=== PATIENT | female | born 1980 | race Caucasian/White ===

== ENCOUNTER 2017-05-09 06:44 | Emergency (ER) | payer OTHER ==
--- OUTSIDE RECORDS SUMMARY | 2017-05-09 06:46 | XMS REPORT ---
:1980 Author Organization eClinicalWorks Care Team Providers Name Role Phone Poncho Crespo Provider Role Unavailable Allergies No Known Allergies Problems Problem Type Condition Code Onset Dates Condition Status Problem Encounter for gynecological Z01.419 Active examination without abnormal finding Problem Infertility, anovulation N97.0 Active Problem Morbid (severe) obesity due to E66.01 Active excess calories Problem Migraine without aura and without G43.009 Active status migrainosus, not intractable Problem HTN (hypertension), benign I10 Active Problem Prediabetes R73.03 Active Problem Seasonal allergic rhinitis, J30.2 Active unspecified trigger Problem Amenorrhea N91.2 Active Problem Depression with anxiety F41.8 Active Problem Adult BMI 50.0-59.9 kg/sq m Z68.43 Active Assessment Prediabetes R73.03 Active Assessment Migraine without aura and without G43.009 Active status migrainosus, not intractable Assessment HTN (hypertension), benign I10 Active Assessment Adult BMI 50.0-59.9 kg/sq m Z68.43 Active Assessment Seasonal allergic rhinitis, J30.2 Active unspecified trigger Problem Body mass index (BMI) of 50-59.9 in Z68.43 Active adult Assessment Depression with anxiety F41.8 Active Problem Secondary hypertension I15.9 Active Medications Medication Code Code Instructions Start End Date Status Dosage System Date Zestoretic [facility] 09931671562 10-12.5 MG Active 1 tablet Orally Once a day Lisinopril-Hyd [facility] 71554327811 10-12.5 MG Active 1 tablet rochlorothiazi Orally Once a de day Results No Known Results Summary Purpose eClinicalWorks Submission
--- NOTE | 2017-05-09 07:18 | RAD REPORT ---
EXAM DESCRIPTION: CT - Ct Stroke Brain Wo Cont - 05/09/2017 7:06 am CLINICAL HISTORY: CVA COMPARISON: None. TECHNIQUE: All CT scans are performed using dose optimization technique as appropriate and may inclu de automated exposure control or mA/KV adjustment according to patient size. FINDINGS: No intracranial hemorrhage, hydrocephalus or extra-axial fluid collection.No areas of brai n edema or evidence of midline shift. The paranasal sinuses and mastoids are clear. The calvarium is intact. IMPRESSION: No acute intracranial abnormality. If there is continued clinical concern for CVA, MR imaging of the brain would be recommended.
[2017-05-09 07:33] LABS: Absolute Lymphocytes (CBC) 3.3 K/uL (0.7-4.9); Absolute Monocytes 0.8 K/uL (0.1-1.3); Absolute Neutrophil 7.7 K/uL (1.8-8.0); Basophils % 1.9 % (0-1.3); Eosinophils % 2.1 % (0-4.4); Hematocrit 41.9 % (36.0-45.0); Lymphocytes % 26.6 % (15.3-44.8); MCV 82.3 fL (80-100); MPV 8.6 fL (7.6-11.3); Monocytes % 6.2 % (3.3-12.3); RBC Red Blood Cell Count 5.09 M/uL (3.86-4.86)
[2017-05-09 07:37] LABS: Protime INR 0.94
[2017-05-09 07:42] LABS: Bicarbonate 25 mEq/L (21-31); Glucose Level 118 mg/dL (65-120); Potassium 3.9 mEq/L (3.6-5.0); Sodium Level 140 mEq/L (135-145)
[2017-05-09 07:43] LABS: BUN Blood Urea Nitrogen 14 mg/dL (6-20)
[2017-05-09] MEDS ORDERED: METOCLOPRAMIDE 10 MG/2mL INJ ONE (08:31)
[2017-05-09] MEDS ORDERED: DIPHENHYDRAMINE 50 MG/ML VIAL ONE (08:32)
[2017-05-09 08:42] LABS: Urine Blood NEGATIVE (NEG); Urine Glucose NEGATIVE (NEG); Urine Protein NEGATIVE (NEG); Urine Specific Gravity 1.025 (1.005-1.030); Urine pH 5.5 (5.0-7.0)
[2017-05-09 08:49] LABS: Urine Bacteria 20-50 /HPF (<20); Urine Culture Reflex Order NOT NEEDED; Urine Mucus MOD /HPF (NONE SEEN); Urine RBC NONE SEEN /HPF (NONE SEEN)
--- NOTE | 2017-05-09 08:50 | ER ---
Nurse's Notes [facility] Name: Shahnaz River Age: 36 yrs Sex: Female : 1980 Arrival Date: 05/09/2017 Time: 06:46 Bed 6 Private MD: Poncho Crespo Diagnosis: Transient cerebral ischemic attacks and related syndromes Presentation: 05/09 06:56 Presenting complaint: Patient states: at approx 0610 this am she suddenly lost the aa1 peripheral vision in her R eye and shortly after began to feel pressure in the right side of her head. Reports similar episode 2 days ago which lasted approx 45 mins then resolved. Transition of care: patient was not received from another setting of care. Onset of symptoms was May 09, 2017 at 06:10. Care prior to arrival: None. 06:56 Method Of Arrival: Ambulatory aa1 06:56 Acuity: TARIQ 2 aa1 07:00 No acute neurological deficit is noted. Pre-hospital glucose is not applicable to this jl7 patient. Triage Assessment: 07:00 The onset of the patients symptoms was May 09, 2017 at 06:10. General: Appears in no jl7 apparent distress. uncomfortable. Stroke Activation: Symptom onset < 3 hours Physician: Stroke Attending; Name: ; Notified At: ; Arrived At: Physician: Chief Stroke Resident; Name: ; Notified At: ; Arrived At: Physician: Stroke Resident; Name: ; Notified At: ; Arrived At: Physician: ED Attending; Name: ; Notified At: ; Arrived At: Physician: ED Resident; Name: ; Notified At: ; Arrived At: Historical: - Allergies: 07:01 No Known Allergies; aa1 - Home Meds: 07:01 lisinopril-hydrochlorothiazide 10-12.5 mg oral tab [Active]; aa1 - PMHx: 07:01 Hypertension; Migraines; aa1 - PSHx: 07:01 Appendectomy; aa1 - Immunization history:: Flu vaccine is not up to date. - Social history:: Smoking status: Patient/guardian denies using tobacco. Screenin:20 Abuse screen: Denies threats or abuse. Denies injuries from another. Nutritional jl7 screening: No deficits noted. Tuberculosis screening: No symptoms or risk factors identified. Fall Risk No fall in past 12 months (0 pts). Secondary diagnosis (15 points) TIA, IV access (20 points). Ambulatory Aid- None/Bed Rest/Nurse Assist (0 pts). Gait- Normal/Bed Rest/Wheelchair (0 pts) Mental Status- Oriented to own ability (0 pts). Total Barbosa Fall Scale indicates Low Risk Score (25-44 pts). Fall prevention measures have been instituted. Side Rails Up X 2 Placed close to Nursing Station Frequent Obs/Assesments occuring Family Present and informed to notify staff if they need to leave bedside As available Patient and Family Educated on Fall Prevention Program and strategies. Assessment: 07:10 The patient has not been NPO before screening. The patient is currently on the jl7 following diet: Regular The patient is alert, and able to follow commands. The patient does not exhibit slurred or garbled speech. The patient is not exhibiting difficulty speaking. The patient does not exhibit difficulty understanding words. The patient is able to swallow own secretions with no drooling or need for suction. Patient tolerated one teaspoon of water. No drooling, immediate coughing, gurgling, or clearing of the throat was noted. The patient tolerated 90mL of water. No drooling, immediate coughing, gurgling, or clearing of the throat was noted. The patient passed the bedside swallow screening. Oral medications may be given as ordered. Contact Physician for further diet orders. Provider notified of bedside swallow screening results: Freddy Chester MD. T-PA (Activase) Screening: Contraindications: Rapidly improving condition or minor deficit: Yes. 07:20 General: Appears in no apparent distress. uncomfortable, Behavior is calm, cooperative, jl7 appropriate for age. Pain: Complains of pain in top of head Pain does not radiate. Pain currently is 5 out of 10 on a pain scale. Quality of pain is described as pressure, Pain began 1 hour ago. Is continuous. Neuro: Level of Consciousness is awake, alert, obeys commands, Oriented to person, place, time, situation, Meat Selector are equal bilaterally Moves all extremities. Gait is steady, Speech is normal, Facial symmetry appears normal, Pupils are PERRLA. Cardiovascular: Heart tones S1 S2 present Patient's skin is warm and dry. Rhythm is. Respiratory: Airway is patent Respiratory effort is even, unlabored, Respiratory pattern is regular, symmetrical. GI: No signs and/or symptoms were reported involving the gastrointestinal system. : No signs and/or symptoms were reported regarding the genitourinary system. EENT: No signs and/or symptoms were reported regarding the EENT system. Derm: Skin is pink, warm \\T\\ dry. Musculoskeletal: No signs and/or symptoms reported regarding the musculoskeletal system. 08:30 Reassessment: No changes from previously documented assessment. Patient and/or family jl7 updated on plan of care and expected duration. Pain level reassessed. Patient is alert, oriented x 3, equal unlabored respirations, skin warm/dry/pink. 08:48 Reassessment: Report given to Nurse Josette at [facility] in [place]. Pt requesting to [facility] talk to Dr. Chester prior to signing for transfer. Dr. Chester notified and states he will be to the bedside momentarily. 09:20 Reassessment: Dr. Chester at bedside discussing plan of care. jl7 10:02 Reassessment: Pt states "My head still hurts." Rated 5/10. Provider notified, see MAR jl7 for orders. Vital Signs: 07:01 BP 159 / 98; Pulse 74; Resp 18; Temp 97.9; Pulse Ox 97% on R/A; Weight 158.76 kg; aa1 Height 5 ft. 7 in. (170.18 cm); Pain 4/10; 07:20 BP 153 / 96; Pulse 72; Resp 16; Pulse Ox 97% on R/A; Pain 5/10; jl7 08:00 BP 139 / 86; Pulse 59; Resp 16 S; Pulse Ox 99% on R/A; jl7 08:35 BP 149 / 84; Pulse 61; Resp 16 S; Pulse Ox 99% on R/A; jl7 09:30 BP 132 / 79; Pulse 87; Resp 16 S; Pulse Ox 98% on R/A; jl7 07:01 Body Mass Index 54.82 (158.76 kg, 170.18 cm) aa1 NIH Stroke Scale Scores: 07:10 NIHSS Score: 2 jl7 07:46 NIHSS Score: 2 ED Course: 06:46 Patient arrived in ED. am2 06:47 Poncho Crespo DO is Private Physician. am2 06:57 Freddy Chester MD is Attending Physician. 07:00 Triage completed. aa1 07:01 Arm band placed on right wrist. Patient placed in an exam room, on a stretcher. aa1 07:06 CT Stroke Brain w/o Contrast In Process Unspecified. EDMS 07:08 CT completed. Patient tolerated procedure well. Patient moved back from CT. bq 07:20 Patient has correct armband on for positive identification. Placed in gown. Bed in low jl7 position. Call light in reach. Side rails up X 1. threat monitoring analyst on. Pulse ox on. NIBP on. Warm blanket given. 07:20 Initial lab(s) drawn, by me, sent to lab. Inserted saline lock: 22 gauge in left hand, jl7 using aseptic technique. Blood collected. 07:27 Stroke CXR 1 View In Process Unspecified. EDMS 07:34 Tio Conde RN is Primary Nurse. jl7 07:45 EKG done, by ED staff, reviewed by Freddy Chester MD. jb1 09:59 No provider procedures requiring assistance completed. Patient transferred, IV remains jl7 in place. intact, No redness/swelling at site. Administered Medications: 08:35 Drug: Reglan 5 mg Route: IVP; Site: left hand; jl7 10:01 Follow up: Response: No adverse reaction jl7 08:36 Drug: Benadryl 25 mg Route: IVP; Site: left hand; jl7 10:01 Follow up: Response: No adverse reaction jl7 10:06 Drug: [place] 5 mg-325 mg 1 tabs Route: PO; jl7 10:06 Follow up: Response: Medication administered at discharge. jl7 Point of Care Testing: Blood Glucose: 07:20 Blood Glucose: 104 mg/dL; jl7 Ranges: Outcome: 08:50 ER care complete, transfer ordered by gs 09:59 Transferred by ground EMS to [facility], Transfer form completed. jl7 09:59 Condition: stable 09:59 Discharge instructions given to patient, Instructed on the need for transfer, Demonstrated understanding of instructions. 10:09 Patient left the ED. jl7 NIH Stroke Scale - NIH Stroke Score Date: 05/09/2017 Time: 07:10 Total Score = 2 1a. Level of Consciousness (LOC) - 0(Alert) 1b. Level of Consciousness (LOC) (Year \\T\\ Age) - 0(Both) 1c. LOC Commands (Open \\T\\ Closes Eyes/Green Energy Marketing Analyst) - 0(Both) 2. Best Gaze (Lateral Gaze Paresis) - 0(Normal) 3. Visual Field Loss - 1(Partial hemianopia) 4. Facial Palsy - 0(Normal) 5a. Left Arm: Motor (10-second hold) - 0(No drift) 5b. Right Arm: Motor (10-second hold) - 0(No drift) 6a. Left Leg: Motor (5-second hold - always test supine) - 0(No drift) 6b. Right Leg: Motor (5-second hold - always test supine) - 0(No drift) 7. Limb Ataxia (finger/nose \\T\\ heel/arias - test with eyes open) - 0(Absent) 8. Sensory Loss (pinprick arms/legs/face) - 1(Mild to moderate loss) 9. Best Language: Aphasia (description/naming/reading) - 0(No aphasia) 10. Dysarthria (speech clarity - read or repeat words) - 0(Normal) 11. Extinction and Inattention (visual/tactile/auditory/spatial/personal) - 0(No abnormality) Initials: jl7 NIH Stroke Scale - NIH Stroke Score Date: 05/09/2017 Time: 07:46 Total Score = 2 1a. Level of Consciousness (LOC) - 0(Alert) 1b. Level of Consciousness (LOC) (Year \\T\\ Age) - 0(Both) 1c. LOC Commands (Open \\T\\ Closes Eyes/Green Energy Marketing Analyst) - 0(Both) 2. Best Gaze (Lateral Gaze Paresis) - 0(Normal) 3. Visual Field Loss - 1(Partial hemianopia) 4. Facial Palsy - 0(Normal) 5a. Left Arm: Motor (10-second hold) - 0(No drift) 5b. Right Arm: Motor (10-second hold) - 0(No drift) 6a. Left Leg: Motor (5-second hold - always test supine) - 0(No drift) 6b. Right Leg: Motor (5-second hold - always test supine) - 0(No drift) 7. Limb Ataxia (finger/nose \\T\\ heel/arias - test with eyes open) - 0(Absent) 8. Sensory Loss (pinprick arms/legs/face) - 1(Mild to moderate loss) 9. Best Language: Aphasia (description/naming/reading) - 0(No aphasia) 10. Dysarthria (speech clarity - read or repeat words) - 0(Normal) 11. Extinction and Inattention (visual/tactile/auditory/spatial/personal) - 0(No abnormality) Initials: gs Signatures: Dispatcher [employer] Will Sam1 Starla Kennedy RN RN aa1 Charla Manriquez Jahala, RN RN jl7 Yessenia Eastman am2 Freddy Chester MD MD gs
--- NOTE | 2017-05-09 08:50 | EDPHYS ---
Physician Documentation [facility] Name: Shahnaz River Age: 36 yrs Sex: Female : 1980 Arrival Date: 05/09/2017 Time: 06:46 Bed 6 Private MD: Zak [facility] ED Physician Freddy Chester HPI: 05/09 08:27 This 36 yrs old Female presents to ER via Ambulatory with complaints of gs Weakness - right side, Blurred Vision - right eye. 08:27 The patient presents to the emergency department with paresthesias of the right side of gs the face, a vision problem, right visual field loss. Onset: The symptoms/episode began/occurred at 05:00. Context: occurred at home. Associated signs and symptoms: Pertinent positives: headache, mild, gradual onset not thunderclap. Severity of symptoms: At their worst the symptoms were moderate in the emergency department the symptoms are unchanged. Patient's baseline: Neuro: alert and fully oriented, Motor: no deficits, Ambulation: walks without assistance, Speech: normal. Current symptoms: paralysis or paresis, visual disturbance. The patient has experienced a previous episode, approximately 2 days ago, and the symptoms today are exactly the same. Historical: - Allergies: 07:01 No Known Allergies; aa1 - Home Meds: 07:01 lisinopril-hydrochlorothiazide 10-12.5 mg oral tab [Active]; aa1 - PMHx: 07:01 Hypertension; Migraines; aa1 - PSHx: 07:01 Appendectomy; aa1 - Immunization history:: Flu vaccine is not up to date. - Social history:: Smoking status: Patient/guardian denies using tobacco. ROS: 08:27 All other systems are negative. gs Exam: 08:27 Head/Face: Normocephalic, atraumatic. Eyes: Pupils equal round and reactive to light, gs extra-ocular motions intact. Lids and lashes normal. Conjunctiva and sclera are non-icteric and not injected. Cornea within normal limits. Periorbital areas with no swelling, redness, or edema. ENT: Nares patent. No nasal discharge, no septal abnormalities noted. Tympanic membranes are normal and external auditory canals are clear. Oropharynx with no redness, swelling, or masses, exudates, or evidence of obstruction, uvula midline. Mucous membranes moist. Neck: Trachea midline, no thyromegaly or masses palpated, and no cervical lymphadenopathy. Supple, full range of motion without nuchal rigidity, or vertebral point tenderness. No Meningismus. Chest/axilla: Normal chest wall appearance and motion. Nontender with no deformity. No lesions are appreciated. Cardiovascular: Regular rate and rhythm with a normal S1 and S2. No gallops, murmurs, or rubs. Normal PMI, no JVD. No pulse deficits. Respiratory: Lungs have equal breath sounds bilaterally, clear to auscultation and percussion. No rales, rhonchi or wheezes noted. No increased work of breathing, no retractions or nasal flaring. Abdomen/GI: Soft, non-tender, with normal bowel sounds. No distension or tympany. No guarding or rebound. No evidence of tenderness throughout. Back: No spinal tenderness. No costovertebral tenderness. Full range of motion. Skin: Warm, dry with normal turgor. Normal color with no rashes, no lesions, and no evidence of cellulitis. MS/ Extremity: Pulses equal, no cyanosis. Neurovascular intact. Full, normal range of motion. 08:27 Constitutional: The patient appears alert, awake. 08:27 Eyes: Visual miller: upper altitudinal loss noted. 08:27 ECG was reviewed by the Attending Physician. 08:42 Neuro: Orientation: is normal, Mentation: is normal, Memory: is normal, Cranial nerves: gs normal except sensation right face, Cerebellar function: is grossly normal, Motor: is normal, Sensation: tingling, that is mild, of the right side of forehead, right zygomatic area and right cheek. Vital Signs: 07:01 BP 159 / 98; Pulse 74; Resp 18; Temp 97.9; Pulse Ox 97% on R/A; Weight 158.76 kg; aa1 Height 5 ft. 7 in. (170.18 cm); Pain 4/10; 07:20 BP 153 / 96; Pulse 72; Resp 16; Pulse Ox 97% on R/A; Pain 5/10; jl7 08:00 BP 139 / 86; Pulse 59; Resp 16 S; Pulse Ox 99% on R/A; jl7 08:35 BP 149 / 84; Pulse 61; Resp 16 S; Pulse Ox 99% on R/A; jl7 09:30 BP 132 / 79; Pulse 87; Resp 16 S; Pulse Ox 98% on R/A; 7 07:01 Body Mass Index 54.82 (158.76 kg, 170.18 cm) aa1 NIH Stroke Scale Scores: 07:10 NIHSS Score: 2 jl7 07:46 NIHSS Score: 2 MDM: 07:17 Patient medically screened. 08:27 Data reviewed: vital signs. 08:42 Response to treatment: the patient's symptoms have mildly improved after treatment. 05/09 06:59 Order name: Basic Metabolic Panel; Complete Time: 08:10 05/09 06:59 Order name: CBC with Diff; Complete Time: 08:10 05/09 06:59 Order name: Protime (+inr); Complete Time: 08:10 05/09 06:59 Order name: Urine Microscopic Only; Complete Time: 08:50 05/09 08:41 Order name: Urine Dipstick--Ancillary (enter results); Complete Time: 08:50 ms 05/09 08:41 Order name: Urine --Ancillary (enter results); Complete Time: 08:50 ms 05/09 06:59 Order name: CT Stroke Brain w/o Contrast; Complete Time: 08:10 05/09 06:59 Order name: Stroke CXR 1 View 05/09 06:59 Order name: EKG; Complete Time: 07:00 05/09 06:59 Order name: Accucheck; Complete Time: 07:48 05/09 06:59 Order name: Cardiac monitoring; Complete Time: 07:48 05/09 06:59 Order name: EKG - Nurse/Tech; Complete Time: 07:48 05/09 06:59 Order name: IV Saline Lock; Complete Time: 07:48 05/09 06:59 Order name: Labs collected and sent; Complete Time: 07:48 05/09 06:59 Order name: NPO; Complete Time: 07:49 05/09 06:59 Order name: O2 Per Protocol; Complete Time: 07:49 05/09 06:59 Order name: O2 Sat Monitoring; Complete Time: 07:49 05/09 06:59 Order name: Stroke Swallow Screen; Complete Time: 07:49 Administered Medications: 08:35 Drug: Reglan 5 mg Route: IVP; Site: left hand; jl7 10:01 Follow up: Response: No adverse reaction jl7 08:36 Drug: Benadryl 25 mg Route: IVP; Site: left hand; jl7 10:01 Follow up: Response: No adverse reaction jl7 10:06 Drug: [place] 5 mg-325 mg 1 tabs Route: PO; jl7 10:06 Follow up: Response: Medication administered at discharge. jl7 Point of Care Testing: Blood Glucose: 07:20 Blood Glucose: 104 mg/dL; jl7 Ranges: Critical Glucose Levels:Adult <50 mg/dl or >400 mg/dl <40 mg/dl or >180 mg/dl Disposition: 05/09/17 08:50 Transfer ordered to [facility]. Diagnosis is Transient cerebral ischemic attacks and related syndromes. - Reason for transfer: Higher level of care. - Accepting physician is mayela. - Condition is Stable. - Problem is new. - Symptoms have improved. NIH Stroke Scale - NIH Stroke Score Date: 05/09/2017 Time: 07:10 Total Score = 2 1a. Level of Consciousness (LOC) - 0(Alert) 1b. Level of Consciousness (LOC) (Year \T\ Age) - 0(Both) 1c. LOC Commands (Open \T\ Closes Eyes/Steam Blocker) - 0(Both) 2. Best Gaze (Lateral Gaze Paresis) - 0(Normal) 3. Visual Field Loss - 1(Partial hemianopia) 4. Facial Palsy - 0(Normal) 5a. Left Arm: Motor (10-second hold) - 0(No drift) 5b. Right Arm: Motor (10-second hold) - 0(No drift) 6a. Left Leg: Motor (5-second hold - always test supine) - 0(No drift) 6b. Right Leg: Motor (5-second hold - always test supine) - 0(No drift) 7. Limb Ataxia (finger/nose \T\ heel/arias - test with eyes open) - 0(Absent) 8. Sensory Loss (pinprick arms/legs/face) - 1(Mild to moderate loss) 9. Best Language: Aphasia (description/naming/reading) - 0(No aphasia) 10. Dysarthria (speech clarity - read or repeat words) - 0(Normal) 11. Extinction and Inattention (visual/tactile/auditory/spatial/personal) - 0(No abnormality) Initials: jl7 NIH Stroke Scale - NIH Stroke Score Date: 05/09/2017 Time: 07:46 Total Score = 2 1a. Level of Consciousness (LOC) - 0(Alert) 1b. Level of Consciousness (LOC) (Year \T\ Age) - 0(Both) 1c. LOC Commands (Open \T\ Closes Eyes/Steam Blocker) - 0(Both) 2. Best Gaze (Lateral Gaze Paresis) - 0(Normal) 3. Visual Field Loss - 1(Partial hemianopia) 4. Facial Palsy - 0(Normal) 5a. Left Arm: Motor (10-second hold) - 0(No drift) 5b. Right Arm: Motor (10-second hold) - 0(No drift) 6a. Left Leg: Motor (5-second hold - always test supine) - 0(No drift) 6b. Right Leg: Motor (5-second hold - always test supine) - 0(No drift) 7. Limb Ataxia (finger/nose \T\ heel/arias - test with eyes open) - 0(Absent) 8. Sensory Loss (pinprick arms/legs/face) - 1(Mild to moderate loss) 9. Best Language: Aphasia (description/naming/reading) - 0(No aphasia) 10. Dysarthria (speech clarity - read or repeat words) - 0(Normal) 11. Extinction and Inattention (visual/tactile/auditory/spatial/personal) - 0(No abnormality) Initials: Addendum: 05/11/2017 07:28 Addendum: did not administer TPA, discussed with patient she declined based on gs risk benefits of low stroke scale, improving symptoms, and risk of bleeding complication of medicine. Plan agreed by me and stroke neuro at [facility].. Signatures: Dispatcher [employer] EDStarla Mckeon RN RN aa1 Tio Conde RN RN jl7 Freddy Chester MD MD gs Corrections: (The following items were deleted from the chart) 05/09 08:45 08:27 Rate is 69 beats/min. Rhythm is regular. TN interval is normal. QRS gs interval is normal. T waves are Flattened. No ST changes noted. Clinical impression: Abnormal EKG without significant change. Interpreted by me. gs
[2017-05-09] MEDS ORDERED: HYDROCODONE/APAP 5/325 MG TAB ONE (10:24)
--- NOTE | 2017-05-09 11:00 | RAD REPORT ---
EXAM DESCRIPTION: RAD - Chest Single View - 05/09/2017 7:27 am CLINICAL HISTORY: Chest pain, hypertension. COMPARISON: 03/19/2016 FINDINGS: Portable technique limits examination quality. The lungs are grossly clear. The heart is normal in size. No displaced fractures. IMPRESSION: No acute intrathoracic process suspected.
--- NOTE | 2017-05-10 12:49 | EKG ---
Test Date: 2017-05-09 Test Time: 07:47:55 [employer] Driver: PAULA MEASUREMENT RESULTS: Intervals: Rate: 69 MS: 158 QRSD: 90 QT: 408 QTc: 437 [place]: P: 11 MS: 158 QRS: 36 T: 56 INTERPRETIVE STATEMENTS: Normal sinus rhythm Normal ECG Compared to ECG 03/18/2016 23:24:20 Sinus tachycardia no longer present Electronically Signed On 05-10-17 12:48:31 CDT by Alex Obregon
== END 2017-05-09 10:09 | disposition short-term general hospital (02) ==
LOC: ER 06:44
DX: G45.8 Other transient cerebral ischemic attacks and related syndromes (principal); I10 Essential (primary) hypertension; R29.702 NIHSS score 2
CPT/HCPCS: 36415; 70450; 71045; 80048; 81003; 81015; 81025; 82962; 85025; 85610; 93005; 96374; 96375; 99285; J2765

== ENCOUNTER 2017-08-26 14:31 | Emergency (ER) | payer OTHER ==
--- OUTSIDE RECORDS SUMMARY | 2017-08-26 14:33 | XMS REPORT | Clinical Summary ---
:1980 Author Organization [facility] Address [address] [place] [address] Phone Care Team Providers Name Role Phone Unavailable Primary Care Provider Unavailable Allergies No Known Allergies Current Medications Prescription Sig. Disp. Refills Start Date End Date Status lisinopril-hydroCHLORO Take 1 tablet by Active thiazide mouth daily. (PRINZIDE,ZESTORETIC) 10-12.5 mg per tablet aspirin 81 MG chewable Take 1 tablet 30 tablet 11 05/12/2017 05/12/2018 Active tablet (81 mg total) by mouth daily. atorvastatin (LIPITOR) Take 1 tablet 30 tablet 11 05/11/2017 05/11/2018 Active 40 MG tablet (40 mg total) by mouth daily. Active Problems Problem Noted Date Amaurosis fugax 05/09/2017 Essential hypertension 05/09/2017 Morbid obesity (HCC) 05/09/2017 TIA (transient ischemic attack) 05/09/2017 Encounters Date Type Specialty Care Team Description 05/09/2017 - Hospital Encounter General Internal Raffaele, Amaurosis 05/11/2017 Medicine MD Deepak fugax;Essential Sherice, Sade hypertension;Morbid MD Danny obesity (HCC);Migraine with aura and without status migrainosus, not intractable after 08/25/2016 Social History Tobacco Use Types Packs/Day Years Used Date Never Smoker Smokeless Tobacco: Never Used Sex Assigned at Date Recorded Not on file Last Filed Vital Signs Vital Sign Reading Time Taken Blood Pressure 141/85 05/11/2017 7:56 AM CDT Pulse 67 05/11/2017 7:56 AM CDT Temperature 35.6 C (96.1 F) 05/11/2017 7:56 AM CDT Respiratory Rate 20 05/11/2017 7:56 AM CDT Oxygen Saturation 94% 05/11/2017 7:56 AM CDT Inhaled Oxygen Concentration - - Weight 161.9 kg (357 lb) 05/09/2017 11:00 AM CDT Height 170.2 cm (5' 7") 05/09/2017 11:00 AM CDT Body Mass Index 55.91 05/09/2017 11:00 AM CDT Plan of Treatment Not on file Results EKG-SCANNED (05/12/2017 11:00 AM)RHYTHM STRIP - SCAN (05/12/2017 11:00 AM)MR brain without & with IV contrast (05/10/2017 3:04 PM) Specimen Performing Laboratory [facility] Narrative FINAL REPORT MRI brain with and without contrast Comparison:No priors Reason for exam: Stroke Ischemic Stroke Evaluation Discussion: Multiplanar MR imaging of the brain was provided [id number] IV gadolinium administration using T1, T2, FLAIR, FFE, diffusion weighted sequences, and ADC map imaging. There are no intracranial hematomas, masses, hydrocephalus, shift, or extra-axial collections. There are no areas of abnormal enhancement or abnormal diffusion restriction. Cerebellar tonsils are slightly low-lying. Flow-voids are seen in the basilar and internal carotid arteries as well as in the large posterior dural sinuses. The pineal, sella, and craniocervical junction regions are within normal limits. The visualized orbital contents, skullbase and surrounding soft tissues are unremarkable. The visualized paranasal sinuses and mastoid air cells are unremarkable. Impressions: No acute intracranial process. MRA head and neck without contrast. COMPARISON: None available. TECHNIQUE: 2 D and 3-D [id number] MRA images of the intra- and extracranial carotid and vertebral arterial circulations were obtained, from which maximal intensity projection 3-D reconstructions were created. FINDINGS: MRA neck: There is no MR angiographic evidence for vessel occlusion or NASCET quantifiable stenosis in the extracranial carotid arteries. No hemodynamically significant stenosis identified in the vertebral artery, flow is antegrade in both vertebral arteries. MRA nikolai of [place]: There is no MR angiographic evidence for vessel occlusion, flow-limiting stenosis, or aneurysm in the intracranial carotid or vertebrobasilar arterial circulations. IMPRESSION: 1.No MR angiographic evidence for vascular compromise. Signed: Adele Holden MD Report Verified Date/Time:05/10/2017 15:22:22 Reading Location: [address] Neuro Reading Room Procedure Note Interface, External Ris In - 05/10/2017 4:03 PM CDT FINAL REPORT MRI brain with and without contrast Comparison: No priors Reason for exam: Stroke Ischemic Stroke Evaluation Discussion: Multiplanar MR imaging of the brain was provided [id number] IV gadolinium administration using T1, T2, FLAIR, FFE, diffusion weighted sequences, and ADC map imaging. There are no intracranial hematomas, masses, hydrocephalus, shift, or extra-axial collections. There are no areas of abnormal enhancement or abnormal diffusion restriction. Cerebellar tonsils are slightly low-lying. Flow-voids are seen in the basilar and internal carotid arteries as well as in the large posterior dural sinuses. The pineal, sella, and craniocervical junction regions are within normal limits. The visualized orbital contents, skullbase and surrounding soft tissues are unremarkable. The visualized paranasal sinuses and mastoid air cells are unremarkable. Impressions: No acute intracranial process. MRA head and neck without contrast. COMPARISON: None available. TECHNIQUE: 2 D and 3-D [id number] MRA images of the intra- and extracranial carotid and vertebral arterial circulations were obtained, from which maximal intensity projection 3-D reconstructions were created. FINDINGS: MRA neck: There is no MR angiographic evidence for vessel occlusion or NASCET quantifiable stenosis in the extracranial carotid arteries. No hemodynamically significant stenosis identified in the vertebral artery, flow is antegrade in both vertebral arteries. MRA nikolai of [place]: There is no MR angiographic evidence for vessel occlusion, flow-limiting stenosis, or aneurysm in the intracranial carotid or vertebrobasilar arterial circulations. IMPRESSION: 1. No MR angiographic evidence for vascular compromise. Signed: Adele Holden MD Report Verified Date/Time: 05/10/2017 15:22:22 Reading Location: [address] Neuro Reading Room neck without IV contrast (05/10/2017 3:04 PM) Specimen Performing Laboratory RIS Narrative FINAL REPORT MRI brain with and without contrast Comparison:No priors Reason for exam: Stroke Ischemic Stroke Evaluation Discussion: Multiplanar MR imaging of the brain was provided [id number] IV gadolinium administration using T1, T2, FLAIR, FFE, diffusion weighted sequences, and ADC map imaging. There are no intracranial hematomas, masses, hydrocephalus, shift, or extra-axial collections. There are no areas of abnormal enhancement or abnormal diffusion restriction. Cerebellar tonsils are slightly low-lying. Flow-voids are seen in the basilar and internal carotid arteries as well as in the large posterior dural sinuses. The pineal, sella, and craniocervical junction regions are within normal limits. The visualized orbital contents, skullbase and surrounding soft tissues are unremarkable. The visualized paranasal sinuses and mastoid air cells are unremarkable. Impressions: No acute intracranial process. MRA head and neck without contrast. COMPARISON: None available. TECHNIQUE: 2 D and 3-D eriu-zk-sugdev MRA images of the intra- and extracranial carotid and vertebral arterial circulations were obtained, from which maximal intensity projection 3-D reconstructions were created. FINDINGS: MRA neck: There is no MR angiographic evidence for vessel occlusion or NASCET quantifiable stenosis in the extracranial carotid arteries. No hemodynamically significant stenosis identified in the vertebral artery, flow is antegrade in both vertebral arteries. MRA nikolai of [place]: There is no MR angiographic evidence for vessel occlusion, flow-limiting stenosis, or aneurysm in the intracranial carotid or vertebrobasilar arterial circulations. IMPRESSION: 1.No MR angiographic evidence for vascular compromise. Signed: Adele Holden MD Report Verified Date/Time:05/10/2017 15:22:22 Reading Location: [address] Neuro Reading Room Procedure Note Interface, External Ris In - 05/10/2017 4:03 PM CDT FINAL REPORT MRI brain with and without contrast Comparison: No priors Reason for exam: Stroke Ischemic Stroke Evaluation Discussion: Multiplanar MR imaging of the brain was provided [id number]-pano IV gadolinium administration using T1, T2, FLAIR, FFE, diffusion weighted sequences, and ADC map imaging. There are no intracranial hematomas, masses, hydrocephalus, shift, or extra-axial collections. There are no areas of abnormal enhancement or abnormal diffusion restriction. Cerebellar tonsils are slightly low-lying. Flow-voids are seen in the basilar and internal carotid arteries as well as in the large posterior dural sinuses. The pineal, sella, and craniocervical junction regions are within normal limits. The visualized orbital contents, skullbase and surrounding soft tissues are unremarkable. The visualized paranasal sinuses and mastoid air cells are unremarkable. Impressions: No acute intracranial process. MRA head and neck without contrast. COMPARISON: None available. TECHNIQUE: 2 D and 3-D oejw-sa-[id number] MRA images of the intra- and extracranial carotid and vertebral arterial circulations were obtained, from which maximal intensity projection 3-D reconstructions were created. FINDINGS: MRA neck: There is no MR angiographic evidence for vessel occlusion or NASCET quantifiable stenosis in the extracranial carotid arteries. No hemodynamically significant stenosis identified in the vertebral artery, flow is antegrade in both vertebral arteries. MRA nikolai of [place]: There is no MR angiographic evidence for vessel occlusion, flow-limiting stenosis, or aneurysm in the intracranial carotid or vertebrobasilar arterial circulations. IMPRESSION: 1. No MR angiographic evidence for vascular compromise. Signed: Adele Holden MD Report Verified Date/Time: 05/10/2017 15:22:22 Reading Location: [address] Neuro Reading Room head without IV contrast (05/10/2017 3:04 PM) Specimen Performing Laboratory [facility] Narrative FINAL REPORT MRI brain with and without contrast Comparison:No priors Reason for exam: Stroke Ischemic Stroke Evaluation Discussion: Multiplanar MR imaging of the brain was provided ktl-lln-skgb IV gadolinium administration using T1, T2, FLAIR, FFE, diffusion weighted sequences, and ADC map imaging. There are no intracranial hematomas, masses, hydrocephalus, shift, or extra-axial collections. There are no areas of abnormal enhancement or abnormal diffusion restriction. Cerebellar tonsils are slightly low-lying. Flow-voids are seen in the basilar and internal carotid arteries as well as in the large posterior dural sinuses. The pineal, sella, and craniocervical junction regions are within normal limits. The visualized orbital contents, skullbase and surrounding soft tissues are unremarkable. The visualized paranasal sinuses and mastoid air cells are unremarkable. Impressions: No acute intracranial process. MRA head and neck without contrast. COMPARISON: None available. TECHNIQUE: 2 D and 3-D [id number] MRA images of the intra- and extracranial carotid and vertebral arterial circulations were obtained, from which maximal intensity projection 3-D reconstructions were created. FINDINGS: MRA neck: There is no MR angiographic evidence for vessel occlusion or NASCET quantifiable stenosis in the extracranial carotid arteries. No hemodynamically significant stenosis identified in the vertebral artery, flow is antegrade in both vertebral arteries. MRA nikolai of [place]: There is no MR angiographic evidence for vessel occlusion, flow-limiting stenosis, or aneurysm in the intracranial carotid or vertebrobasilar arterial circulations. IMPRESSION: 1.No MR angiographic evidence for vascular compromise. Signed: Adele Holden MD Report Verified Date/Time:05/10/2017 15:22:22 Reading Location: [id number] Neuro Reading Room Procedure Note Interface, External Ris In - 05/10/2017 4:03 PM CDT FINAL REPORT MRI brain with and without contrast Comparison: No priors Reason for exam: Stroke Ischemic Stroke Evaluation Discussion: Multiplanar MR imaging of the brain was provided ayt-[id number]-zsgx IV gadolinium administration using T1, T2, FLAIR, FFE, diffusion weighted sequences, and ADC map imaging. There are no intracranial hematomas, masses, hydrocephalus, shift, or extra-axial collections. There are no areas of abnormal enhancement or abnormal diffusion restriction. Cerebellar tonsils are slightly low-lying. Flow-voids are seen in the basilar and internal carotid arteries as well as in the large posterior dural sinuses. The pineal, sella, and craniocervical junction regions are within normal limits. The visualized orbital contents, skullbase and surrounding soft tissues are unremarkable. The visualized paranasal sinuses and mastoid air cells are unremarkable. Impressions: No acute intracranial process. MRA head and neck without contrast. COMPARISON: None available. TECHNIQUE: 2 D and 3-D [id number]-tu-[id number] MRA images of the intra- and extracranial carotid and vertebral arterial circulations were obtained, from which maximal intensity projection 3-D reconstructions were created. FINDINGS: MRA neck: There is no MR angiographic evidence for vessel occlusion or NASCET quantifiable stenosis in the extracranial carotid arteries. No hemodynamically significant stenosis identified in the vertebral artery, flow is antegrade in both vertebral arteries. MRA nikolai of [place]: There is no MR angiographic evidence for vessel occlusion, flow-limiting stenosis, or aneurysm in the intracranial carotid or vertebrobasilar arterial circulations. IMPRESSION: 1. No MR angiographic evidence for vascular compromise. Signed: Adele Holden MD Report Verified Date/Time: 05/10/2017 15:22:22 Reading Location: [id number] Neuro Reading Room Troponin I (05/10/2017 5:24 AM) Component Value Ref Range Troponin I 0.01 0.00 - 0.03 ng/mL Specimen Performing Laboratory Blood [address] [address] Narrative Troponin I (TnI) levels must be interpreted in the context of the presenting symptoms and the clinical findings. Elevated TnI levels indicate myocardial damage, but are not specific for ischemic heart disease. Elevated TnI levels are seen in patients with other cardiac conditions (including myocarditis and congestive heart failure), and slight TnI elevations occur in patients with other conditions, including sepsis, renal failure, acidosis, acute neurological disease, and persistent tachyarrhythmia. Magnesium (05/10/2017 5:24 AM) Component Value Ref Range Magnesium 2.2 1.6 - 2.6 mg/dL Specimen Performing Laboratory Blood [address] [address] Hemoglobin A1c (05/10/2017 5:24 AM) Component Value Ref Range Hemoglobin A1C 5.9 4.3 - 6.1 % Specimen Performing Laboratory Blood [address] [address] Lipid panel (05/10/2017 5:24 AM) Component Value Ref Range Triglycerides 163 mg/dL Cholesterol 149 mg/dL HDL 30 mg/dL LDL Calculated 86 mg/dL Specimen Performing Laboratory Blood [address] [address] Narrative Triglyceride Reference Range: Low Risk <150 [id number] High Risk 200-499 Very High Risk>=500 Cholesterol Reference Range: Low Risk <200 [id number] High Risk>240 HDL Cholesterol Reference Range: Low Risk >=60 High Risk <40 LDL Cholesterol Reference Range: Optimal<100 Near [id number] Very High >=190 Basic metabolic panel (05/10/2017 5:24 AM) Component Value Ref Range Sodium 137 136 - 145 meq/L Potassium 3.9 3.5 - 5.1 meq/L Chloride 104 98 - 107 meq/L CO2 23 22 - 29 meq/L BUN 14 7 - 21 mg/dL Creatinine 0.73 0.57 - 1.25 mg/dL Glucose 100 70 - 105 mg/dL Calcium 8.7 8.4 - 10.2 mg/dL EGFR 91Comment: ESTIMATED GFR IS NOT ACCURATE mL/min/1.73 sq m CREATININE CLEARANCE IN PREDICTING GLOMERULAR FILTRATION RATE. ESTIMATED GFR IS NOT APPLICABLE FOR DIALYSIS PATIENTS. Specimen Performing Laboratory Blood [address] [address] Urine culture (05/09/2017 8:07 PM) Component Value Ref Range Result >100,000 col/mL skin tona Specimen Performing Laboratory Urine - Urine, Voided [address] [address] after 08/25/2016
--- OUTSIDE RECORDS SUMMARY | 2017-08-26 14:33 | XMS REPORT ---
[...] End Date Status Dosage System Date Zestoretic [facility] 65554418945 10-12.5 MG Active 1 tablet Orally Once a day Lisinopril-Hyd [facility] 79456164349 10-12.5 MG Active 1 tablet rochlorothiazi Orally Once a de day Results No Known Results Summary Purpose eClinicalWorks Submission
--- OUTSIDE RECORDS SUMMARY | 2017-08-26 14:34 | XMS REPORT ---
:1980 Author Organization eClinicalWorks Care Team Providers Name Role Phone Poncho Crespo Provider Role Unavailable Allergies No Known Allergies Problems Problem Type Condition Code Onset Dates Condition Status Problem HTN (hypertension), benign I10 Active Problem Seasonal allergic rhinitis, J30.2 Active unspecified trigger Problem Depression with anxiety F41.8 Active Problem Migraine with aura and without G43.109 Active status migrainosus, not intractable Assessment Migraine with aura and without G43.109 Active status migrainosus, not intractable Problem Hypersomnia G47.10 Active Assessment Adult BMI 50.0-59.9 kg/sq m Z68.43 Active Assessment Depression with anxiety F41.8 Active Problem Menorrhagia with irregular cycle N92.1 Active Problem Prediabetes R73.03 Active Problem Adult BMI 50.0-59.9 kg/sq m Z68.43 Active Problem NATA (obstructive sleep apnea) G47.33 Active Problem PCOS (polycystic ovarian syndrome) E28.2 Active Assessment HTN (hypertension), benign I10 Active Assessment PCOS (polycystic ovarian syndrome) E28.2 Active Assessment NATA (obstructive sleep apnea) G47.33 Active Problem Amenorrhea N91.2 Active Problem Secondary hypertension I15.9 Active Assessment Prediabetes R73.03 Active Problem Body mass index (BMI) of 50-59.9 in Z68.43 Active adult Problem Encounter for gynecological Z01.419 Active examination without abnormal finding Assessment Seasonal allergic rhinitis, J30.2 Active unspecified trigger Problem Infertility, anovulation N97.0 Active Problem Morbid (severe) obesity due to E66.01 Active excess calories Medications Medication Code Code Instructions Start End Status Dosage System Date Date Propranolol HCl [facility] 18295385416 160 MG Orally August 05, Active 1 capsule ER Once a day 2017 Lipitor [facility] 16532711673 40 MG Orally Active 1 tablet Once a day Propranolol HCl ND 93838715301 80 MG Orally Inactive 1 tablet Twice a day Metformin HCl ND 67889322884 500 MG Orally August 05, Active 1 tablet TID 2018 with a meal Aspirin 81 [facility] 53071382350 81 MG Orally Active 1 tablet Once a day Results No Known Results Summary Purpose eClinicalWorks Submission
--- OUTSIDE RECORDS SUMMARY | 2017-08-26 14:34 | XMS REPORT ---
:1980 Author Organization eClinicalWorks Care Team Providers Name Role Phone Poncho Crespo Provider Role Unavailable Allergies, Adverse Reactions, Alerts Substance Reaction Event Type N.K.D.A. Info Not Available Non Drug Allergy Problems Problem Type Condition Code Onset Dates Condition Status Problem Morbid (severe) obesity due to E66.01 Active excess calories Problem Amenorrhea N91.2 Active Problem Infertility, anovulation N97.0 Active Problem Hypersomnia G47.10 Active Problem Prediabetes R73.03 Active Problem Migraine with aura and without G43.109 Active status migrainosus, not intractable Problem Adult BMI 50.0-59.9 kg/sq m Z68.43 Active Problem Seasonal allergic rhinitis, J30.2 Active unspecified trigger Problem HTN (hypertension), benign I10 Active Problem Depression with anxiety F41.8 Active Assessment Pharyngitis, unspecified etiology J02.9 Active Problem Body mass index (BMI) of 50-59.9 in Z68.43 Active adult Problem Secondary hypertension I15.9 Active Problem Encounter for gynecological Z01.419 Active examination without abnormal finding Medications Medication Code Code Instructions Start End Date Status Dosage System Date Lipitor [facility] 32785357432 40 MG Orally Active 1 tablet Once a day Aspirin 81 [facility] 35851036785 81 MG Orally Active 1 tablet Once a day Propranolol HCl [facility] 46324102298 80 MG Orally May Active 1 tablet once a day 2017 Amoxicillin [facility] 69446892322 875 MG Orally May Active 1 tablet every 12 hrs 2017 Results Name Result Date Reference Range Unit Abnormality Flag STREP A RAPID ----Result Negative [id number] Summary Purpose eClinicalWorks Submission
--- OUTSIDE RECORDS SUMMARY | 2017-08-26 14:34 | XMS REPORT ---
:1980 Author Organization [employer] Care Team Providers Name Role Phone Ayush Mracelo Provider Role Unavailable Allergies, Adverse Reactions, Alerts Substance Reaction Event Type N.K.D.A. Info Not Available Non Drug Allergy Problems Problem Type Condition Code Onset Dates Condition Status Problem Infertility, anovulation N97.0 Active Problem Seasonal allergic rhinitis, J30.2 Active unspecified trigger Problem Amenorrhea N91.2 Active Problem Migraine with aura and without G43.109 Active status migrainosus, not intractable Problem Hypersomnia G47.10 Active Problem Menorrhagia with irregular cycle N92.1 Active Problem Depression with anxiety F41.8 Active Problem Adult BMI 50.0-59.9 kg/sq m Z68.43 Active Problem Prediabetes R73.03 Active Problem HTN (hypertension), benign I10 Active Problem Secondary hypertension I15.9 Active Problem Encounter for gynecological Z01.419 Active examination without abnormal finding Assessment Morbid (severe) obesity due to E66.01 Active excess calories Problem Morbid (severe) obesity due to E66.01 Active excess calories Assessment Menorrhagia with irregular cycle N92.1 Active Problem Body mass index (BMI) of 50-59.9 in Z68.43 Active adult Medications Medication Code Code Instructions Start End Status Dosage System Date Date Propranolol HCl [facility] 47628662851 80 MG Orally May 13, Active 1 tablet once a day 2017 Lipitor [facility] 27661177256 40 MG Orally Active 1 tablet Once a day Aspirin 81 [facility] 94266018754 81 MG Orally Active 1 tablet Once a day Results Name Result Date Reference Range Unit Abnormality Flag TEST URINE ----RESULTS Neg [id number] URINALYSIS AUTO W/O SCOPE (28932) ----PROTEIN 1+ [id number] ----pH 7.0 [id number] ----NIT Neg [id number] ----MYA Neg [id number] ----URO 0.2 [id number] ----SPECIFIC GRAVITY 1.025 [id number] ----BLO 3+ [id number] ----BILIRUBIN Neg [id number] ----KETONES Neg [id number] ----GLUCOSE Neg [id number] Summary Purpose eClinicalWorks Submission
--- OUTSIDE RECORDS SUMMARY | 2017-08-26 14:34 | XMS REPORT ---
:1980 Author Organization [facility] Address [address] [place] [address] Care Team Providers Name Role Phone JENIFER PRUITT Unavailable Unavailable Problems This patient has no known problems. Allergies, Adverse Reactions, Alerts This patient has no known allergies or adverse reactions. Medications This patient has no known medications. Results Test Description Test Time Test Comments Text Results Atomic Results Result Comments URINE CULTURE 2017-05-11 10:36:00 Test Item Value Reference Range Comments CULTURE (BEAKER) (test wrma=[id number]) >100,000 col/mL skin tona MR, MRA, BRAIN, WITHOUT [id number] 15:22:00Reason for exam:-> Ischemic Stroke EvaluationFINAL REPORT MRI brain with and without contrast Comparison: No priors Reason for exam: StrokeIschemic Stroke Evaluation Discussion: Multiplanar MR imaging of the brain was provided duj-jig-rtzh IV gadolinium administration using T1, T2, FLAIR, FFE, diffusion weighted sequences, and ADC map imaging. There are no intracranial hematomas, masses, hydrocephalus, shift, or extra-axial collections. There are no areas of abnormal enhancement or abnormal diffusion restriction. Cerebellar tonsils are slightly low-lying. Flow-voids are seen in the basilar and internal carotid arteriesas well as in the large posterior dural sinuses. The pineal, sella, and craniocervical junction regions are within normal limits. The visualized orbital contents, skullbase and surrounding soft tissues are unremarkable. The visualized paranasal sinuses and mastoid air cells are unremarkable. Impressions :No acute intracranial process. MRA head and neck without contrast. COMPARISON : None available. TECHNIQUE: 2 D and 3-D [id number] MRA images of the intra - and extracranial carotid and vertebralarterial circulations were obtained, from which maximal intensity projection 3-D reconstructions were created. FINDINGS: MRA neck: There is no MR angiographic evidence for vessel occlusion or NASCET quantifiable stenosis in the extracranial carotid arteries. No hemodynamically significant stenosis identified in the vertebral artery, flow is antegrade in both vertebral arteries. MRA agdaagux of Sanchez: There is no MR angiographic evidence for vessel occlusion, flow-limiting stenosis, or aneurysm inthe intracranial carotid or vertebrobasilar arterial circulations. IMPRESSION: 1. No MR angiographic evidence for vascular compromise. Signed : Adele Holdeneport Verified Date/Time: 05/10/2017 15:22:22 Reading Location: [facility] B1 C013V Neuro Reading Room MR, MRA, NECK, WITHOUT IV [id number] 15:22: 00Reason for exam:->Ischemic Stroke EvaluationFINAL REPORT MRI brain with and without contrast Comparison: No priors Reason for exam: StrokeIschemic Stroke Evaluation Discussion: Multiplanar MR imaging of the brain was provided hwd-tkb-leyz IV gadolinium administration using T1, T2, FLAIR, FFE, diffusion weighted sequences, and ADC map imaging. There are no intracranial hematomas, masses, hydrocephalus, shift, or extra-axial collections. There are no areas of abnormal enhancement or abnormal diffusion restriction. Cerebellar tonsils are slightly low-lying. Flow-voids are seen in the basilar and internal carotid arteriesas well as in the large posterior dural sinuses. The pineal, sella, and craniocervical junction regions are within normal limits. The visualized orbital contents, skullbase and surrounding soft tissues are unremarkable. The visualized paranasal sinuses and mastoid air cells are unremarkable. Impressions:No acute intracranial process. MRA head and neck without contrast. COMPARISON: None available. TECHNIQUE: 2 D and 3-D [id number]-[id number] MRA images of the intra- and extracranial carotid and vertebralarterial circulations were obtained, from which maximal intensity projection 3-D reconstructions were created. FINDINGS: MRA neck: There is no MR angiographic evidence for vessel occlusion or NASCET quantifiable stenosis in the extracranial carotid arteries. No hemodynamically significant stenosis identified in the vertebral artery, flow is antegrade in both vertebral arteries. MRA agdaagux of Sanchez: There is no MR angiographic evidence for vessel occlusion, flow-limiting stenosis, or aneurysm inthe intracranial carotid or vertebrobasilar arterial circulations. IMPRESSION: 1. No MR angiographic evidence for vascular compromise. Signed: Adele Holden Verified Date/Time: 05/10/2017 15:22:22 Reading Location: [address] Neuro Reading Room 03: 22 PMMR, BRAIN, [id number] 15:22:00FINAL REPORT MRI brain with and without contrast Comparison: No priors Reason for exam: StrokeIschemic Stroke Evaluation Discussion: Multiplanar MR imaging of the brain was provided uzh-thc-ipyj IV gadolinium administration using T1, T2, FLAIR , FFE, diffusion weighted sequences, and ADC map imaging. There are no intracranial hematomas, masses, hydrocephalus, shift, or extra-axial collections. There are no areas of abnormal enhancement or abnormal diffusion restriction. Cerebellar tonsils are slightly low-lying. Flow-voids are seen in the basilar and internal carotid arteriesas well as in the large posterior dural sinuses. The pineal, sella, and craniocervical junction regions are within normal limits. The visualized orbital contents, skullbase and surrounding soft tissues are unremarkable. The visualized paranasal sinuses and mastoid air cells are unremarkable. Impressions:No acute intracranial process. MRA head and neck without contrast. COMPARISON: None available. TECHNIQUE: 2 D and 3-D [id number] MRA images of the intra- and extracranial carotid and vertebralarterial circulations were obtained, from which maximal intensity projection 3-D reconstructions were created. FINDINGS: MRA neck: There is no MR angiographic evidence for vessel occlusion or NASCET quantifiable stenosis in the extracranial carotid arteries. No hemodynamically significant stenosis identified in the vertebral artery, flow is antegrade in both vertebral arteries. MRA agdaagux of Sanchez: There is no MR angiographic evidence for vessel occlusion, flow-limiting stenosis, or aneurysm inthe intracranial carotid or vertebrobasilar arterial circulations. IMPRESSION: 1. No MR angiographic evidence for vascular compromise. Signed: Adele Holden Verified Date/Time: 05/10/2017 15:22:22 Reading Location: [address] Neuro Reading Room 03: 22 PMHEMOGLOBIN [id number] 11:17:00 Test Item Value Reference Range Comments HEMOGLOBIN A1C (BEAKER) (test bubh=033) 5.9 % 4.3-6.1 [id number] 07:58:00 Test Item Value Reference Range Comments MAGNESIUM (BEAKER) (test ejbm=069) 2.2 mg/dL 1.6-2.6 BASIC METABOLIC [id number] 07:58:00 Test Item Value Reference Range Comments SODIUM (BEAKER) (test 137 meq/L 136-145 gitu=862) POTASSIUM (BEAKER) (test 3.9 meq/L 3.5-5.1 hqfj=858) CHLORIDE (BEAKER) (test 104 meq/L 98-107 qhsy=895) CO2 (BEAKER) (test 23 meq/L 22-29 lmdd=421) BLOOD UREA NITROGEN 14 mg/dL 7-21 (BEAKER) (test zzae=530) CREATININE (BEAKER) (test 0.73 mg/dL 0.57-1.25 qvaq=563) GLUCOSE RANDOM (BEAKER) 100 mg/dL 70-105 (test cdpv=707) CALCIUM (BEAKER) (test 8.7 mg/dL 8.4-10.2 yegj=605) EGFR (BEAKER) (test 91 mL/min/1.73 sq m ESTIMATED GFR IS NOT hgto=4328) ACCURATE CREATININE CLEARANCE IN PREDICTING GLOMERULAR FILTRATION RATE. ESTIMATED GFR IS NOT APPLICABLE FOR DIALYSIS PATIENTS. LIPID [id number] 07:58:00 Test Item Value Reference Range Comments TRIGLYCERIDES (BEAKER) (test nfgb=200) 163 mg/dL CHOLESTEROL (BEAKER) (test lymv=033) 149 mg/dL HDL CHOLESTEROL (BEAKER) (test sflg=564) 30 mg/dL LDL CHOLESTEROL CALCULATED (BEAKER) (test 86 mg/dL uvcr=071) Triglyceride Reference Range: Low Risk <150 Borderline 150- 199 High Risk 200-499 Very High Risk >=500Cholesterol Reference Range: Low Risk <200 Borderline 200-239 High Risk > 240HDL Cholesterol Reference Range: Low Risk >=60 High Risk <40LDL Cholesterol Reference Range: Optimal <100 Near Optimal 100-129 Borderline 130-159 High 160-189 Very High >=190TROPONIN [id number] 07:56:00 Test Item Value Reference Range Comments TROPONIN I (YOGESHAKER) (test oyvs=559) 0.01 ng/mL 0.00-0.03 Troponin I (TnI) levels must be interpreted [...]
--- OUTSIDE RECORDS SUMMARY | 2017-08-26 14:34 | XMS REPORT ---
[...] Problem Depression with anxiety F41.8 Active Assessment Seasonal allergic rhinitis, J30.2 Active unspecified trigger Assessment Depression with anxiety F41.8 Active Assessment Hypersomnia G47.10 Active Assessment Prediabetes R73.03 Active Assessment Adult BMI 50.0-59.9 kg/sq m Z68.43 Active Problem Body mass index (BMI) of 50-59.9 in Z68.43 Active adult Assessment HTN (hypertension), benign I10 Active Problem Secondary hypertension I15.9 Active Assessment Migraine with aura and without G43.109 Active status migrainosus, not intractable Problem Encounter for gynecological Z01.419 Active examination without abnormal finding Medications Medication Code Code Instructions Start End Status Dosage System Date Date Zestoretic [facility] 83549086905 10-12.5 MG Inactive 1 tablet Orally Once a day Aspirin 81 [facility] 57082352837 81 MG Orally Active 1 tablet Once a day Lisinopril-Hydr [facility] 65606821288 10-12.5 MG Active 1 tablet ochlorothiazide Orally Once a day Propranolol HCl [facility] 31567689759 80 MG Orally May Active 1 tablet once a day 2017 Lipitor [facility] 06157201853 40 MG Orally Active 1 tablet Once a day Results No Known Results Summary Purpose eClinicalWorks Submission
--- OUTSIDE RECORDS SUMMARY | 2017-08-26 14:34 | XMS REPORT ---
:1980 Author Organization [employer] Care Team Providers Name Role Phone CrespoPoncho Provider Role Unavailable Allergies No Known Allergies [...] Problem Depression with anxiety F41.8 Active Assessment Hypersomnia G47.10 Active Problem Body mass index (BMI) of 50-59.9 in Z68.43 Active adult Problem Secondary hypertension I15.9 Active Problem Encounter for gynecological Z01.419 Active examination without abnormal finding Medications No Known Medications Results No Known Results Summary Purpose eClinicalQewz Submission
--- OUTSIDE RECORDS SUMMARY | 2017-08-26 14:34 | XMS REPORT ---
:1980 Author Organization [employer] Care Team Providers Name Role Phone Zak Poncho Provider Role Unavailable Allergies No Known Allergies [...] Problem Depression with anxiety F41.8 Active Assessment Migraine with aura and without G43.109 Active status migrainosus, not intractable Problem Body mass index (BMI) of 50-59.9 in Z68.43 Active adult Problem Secondary hypertension I15.9 Active Problem Encounter for gynecological Z01.419 Active examination without abnormal finding Medications Medication Code Code Instructions Start End Status Dosage System Date Date Propranolol HCl [facility] [place]NOTE 2] 14772103869 80 MG Orally May 13, Active 1 tablet once a day 2017 Results No Known Results Summary Purpose NovalactinicalWorks Submission
[2017-08-26] MEDS ORDERED: NA CHLORIDE 0.9% 0 ML ONE (15:22)
[2017-08-26] MEDS ORDERED: NA CHLORIDE 0.9% 1,000 ML ONE (15:29)
[2017-08-26 15:59] LABS: Absolute Lymphocytes (CBC) 2.9 K/uL (0.7-4.9); Absolute Monocytes 0.7 K/uL (0.1-1.3); Eosinophils % 1.8 % (0-4.4); Hematocrit 37.9 % (36.0-45.0); Lymphocytes % 20.6 % (15.3-44.8); MCH 24.6 pg (27.0-35.0); MCV 77.1 fL (80-100); MPV 8.3 fL (7.6-11.3); Monocytes % 4.9 % (3.3-12.3); RBC Red Blood Cell Count 4.91 M/uL (3.86-4.86)
[2017-08-26 16:06] LABS: Urine Blood 2+ (NEG); Urine Glucose NEGATIVE (NEG); Urine Protein NEGATIVE (NEG); Urine Specific Gravity >1.030 (1.005-1.030)
[2017-08-26 16:06] LABS: Protime INR 1.03
[2017-08-26 16:08] LABS: Urine Bacteria <20 /HPF (<20); Urine Culture Reflex Order NOT NEEDED; Urine Mucus 1+ /HPF (NONE SEEN)
[2017-08-26 16:17] LABS: ALT/SGPT 23 U/L (12-78); AST/SGOT 10 U/L (15-37); Albumin 3.9 g/dL (3.4-5.0); Alkaline Phosphatase 90 U/L (45-117); Amylase Level 37 U/L (25-115); BUN Blood Urea Nitrogen 17 mg/dL (7-18); Bicarbonate 28 mmol/L (21-32); Bilirubin Direct < 0.1 mg/dL (0-0.2); Bilirubin Total 0.2 mg/dL (0.2-1.0); Glucose Level 96 mg/dL (74-106); Lipase 57 U/L (73-393); Magnesium 2.1 mg/dL (1.8-2.4); Potassium 3.8 mmol/L (3.5-5.1); Protein, Total 7.7 g/dL (6.4-8.2); Sodium Level 140 mmol/L (136-145)
[2017-08-26] MEDS ORDERED: CEFTRIAXONE/SWI 1gm 1 GM/10 ML SYR ONE (16:39)
--- NOTE | 2017-08-26 16:44 | EKG ---
Test Date: 2017-08-26 Test Time: 15:22:10 Siebel Administrator: TOMY MEASUREMENT RESULTS: Intervals: Rate: 65 PA: 156 QRSD: 88 QT: 420 QTc: 436 [place]: P: 32 PA: 156 QRS: 29 T: 27 INTERPRETIVE STATEMENTS: Normal sinus rhythm with sinus arrhythmia Normal ECG Compared to ECG 05/09/2017 07:47:55 No significant changes Electronically Signed On 08-26-17 16:44:12 CDT by Alex Obregon
--- NOTE | 2017-08-26 17:59 | RAD REPORT ---
EXAM DESCRIPTION: CT - Abdomen Pelvis W Contrast - 08/26/2017 5:46 pm CLINICAL HISTORY: Abdominal pain. Hematochezia COMPARISON: March 2016 TECHNIQUE: Computed axial tomography of the abdomen and pelvis was obtained. 100 cc Isovue-300 is ad ministered intravenously. Oral contrast was given. All CT scans are performed using dose optimization technique as appropriate and may include automated exposure control or mA/KV adjustment according to patient size. FINDINGS: The liver is mildly enlarged. Mild fatty infiltration is present Spleen, pancreas, adrenals and right kidney appear unremarkable. A 3 millimeter left renal calculus i s present without hydronephrosis. Colonic wall thickness is normal. There is no evidence of diverticulitis A tampon is present within the vagina. A small umbilical hernia is present IMPRESSION: 3 millimeter nonobstructing left renal calculus Mild hepatomegaly
[2017-08-26] MEDS ORDERED: levoFLOXacin 750 MG TAB ONE (18:22)
[2017-08-26] MEDS ORDERED: METRONIDAZOLE 500mg IVPB 500 MG/100 ML BAG IV ONE (18:22)
--- NOTE | 2017-08-26 18:27 | ER ---
Nurse's Notes [facility] Name: Shahnaz River Age: 36 yrs Sex: Female : 1980 Arrival Date: 08/26/2017 Time: 14:32 Bed 6 Private MD: Poncho Crespo Diagnosis: Gastrointestinal hemorrhage, unspecified;Diarrhea, unspecified Presentation: 08/26 14:58 Presenting complaint: Presenting complaint: Patient states: " I've been having painful, hb bloody bowel movements for about a week now." Pt reports lower abdominal pain, nausea and diarrhea w/ bright red blood, denies SOB or dizziness. Reports hx of hemorrhoids and recent increase in Metformin dosage. 15:00 Transition of care: patient was not received from another setting of care. Onset of hb symptoms was August 26, 2017. Risk Assessment: Do you want to hurt yourself or someone else? Patient reports no desire to harm self or others. Initial Sepsis Screen: Does the patient meet any 2 criteria? No. Patient's initial sepsis screen is negative. Does the patient have a suspected source of infection? No. Patient's initial sepsis screen is negative. Care prior to arrival: None. 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 - Social history:: Smoking status: Patient/guardian denies using tobacco. - Ebola Screening: : No symptoms or risks identified at this time. Screenin:45 Abuse screen: Denies threats or abuse. Denies injuries from another. Nutritional sv screening: No deficits noted. Tuberculosis screening: No symptoms or risk factors identified. Fall Risk None identified. Assessment: 15:45 General: Appears in no apparent distress. uncomfortable, obese, Behavior is calm, sv cooperative, appropriate for age. Pain: Complains of pain in right lower quadrant Pain currently is 8 out of 10 on a pain scale. Quality of pain is described as crampy, Is intermittent. Neuro: Level of Consciousness is awake, alert, obeys commands, Oriented to person, place, time, situation, Moves all extremities. Full function Gait is steady, Speech is normal. Respiratory: Respiratory effort is even, unlabored, Respiratory pattern is regular, symmetrical. GI: Abdomen is obese, Reports diarrhea, bloody stool. : No signs and/or symptoms were reported regarding the genitourinary system. EENT: No signs and/or symptoms were reported regarding the EENT system. Derm: Skin is pink, warm \\T\\ dry. Musculoskeletal: No signs and/or symptoms reported regarding the musculoskeletal system. 16:38 Reassessment: Patient appears in no apparent distress at this time. No changes from sv previously documented assessment. Patient and/or family updated on plan of care and expected duration. Pain level reassessed. Patient is alert, oriented x 3, equal unlabored respirations, skin warm/dry/pink. 18:24 Reassessment: Patient appears in no apparent distress at this time. No changes from sv previously documented assessment. Patient and/or family updated on plan of care and expected duration. Pain level reassessed. Patient is alert, oriented x 3, equal unlabored respirations, skin warm/dry/pink. Vital Signs: 15:05 BP 137 / 85; Pulse 77; Resp 18; Temp 98.6; Pulse Ox 97% on R/A; Weight 163.29 kg; hb Height 5 ft. 11 in. (180.34 cm); Pain 8/10; 15:55 BP 109 / 60 Supine; Pulse 61; sg 16:02 BP 129 / 69; Pulse 70; Resp 17; Pulse Ox 98% on R/A; dh3 16:02 BP 129 / 69 Sitting; Pulse 70; sg 16:09 BP 149 / 90 Standing; Pulse 77 MON; sg 17:20 BP 139 / 82; Pulse 66; Resp 18; Pulse Ox 99% ; sv 18:24 BP 136 / 78; Pulse 66; Resp 18; Pulse Ox 99% ; sv 15:05 Body Mass Index 50.21 (163.29 kg, 180.34 cm) ED Course: 14:32 Patient arrived in ED. sb2 14:32 Poncho Crespo DO is Private Physician. sb2 15:05 Triage completed. hb 15:05 Finn Spence PA is PHCP. cp 15:05 Domenic Gibson MD is Attending Physician. cp 15:07 Arm band placed on. hb 15:17 Olivia Douglass RN is Primary Nurse. sv 15:34 EKG done, by pharmacy technician. reviewed by Finn COHEN. sm3 15:45 Patient has correct armband on for positive identification. Placed in gown. Bed in low sv position. Call light in reach. Side rails up X2. Pulse ox on. NIBP on. Door closed. Warm blanket given. Head of bed elevated. 15:45 Initial lab(s) drawn, by me, sent to lab. Inserted saline lock: 20 gauge in left sv forearm, using aseptic technique. Flushed left forearm with 5 ml normal saline. 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 sv 17:[address] Scan. sv 17:[address] jj2 17:46 CT Abd/Pelvis - W/Contrast In Process Unspecified. EDMS 18:25 Ned Pedraza MD is Referral Physician. cp 19:08 Primary Nurse role handed off by Olivia Douglass RN sv 19:08 Report given to Elaine WHELAN. sv 19:26 Elaine Rey RN is Primary Nurse. ak1 19:28 IV discontinued, intact, bleeding controlled, No redness/swelling at site. Pressure ak1 dressing applied. Administered Medications: 15:55 Drug: NS 0.9% 1000 ml Route: IV; Rate: 1 bolus; Site: left forearm; sv 19:27 Follow up: IV Status: Completed infusion ak1 18:07 CANCELLED (Physician Discretion): Cipro 400 mg 200 ml IVPB once over 60 mins cp 18:23 Drug: metroNIDAZOLE 500 mg Volume: 100 ml; Route: IVPB; Infused Over: 30 mins; Site: sv left forearm; 19:26 Follow up: IV Status: Completed infusion ak1 18:23 Drug: LevaQUIN 750 mg Route: PO; sv 18:56 Follow up: Response: No adverse reaction sv 19:27 Follow up: Response: No adverse reaction ak1 Intake: 15:30 PO: 500ml (Contrast); Total: 500ml. sv 15:30 CT called. sv Outcome: 18:26 Discharge ordered by . cp 19:27 Discharged to home ambulatory. ak1 19:27 Condition: stable 19:27 Discharge instructions given to patient, Instructed on discharge instructions, follow up and referral plans. no drinking with medication, no driving heavy equipment, medication usage, safe sex practices, Demonstrated understanding of instructions, follow-up care, medications, Prescriptions given X 3. 19:33 Patient left the ED. ak1 Signatures: Dispatcher [employer] EDOlivia Torres RN RN sv Gay, Steven, RN RN sg Jaramillo, Justin jj2 Krenek, Amber, RN RN ak1 Sofia Sanchez RN RN ph Page, Corey, PA PA cp Baxter, Heather, RN RN Xuan Medrano 3 Marcela Bill 2 Danita Beltran 3 Corrections: (The following items were deleted from the chart) 15:05 14:58 Presenting complaint: ph hb
--- NOTE | 2017-08-26 18:27 | EDPHYS ---
Physician Documentation [facility] Name: Shahnaz River Age: 36 yrs Sex: Female : 1980 Arrival Date: 08/26/2017 Time: 14:32 Bed 6 Private MD: Poncho Crespo ED Physician Domenic Gibson HPI: 08/26 15:10 This 36 yrs old Female presents to ER via Ambulatory with complaints of cp Bloody Stools. 15:10 The patient presents to the emergency department with bleeding from the rectum/anus. cp Onset: The symptoms/episode began/occurred 1 week(s) ago. 15:10 Associate signs and symptoms: Pertinent positives: abdominal pain in the right lower cp quadrant and left lower quadrant, diarrhea, Pertinent negatives: constipation, fever. [employer] [place]: 15:05 LMP N/A - Irregular menses hb Historical: - Allergies: 15:07 No Known Allergies; hb - PMHx: 15:07 Hypertension; Migraines; PCOS; Sleep Apnea; hb - Immunization history:: Adult Immunizations up to date. - Social history:: Smoking status: Patient/guardian denies using tobacco. - Ebola Screening: : No symptoms or risks identified at this time. ROS: 15:15 Constitutional: Negative for body aches, chills, fever, poor PO intake. cp 15:15 Eyes: Negative for injury, pain, redness, and discharge. cp 15:15 ENT: Negative for drainage from ear(s), ear pain, sore throat, difficulty swallowing, cp difficulty handling secretions. 15:15 Cardiovascular: Negative for chest pain, edema, palpitations. 15:15 Respiratory: Negative for cough, shortness of breath, wheezing. 15:15 Abdomen/GI: Positive for abdominal pain, diarrhea, rectal bleeding, Negative for nausea and vomiting, constipation, anorexia. 15:15 Back: Negative for pain at rest, pain with movement. 15:15 : Negative for urinary symptoms, vaginal bleeding. 15:15 Skin: Negative for cellulitis, rash. 15:15 All other systems are negative. cp Exam: 15:34 ECG was reviewed by the Attending Physician. cp 15:54 Head/Face: Normocephalic, atraumatic. cp 15:54 Constitutional: The patient appears in no acute distress, alert, awake, non-diaphoretic, non-toxic, well developed, well nourished, obese. 15:54 Eyes: Periorbital structures: appear normal, Conjunctiva: normal, no exudate, no injection, Sclera: no appreciated abnormality, Lids and lashes: appear normal, bilaterally. 15:54 ENT: External ear(s): are unremarkable, Nose: is normal, Mouth: Lips: moist, Oral mucosa: moist, Posterior pharynx: is normal, no erythema, no exudate. 15:54 Chest/axilla: Inspection: normal, Palpation: is normal, no crepitus, no tenderness. 15:54 Cardiovascular: Rate: normal, Rhythm: regular. 15:54 Respiratory: the patient does not display signs of respiratory distress, Respirations: normal, no use of accessory muscles, no retractions, no splinting, no tachypnea, labored breathing, is not present, Breath sounds: are clear throughout, no decreased breath sounds, no stridor, no wheezing. 15:54 Abdomen/GI: Inspection: obese Bowel sounds: active, all quadrants, Palpation: soft, in all quadrants, mild abdominal tenderness, in the right lower quadrant, rebound tenderness, is not appreciated, voluntary guarding, is not appreciated, involuntary guarding, is not appreciated, Rectal exam: Stool: guaiac positive, maroon, tenderness, that is moderate. 15:54 Back: pain, is absent, ROM is normal. 15:54 Skin: cellulitis, is not appreciated, no rash present. 15:54 Neuro: Orientation: to person, place \T\ time. Mentation: lucid, able to follow commands, Cerebellar function: is grossly normal, Motor: moves all fours, strength is normal, Sensation: no obvious gross deficits. Vital Signs: 15:05 BP 137 / 85; Pulse 77; Resp 18; Temp 98.6; Pulse Ox 97% on R/A; Weight 163.29 kg; hb Height 5 ft. 11 in. (180.34 cm); Pain 8/10; 15:55 BP 109 / 60 Supine; Pulse 61; sg 16:02 BP 129 / 69; Pulse 70; Resp 17; Pulse Ox 98% on R/A; dh3 16:02 BP 129 / 69 Sitting; Pulse 70; sg 16:09 BP 149 / 90 Standing; Pulse 77 MON; sg 17:20 BP 139 / 82; Pulse 66; Resp 18; Pulse Ox 99% ; sv 18:24 BP 136 / 78; Pulse 66; Resp 18; Pulse Ox 99% ; sv 15:05 Body Mass Index 50.21 (163.29 kg, 180.34 cm) hb MDM: 15:05 Patient medically screened. cp 15:57 Differential diagnosis: hemorrhoids, fissure, abscess, diverticulitis, colitis. cp 18:25 Data reviewed: vital signs, nurses notes, lab test result(s), radiologic studies, CT cp scan, and as a result, I will discharge patient. 08/26 15:12 Order name: Amylase, Serum; Complete Time: 16:34 cp 08/26 15:12 Order name: Basic Metabolic Panel; Complete Time: 16:34 cp 08/26 15:12 Order name: CBC with Diff; Complete Time: 16:16 cp 08/26 16:17 Interpretation: Normal except: WBC 13.9; RBC 4.91; MCV 77.1; MCH 24.6; MCHC 31.8; PLT cp 413; RDW 16.4; NEUT A 10.0. 08/26 15:12 Order name: Creatinine for Radiology; Complete Time: 16:16 cp 08/26 15:12 Order name: Hepatic Function; Complete Time: 16:34 cp 08/26 15:12 Order name: Lipase; Complete Time: 16:34 cp 08/26 15:12 Order name: Urine Microscopic Only; Complete Time: 16:16 cp 08/26 16:16 Interpretation: Normal except: URBC 5-10; SQEPI 5-10. cp 08/26 15:12 Order name: PT-INR; Complete Time: 16:16 cp 08/26 16:17 Interpretation: Reviewed. cp 08/26 15:12 Order name: Ptt, Activated; Complete Time: 16:16 cp 08/26 15:12 Order name: Magnesium; Complete Time: 16:34 cp 08/26 15:55 Order name: Occult Blood--Ancillary; Complete Time: 18:03 sv 08/26 16:01 Order name: Urine Dipstick--Ancillary (enter results); Complete Time: 16:16 bd 08/26 16:17 Interpretation: Normal except: UBLD 2+. cp 08/26 16:01 Order name: Urine --Ancillary (enter results); Complete Time: 16:16 bd 08/26 15:06 Order name: Orthostatics; Complete Time: 16:13 cp 08/26 15:12 Order name: Urine Test (obtain specimen); Complete Time: 15:55 cp 08/26 15:12 Order name: IV Saline Lock; Complete Time: 15:55 cp 08/26 15:12 Order name: Labs collected and sent; Complete Time: 15:55 cp 08/26 15:12 Order name: Urine Dipstick-Ancillary (obtain specimen); Complete Time: 15:55 cp 08/26 15:12 Order name: EKG; Complete Time: 15:13 cp 08/26 15:12 Order name: EKG - Nurse/Tech; Complete Time: 16:13 cp 08/26 15:13 Order name: CT Abd/Pelvis - W/Contrast; Complete Time: 18:03 cp EC:34 Rate is 65 beats/min. Rhythm is regular. IN interval is normal. QRS interval is normal. cp QT interval is normal. T waves are Normal. No ST changes noted. Interpreted by me. Reviewed by me. Administered Medications: 15:55 Drug: NS 0.9% 1000 ml Route: IV; Rate: 1 bolus; Site: left forearm; sv 19:27 Follow up: IV Status: Completed infusion ak1 18:07 CANCELLED (Physician Discretion): Cipro 400 mg 200 ml IVPB once over 60 mins cp 18:23 Drug: metroNIDAZOLE 500 mg Volume: 100 ml; Route: IVPB; Infused Over: 30 mins; Site: sv left forearm; 19:26 Follow up: IV Status: Completed infusion ak1 18:23 Drug: LevaQUIN 750 mg Route: PO; sv 18:56 Follow up: Response: No adverse reaction sv 19:27 Follow up: Response: No adverse reaction ak1 Disposition: 08/26/17 18:26 Discharged to Home. Impression: Gastrointestinal hemorrhage, unspecified, Diarrhea, unspecified. - Condition is Stable. - Discharge Instructions: Food Choices to Help Relieve Diarrhea, Adult, Diarrhea, Gastrointestinal Bleeding. - Prescriptions for Levaquin 750 mg Oral Tablet - take 1 tablet by ORAL route once daily for 7 days continue taking evening of 08-27-2017; 6 tablet. Tylenol- Codeine #3 300-30 mg Oral Tablet - take 2 tablets by ORAL route every 6 hours As needed; 15 tablet. Metronidazole 500 mg Oral Tablet - take 1 tablet by ORAL route every 8 hours for 7 days; 21 tablet. - Medication Reconciliation Form, Thank You Letter, Antibiotic Education, Prescription Opioid Use form. - Follow up: Ned Pedraza MD; When: 2 - 3 days; Reason: Recheck today's complaints, call office tomorrow for follow-up appointment. - Problem is new. - Symptoms have improved. Addendum: 08/28/2017 19:58 Co-signature as Attending Physician, Domenic Gibson MD I agree with the assessment and w a plan of care. Signatures: Dispatcher [employer] EDOlivia Torres RN RN Elaine Rey RN RN ak1 Finn Spence PA PA cp Margie Correa RN RN Domenic Gibson MD MD sd Corrections: (The following items were deleted from the chart) 08/26 18:07 18:07 Cipro 400 mg 200 ml IVPB once over 60 mins ordered. cp cp 19:33 18:26 08/26/2017 18:26 Discharged to Home. Impression: Gastrointestinal hemorrhage, ak1 unspecified; Diarrhea, unspecified. Condition is Stable. Forms are Medication Reconciliation Form, Thank You Letter, Antibiotic Education, Prescription Opioid Use. Follow up: Ned Pedraza; When: 2 - 3 days; Reason: Recheck today's complaints, call office tomorrow for follow-up appointment. Problem is new. Symptoms have improved. cp
== END 2017-08-26 19:33 | disposition home or self-care (01) ==
LOC: ER 14:31
DX: K92.2 Gastrointestinal hemorrhage, unspecified (principal); R19.7 Diarrhea, unspecified; I10 Essential (primary) hypertension
CPT/HCPCS: 36415; 74177; 80048; 80076; 81003; 81015; 81025; 82150; 82272; 83690; 83735; 85025; 85610; 85730; 93005; 96361; 96365; 99285; J0696; J7030; Q9967

== ENCOUNTER 2019-01-17 09:12 | Emergency (ER) | payer OTHER ==
--- OUTSIDE RECORDS SUMMARY | 2019-01-17 09:26 | XMS REPORT ---
:1980 [facility] Address [address] [place] [address] Care Team Providers Name Role Phone EDMONDJENIFER Unavailable Unavailable Payers Payer Name Policy Type Policy Number Effective Date Expiration Date Problems This patient has no known problems. Allergies, Adverse Reactions, Alerts Allergy Allergy Status Severity Reaction(s) Onset Inactive Treating Comments Name Type Date Date Clinician No Known DA Active U 2017-10 Allergies -12 00:00:0 0 No Known DA Active U 2007-05 Contrast -20 Allergies 00:00:0 0 No Known DA Active U 2007-05 Drug -20 Allergies 00:00:0 0 No Known DA Active U 2007-05 Food -20 Allergies 00:00:0 0 No Known DA Active U 2007-05 Other -20 Allergies 00:00:0 0 Medications This patient has no known medications. Results Test Description Test Time Test Comments Text Results Atomic Results Result Comments SURGICAL 2017-10-24 RUN SPECIMENS 10:53:00 DATE: 10/24/17 [facility] * LIVE* PAGE 1 RUN TIME: 1053 Specimen Inquiry RUN USER: INTERFACE WILLIAM ENT: YARITZA BAILEY LOC: [facility] U #: [id number] AGE/SX: 37/F ROOM: RE10/22/17REG DR: Tracey Shetty : [birth year] BED: DIS: STATUS: DEP [facility] TLOC: SPEC #: [id number] RECD: 10/22/17 STATUS: CARLEE TAYLOR #: [id number] DOMINGO: 10/22/[address]: Tracey Shetty MD ENTERED: 10/24/17 SP TYPE: SURG SPEC OTHR DR: Undefined Provider ORDERED: GM LEVEL 4 CODES: [id number] - STOMACH, NOS [id number] - SMALL INTESTINE [id number] - COLON, NOS COPIES TO: Tracey Shetty MD [address] [place] [address] [id number] [place] [address] Undefined Provider PROCEDURES: GM LEVEL 4 (Incomplete) TISSUES: 1. SMALL INTESTINE, NOS - Small intestine, duodenum, bx. 2. STOMACH, NOS - Stomach, antrum, bx. 3. COLON, NOS - Colon, random, bx. FINAL DIAGNOSIS Small intestine, duodenum, bx.: Mild chronic inflammation, no celiac disease identified. Stomach, antrum, bx.: Mild chronic gastritis, no Helicobacter organisms seen. Colon, random, bx.: Minimal chronic inflammation. GROSS AND MICROSCOPIC GROSS EXAMINATION: Received is/are the specimen/s designated with the appropriate dimensions and block designation : 1. Small intestine, duodenum, bx.: 2 segments of pink-husain tissue, measuring up to 0.3 cm. in greatest dimension each (A). 2. Stomach, antrum, bx.: 3 segments of pink-husain tissue, measuring up to 0.3 cm. in greatest dimension each (B). 3. Colon, random, bx.: 4 segments of pink-husain tissue, measuring up to 0.4 cm. in greatest dimension each (C). CONTINUED ON NEXT PAGE RUN DATE: 10/24/17 [facility] *LIVE* PAGE 2 RUN TIME: 1053 Specimen Inquiry RUN USER: INTERFACE SPEC #: [id number] PATIENT: YARITZA BAILEY # [id number] (Continued) ------- GROSS AND MICROSCOPIC (Continued) MICROSCOPIC EXAMINATION: Sections of the "Small intestine, duodenum, bx." reveal changes of chronic inflammation. The small intestine contains villous processes of normal length and diameter. A mild inflammatory infiltrate is present in the underlying stroma. The epithelium contains a normal complement of lymphoid cells. No definite evidence of celiac sprue is identified in these sections. The immunostain for CD3 does not show an increased number of lymphoid cells in the epithelium. (When special stains have been reviewed, the appropriate positive/ negative controls have been reviewed and are appropriately positive/negative). Sections of the "Stomach, antrum, bx." reveal changes of mild chronic gastritis. The lamina propria contains a mild inflammatory infiltrate. The Alcian blue/PAS stain does not show goblet cell metaplasia. The immunostain for Helicobacter organisms is negative. ( When special stains have been reviewed, the appropriate positive/negative controls have been reviewed and are appropriately positive/negative). Sections of the "Colon, random , bx." reveal changes of minimal inflammation. POST-OP DIAGNOSIS Erosive gastritis, C-internal and external hemorrhoids PRE-OP DIAGNOSIS Blood in stool, epigastric pain Signed SIGNATURE ON FILE Odalys Gao MD 10/24 1053 END OF REPORT URINE CULTURE 2017-05-11 10:36:00 Test Item Value Reference Range Comments CULTURE (BEAKER) (test [id number]) >100,000 col/mL skin tona MR, MRA, BRAIN, WITHOUT [id number] 15:22:00Reason for exam:-> Ischemic Stroke EvaluationFINAL REPORT MRI brain with and without contrast Comparison: No priors Reason for exam: StrokeIschemic Stroke Evaluation Discussion: Multiplanar MR imaging of the brain was provided [id number] IV gadolinium administration using T1, T2, FLAIR, [...] None available. TECHNIQUE: 2 D and 3-D [id number] MRA images of the intra - and extracranial carotid and vertebralarterial circulations were obtained, from which maximal intensity projection 3-D reconstructions were created. FINDINGS: MRA neck: There is no MR angiographic evidence for vessel occlusion or NASCET quantifiable stenosis in the extracranial carotid arteries. No hemodynamically significant stenosis identified in the vertebral artery, flow is antegrade in both vertebral arteries. MRA [place]: There is no MR angiographic evidence for vessel occlusion, flow-limiting stenosis, or aneurysm inthe intracranial carotid or vertebrobasilar arterial circulations. IMPRESSION: 1. No MR angiographic evidence for vascular compromise. Signed : Adele Holdenort Verified Date/Time: 05/10/2017 15:22:22 Reading Location: [address] Neuro Reading Room MR, MRA, NECK, WITHOUT IV [id number] 15:22: 00Reason for exam:->Ischemic Stroke EvaluationFINAL REPORT MRI brain with and without contrast Comparison: No priors Reason for exam: StrokeIschemic Stroke Evaluation Discussion: Multiplanar MR imaging of the brain was provided [id number] IV gadolinium administration using T1, T2, FLAIR, [...] None available. TECHNIQUE: 2 D and 3-D [id number] MRA images of the intra- and extracranial carotid and vertebralarterial circulations were obtained, from which maximal intensity projection 3-D reconstructions were created. FINDINGS: MRA neck: There is no MR angiographic evidence for vessel occlusion or NASCET quantifiable stenosis in the extracranial carotid arteries. No hemodynamically significant stenosis identified in the vertebral artery, flow is antegrade in both vertebral arteries. MRA [place]: There is no MR angiographic evidence for vessel occlusion, flow-limiting stenosis, or aneurysm inthe intracranial carotid or vertebrobasilar arterial circulations. IMPRESSION: 1. No MR angiographic evidence for vascular compromise. Signed: Adele Holdenort Verified Date/Time: 05/10/2017 15:22:22 Reading Location: [address] Neuro Reading Room 03: 22 PMMR, BRAIN, [id number] 15:22:00FINAL REPORT MRI brain with and without contrast Comparison: No priors Reason for exam: StrokeIschemic Stroke Evaluation Discussion: Multiplanar MR imaging of the brain was provided [id number] IV gadolinium administration using T1, T2, FLAIR [...] None available. TECHNIQUE: 2 D and 3-D [id number] MRA images of the intra- and extracranial carotid and vertebralarterial circulations were obtained, from which maximal intensity projection 3-D reconstructions were created. FINDINGS: MRA neck: There is no MR angiographic evidence for vessel occlusion or NASCET quantifiable stenosis in the extracranial carotid arteries. No hemodynamically significant stenosis identified in the vertebral artery, flow is antegrade in both vertebral arteries. MRA [place]: There is no MR angiographic evidence for vessel occlusion, flow-limiting stenosis, or aneurysm inthe intracranial carotid or vertebrobasilar arterial circulations. IMPRESSION: 1. No MR angiographic evidence for vascular compromise. Signed: Adele Holden Verified Date/Time: 05/10/2017 15:22:22 Reading Location: [address] Neuro Reading Room 03: 22 PMHEMOGLOBIN [id number] 11:17:00 Test Item Value Reference Range Comments HEMOGLOBIN A1C (BEAKER) (test esoa=276) 5.9 % 4.3-6.1 [id number] 07:58:00 Test Item Value Reference Range Comments MAGNESIUM (BEAKER) (test peav=843) 2.2 mg/dL 1.6-2.6 BASIC METABOLIC [id number] 07:58:00 Test Item Value Reference Range Comments SODIUM (BEAKER) (test 137 meq/L 136-145 vphm=509) POTASSIUM (BEAKER) (test 3.9 meq/L 3.5-5.1 joyr=104) CHLORIDE (BEAKER) (test 104 meq/L 98-107 gdek=794) CO2 (BEAKER) (test 23 meq/L 22-29 ygcx=846) BLOOD UREA NITROGEN 14 mg/dL 7-21 (BEAKER) (test xnnp=151) CREATININE (BEAKER) (test 0.73 mg/dL 0.57-1.25 ymnt=716) GLUCOSE RANDOM (BEAKER) 100 mg/dL 70-105 (test onqb=593) CALCIUM (BEAKER) (test 8.7 mg/dL 8.4-10.2 awdd=777) EGFR (BEAKER) (test 91 mL/min/1.73 sq m ESTIMATED GFR IS NOT vsto=2366) ACCURATE CREATININE CLEARANCE IN PREDICTING GLOMERULAR FILTRATION RATE. ESTIMATED GFR IS NOT APPLICABLE FOR DIALYSIS PATIENTS. LIPID [id number] 07:58:00 Test Item Value Reference Range Comments TRIGLYCERIDES (BEAKER) (test fqhx=751) 163 mg/dL CHOLESTEROL (BEAKER) (test prqh=397) 149 mg/dL HDL CHOLESTEROL (BEAKER) (test pqyd=544) 30 mg/dL LDL CHOLESTEROL CALCULATED (BEAKER) (test 86 mg/dL yowz=477) Triglyceride Reference Range: Low Risk <150 Borderline 150- 199 High Risk 200-499 Very High Risk >=500Cholesterol Reference Range: Low Risk <200 Borderline 200-239 High Risk > 240HDL Cholesterol Reference Range: Low Risk >=60 High Risk <40LDL Cholesterol Reference Range: Optimal <100 Near Optimal 100-129 Borderline 130-159 High 160-189 Very High >=190TROPONIN [id number] 07:56:00 Test Item Value Reference Range Comments TROPONIN I (BEAKER) (test lvin=195) 0.01 ng/mL 0.00-0.03 Troponin I (TnI) levels [...]
--- OUTSIDE RECORDS SUMMARY | 2019-01-17 09:27 | XMS REPORT ---
:1980 Author Organization [employer] Care Team Providers Name Role Phone Zak Poncho Provider Role Unavailable Allergies, Adverse Reactions, Alerts Substance Reaction Event Type N.K.D.A. Info Not Available Non Drug Allergy Problems Problem Type Condition Code Onset Dates Condition Status Assessment Seasonal allergic rhinitis, J30.2 Active unspecified trigger Assessment Migraine with aura and without G43.109 Active status migrainosus, not intractable Assessment PCOS (polycystic ovarian syndrome) E28.2 Active Assessment Adult BMI 50.0-59.9 kg/sq m Z68.43 Active Problem Seasonal allergic rhinitis, J30.2 Active unspecified trigger Assessment NATA (obstructive sleep apnea) G47.33 Active Problem HTN (hypertension), benign I10 Active Assessment HTN (hypertension), benign I10 Active Problem Adult BMI 50.0-59.9 kg/sq m Z68.43 Active Problem Prediabetes R73.03 Active Problem Depression with anxiety F41.8 Active Problem Current moderate episode 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 without prior episode Problem Menorrhagia with irregular cycle N92.1 Active Assessment Acute cystitis without hematuria N30.00 Active Assessment Generalized anxiety disorder F41.1 Active Problem Generalized anxiety disorder F41.1 Active Assessment Prediabetes R73.03 Active Problem PCOS (polycystic ovarian syndrome) E28.2 Active Problem NATA (obstructive sleep apnea) G47.33 Active Problem Migraine with aura and without G43.109 Active status migrainosus, not intractable Problem Hypersomnia G47.10 Active Problem Body mass index (BMI) of 50-59.9 in Z68.43 Active adult Problem Infertility, anovulation N97.0 Active Assessment Current moderate episode 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 without prior episode Problem Morbid (severe) obesity due to E66.01 Active excess calories Problem Amenorrhea N91.2 Active Problem Secondary hypertension I15.9 Active Problem Encounter for gynecological Z01.419 Active examination without abnormal finding Medications Medication Code Code Instructions Start End Status Dosage System Date Date Propranolol HCl [facility] 10351206719 160 MG Orally Active 1 capsule ER Once a day Escitalopram [facility] 62316794419 20 MG Orally Active 1 tablet Oxalate Once a day MetFORMIN HCl ER [facility] 20274335185 500 MG Orally Active 1 tablet Once a day with evening meal Propranolol HCl [facility] 00237725506 160 MG Orally Active 1 capsule ER Once a day Escitalopram [facility] 25914954940 20 MG Orally Active 1 tablet Oxalate Once a day BusPIRone HCl [facility] 01917416858 15 MG Orally Active 1 tablet Twice a day Nitrofurantoin [facility] 44065102299 100 MG Orally Sep 29, Oct 04, Active 1 capsule Monohyd Macro every 12 hrs 2018 2018 with food Spironolactone [facility] 07265656109 100 MG Orally Active 1 tablet Once a day Results No Known Results Summary Purpose [employer] Submission
--- OUTSIDE RECORDS SUMMARY | 2019-01-17 09:27 | XMS REPORT ---
:1980 Author Organization eClinicalWorks Care Team Providers Name Role Phone [facility] Provider Role Unavailable Allergies, Adverse Reactions, Alerts Substance Reaction Event Type N.K.D.A. Info Not Available Non Drug Allergy Problems Problem Type Condition Code Onset Dates Condition Status Assessment Adult BMI 50.0-59.9 kg/sq m Z68.43 Active Assessment Need for influenza vaccination Z23 Active Assessment Neutrophilic leukocytosis D72.9 Active Assessment Allergic rhinitis, unspecified J30.9 Active seasonality, unspecified trigger Assessment Migraine with aura and without G43.109 Active status migrainosus, not intractable Assessment PCOS (polycystic ovarian syndrome) E28.2 Active Assessment NATA (obstructive sleep apnea) G47.33 Active Problem Adult BMI 50.0-59.9 kg/sq m Z68.43 Active Assessment HTN (hypertension), benign I10 Active Problem Depression with anxiety F41.8 Active Assessment Prediabetes R73.03 Active Problem Prediabetes R73.03 Active Problem PCOS (polycystic ovarian syndrome) E28.2 Active Problem NATA (obstructive sleep apnea) G47.33 Active Problem Neutrophilic leukocytosis D72.9 Active Problem Current moderate episode 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 without prior episode Assessment Current moderate episode 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 without prior episode Problem Allergic rhinitis, unspecified J30.9 Active seasonality, unspecified trigger Assessment Generalized anxiety disorder F41.1 Active Problem Migraine with aura and without G43.109 Active status migrainosus, not intractable Problem Hypersomnia G47.10 Active Problem Generalized anxiety disorder F41.1 Active Problem Menorrhagia with irregular cycle N92.1 Active Problem Secondary hypertension I15.9 Active Problem Encounter for gynecological Z01.419 Active examination without abnormal finding Problem Body mass index (BMI) of 50-59.9 in Z68.43 Active adult Problem Infertility, anovulation N97.0 Active Problem Seasonal allergic rhinitis, J30.2 Active unspecified trigger Problem HTN (hypertension), benign I10 Active Problem Morbid (severe) obesity due to E66.01 Active excess calories Problem Amenorrhea N91.2 Active Medications Medication Code Code Instructions Start End Status Dosage System Date Date Spironolactone [facility] [place] 2] 69444095816 100 MG Orally Active 1 tablet Once a day MetFORMIN HCl ER [facility] [place]NOTE 2] 58551490465 500 MG Orally Active 1 tablet Once a day with evening meal Escitalopram [facility] [place]NOTE 2] 79027067959 20 MG Orally Active 1 tablet Oxalate Once a day Escitalopram [facility] [place]NOTE 2] 03179665448 20 MG Active TAKE ONE Oxalate (1) TABLET(S) BY MOUTH ONCE A DAY. Propranolol HCl [facility] [place]NOTE 2] 80436911790 160 MG Orally Active 1 capsule ER Once a day BusPIRone HCl [facility] [place]NOTE 2] 05909421800 15 MG Orally Active 1 tablet Twice a day Results No Known Results Immunizations Vaccine Administration Date Afluria single dose Jan 12, 2019 Summary Purpose eClinicalWorks Submission
--- OUTSIDE RECORDS SUMMARY | 2019-01-17 09:27 | XMS REPORT ---
:1980 Author Organization eClinicalWorks Care Team Providers Name Role Phone Poncho Crespo Provider Role Unavailable Allergies No Known Allergies Problems Problem Type Condition Code Onset Dates Condition Status Problem Adult BMI 50.0-59.9 kg/sq m Z68.43 Active Problem Prediabetes R73.03 Active Problem Depression with anxiety F41.8 Active Problem Current moderate episode 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 without prior episode Assessment Current moderate episode 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 without prior episode Problem Menorrhagia with irregular cycle N92.1 Active Assessment Acute cystitis without hematuria N30.00 Active Problem Generalized anxiety disorder F41.1 Active Problem PCOS (polycystic ovarian syndrome) E28.2 Active Problem NATA (obstructive sleep apnea) G47.33 Active Problem Migraine with aura and without G43.109 Active status migrainosus, not intractable Problem Hypersomnia G47.10 Active Problem Body mass index (BMI) of 50-59.9 in Z68.43 Active adult Problem Infertility, anovulation N97.0 Active Assessment Prediabetes R73.03 Active Problem Morbid (severe) obesity due to E66.01 Active excess calories Problem Amenorrhea N91.2 Active Problem Secondary hypertension I15.9 Active Problem Seasonal allergic rhinitis, J30.2 Active unspecified trigger Problem Encounter for gynecological Z01.419 Active examination without abnormal finding Problem HTN (hypertension), benign I10 Active Medications No Known Medications Results No Known Results Summary Purpose eClinicalWorks Submission
--- OUTSIDE RECORDS SUMMARY | 2019-01-17 09:27 | XMS REPORT ---
:1980 Author Organization eClinicalWorks Care Team Providers Name Role Phone Zak Poncho Provider Role Unavailable Allergies No Known Allergies Problems Problem Type Condition Code Onset Dates Condition Status Problem Prediabetes R73.03 Active Problem PCOS (polycystic ovarian syndrome) E28.2 Active Problem NATA (obstructive sleep apnea) G47.33 Active Problem Neutrophilic leukocytosis D72.9 Active Problem Current moderate episode 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 without prior episode Problem Allergic rhinitis, unspecified J30.9 Active seasonality, unspecified trigger Problem Migraine with aura and without G43.109 [...] due to E66.01 Active excess calories Problem Adult BMI 50.0-59.9 kg/sq m Z68.43 Active Problem Amenorrhea N91.2 Active Problem Depression with anxiety F41.8 Active Medications No Known Medications Results No Known Results Summary Purpose eClinicalWorks Submission
--- OUTSIDE RECORDS SUMMARY | 2019-01-17 09:27 | XMS REPORT ---
[...] Active depressive disorder without prior episode Assessment Acute bronchitis, unspecified J20.9 Active organism Problem Menorrhagia with irregular cycle N92.1 Active Problem Generalized anxiety disorder F41.1 Active Problem PCOS (polycystic ovarian syndrome) E28.2 Active Problem NATA (obstructive sleep apnea) G47.33 Active Problem Migraine with aura and without G43.109 Active status migrainosus, not intractable Problem Hypersomnia G47.10 Active Problem Body mass index (BMI) of 50-59.9 in Z68.43 Active adult Problem Infertility, anovulation N97.0 Active Assessment Upper respiratory tract infection, J06.9 Active unspecified type Problem Morbid (severe) obesity due to E66.01 Active excess calories Problem Amenorrhea N91.2 Active Problem Secondary hypertension I15.9 Active Problem Seasonal allergic rhinitis, J30.2 Active unspecified trigger Problem Encounter for gynecological Z01.419 Active examination without abnormal finding Problem HTN (hypertension), benign I10 Active Medications Medication Code Code Instructions Start End Status Dosage System Date Date Spironolactone ND 12378259945 100 MG Orally Active 1 tablet Once a day BusPIRone HCl [facility] 66779965282 15 MG Active TAKE ONE (1) TABLET(S) BY MOUTH TWICE A DAY. Escitalopram ND 42172627825 20 MG Active TAKE ONE Oxalate (1) TABLET(S) BY MOUTH ONCE A DAY. Azithromycin ND 58552216125 250 MG Orally Dec 21, Dec 26, Active 2 tablets Once a day 2018 2018 on the first day, then 1 tablet daily for 4 days Propranolol HCl NDC 86560886560 160 MG Orally Active 1 capsule ER Once a day MetFORMIN HCl ER [facility] 79378486486 500 MG Active TAKE ONE (1) TABLET(S) BY MOUTH ONCE A DAY WITH EVENING MEAL. Results Name Result Date Reference Range Unit Abnormality Flag STREP A RAPID ----Result Negative [id number] Summary Purpose eClinicalWorks Submission
--- OUTSIDE RECORDS SUMMARY | 2019-01-17 09:27 | XMS REPORT | Summary of Care ---
:1980 Author Organization [facility] [place] [address] Care Team Providers Name Role Phone Unavailable Primary Care Provider Unavailable Reason for Visit Reason Comments Initial Consultation Rectal pain and bleeding with and wo BM's, complains of rectal "spasms". Alternating constipation and diarrhea with incontinence. Complains of bloating and flatulance. Encounter Details Date Type Department Care Team Description 09/23/2018 Office Visit [facility] Dennis Roberto MD Initial Consultation Medicine [address] [facility] (Rectal pain and Gastroenterology [address] bleeding with and wo [address] [place] [address] BM's, complains of [address] [phone] rectal "spasms". [place], [place] Alternating [phone] constipation and [phone] diarrhea with incontinence. Complains of bloating and flatulance. ) Allergies No Known Allergiesdocumented as of this encounter (statuses as of 10/09/2018) Medications Medication Sig Dispensed Refills Start Date End Date Status metformin TAKE 1 TABLET BY 1 08/05/2018 Active (GLUCOPHAGE-XR) 500 MG MOUTH ONCE DAILY XR tablet WITH EVENING MEAL spironolactone Take 100 mg by 0 Active (ALDACTONE) 100 MG mouth daily. tablet propranolol 160 MG CP24 Take by mouth. 0 Active busPIRone (BUSPAR) 15 MG Take 15 mg by 0 Active tablet mouth 3 times daily. escitalopram (LEXAPRO) Take 20 mg by 0 Active 20 MG tablet mouth daily. documented as of this encounter (statuses as of 10/09/2018) Active Problems No known active problemsdocumented as of this encounter (statuses as of 2018) Social History Tobacco Use Types Packs/Day Years Used Date Former Smoker 0.3 6 Quit: 09/24/2011 Smokeless Tobacco: Never Used Alcohol Use Drinks/Week oz/Week Comments Yes 1 Glasses of wine 0.6 Sex Assigned at Date Recorded Not on file Job Start Date Occupation Industry Not on file Not on file Not on file Travel History Travel Start Travel End No recent travel history available. documented as of this encounter Last Filed Vital Signs Vital Sign Reading Time Taken Comments Blood Pressure 142/78 09/23/2018 8:39 AM CDT Pulse 70 09/23/2018 8:39 AM CDT Temperature 37 C (98.6 F) 09/23/2018 8:39 AM CDT Respiratory Rate - - Oxygen Saturation - - Inhaled Oxygen Concentration - - Weight 168.8 kg (372 lb 3.2 oz) 09/23/2018 8:39 AM CDT Height 170.2 cm (5' 7") 09/23/2018 8:39 AM CDT Body Mass Index 58.29 09/23/2018 8:39 AM CDT documented in this encounter Patient Instructions Patient InstructionsDennis Roberto MD - 09/23/2018 8:30 AM CDTI have recommended the following: - For her presumed rectal fissure - nitroglycerin cream (Rx given) and increase fiber intake. - For the diarrhea and constipation - Increase fiber intake - Take fiber supplement starting with once daily and increase to three times daily as tolerated. Benefiber is a good choice. - Drink plenty of water and fluids (coffee may not count) - Switch to a high fiber diet - For losing weight -- decrease portion size, eat slower, consider a break in the middle of your meal, and find out if your insurance covers a carpenter helper. documented in this encounter Progress Notes Dennis Roberto MD - 09/23/2018 8:30 AM CDT Referring MD: Poncho Crespo History of Present Illness: Shahnaz River is a 38 y.o. female with a history of morbid obesity, HTN, PCOS, anxiety, who presents for further evaluation of rectal pain. she reports the following: - She has been having symptoms for the last year - Her symptoms vary - She has constant pain in her rectum - Has feeling of incomplete evacuation, but inside it is sharp and hurts - Feels like "passing fiery cactus" - The consistency varies from diarrhea to constipation. She has had watery stool, along with hard fist-sized balls. - she has done preparation H and proctosol, tried benefiber (1 glass daily with tablespoon) - Has significant blood and blood clots in her stool, has worn pads. Not always associated with BM - She has had 2 colonoscopy in the past 6 yrs - Dr. Pedraza 6 yrs prior with one "pre-cancerous polyp",November 2017 Dr. Youssef in [facility] did a second colonoscopy, only saw hemorrhoids. - Her symptoms are associated with nausea, comes and goes, possibly related to pain, not daily. - Has associated abdominal pain, lower to mid-abdomen, feels like burning sensation, not worse or better with anything, occurs intermittently (2x/wk), present for a year also. - She denies fevers, chills, vomiting, dysphagia, heartburn. - Complains that leafy vegetables come out undigested. - We reviewed her diet: - Breakfast usually egg and taco, 2 cups coffee - Lunch - usually eats a snack (adult lunchable) - Dinner - rotisserie chicken, sometimes with broccoli and spinach. - Snacks she eats pistachios, granola bars, trail mix - She drinks water (3-16 oz water at work, 32 oz water at home). - Does water aerobics 3x/wk Review of Systems: Constitutional: denies current fever or trauma Eyes: denies visual changes ENT: denies ear pain, tinnitus Cardiovascular: denies chest pain Respiratory: denies cough, denies shortness of breath Gastrointestinal: see HPI Genitourinary: denies dysuria Musculoskeletal: denies new muscle pain Hematological: denies excessive/prolonged bleeding Neurological: denies confusion Past Medical History: Past Medical History: Diagnosis Date Anxiety and depression HTN (hypertension) PCOS (polycystic ovarian syndrome) Sleep apnea Past Surgical History: Past Surgical History: Procedure Laterality Date HX APPENDECTOMY 2017 Medications: Current Outpatient Medications: busPIRone (BUSPAR) 15 MG tablet, Take 15 mg by mouth 3 times daily., Disp: , Rfl: escitalopram (LEXAPRO) 20 MG tablet, Take 20 mg by mouth daily., Disp: , Rfl: metformin (GLUCOPHAGE-XR) 500 MG XR tablet, TAKE 1 TABLET BY MOUTH ONCE DAILY WITH EVENING MEAL, Disp: , Rfl: 1 propranolol 160 MG CP24, Take by mouth., Disp: , Rfl: spironolactone (ALDACTONE) 100 MG tablet, Take 100 mg by mouth daily., Disp : , Rfl: Social History: Social History Tobacco Use Smoking status: Former Smoker Packs/day: 0.30 Years: 6.00 Pack years: 1.80 Last attempt to quit: 09/24/2011 Years since quittin.0 Smokeless tobacco: Never Used Substance Use Topics Alcohol use: Yes Alcohol/week: 0.6 oz Types: 1 Glasses of wine per week Drug use: Never Family History: Family History Problem Relation Name Age of Onset Depression Mother Diabetes Mother Hypertension Mother Diabetes Maternal Aunt Cancer Maternal Grandmother Breast Physical Exam: Vital Signs Height: 5' 7" (170.2 cm) Weight - Scale: (!) 372 lb 3.2 oz (168.8 kg) Temp: 98.6 F (37 C) Temp Source: Oral Pulse: 70 BP: 142/78 Body mass index is 58.29 kg/m. General: No apparent distress Neuro: alert, responsive, oriented to self Head: Normocephalic and atraumatic EENT: PERRL, EOMI Neck: Supple, no masses appreciated CV: RRR, PMI is nondisplaced Lung: no labored breathing, grossly CTAB Extremities: no edema, no clubbing Abdomen: soft non-tender, not distended +BS Rectal exam was performed with a presence of a porter used car lot Rectal: exam unable to completed given patient discomfort and pain. Assessment and Plan: This is a 38 y.o. female, history of morbid obesity, HTN, PCOS, anxiety, with rectal pain, . - For her presumed rectal fissure - nitroglycerin and increase fiber intake. - For the diarrhea and constipation - likely irritable bowel vs from poor diet - Increase fiber intake, take fiber supplement starting with once daily and increase to three timesdaily as tolerated. Benefiber is a good choice. - Drink plenty of water and fluids (coffee may not count) - Switch to a high fiber diet - For losing weight -- decrease portion size - will discuss further next visit. She will see if herinsurance covers bariatric or carpenter helper visits. I have reviewed the above with the patient/patient branch service representative who expresses understanding. documented in this encounter Plan of Treatment Date Type Specialty Care Team Description 12/16/2018 Office Visit Gastroenterology Dennis Roberto MD [address] [id number] Health Maintenance Due Date Last Done Comments TETANUS SHOT (ADULT) 1997 BMI FOLLOW UP PLAN 2000 HIV SCREENING 2000 CERVICAL CANCER SCREENING 3 YEAR FOLLOW UP 09/02/2003 FLU VACCINE > 6 MONTHS 09/09/2018 documented as of this encounter Results Not on filedocumented in this encounter Visit Diagnoses Diagnosis Irritable bowel syndrome with both constipation and diarrhea - Primary Rectal fissure Anal fissure Morbid obesity documented in this encounter Insurance Payer Benefit Plan / Subscriber ID Effective Dates Phone Address Type Group [facility] x[facility]xx 2017-Present [address] [place] [address] documented as of this encounter
[2019-01-17] MEDS ORDERED: SUMATRIPTAN SUCC 6MG/0.5ML VIAL SQ ONE (09:47)
[2019-01-17] MEDS ORDERED: ONDANSETRON 4 MG (ODT) TAB ONE (09:47)
--- NOTE | 2019-01-17 10:48 | ER ---
Nurse's Notes [facility] Name: Shahnaz River Age: 38 yrs Sex: Female : 1980 Arrival Date: 01/17/2019 Time: 09:15 Bed 5 Private MD: Poncho Crespo Diagnosis: Migraine Presentation: 01/17 09:39 Presenting complaint: Migraine since 0300 today. Reports aura followed by nausea and hb sharp right sided headache 11/18. Hx of migraines and PCOS, vaginal bleeding x 20 days. Transition of care: patient was not received from another setting of care. Onset of symptoms was January 17, 2019. Risk Assessment: Do you want to hurt yourself or someone else? Patient reports no desire to harm self or others. Initial Sepsis Screen: Does the patient meet any 2 criteria? No. Patient's initial sepsis screen is negative. Does the patient have a suspected source of infection? No. Patient's initial sepsis screen is negative. Care prior to arrival: None. 09:39 Method Of Arrival: Ambulatory hb 09:39 Acuity: TARIQ 3 hb Triage Assessment: 09:42 Headache History: The patient has had previous headaches and this one is similar to previous episodes. General: Appears in no apparent distress. uncomfortable, Behavior is calm, cooperative. Pain: Pain currently is 10 out of 10 on a pain scale. Pain began today. EENT: No signs and/or symptoms were reported regarding the EENT system. Neuro: Level of Consciousness is awake, alert, obeys commands, Oriented to person, place, time, situation. Cardiovascular: Capillary refill < 3 seconds Patient's skin is warm and dry. Respiratory: Airway is patent Respiratory effort is even, unlabored, Respiratory pattern is regular, symmetrical, Breath sounds are clear bilaterally. GI: Reports nausea. : No signs and/or symptoms were reported regarding the genitourinary system. Derm: Skin is pink, warm \T\ dry. Musculoskeletal: No signs and/or symptoms reported regarding the musculoskeletal system. KENO CLERK: 09:41 LMP 12/27/2018 hb Historical: - Allergies: 09:41 No Known Allergies; hb - Home Meds: 09:41 lisinopril-hydrochlorothiazide 10-12.5 mg Oral tab [Active]; hb - PMHx: 09:41 Hypertension; Migraines; PCOS; Sleep Apnea; hb - Immunization history:: Adult Immunizations up to date. - Social history:: Smoking status: Patient/guardian denies using tobacco. - Ebola Screening: : No symptoms or risks identified at this time. - Family history:: not pertinent. - Hospitalizations: : No recent hospitalization is reported. Screenin:43 Abuse screen: Denies threats or abuse. Denies injuries from another. Nutritional hb screening: No deficits noted. Tuberculosis screening: No symptoms or risk factors identified. Fall Risk None identified. Assessment: 09:43 General: see triage assessment . hb 10:59 Reassessment: Patient appears in no apparent distress at this time. Patient and/or hb family updated on plan of care and expected duration. Pain level reassessed. Patient states symptoms have improved. Vital Signs: 09:41 BP 144 / 90; Pulse 50; Resp 16; Temp 97.9(TE); Pulse Ox 97% on R/A; Pain 10/10; hb 10:45 BP 132 / 84; Pulse 53; Resp 15; Pulse Ox 99% ; Pain 4/10; hb Carolin Coma Score: 10:44 Eye Response: spontaneous(4). Verbal Response: oriented(5). Motor Response: obeys rn commands(6). Total: 15. ED Course: 09:15 Patient arrived in ED. ag5 09:15 Poncho Crespo DO is Private Physician. ag5 09:36 Jacek Herndon MD is Attending Physician. rn 09:39 Margie Correa, TIP is Primary Nurse. hb 09:40 Triage completed. hb 09:41 Arm band placed on. hb 09:43 Patient has correct armband on for positive identification. Bed in low position. Call hb light in reach. Side rails up X 1. 10:59 No provider procedures requiring assistance completed. Patient did not have IV access hb during this emergency room visit. Administered Medications: 09:49 Drug: SUMAtriptan 6 mg Route: Sub-Q; Site: right upper arm; hb 09:49 Drug: Zofran 4 mg Route: PO; hb Outcome: 10:47 Discharge ordered by . rn 10:59 Discharged to home ambulatory. hb 10:59 Condition: stable 10:59 Discharge instructions given to patient, Instructed on discharge instructions, follow up and referral plans. medication usage, Demonstrated understanding of instructions, follow-up care, medications. 10:59 Patient left the ED. hb Signatures: Jacek Herndon MD MD rn Baxter, Heather, RN RN hb Gaskin, Ajare ag5
--- NOTE | 2019-01-17 10:48 | EDPHYS ---
Physician Documentation [facility] Name: Shahnaz River Age: 38 yrs Sex: Female : 1980 Arrival Date: 01/17/2019 Time: 09:15 Bed 5 Private MD: Poncho Crespo ED Physician Jacek Herndon HPI: 01/17 09:44 This 38 yrs old Female presents to ER via Ambulatory with complaints of rn Headache. 10:44 The patient complains of pain to the forehead. The patient describes the headache as rn aching. Onset: The symptoms/episode began/occurred this morning. Associated signs and symptoms: Pertinent positives: nausea, Pertinent negatives: altered mental status, fever, neck stiffness, rash, vision changes, vision loss, vertigo. Severity of symptoms: At its worst the pain was moderate, in the emergency department the pain is unchanged. The symptoms are alleviated by nothing. the symptoms are aggravated by nothing. The patient has experienced similar episodes in the past. The patient has not recently seen a physician. Reports headache, began around 0300 today, similar to previous migraines, no changes, states last time resolved with single shot of sumatriptan. No allergies. No fever/focal neuro complaints. . 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 - Social history:: Smoking status: Patient/guardian denies using tobacco. - Ebola Screening: : No symptoms or risks identified at this time. - Family history:: not pertinent. - Hospitalizations: : No recent hospitalization is reported. ROS: 10:44 Constitutional: Negative for fever, chills, and weight loss, Eyes: Negative for injury, rn pain, redness, and discharge, Neck: Negative for injury, pain, and swelling, Cardiovascular: Negative for chest pain, palpitations, and edema, Respiratory: Negative for shortness of breath, cough, wheezing, and pleuritic chest pain, Abdomen/GI: Negative for abdominal pain, vomiting, diarrhea, and constipation, MS/Extremity: Negative for injury and deformity, Skin: Negative for injury, rash, and discoloration, Neuro: Negative for weakness, numbness, tingling, and seizure. Exam: 10:44 Constitutional: This is a well developed, well nourished patient who is awake, alert, rn and in no acute distress. Head/Face: Normocephalic, atraumatic. Eyes: Pupils equal round and reactive to light, extra-ocular motions intact. Lids and lashes normal. Conjunctiva and sclera are non-icteric and not injected. Cornea within normal limits. Periorbital areas with no swelling, redness, or edema. Neck: Trachea midline, no thyromegaly or masses palpated, and no cervical lymphadenopathy. Supple, full range of motion without nuchal rigidity, or vertebral point tenderness. No Meningismus. Cardiovascular: Regular rate and rhythm. No pulse deficits. Respiratory: No increased work of breathing, no retractions or nasal flaring. Abdomen/GI: soft, non-tender MS/ Extremity: Pulses equal, no cyanosis. Neurovascular intact. Full, normal range of motion. Equal circumference. Neuro: Awake and alert, GCS 15, oriented to person, place, time, and situation. Cranial nerves II-XII grossly intact. Motor strength 5/5 in all extremities. Sensory grossly intact. Cerebellar exam normal. Normal gait. Vital Signs: 09:41 BP 144 / 90; Pulse 50; Resp 16; Temp 97.9(TE); Pulse Ox 97% on R/A; Pain 10/10; hb 10:45 BP 132 / 84; Pulse 53; Resp 15; Pulse Ox 99% ; Pain 4/10; hb Lyons Coma Score: 10:44 Eye Response: spontaneous(4). Verbal Response: oriented(5). Motor Response: obeys rn commands(6). Total: 15. MDM: 09:36 Patient medically screened. rn 10:44 Differential diagnosis: hypertensive headache, migraine, tension headache, vasomotor rn headache. Data reviewed: vital signs, nurses notes, old medical records, and as a result, I will discharge patient. Counseling: I had a detailed discussion with the patient and/or guardian regarding: the historical points, exam findings, and any diagnostic results supporting the discharge/admit diagnosis, the need for outpatient follow up, to return to the emergency department if symptoms worsen or persist or if there are any questions or concerns that arise at home. Response to treatment: the patient's symptoms have markedly improved after treatment, and as a result, I will discharge patient. Special discussion: I discussed with the patient/guardian in detail that at this point there is no indication for admission to the hospital. It is understood, however, that if the symptoms persist or worsen the patient needs to return immediately for re-evaluation. Administered Medications: 09:49 Drug: SUMAtriptan 6 mg Route: Sub-Q; Site: right upper arm; hb 09:49 Drug: Zofran 4 mg Route: PO; hb Disposition: 01/17/19 10:47 Discharged to Home. Impression: Migraine. - Condition is Stable. - Discharge Instructions: Migraine Headache. - Prescriptions for Zofran ODT 4 mg Oral tablet,disintegrating - place 1 tablet by TRANSLINGUAL route every 8 hours As needed; 20 tablet. Fiorinal 50- 325-40 mg Oral Capsule - take 1 capsule by ORAL route every 4 hours As needed - not to exceed 6 capsules per day; 12 capsule. - Medication Reconciliation Form, Thank You Letter, Antibiotic Education, Prescription Opioid Use form. - Follow up: Private Physician; When: As needed; Reason: Recheck today's complaints, Re-evaluation by your physician. - Problem is new. - Symptoms have improved. Signatures: Jacek Herndon MD MD rn Baxter, Heather, RN RN Corrections: (The following items were deleted from the chart) 10:59 10:47 01/17/2019 10:47 Discharged to Home. Impression: Migraine. Condition is Stable. hb Forms are Medication Reconciliation Form, Thank You Letter, Antibiotic Education, Prescription Opioid Use. Follow up: Private Physician; When: As needed; Reason: Recheck today's complaints, Re-evaluation by your physician. Problem is new. Symptoms have improved. rn
[2019-01-17 11:06] VITALS: TEMP 97.9
[2019-01-17 11:26] VITALS: BP 132/84; O2SAT 99
== END 2019-01-17 10:59 | disposition home or self-care (01) ==
LOC: ER 09:12
DX: G43.909 Migraine, unspecified, not intractable, without status migrainosus (principal); I10 Essential (primary) hypertension
CPT/HCPCS: 96372; 99283; J3030

== ENCOUNTER 2019-03-10 09:03 | Emergency (ER) | payer OTHER ==
--- OUTSIDE RECORDS SUMMARY | 2019-03-10 09:05 | XMS REPORT ---
[...] Status Dosage System Date Date Propranolol HCl [facility] 02385790199 160 MG Orally Active 1 capsule ER Once a day Escitalopram [facility] 86204316336 20 MG Orally Active 1 tablet Oxalate Once a day MetFORMIN HCl ER [facility] 78862120324 500 MG Orally Active 1 tablet Once a day with evening meal Propranolol HCl [facility] 82668431379 160 MG Orally Active 1 capsule ER Once a day Escitalopram [facility] 14639225522 20 MG Orally Active 1 tablet Oxalate Once a day BusPIRone HCl [facility] 41168474207 15 MG Orally Active 1 tablet Twice a day Nitrofurantoin [facility] 29073705452 100 MG Orally Sep 29, Oct 04, Active 1 capsule Monohyd Macro every 12 hrs 2018 2018 with food Spironolactone [facility] 31913688403 100 MG Orally Active 1 tablet Once a day Results No Known Results Summary Purpose eClinicalWorks Submission
--- OUTSIDE RECORDS SUMMARY | 2019-03-10 09:05 | XMS REPORT ---
:1980 [facility] Address [address] [place] [address] Care Team Providers Name Role Phone EDMONDJENIFER [...] SURGICAL 2017-10-24 RUN SPECIMENS 10:53:00 DATE: 10/24/17 [facility] * LIVE* PAGE 1 RUN TIME: 1053 Specimen Inquiry RUN USER: INTERFACE WILLIAM ENT: YARITZA BAILEY LOC: [facility] U #: [id number] AGE/SX: 37/F ROOM: RE10/22/17REG DR: Tracey Shetty : [birth year] BED: DIS: STATUS: DEP [facility] TLOC: SPEC #: [id number] RECD: 10/22/17 STATUS: CARLEE TAYLOR #: [id number] DOMINGO: 10/22/[address]: Tracey Shetty MD ENTERED: 10/24/17 SP TYPE: SURG SPEC OTHR DR: Undefined Provider ORDERED: GM LEVEL 4 CODES: [id number] - STOMACH, NOS [id number] - SMALL INTESTINE [id number] - COLON, NOS COPIES TO: Tracey Shetty MD [address] [place] [address] [id number] [place] [address] Undefined Provider PROCEDURES: GM LEVEL [...] CONTINUED ON NEXT PAGE RUN DATE: 10/24/17 [facility] *LIVE* PAGE 2 RUN TIME: 1053 Specimen Inquiry RUN USER: INTERFACE SPEC #: [id number] PATIENT: YARITZA BAILEY # [id number] (Continued) ------- GROSS AND MICROSCOPIC (Continued) MICROSCOPIC [...] Value Reference Range Comments CULTURE (BEAKER) (test morh=9418) >100,000 col/mL skin tona MR, MRA, BRAIN, WITHOUT [id number] 15:22:00Reason for exam:-> Ischemic Stroke EvaluationFINAL REPORT MRI brain with and without contrast Comparison: No priors Reason for exam: StrokeIschemic Stroke Evaluation Discussion: Multiplanar MR imaging of the brain was provided tke-jmf-ouqs IV gadolinium administration using T1, T2, FLAIR, [...] None available. TECHNIQUE: 2 D and 3-D erlw-wj-kiimuy MRA images of the intra - and extracranial carotid and vertebralarterial circulations were obtained, from which maximal intensity projection 3-D reconstructions were created. FINDINGS: MRA neck: There is no MR angiographic evidence for vessel occlusion or NASCET quantifiable stenosis in the extracranial carotid arteries. No hemodynamically significant stenosis identified in the vertebral artery, flow is antegrade in both vertebral arteries. MRA [place]: There is no MR angiographic evidence for vessel occlusion, flow-limiting stenosis, or aneurysm inthe intracranial carotid or vertebrobasilar arterial circulations. IMPRESSION: 1. No MR angiographic evidence for vascular compromise. Signed : Adele Holdenort Verified Date/Time: 05/10/2017 15:22:22 Reading Location: [address] Neuro Reading Room MR, MRA, NECK, WITHOUT IV [id number] 15:22: 00Reason for exam:->Ischemic Stroke EvaluationFINAL REPORT MRI brain with and without contrast Comparison: No priors Reason for exam: StrokeIschemic Stroke Evaluation Discussion: Multiplanar MR imaging of the brain was provided qsf-nfz-zfpv IV gadolinium administration using T1, T2, FLAIR, [...] None available. TECHNIQUE: 2 D and 3-D osay-sc-zgemha MRA images of the intra- and extracranial carotid and vertebralarterial circulations were obtained, from which maximal intensity projection 3-D reconstructions were created. FINDINGS: MRA neck: There is no MR angiographic evidence for vessel occlusion or NASCET quantifiable stenosis in the extracranial carotid arteries. No hemodynamically significant stenosis identified in the vertebral artery, flow is antegrade in both vertebral arteries. MRA [place]: There is no MR angiographic evidence for vessel occlusion, flow-limiting stenosis, or aneurysm inthe intracranial carotid or vertebrobasilar arterial circulations. IMPRESSION: 1. No MR angiographic evidence for vascular compromise. Signed: Adele Holdenort Verified Date/Time: 05/10/2017 15:22:22 Reading Location: [address] Neuro Reading Room 03: 22 PMMR, BRAIN, [id number] 15:22:00FINAL REPORT MRI brain with and without contrast Comparison: No priors Reason for exam: StrokeIschemic Stroke Evaluation Discussion: Multiplanar MR imaging of the brain was provided lcv-alu-oexs IV gadolinium administration using T1, T2, FLAIR [...] None available. TECHNIQUE: 2 D and 3-D lgqn-me-lvjujj MRA images of the intra- and extracranial carotid and vertebralarterial circulations were obtained, from which maximal intensity projection 3-D reconstructions were created. FINDINGS: MRA neck: There is no MR angiographic evidence for vessel occlusion or NASCET quantifiable stenosis in the extracranial carotid arteries. No hemodynamically significant stenosis identified in the vertebral artery, flow is antegrade in both vertebral arteries. MRA [place]: There is no MR angiographic evidence for vessel occlusion, flow-limiting stenosis, or aneurysm inthe intracranial carotid or vertebrobasilar arterial circulations. IMPRESSION: 1. No MR angiographic evidence for vascular compromise. Signed: Adele Holden Verified Date/Time: 05/10/2017 15:22:22 Reading Location: [address] Neuro Reading Room 03: 22 PMHEMOGLOBIN [id number] 11:17:00 Test Item Value Reference Range Comments HEMOGLOBIN A1C (BEAKER) (test quot=635) 5.9 % 4.3-6.1 [id number] 07:58:00 Test Item Value Reference Range Comments MAGNESIUM (BEAKER) (test mcus=947) 2.2 mg/dL 1.6-2.6 BASIC METABOLIC [id number] 07:58:00 Test Item Value Reference Range Comments SODIUM (BEAKER) (test 137 meq/L 136-145 uwmp=328) POTASSIUM (BEAKER) (test 3.9 meq/L 3.5-5.1 ihyy=752) CHLORIDE (BEAKER) (test 104 meq/L 98-107 datn=444) CO2 (BEAKER) (test 23 meq/L 22-29 nlub=960) BLOOD UREA NITROGEN 14 mg/dL 7-21 (BEAKER) (test engw=630) CREATININE (BEAKER) (test 0.73 mg/dL 0.57-1.25 ehab=447) GLUCOSE RANDOM (BEAKER) 100 mg/dL 70-105 (test oocv=873) CALCIUM (BEAKER) (test 8.7 mg/dL 8.4-10.2 xtrq=925) EGFR (BEAKER) (test 91 mL/min/1.73 sq m ESTIMATED GFR IS NOT egtz=9113) ACCURATE CREATININE CLEARANCE IN PREDICTING GLOMERULAR FILTRATION RATE. ESTIMATED GFR IS NOT APPLICABLE FOR DIALYSIS PATIENTS. LIPID [id number] 07:58:00 Test Item Value Reference Range Comments TRIGLYCERIDES (BEAKER) (test fubw=329) 163 mg/dL CHOLESTEROL (BEAKER) (test wryw=203) 149 mg/dL HDL CHOLESTEROL (BEAKER) (test wdee=226) 30 mg/dL LDL CHOLESTEROL CALCULATED (BEAKER) (test 86 mg/dL bklu=765) Triglyceride Reference Range: Low Risk <150 Borderline 150- 199 High Risk 200-499 Very High Risk >=500Cholesterol Reference Range: Low Risk <200 Borderline 200-239 High Risk > 240HDL Cholesterol Reference Range: Low Risk >=60 High Risk <40LDL Cholesterol Reference Range: Optimal <100 Near Optimal 100-129 Borderline 130-159 High 160-189 Very High >=190TROPONIN [id number] 07:56:00 Test Item Value Reference Range Comments TROPONIN I (BEAKER) (test owec=476) 0.01 ng/mL 0.00-0.03 Troponin I (TnI) levels [...]
--- OUTSIDE RECORDS SUMMARY | 2019-03-10 09:06 | XMS REPORT ---
:1980 Author Organization eClinicalWorks Care Team Providers Name Role Phone Zak [facility] Provider Role Unavailable Allergies, Adverse Reactions, Alerts [...] Active depressive disorder without prior episode Assessment Upper respiratory tract infection, J06.9 Active unspecified type Assessment Acute bronchitis, unspecified J20.9 Active organism Problem Allergic rhinitis, unspecified J30.9 Active seasonality, [...] Problem Depression with anxiety F41.8 Active Medications Medication Code Code Instructions Start End Status Dosage System Date Date MetFORMIN HCl ER ND 13228439409 500 MG Orally Active 1 tablet Once a day with evening meal Spironolactone ND 28658365187 100 MG Active TAKE ONE (1) TABLET(S) BY MOUTH ONCE A DAY. Escitalopram ND 78798971786 20 MG Orally Active 1 tablet Oxalate Once a day Medrol [facility] 42685783494 4 MG Orally use Feb 11, Feb 17, Active as as directed 2019 2019 directed BusPIRone HCl [facility] 72354908728 15 MG Active TAKE ONE (1) TABLET(S) BY MOUTH TWICE A DAY. Propranolol HCl [facility] 72692099632 160 MG Orally Active 1 capsule ER Once a day Results No Known Results Summary Purpose eClinicalWorks Submission
--- OUTSIDE RECORDS SUMMARY | 2019-03-10 09:06 | XMS REPORT ---
:1980 Author Organization eClinicalWorks Care Team Providers Name Role Phone Zak [facility] Provider Role Unavailable Allergies, Adverse Reactions, Alerts [...] End Status Dosage System Date Date Spironolactone [facility] 95583161725 100 MG Orally Active 1 tablet Once a day MetFORMIN HCl ER [facility] 32531418464 500 MG Orally Active 1 tablet Once a day with evening meal Escitalopram [facility] 50713328834 20 MG Orally Active 1 tablet Oxalate Once a day Escitalopram [facility] 41981818345 20 MG Active TAKE ONE Oxalate (1) TABLET(S) BY MOUTH ONCE A DAY. Propranolol HCl [facility] 20352145586 160 MG Orally Active 1 capsule ER Once a day BusPIRone HCl [facility] 69103118510 15 MG Orally Active 1 tablet Twice a day Results No Known Results Immunizations Vaccine Administration Date Afluria single dose Jan 12, 2019 Summary Purpose eClinicalWorks Submission
--- OUTSIDE RECORDS SUMMARY | 2019-03-10 09:06 | XMS REPORT ---
:1980 Author Organization eClinicalWorks Care Team Providers Name Role Phone Zak [facility] Provider Role Unavailable Allergies, Adverse Reactions, [...] Active depressive disorder without prior episode Assessment Allergic rhinitis, unspecified J30.9 Active seasonality, unspecified trigger Problem Allergic rhinitis, unspecified J30.9 Active seasonality, [...] Start End Status Dosage System Date Date Escitalopram [facility] 20705010004 20 MG Active TAKE ONE Oxalate (1) TABLET(S) BY MOUTH ONCE A DAY. Escitalopram [facility] 98882469188 20 MG Orally Active 1 tablet Oxalate Once a day MetFORMIN HCl ER ND 15202509306 500 MG Orally Active 1 tablet Once a day with evening meal BusPIRone HCl [facility] 02504445870 15 MG Orally Active 1 tablet Twice a day Spironolactone [facility] 15489368974 100 MG Orally Active 1 tablet Once a day Propranolol HCl [facility] 44156289221 160 MG Orally Active 1 capsule ER Once a day Results No Known Results Summary Purpose eClinicalWorks Submission
--- OUTSIDE RECORDS SUMMARY | 2019-03-10 09:06 | XMS REPORT ---
[...] Status Dosage System Date Date Spironolactone ND 64376297710 100 MG Orally Active 1 tablet Once a day BusPIRone HCl [facility] 19077159793 15 MG Active TAKE ONE (1) TABLET(S) BY MOUTH TWICE A DAY. Escitalopram ND 70985318272 20 MG Active TAKE ONE Oxalate (1) TABLET(S) BY MOUTH ONCE A DAY. Azithromycin ND 21750342526 250 MG Orally Dec 21, Dec 26, Active 2 tablets Once a day 2018 2018 on the first day, then 1 tablet daily for 4 days Propranolol HCl [facility] 56214010926 160 MG Orally Active 1 capsule ER Once a day MetFORMIN HCl ER [facility] 95044024265 500 MG Active TAKE ONE (1) TABLET(S) BY MOUTH ONCE A DAY WITH EVENING MEAL. Results Name Result Date Reference Range Unit Abnormality Flag STREP A RAPID ----Result Negative [id number] Summary Purpose eClinicalWorks Submission
[2019-03-10 11:07] LABS: Urine Blood 3+ (NEG); Urine Glucose NEGATIVE (NEG); Urine Protein 2+ (NEG); Urine pH 5.5 (5.0-7.0)
[2019-03-10 11:10] LABS: Urine Bacteria 20-50 /HPF (<20); Urine Culture Reflex Order NOT NEEDED; Urine RBC >50 /HPF (NONE SEEN)
--- NOTE | 2019-03-10 11:11 | RAD REPORT ---
EXAM DESCRIPTION: CT - Stone Protocol - 03/10/2019 10:39 am CLINICAL HISTORY: Abdominal pain. COMPARISON: 2017 TECHNIQUE: Computed axial tomography of the abdomen pelvis was obtained without oral or IV contrast. Lack of IV and oral contrast limits evaluation of solid organs, bowel, and vessels. Coronal reformat chris images were obtained and reviewed. All CT scans are performed using dose optimization technique as appropriate and may include automated exposure control or mA/KV adjustment according to patient size. FINDINGS: A 5 millimeter calculus left UPJ Hounsfield unit 1120. Mild left hydronephrosis. A right renal calculus is not seen. A bladder calculus is not noted. The liver, spleen, pancreas and adrenals appear grossly normal There is no evidence of diverticulitis. A small umbilical hernia IMPRESSION: A 5 millimeter calculus left UPJ resulting in mild left hydronephrosis
[2019-03-10] MEDS ORDERED: HYDROCODONE/APAP 5/325 MG TAB ONE (11:24)
[2019-03-10] MEDS ORDERED: PROMETHAZINE INJ 25 MG/ML AMP ONE (11:24)
[2019-03-10] MEDS ORDERED: MAGNESIUM OXIDE 400 MG TAB ONE (11:25)
[2019-03-10] MEDS ORDERED: NA CHLORIDE 0.9% 1,000 ML ONE (11:25)
[2019-03-10] MEDS ORDERED: TAMSULOSIN 0.4 MG SR CAP ONE (11:25)
[2019-03-10] MEDS ORDERED: KETOROLAC 30 MG/ML INJ ONE (11:25)
[2019-03-10 11:45] LABS: Absolute Lymphocytes (CBC) 2.2 K/uL (0.7-4.9); Basophils % 0.7 % (0-1.3); Hematocrit 38.4 % (36.0-45.0); Lymphocytes % 17.7 % (15.3-44.8); MPV 8.4 fL (7.6-11.3); RBC Red Blood Cell Count 4.78 M/uL (3.86-4.86)
[2019-03-10 11:59] LABS: Potassium 4.1 mmol/L (3.5-5.1)
--- NOTE | 2019-03-10 13:54 | EDPHYS ---
Physician Documentation [facility] Name: Shahnaz River Age: 38 yrs Sex: Female : 1980 Arrival Date: 03/10/2019 Time: 09:05 Bed 5 Private MD: Poncho Crespo ED Physician Jacek Herndon HPI: 03/10 13:50 This 38 yrs old Female presents to ER via Ambulatory with complaints of snw Abdominal Pain. 13:50 The patient presents with abdominal pain in the lower abdomen, in the left lower snw quadrant. Onset: The symptoms/episode began/occurred suddenly, and became persistent. The symptoms radiate to left back. Associated signs and symptoms: Pertinent positives: nausea. The symptoms are described as constant, shooting, stabbing. Severity of pain: At its worst the pain was incapacitating. The patient has not experienced similar symptoms in the past. pt has had chronic menorrhagia and has been taking progestin for bleeding intermittently for past month. 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 - Coronavirus screen:: The patient has NOT traveled to [place], [place], or [place] in the past 14 days. Proceed with normal triage process as indicated. - Social history:: Smoking status: Patient denies any tobacco usage or history of. - Ebola Screening: : Patient denies exposure to infectious person Patient denies travel to an Ebola-affected area in the 21 days before illness onset. ROS: 10:58 Constitutional: Negative for fever, chills, and weight loss, Eyes: Negative for injury, snw pain, redness, and discharge, ENT: Negative for injury, pain, and discharge, Neck: Negative for injury, pain, and swelling, Cardiovascular: Negative for chest pain, palpitations, and edema, Respiratory: Negative for shortness of breath, cough, wheezing, and pleuritic chest pain, Back: Negative for injury and pain, : Negative for injury, bleeding, discharge, and swelling, MS/Extremity: Negative for injury and deformity, Skin: Negative for injury, rash, and discoloration, Neuro: Negative for headache, weakness, numbness, tingling, and seizure. 10:58 Abdomen/GI: Positive for abdominal pain, of the left lower quadrant, radiates through to back. Exam: 10:56 Constitutional: This is a well developed, obese patient who is awake, alert, and snw tearful. Head/Face: Normocephalic, atraumatic. Eyes: Pupils equal round and reactive to light, extra-ocular motions intact. Lids and lashes normal. Conjunctiva and sclera are non-icteric and not injected. Cornea within normal limits. Periorbital areas with no swelling, redness, or edema. ENT: Nares patent. No nasal discharge, no septal abnormalities noted. Tympanic membranes are normal and external auditory canals are clear. Oropharynx with no redness, swelling, or masses, exudates, or evidence of obstruction, uvula midline. Mucous membranes moist. Neck: Trachea midline, no thyromegaly or masses palpated, and no cervical lymphadenopathy. Supple, full range of motion without nuchal rigidity, or vertebral point tenderness. No Meningismus. Chest/axilla: Normal chest wall appearance and motion. Nontender with no deformity. No lesions are appreciated. Cardiovascular: Regular rate and rhythm with a normal S1 and S2. No gallops, murmurs, or rubs. Normal PMI, no JVD. No pulse deficits. Respiratory: Lungs have equal breath sounds bilaterally, clear to auscultation and percussion. No rales, rhonchi or wheezes noted. No increased work of breathing, no retractions or nasal flaring. Abdomen/GI: Soft, tender left lower quad, with normal bowel sounds. No distension or tympany. No guarding or rebound. Obese Back: No spinal tenderness. No costovertebral tenderness. Full range of motion. Skin: Warm, dry with normal turgor. Normal color with no rashes, no lesions, and no evidence of cellulitis. MS/ Extremity: Pulses equal, no cyanosis. Neurovascular intact. Full, normal range of motion. Neuro: Awake and alert, GCS 15, oriented to person, place, time, and situation. Cranial nerves II-XII grossly intact. Motor strength 5/5 in all extremities. Sensory grossly intact. Cerebellar exam normal. Normal gait. Psych: Awake, alert, with orientation to person, place and time. Behavior, mood, and affect are within normal limits. Vital Signs: 09:13 BP 174 / 98; Pulse 68; Resp 18; Temp 97.6(O); Pulse Ox 99% on R/A; Weight 163.29 kg; ss Height 5 ft. 7 in. (170.18 cm); Pain 9/10; 11:43 BP 145 / 99; Pulse 52; Resp 16; Pulse Ox 100% on R/A; Pain 8/10; jl7 12:41 BP 152 / 74; Pulse 57; Resp 16 S; Pulse Ox 100% on R/A; Pain 5/10; jl7 13:26 BP 136 / 77; Pulse 61; Resp 16 S; Pulse Ox 100% on R/A; Pain 4/10; jl7 09:13 Body Mass Index 56.38 (163.29 kg, 170.18 cm) ss MDM: 10:16 Patient medically screened. snw 13:50 Data reviewed: vital signs, nurses notes. Data interpreted: Pulse oximetry: on room air snw is 100 %. Interpretation: normal. Counseling: I had a detailed discussion with the patient and/or guardian regarding: the historical points, exam findings, and any diagnostic results supporting the discharge/admit diagnosis, lab results, radiology results, the need for outpatient follow up, for definitive care, to return to the emergency department if symptoms worsen or persist or if there are any questions or concerns that arise at home. Response to treatment: the patient's symptoms have markedly improved after treatment, the patient's symptoms have resolved after treatment. Special discussion: Based on the patient's Hx, exam, and Dx evaluation, there is no indication for emergent surgery or inpatient Tx. It is understood by the patient/guardian that if the Sx's persist or worsen they need to return immediately for re-evaluation. I have referred the patient to see his PCP for further evaluation of high blood pressure. Based on the history and exam findings, there is no indication for further emergent testing or inpatient evaluation. I discussed with the patient/guardian the need to see the primary care provider for further evaluation of the symptoms. 03/10 10:05 Order name: Urine Culture snw 03/10 10:05 Order name: Urine Microscopic Only; Complete Time: 11:11 snw 03/10 10:52 Order name: Urine Dipstick--Ancillary (enter results); Complete Time: 11:11 eb 03/10 10:52 Order name: Urine --Ancillary (enter results); Complete Time: 11:11 eb 03/10 11:22 Order name: Chem 7; Complete Time: 12:01 snw 03/10 11:23 Order name: CBC with Diff; Complete Time: 11:50 snw 03/10 10:05 Order name: CT Stone Protocol; Complete Time: 11:15 snw 03/10 10:05 Order name: Urine Test (obtain specimen); Complete Time: 10:48 snw 03/10 10:05 Order name: Urine Dipstick-Ancillary (obtain specimen); Complete Time: 10:48 snw Administered Medications: 11:20 CANCELLED (other intervention used): Phenergan 25 mg PO once snw 11:21 CANCELLED (other intervention used): TORadol 60 mg IM once snw 11:25 Drug: Isaban 5 mg-325 mg 1 tabs Route: PO; jl7 12:00 Follow up: Response: No adverse reaction; Pain is decreased jl7 11:25 Drug: Magnesium 400 mg Route: PO; jl7 12:42 Follow up: Response: No adverse reaction jl7 11:25 Drug: Flomax 0.4 mg Route: PO; jl7 12:41 Follow up: Response: No adverse reaction jl7 11:30 Drug: NS 0.9% 1000 ml Route: IV; Rate: 1 bolus; Site: left forearm; jl7 11:30 Drug: TORadol 30 mg Route: IVP; Site: left forearm; jl7 12:00 Follow up: Response: No adverse reaction; Pain is decreased jl7 11:32 Drug: Phenergan 12.5 mg Route: IVP; Site: left forearm; jl7 12:00 Follow up: Response: No adverse reaction; Nausea is decreased jl7 Disposition: 15:54 Co-signature as Attending Physician, Jacek Herndon MD. rn Disposition: 03/10/19 13:53 Discharged to Home. Impression: Hydronephrosis with renal and ureteral calculous obstruction. - Condition is Stable. - Discharge Instructions: Kidney Stones, Hydronephrosis, Dietary Guidelines to Help Prevent Kidney Stones, Rehydration, Adult. - Prescriptions for Tylenol- Codeine #3 300-30 mg Oral Tablet - take 2 tablet by ORAL route every 6 hours As needed; 30 tablet. Flomax 0.4 mg Oral Capsule, Sust. Release 24 hr - take 1 capsule by ORAL route once daily 1/2 hour following the same meal each day; 30 capsule. Diclofenac Sodium 75 mg Oral Tablet Sustained Release - take 1 tablet by ORAL route 2 times per day; 30 tablet. promethazine 25 mg Oral Tablet - take 1 tablet by ORAL route every 6 hours As needed; 20 tablet. - Work release form, Medication Reconciliation Form, Thank You Letter, Antibiotic Education, Prescription Opioid Use form. - Follow up: Emergency Department; When: As needed; Reason: Worsening of condition. Follow up: Poncho Crespo DO; When: 2 - 3 days; Reason: Recheck today's complaints, Continuance of care, Re-evaluation by your physician. Signatures: Dispatcher [employer] EDIL Makenzie Draper, LITERATURE TEACHER-C LITERATURE TEACHER-Csnw Jacek Herndon MD MD rn Smirch, Shelby, RN RN ss Leal, Jahala, RN RN jl7 Corrections: (The following items were deleted from the chart) 11:20 10:53 Phenergan 25 mg PO once ordered. snw snw 11:20 11:20 Phenergan 25 mg PO once ordered. snw snw 11:21 10:53 TORadol 60 mg IM once ordered. snw snw 11:21 11:13 Transvaginal Study (Probe)+US.RAD.BRZ ordered. EDIL EDIL 11:21 11:20 TORadol 60 mg IM once ordered. snw snw 14:31 13:53 03/10/2019 13:53 Discharged to Home. Impression: Hydronephrosis with renal and jl7 ureteral calculous obstruction. Condition is Stable. Forms are Medication Reconciliation Form, Thank You Letter, Antibiotic Education, Prescription Opioid Use. Follow up: Emergency Department; When: As needed; Reason: Worsening of condition. Follow up: Poncho Crespo; When: 2 - 3 days; Reason: Recheck today's complaints, Continuance of care, Re-evaluation by your physician. snw
--- NOTE | 2019-03-10 13:54 | ER ---
Nurse's Notes [facility] Name: Shahnaz River Age: 38 yrs Sex: Female : 1980 Arrival Date: 03/10/2019 Time: 09:05 Bed 5 Private MD: Poncho Crespo Diagnosis: Hydronephrosis with renal and ureteral calculous obstruction Presentation: 03/10 09:12 Presenting complaint: Patient states: LLQ pain that radiates towards back, described as ss stabbing. Began this morning.+nausea. Transition of care: patient was not received from another setting of care. Onset of symptoms was March 10, 2019. Risk Assessment: Do you want to hurt yourself or someone else? Patient reports no desire to harm self or others. Initial Sepsis Screen: Does the patient meet any 2 criteria? No. Patient's initial sepsis screen is negative. Does the patient have a suspected source of infection? No. Patient's initial sepsis screen is negative. Care prior to arrival: None. 09:12 Method Of Arrival: Ambulatory ss 09:12 Acuity: TARIQ 3 ss PELLETIZER: 12:45 LMP N/A - Irregular menses jl7 Historical: - Allergies: 09:13 No Known Allergies; ss - Home Meds: 12:42 lisinopril-hydrochlorothiazide 10-12.5 mg Oral tab [Active]; jl7 - PMHx: 09:13 Hypertension; Migraines; PCOS; Sleep Apnea; ss - Immunization history:: Adult Immunizations up to date. - Coronavirus screen:: The patient has NOT traveled to [place], [place], or [place] in the past 14 days. Proceed with normal triage process as indicated. - Social history:: Smoking status: Patient denies any tobacco usage or history of. - Ebola Screening: : Patient denies exposure to infectious person Patient denies travel to an Ebola-affected area in the 21 days before illness onset. Screenin:43 Abuse screen: Denies threats or abuse. Denies injuries from another. Nutritional jl7 screening: No deficits noted. Tuberculosis screening: No symptoms or risk factors identified. Fall Risk IV access (20 points). Assessment: 11:20 General: Appears in no apparent distress. uncomfortable, Behavior is calm, cooperative, jl7 appropriate for age, crying. Pain: Complains of pain in left lower quadrant Pain currently is 8 out of 10 on a pain scale. Neuro: Level of Consciousness is awake, alert, obeys commands, Oriented to person, place, time, situation. Cardiovascular: Patient's skin is warm and dry. Respiratory: Airway is patent Respiratory effort is even, unlabored, Respiratory pattern is regular, symmetrical. GI: Bowel sounds present X 4 quads. Abd is soft and non tender. : No signs and/or symptoms were reported regarding the genitourinary system. Derm: Skin is pink, warm \T\ dry. 12:30 Reassessment: Patient appears in no apparent distress at this time. Patient and/or jl7 family updated on plan of care and expected duration. Pain level reassessed. Patient is alert, oriented x 3, equal unlabored respirations, skin warm/dry/pink. Pain rated 5/10 at this time. Patient states feeling better. Patient states symptoms have improved. 13:26 Reassessment: Patient appears in no apparent distress at this time. Patient and/or jl7 family updated on plan of care and expected duration. Pain level reassessed. Patient is alert, oriented x 3, equal unlabored respirations, skin warm/dry/pink. pain rated 4/10 at this time, ERP notified Patient states feeling better. Vital Signs: 09:13 BP 174 / 98; Pulse 68; Resp 18; Temp 97.6(O); Pulse Ox 99% on R/A; Weight 163.29 kg; ss Height 5 ft. 7 in. (170.18 cm); Pain 9/10; 11:43 BP 145 / 99; Pulse 52; Resp 16; Pulse Ox 100% on R/A; Pain 8/10; jl7 12:41 BP 152 / 74; Pulse 57; Resp 16 S; Pulse Ox 100% on R/A; Pain 5/10; jl7 13:26 BP 136 / 77; Pulse 61; Resp 16 S; Pulse Ox 100% on R/A; Pain 4/10; jl7 09:13 Body Mass Index 56.38 (163.29 kg, 170.18 cm) ED Course: 09:05 Patient arrived in ED. ag5 09:05 Poncho Crespo, is Private Physician. 5 09:13 Triage completed. 09:13 Arm band placed on right wrist. 10:04 BaronMakenzie holloway FNP-C [facility]. snw 10:04 Jacek Herndon MD is Attending Physician. snw 10:41 CT Stone Protocol In Process Unspecified. EDMS 11:30 Initial lab(s) drawn, by me, sent to lab. Inserted saline lock: 20 gauge in left jl7 forearm, using aseptic technique. Blood collected. 11:41 Tio Conde RN is Primary Nurse. jl7 11:43 Patient has correct armband on for positive identification. Placed in gown. Bed in low jl7 position. Call light in reach. Side rails up X2. Pulse ox on. NIBP on. Warm blanket given. 13:53 Poncho Crespo DO is Referral Physician. snw 14:30 No provider procedures requiring assistance completed. IV discontinued, intact, jl7 bleeding controlled, No redness/swelling at site. Pressure dressing applied. Administered Medications: 11:20 CANCELLED (other intervention used): Phenergan 25 mg PO once snw 11:21 CANCELLED (other intervention used): TORadol 60 mg IM once snw 11:25 Drug: Ackerly 5 mg-325 mg 1 tabs Route: PO; jl7 12:00 Follow up: Response: No adverse reaction; Pain is decreased jl7 11:25 Drug: Magnesium 400 mg Route: PO; jl7 12:42 Follow up: Response: No adverse reaction jl7 11:25 Drug: Flomax 0.4 mg Route: PO; jl7 12:41 Follow up: Response: No adverse reaction jl7 11:30 Drug: NS 0.9% 1000 ml Route: IV; Rate: 1 bolus; Site: left forearm; jl7 11:30 Drug: TORadol 30 mg Route: IVP; Site: left forearm; jl7 12:00 Follow up: Response: No adverse reaction; Pain is decreased jl7 11:32 Drug: Phenergan 12.5 mg Route: IVP; Site: left forearm; jl7 12:00 Follow up: Response: No adverse reaction; Nausea is decreased jl7 Outcome: 13:53 Discharge ordered by . snw 14:30 Discharged to home ambulatory. jl7 14:30 Condition: stable 14:30 Discharge instructions given to patient, Instructed on discharge instructions, follow up and referral plans. medication usage, Demonstrated understanding of instructions, follow-up care, medications, Prescriptions given X 4. 14:31 Patient left the ED. jl7 Signatures: Dispatcher [employer] EDMS Makenzie Draper, CHILDCARE TEACHER-C CHILDCARE TEACHER-[place] Alexandra Roy RN RN ss Tio Conde RN RN jl7 Corby Hagen [facility]
[2019-03-10 18:07] VITALS: TEMP 97.6
[2019-03-10 18:08] VITALS: O2SAT 100
[2019-03-10 18:11] VITALS: BP 136/77
== END 2019-03-10 14:31 | disposition home or self-care (01) ==
LOC: ER 09:03
DX: N13.2 Hydronephrosis with renal and ureteral calculous obstruction (principal); I10 Essential (primary) hypertension
CPT/HCPCS: 87088; 85025; 87086; 80048; 36415; 81025; 76377; 74176; 96375; 96374; 99284; J2550; J7030; 81003; 81015

== ENCOUNTER 2019-10-26 11:49 | Emergency (ER) | payer SELFPAY, OTHER ==
--- OUTSIDE RECORDS SUMMARY | 2019-10-26 11:51 | XMS REPORT | Clinical Summary ---
:1980 Author Organization [facility] Address [address] [place] [address] Care Team Providers Name Role Phone Seth Primary Care Provider Allergies No Known Allergies Medications Medication Sig Dispensed Refills Start Date End Date Status lisinopril-hydroCHLORO Take 1 tablet by 0 Active thiazide mouth daily. (PRINZIDE,ZESTORETIC) 10-12.5 mg per tablet Active Problems Problem Noted Date Amaurosis fugax 05/09/2017 Essential hypertension 05/09/2017 Morbid obesity 05/09/2017 TIA (transient ischemic attack) 05/09/2017 Social History Tobacco Use Types Packs/Day Years Used Date Never Smoker Smokeless Tobacco: Never Used Sex Assigned at Date Recorded Not on file Job Start Date Occupation Industry Not on file Not on file Not on file Travel History Travel Start Travel End No recent travel history available. Last Filed Vital Signs Not on file Plan of Treatment Not on file Results Not on fileafter 10/25/2018 Advance Directives For more information, please contact:[facility] [place], [place] [phone] Code Status Date Activated Date Inactivated Comments Full Code 05/09/2017 12:55 PM 05/11/2017 2:10 PM This code status was determined by: Patient
--- OUTSIDE RECORDS SUMMARY | 2019-10-26 11:51 | XMS REPORT ---
:1980 Author Organization [employer] Care Team Providers Name Role Phone CrespoPoncho Provider Role Unavailable Allergies, Adverse Reactions, Alerts Substance Reaction Event Type N.K.D.A. Info Not Available Non Drug Allergy Problems Problem Type Condition Code Onset Dates Condition Statu s Assessment Adult BMI 50.0-59.9 kg/sq m Z68.43 Active Assessment Neutrophilic leukocytosis D72.9 Ac tive Assessment Allergic rhinitis, unspecified J30.9 Active seasonality, unspecified trigger Assessment Migraine with aura and without G43.109 Active status migrainosus, not intractable Assessment PCOS (polycystic ovarian syndrome) E28.2 Active Assessment NATA (obstructive sleep apnea) G47.33 Active Problem Adult BMI 50.0-59.9 kg/sq m Z68.43 Active Assessment HTN (hypertension), benign I10 A ctive Problem Depression with anxiety F41.8 Acti ve Assessment Prediabetes R73.03 Active Problem Prediabetes R73.03 Active Problem PCOS (polycystic ovarian syndrome) E28.2 Active Problem NATA (obstructive sleep apnea) G47.33 Active Problem Neutrophilic leukocytosis D72.9 Ac tive Problem Current moderate episode of major F32.1 [...] cycle N92.1 Active Problem Secondary hypertension I15.9 Activ e Problem Encounter for gynecological Z01.419 Active examination without abnormal finding Problem Body mass index (BMI) of 50-59.9 in Z68.43 Active adult Problem Infertility, anovulation N97.0 Act shai Problem Seasonal allergic rhinitis, J30.2 Active unspecified trigger Problem HTN (hypertension), benign I10 A ctive Problem Morbid (severe) obesity due to E66.01 Active excess calories Problem Amenorrhea N91.2 Active Medications Medication Code Code Instructions Start End Status Dosage System Date Date MetFORMIN HCl ER [facility] 49295478496 500 MG Orally Activ e 1 tablet Once a day with evening meal Escitalopram [facility] 14542360926 20 MG Orally Active 1 tablet Oxalate Once a day BusPIRone HCl [facility] 88060923092 15 MG Orally Active 1 tablet Twice a day Propranolol HCl [facility] 66284186684 160 MG Orally Active 1 capsule ER Once a day BusPIRone HCl [facility] 68454941511 15 MG Active TAKE O NE (1) TABLET(S) BY MOUTH TWICE A DAY. Results No Known Results Summary Purpose [employer]ClinicalWorks Submission
--- OUTSIDE RECORDS SUMMARY | 2019-10-26 11:51 | XMS REPORT | Continuity of Care Document ---
:1980 Author Organization [facility] t Address [address] [place] [place] [address] Care Team Providers Name Role Phone Sharpless Primary Care Physician Felisa MCCABE M. Attending Clinician EDMOND Attending Clinician Unavailable EDMOND Admitting Clinician Unavailable Payers Payer Name Policy Type Policy Number Effective Date Expiration Date S ource Problems Condition Condition Condition Status Onset Resolution Last Treating Co mments Source Name Details Category Date Date Treatment Clinician Date Amaurosis Amaurosis Disease Active [facility] 00 [place] Essential Essential Disease Active [facility] hypertensi hypertensi 05-09 Evelin kes - on on 00:00: Medical 00 [place] Morbid Morbid Disease Active [facility] obesity obesity 3 [facility] 00 [place] TIA TIA Disease Active [facility] (transient (transient 05-09 Evelin kes - ischemic ischemic 00:00: Medica l attack) attack) 00 Center Encounter Encounter Problem Active [facility] for for [facility] - gynecologi gynecologi Me moria ingris ingris l examinatio examinatio Ou tpati n without n without ent abnormal abnormal Clinic s finding finding Infertilit Infertilit Problem Active [facility] y, y, [facility] - anovulatio anovulatio Me moria n n l Outpati ent Clinics Morbid Morbid Problem Active [facility] (severe) (severe) [facility] - obesity obesity Memoria due to due to l excess excess Outpati calories calories ent Clinics HTN HTN Problem Active [facility] (hypertens (hypertens Evelin kes - ion), ion), Memoria benign benign l Outpati ent Clinics Prediabete Prediabete Problem Active [facility] Seasonal Seasonal Problem Active [facility] allergic allergic [facility] - rhinitis, rhinitis, Presley glenis unspecifie unspecifie l d trigger d trigger Outp ati ent Clinics Amenorrhea Amenorrhea Problem Active [facility] Depression Depression Problem Active [facility] with with [facility] - anxiety anxiety Memoria l Outpati ent Clinics Adult BMI Adult BMI Problem Active [facility] 50.0-59.9 50.0-59.9 Luke s - kg/sq m kg/sq m Memoria l Outpati ent Clinics Secondary Secondary Problem Active [facility] hypertensi hypertensi Evelin kes - on on Memoria l Outpati ent Clinics Hypersomni Hypersomni Problem Active [facility] Migraine Migraine Problem Active [facility] with aura with aura [facility] - and and Memoria without without l status status Outpati migrainosu migrainosu en t s, not s, not Clinics intractabl intractabl e e Menorrhagi Menorrhagi Problem Active [facility] a with a with [facility] - irregular irregular Presley glenis cycle cycle l Outpati ent Clinics NATA NATA Problem Active [facility] (obstructi (obstructi Evelin kes - ve sleep ve sleep Memori a apnea) apnea) l Outpati ent Clinics PCOS PCOS Problem Active [facility] (polycysti (polycysti Evelin kes - c ovarian c ovarian Presley glenis syndrome) syndrome) l Outpati ent Clinics Current Current Problem Active [facility] moderate moderate [facility] - episode of episode of Me moria major major l depressive depressive Ou tpati disorder disorder ent without without Clinics prior prior episode episode Generalize Generalize Problem Active [facility] d anxiety d anxiety Luke s - disorder disorder Memori a l Outpati ent Clinics Neutrophil Neutrophil Problem Active [facility] ic ic [facility] - leukocytos leukocytos Me moria is is l [facility] Allergic Allergic Problem Active [facility] rhinitis, rhinitis, Luke s - unspecifie unspecifie Me moria d d l seasonalit seasonalit Ou tpati y, y, ent unspecifie unspecifie Cl inics d trigger d trigger Allergies, Adverse Reactions, Alerts Allergy Allergy Status Severity Reaction(s) Onset Inactive Treating Comm ents Source Name Type Date Date Clinician No Known DA Active [facility] Allergie 9-12 Clear s 00:00: Khan [facility] No Known DA Active [facility] Contrast 4-20 Clear Allergie 00:00: Khan s [facility] No Known DA Active U [facility] Drug 4-20 Clear Allergie 00:00: Khan [facility] No Known DA Active U [facility] Food 4-20 Clear Allergie 00:00: Khan s [facility] No Known DA Active U 2007- [facility] Other 4-20 Clear Allergie 00:00: Khan [facility] Social History Social Habit Start Date Stop Date Quantity Comments Source Sex Assigned At [facility] Smoking Status Start Date Stop Date Source Never smoker [facility] Medications Ordered Filled Start Stop Current Ordering Indication Dosage Frequency Signature Comments Components Source Medication Medication Date Date Medication? Clinician (SIG) Name Name lisinopril- Yes 1{tbl} QD Take [address] hydroCHLORO 3-31 tablet by Rip es - thiazide 11:57: mouth Medical (Mehdi LUIS 06 daily. Center ESTORETIC) 10-12.5 mg per tablet Escitalopra Escitalopra Yes [place] [address] [facility] m Oxalate m Oxalate [place] [facility] - Memoria l [facility] BusPIRone BusPIRone Yes [place] TAKE ONE [facility] HCl HCl [place] (1) [facility] - TABLET(S) Memoria BY MOUTH l TWICE A Outpati DAY. ent Clinics MetFORMIN MetFORMIN Yes [place] [address] [facility] HCl ER HCl ER [place] with [facility] - evening Memoria meal l [facility]ics Propranolol Propranolol Yes [place] [address] [facility] HCl ER HCl ER [place] [facility] - Memoria l [facility] Immunizations Ordered Filled Immunization Date Status Comments Sour e Immunization Name Name Afluria single dose Afluria single dose 2019-01-[address] kes - 00:00:00 [facility] Procedures This patient has no known procedures. Encounters Start End Encounter Admission Attending Care Care Encounter Source Date/Time Date/Time Type Type Clinicians Facility Department ID 2019-10-24 2019-10-24 [facility] [id number] [facility] 09:53:00 09:53:00 t [facility] l Medicine Outpati ent Clinics 2019-10-11 2019-10-11 [facility] [id number] [facility] 09:31:00 09:31:00 t [facility] l Medicine Outpati ent Clinics 2019-10-04 2019-10-04 [facility] [id number] 16:35:00 16:35:00 [facility] l Medicine Outpati ent Clinics 2019-09-29 2019-09-29 [facility] [id number] 10:30:00 10:30:00 t [facility] l Medicine Outpati ent Clinics 2019-09-28 2019-09-28 [facility] [id number] 14[facility]18:00 14:18:00 t [facility] l Medicine Outpati ent Clinics 2019-09-16 2019-09-16 [facility] [id number] 08:30:00 08:30:00 [facility] Medicine Outpati ent Clinics 2019-08-30 2019-08-30 [facility] [id number] [address] 14:31:00 14:31:00 t [facility] Medicine Outpati ent Clinics 2019-08-04 2019-08-04 [facility] [id number] 08:40:00 08:40:00 [facility] l Medicine Outpati ent Clinics 2019-07-26 2019-07-26 [facility] [id number] 09:30:00 09:30:00 [place] [facility] - Drive [facility] Medicine l Medicine Outpati ent Clinics 2019-06-01 2019-06-01 [facility] [id number] [facility] 13:45:00 13:45:[address] [address] [place] [facility] - Drive [facility] Medicine l Medicine Outpati ent Clinics 2019-02-11 2019-02-11 [facility] [id number] 08:00:00 08:00:00 [place] - Drive [facility] Medicine l Medicine Outpati ent Clinics 2019-01-20 2019-01-20 [facility] [id number] [address] 14:30:00 14:30:00 [place] [employer] s - Drive [facility] l Medicine Outpati ent Clinics 2019-01-13 2019-01-13 [facility] [id number] 10:07:00 10:07:00 [place] [employer] [place] - Drive [facility] Medicine Outpati ent Clinics 2019-01-12 2019-01-12 [facility] [id number] 11:15:00 11:15:00 [place] [employer] s - Drive [facility] l Medicine Outpati ent Clinics 2018-12-21 2018-12-21 [facility] [id number] 14:15:00 14:15:00 [place] [employer] [place] - Drive [facility] l Medicine Outpati ent Clinics 2018-12-15 2018-12-15 [facility] [id number] 16:59:00 16:59:00 [place] [employer] s - Drive [facility] Medicine l Medicine Outpati ent Clinics 2018-09-29 2018-09-29 [facility] [id number] [address] 15:00:00 15:00:00 [place] [employer] s - Drive [facility] l Medicine Outpati ent Clinics 2018-09-24 2018-09-24 [facility] [id number] 15:24:00 15:24:00 [place] [employer] s - Drive [facility] l Medicine Outpati ent Clinics 2018-09-23 2018-09-23 [facility] [id number] 15:16:00 15:16:00 [place] [employer] s - Drive [facility] Medicine Outpati ent Clinics 2018-09-23 2018-09-23 Office ANASTASIA Roberto [id number] 08:30:24 09:27:13 Visit Dennis M. AMBULATOR [id number] 2018-08-05 2018-08-05 [facility] [id number] [address] 10:15:00 10:15:00 [place] [employer] - Drive [facility] Medicine Outpati ent Clinics 2018-06-09 2018-06-09 [facility] [id number] [address] 14:30:00 14:30:00 [place] [employer] s - Drive [facility] Medicine Outpati ent Clinics 2018-05-04 2018-05-04 [facility] [id number] [address] 16:30:00 16:30:00 [place] [employer] s - Drive [facility] Medicine Outpati ent Clinics 2018-02-15 2018-02-15 [facility] [id number] [address] 15:00:00 15:00:00 [place] [employer] s - Drive [facility] Medicine Outpati ent Clinics 2017-09-22 2017-09-22 [facility] [id number] [address] 14:45:00 14:45:00 [place] [employer] s - Drive [facility] Medicine Outpati ent Clinics 2017-09-10 2017-09-10 [facility] [id number] [address] 09:21:00 09:21:00 [place] - Drive [facility] Medicine Outpati ent Clinics 2017-08-27 2017-08-27 [facility] [id number] 11:52:00 11:52:00 [place] [employer] s - Drive [facility] Medicine Outpati ent Clinics 2017-08-05 2017-08-05 [facility] [id number] [address] 14:45:00 14:45:[address] Luke s - Drive [facility] Medicine l Medicine Outpati ent Clinics 2017-06-17 2017-06-17 [facility] [id number] [address] 14:45:00 14:45:00 t [facility] l Outpati ent Clinics 2017-05-26 2017-05-26 [facility] [id number] 08:15:00 08:15:[address] Luke s - Drive [facility] Family Medicine l Medicine Outpati ent Clinics 2017-05-22 2017-05-22 [facility] [id number] 14:04:00 14:04:[address] [place] Luke s - Drive [facility] Family Medicine l Medicine Outpati ent Clinics 2017-05-14 2017-05-14 [facility] [id number] 10:17:00 10:17:[address] [place] Luke s - Drive [facility] Family Medicine l Medicine Outpati ent Clinics 2017-05-13 2017-05-13 [facility] [id number] 10:45:00 10:45:[address] Luke s - Drive [facility] Medicine Medicine Outpati ent Clinics 2017-04-30 2017-04-30 [facility] [id number] 10:30:00 10:30:[address] Luke s - Drive [facility] Medicine Medicine Outpati ent Clinics Results Test Description Test Time Test Comments Results Result Comments Source SURGICAL SPECIMENS 2017-10-24 10:53:00 RUN DATE: 10/24/17 [facility] *LIVE* PAGE 1 RUN TIME: 1053 Specimen Inquiry RUN USER: INTERFACE PATIENT: YARITZA BAILEY LOC: [facility]ATI U #: [id number] AGE/SX: 37/F ROOM: RE10/22/17REG DR: Tracey Shetty : 84 BED: DIS: STATUS: DEP [facility] TLOC: SPEC #: [id number] RECD: 10/22/17 STATUS: SOUGrady REQ #: [id number] DOMINGO: 10/22/[address]: Tracey Shetty MD ENTERED: 10/24/17 SP TYPE: SURG SPEC OTHR DR: Undefined Provider ORDERED: GM LEVEL 4 CODES: [id number] - STOMACH, NOS [id number] - SMALL INTESTINE [id number] - COLON, NOS COPIES TO: Tracey Shetty MD [address] [place] [address] [id number] [place], [place] [id number] Undefined Provider PROCEDURES: GM LEVEL 4 (Incomplete) [...] designated with the appropriate dimensions and block designation: 1. Small intestine, duodenum, bx.: 2 segments [...] CONTINUED ON NEXT PAGE RUN DATE: 10/24/17 [facility] *LIVE* PAGE 2 RUN TIME: 1053 Specimen Inquiry RUN USER: INTERFACE SPEC #: [id number] PATIENT: YARITZA BAILEY #[id number] (Continued)--------- --- GROSS AND MICROSCOPIC (Continued) MICROSCOPIC EXAMINATION: Sections [...] The immunostain for Helicobacter organisms is negative. (When special stains have been reviewed, the appropriate positive/negative controls have been reviewed and are appropriately positive/negative). Sections of the "Colon, random, bx." reveal changes of minimal inflammation. POST-OP DIAGNOSIS Erosive gastritis, C-internal and external hemorrhoids PRE-OP DIAGNOSIS Blood in stool, epigastric pain Signed SIGNATURE ON FILE Odalys Gao MD 10/24/17 1053 END OF REPORT URINE CULTURE 2017-05-11 10:36:00 Test Item Value Reference Range Interpretation Comme nts CULTURE ([employer]) (test code = 1095) >100,000 col/mL skin tona MR, MRA, BRAIN, WITHOUT [id number] 15:22:00Reason for exam:->Ischemic Stroke EvaluationFINAL REPORT MRI brain with and without contrast Comparison: No priors Reason for exam: StrokeIschemic Stroke Evaluation Discussion: Multiplanar MR imaging of the brain was provided sei-iwb-aelq IV gadolinium administration using T1, T2, FLAIR, [...] sinuses and mastoid air cells are unremarkable. Impressio ns:No acute intracranial process. MRA head and neck without contrast. COMPARISON: None available. TECHNIQUE: 2 D and 3-D [id number]-dy-uqrnsu MRA images of the intra- and extracranial carotid and vertebralarterial circulations were obtained, from which maximal intensity projection 3-D reconstructions were created. FINDINGS: MRA neck: There is no MR angiographic evidence for vessel occlusion or NASCET quantifiable stenosis in the extracranial carotid arteries. No hemodynamically significant stenosis identified in the vertebral artery, flow is antegrade in both vertebral arteries. MRA crow of Sanchez: There is no MR angiographic evidence for vessel occlusion, flow-limiting stenosis, or aneurysm inthe intracranial carotid or vertebrobasilar arterial circulations. IMPRESSION: 1. No MR angiographic evidence for vascular compromise. Signed: Adele Holden Verified Date/Time: 05/10/2017 15:22:22 Reading Location: [address] Neuro Reading Room MR, MRA, NECK, WITHOUT IV [id number] 15:22:00Reason for exam:->Ischemic Stroke EvaluationFINAL REPORT MRI brain with and without contrast Comparison: No priors Reason for exam: StrokeIschemic Stroke Evaluation Discussion: Multiplanar MR imaging of the brain was provided yrn-yut-riap IV gadolinium administration using T1, T2, FLAIR, [...] None available. TECHNIQUE: 2 D and 3-D hcwd-wv-aicekn MRA images of the intra- and extracranial carotid and vertebral arterial circulations were obtained, from which maximal intensity projection 3-D reconstructions were created. FINDINGS: MRA neck: There is no MR angiographic evidence for vessel occlusion or NASCET quantifiable stenosis in the extracranial carotid arteries. No hemodynamically significant stenosis iden tified in the vertebral artery, flow is antegrade in both vertebral arteries. MRA crow of Sanchez: There is no MR angiographic evidence for vessel occlusion, flow-limiting stenosis, or aneurysm inthe intracranial carotid or vertebrobasilar arterial circulations. IMPRESSION: 1. No MR angiographic evidence for vascular compromise. Signed: Adele Holden Verified Date/Time: 05/10/2017 15:22:22 Reading Location: [address] Neuro Reading Room MR, BRAIN, [id number] 15:22:00FINAL REPORT MRI brain with and without contrast Comparison: No priors Reason for exam: StrokeIschemic Stroke Evaluation Discussion: Multiplanar MR imaging of the brain was provided sfe-asp-vbpi IV gadolinium administration using T1, T2, FLAIR, [...] sinuses and mastoid air cells are unremarkable. Impressio ns:No acute intracranial process. MRA head and neck without contrast. COMPARISON: None available. TECHNIQUE: 2 D and 3-D dlmz-lk-[id number] MRA images of the intra- and extracranial carotid and vertebralarterial circulations were obtained, from which maximal intensity projection 3-D reconstructions were created. FINDINGS: MRA neck: There is no MR angiographic evidence for vessel occlusion or NASCET quantifiable stenosis in the extracranial carotid arteries. No hemodynamically significant stenosis identified in the vertebral artery, flow is antegrade in both vertebral arteries. MRA crow of Sanchez: There is no MR angiographic evidence for vessel occlusion, flow-limiting stenosis, or aneurysm inthe intracranial carotid or vertebrobasilar arterial circulations. IMPRESSION: 1. No MR angiographic evidence for vascular compromise. Signed: Adele Holden MDReport Verified Date/Time: 05/10/2017 15:22:22 Reading Location: [address] Neuro Reading Room HEMOGLOBIN [id number] 11:17:00 Test Item Value Reference Range Interpretation Comments HEMOGLOBIN A1C (BEAKER) (test code = 5.9 % 4.3-6.1 368) [id number] 07:58:00 Test Item Value Reference Range Interpretation Comments MAGNESIUM (BEAKER) (test code = 2.2 mg/dL 1.6-2.6 627) BASIC METABOLIC [id number] 07:58:00 Test Item Value Reference Range Interpretation Comments SODIUM (BEAKER) 137 meq/L 136-145 (test code = 381) POTASSIUM (BEAKER) 3.9 meq/L 3.5-5.1 (test code = 379) CHLORIDE (BEAKER) 104 meq/L 98-107 (test code = 382) CO2 (BEAKER) (test 23 meq/L 22-29 code = 355) BLOOD UREA NITROGEN 14 mg/dL 7-21 (BEAKER) (test code = 354) CREATININE (BEAKER) 0.73 mg/dL 0.57-1.25 (test code = 358) GLUCOSE RANDOM 100 mg/dL 70-105 (BEAKER) (test code = 652) CALCIUM (BEAKER) 8.7 mg/dL 8.4-10.2 (test code = 697) EGFR (BEAKER) (test 91 mL/min/1.73 ESTIMA SUDHIR GFR IS code = 1092) sq m NOT ACCURATE CREATININE CLEARANCE IN PREDICTING GLOMERULAR FILTRATION RATE . ESTIMATED GFR I S NOT APPLICABLE FOR DIALYSIS PATIEN TS. LIPID [id number] 07:58:00 Test Item Value Reference Range Interpretation Comments TRIGLYCERIDES (BEAKER) (test code = 163 mg/dL 540) CHOLESTEROL (BEAKER) (test code = 149 mg/dL 631) HDL CHOLESTEROL (BEAKER) (test code 30 mg/dL = 976) LDL CHOLESTEROL CALCULATED (BEAKER) 86 mg/dL (test code = 633) Triglyceride Reference Range: Low Risk <150 Borderline 150-199 High Risk 200-499 Very High Risk >=500Cholesterol Reference Range: Low Risk <200 Borderline 200-239 High Risk >240HDL Cholesterol Reference Range: Low Risk >=60 High Risk <40LDL Cholesterol Reference Range: Optimal <100 Near Optimal 100-129 Borderline 130-159 High 160-189 Very High >=190TROPONIN [id number] 07:56:00 Test Item Value Reference Range Interpretation Comments TROPONIN I (BEAKER) (test code = 0.01 ng/mL 0.00-0.03 397) Troponin I (TnI) levels must be interpreted [...]
--- OUTSIDE RECORDS SUMMARY | 2019-10-26 11:51 | XMS REPORT ---
:1980 Author Organization [employer] Care Team Providers Name Role Phone Zak Poncho Provider Role Unavailable Allergies No Known Allergies Problems Problem Type Condition Code Onset Dates Condition Statu s Problem Prediabetes R73.03 Active Problem PCOS (polycystic [...] N91.2 Active Problem Depression with anxiety F41.8 Acti ve Medications No Known Medications Results No Known Results Summary Purpose [employer] Submission
--- OUTSIDE RECORDS SUMMARY | 2019-10-26 11:51 | XMS REPORT ---
:1980 Author Organization [employer] Care Team Providers Name Role Phone De Los Santos, Na Provider Role Unavailable Allergies No Known Allergies Problems Problem Type Condition Code Onset Dates Condition Statu s Problem Prediabetes R73.03 Active Problem PCOS (polycystic ovarian syndrome) E28.2 Active Problem NATA (obstructive sleep apnea) G47.33 Active Problem Neutrophilic leukocytosis D72.9 Ac tive Problem Current moderate episode 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 without prior episode Assessment Other specified bacterial agents as B96.89 Active the cause of diseases classified elsewhere Assessment Acute sinusitis, unspecified J01.90 Active Problem Allergic rhinitis, unspecified J30.9 Active seasonality, [...] Depression with anxiety F41.8 Acti ve Medications Medication Code Code Instructions Start End Status Dosage System Date Date BusPIRone HCl [facility] 56878640524 15 MG Active TAKE O NE (1) TABLET(S) BY MOUTH TWICE A DAY. MetFORMIN HCl ER ND 93932161726 500 MG Orally Activ e 1 tablet Once a day with evening meal PredniSONE ND 22819730119 20 MG Orally August 03August Active 2 t ablets 2019 05, dailyx 5 2019 days then 1 tablet daily x 5 days Azithromycin [facility] 40120229069 250 MG Orally August 03July Active 2 tablets Once a day 2019, on the 2019 first day, then 1 tablet daily for 4 days Escitalopram [facility] 18507193486 20 MG Orally Active 1 tablet Oxalate Once a day Propranolol HCl [facility] 10000977820 160 MG Orally Active 1 capsule ER Once a day Spironolactone [facility] 55659748107 100 MG Orally August Active 1 tablet Once a day 2019 BusPIRone HCl [facility] 53328843076 15 MG Orally Active 1 tablet Twice a day Results No Known Results Summary Purpose [employer]Works Submission
--- OUTSIDE RECORDS SUMMARY | 2019-10-26 11:51 | XMS REPORT ---
[...] anxiety F41.8 Acti ve Medications Medication Code System Code Instructions Start Date End Date Status Dosage Zithromax [facility] 07219255381 500 MG Orally Oct 02, Oct 07, Active 1 ta blet Once a day 2019 2019 Results No Known Results Summary Purpose [employer]ClinicalWorks Submission
--- OUTSIDE RECORDS SUMMARY | 2019-10-26 11:52 | XMS REPORT ---
:1980 Author Organization [employer] Care Team Providers Name Role Phone Zak Poncho Provider Role Unavailable Allergies, Adverse Reactions, Alerts Substance Reaction Event Type N.K.D.A. Info Not Available Non Drug Allergy Problems Problem Type Condition Code Onset Dates Condition Statu s Assessment Nonintractable headache, R51 Act shai unspecified chronicity pattern, unspecified headache type Assessment Cough R05 Active Problem Adult BMI 50.0-59.9 kg/sq m Z68.43 Active Assessment Diarrhea, unspecified type R19.7 A ctive Problem Depression with anxiety F41.8 Acti ve Assessment Sore throat J02.9 Active Problem Prediabetes R73.03 Active Problem PCOS (polycystic ovarian syndrome) E28.2 Active Problem NATA (obstructive sleep apnea) G47.33 Active Problem Neutrophilic leukocytosis D72.9 Ac tive Problem Current moderate episode 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 without prior episode Assessment Upper respiratory tract infection, J06.9 Active unspecified type Problem Allergic rhinitis, unspecified J30.9 Active seasonality, unspecified trigger Assessment Exposure to COVID-19 virus Z20.828 A ctive Problem Migraine with aura and without G43.109 [...] End Status Dosage System Date Date Escitalopram [facility] 84089785759 20 MG Orally Active 1 tablet Oxalate Once a day BusPIRone HCl ND 70176863077 15 MG Orally Active 1 tablet Twice a day MetFORMIN HCl ER ND 27921847531 500 MG Orally Activ e 1 tablet Once a day with evening meal BusPIRone HCl ND 04601256193 15 MG Active TAKE O NE (1) TABLET(S) BY MOUTH TWICE A DAY. Propranolol HCl ND 25561159867 160 MG Orally Active 1 capsule ER Once a day Results No Known Results Summary Purpose eClinicalWorks Submission
[2019-10-26 12:49] LABS: Absolute Lymphocytes (CBC) 2.4 K/uL (0.7-4.9); Basophils % 0.9 % (0-1.3); Hematocrit 37.4 % (36.0-45.0); Lymphocytes % 20.7 % (15.3-44.8); MPV 8.7 fL (7.6-11.3); RBC Red Blood Cell Count 4.78 M/uL (3.86-4.86)
[2019-10-26 12:50] LABS: Urine Blood TRACE (NEG); Urine Glucose NEGATIVE (NEG); Urine Protein TRACE (NEG); Urine Specific Gravity >1.030 (1.005-1.030)
[2019-10-26] MEDS ORDERED: MEPERIDINE HCL 50 MG/ML ONE (12:57)
[2019-10-26] MEDS ORDERED: ONDANSETRON 4 MG/2 ML VIAL ONE (12:58)
[2019-10-26] MEDS ORDERED: NA CHLORIDE 0.9% 1,000 ML ONE (12:58)
[2019-10-26 13:02] LABS: Urine Bacteria <20 /HPF (<20); Urine Culture Reflex Order NOT NEEDED; Urine Mucus MOD /HPF (NONE SEEN); Urine RBC <5 /HPF (NONE SEEN)
[2019-10-26 13:06] LABS: ALT/SGPT 24 U/L (12-78); AST/SGOT 12 U/L (15-37); Albumin 3.6 g/dL (3.4-5.0); Alkaline Phosphatase 78 U/L (45-117); BUN Blood Urea Nitrogen 20 mg/dL (7-18); Bicarbonate 24 mmol/L (21-32); Bilirubin Direct < 0.1 mg/dL (0-0.2); Bilirubin Total 0.3 mg/dL (0.2-1.0); Glucose Level 85 mg/dL (74-106); Lipase 109 U/L (73-393); Potassium 4.2 mmol/L (3.5-5.1); Protein, Total 7.4 g/dL (6.4-8.2); Sodium Level 140 mmol/L (136-145)
--- NOTE | 2019-10-26 13:29 | RAD REPORT ---
EXAM DESCRIPTION: CT - Abdomen Pelvis W Contrast - 10/26/2019 1:08 pm CLINICAL HISTORY: Abdominal pain COMPARISON: February 2019 TECHNIQUE: Computed axial tomography of the abdomen pelvis was obtained. 100 cc Isovue-300 was admin istered intravenously. Oral contrast was not requested which limits evaluation of bowel. All CT scans are performed using dose optimization technique as appropriate and may include automated exposure control or mA/KV adjustment according to patient size. FINDINGS: Mild fatty liver Spleen, pancreas, adrenal and right kidney appear unremarkable. Minimal left hydronephrosis. A 4 millimeter calculus mid left ureter Hounsfield unit 930. There is no evidence of diverticulitis. A tiny umbilical hernia IMPRESSION: A 4 millimeter calculus mid left ureter resulting in minimal left hydronephrosis
[2019-10-26] MEDS ORDERED: KETOROLAC 30 MG/ML INJ ONE (13:59)
[2019-10-26] MEDS ORDERED: TAMSULOSIN 0.4 MG SR CAP ONE (13:59)
[2019-10-26] MEDS ORDERED: MAGNESIUM SULFATE 1 gm IVPB 1 GM/100 ML BAG IV ONE (13:59)
--- NOTE | 2019-10-26 14:23 | ER ---
Nurse's Notes [facility] Name: Shahnaz River Age: 39 yrs Sex: Female : 1980 Arrival Date: 10/26/2019 Time: 11:53 Bed 13 Private MD: Diagnosis: Calculus of ureter Presentation: 10/25 11:56 Chief complaint: Patient states: LLQ abdominal pain with nausea and diarrhea for 2 ll1 days. Low back pain that radiates to both legs for 2 days. No falls/trauma. No fever. Coronavirus screen: Client denies travel out of the [place] in the last 14 days. diarrhea, nausea, Client presents with at least one sign or symptom that may indicate coronavirus-19. Standard/surgical mask placed on the client. Client reports previous positive COVID test result. Ebola Screen: Patient denies travel to an Ebola-affected area in the 21 days before illness onset. Initial Sepsis Screen: Does the patient meet any 2 criteria? No. Patient's initial sepsis screen is negative. Risk Assessment: Do you want to hurt yourself or someone else? Patient reports no desire to harm self or others. Onset of symptoms was October 25, 2019. 11:56 Method Of Arrival: Ambulatory ll1 11:56 Acuity: TARIQ 3 ll1 Historical: - Allergies: 11:58 No Known Allergies; ll1 - PMHx: 11:58 Hypertension; Migraines; PCOS; Sleep Apnea; ll1 - PSHx: 11:58 Appendectomy; ll1 - Immunization history:: Flu vaccine is up to date. - Social history:: Smoking status: Patient denies any tobacco usage or history of. - Family history:: not pertinent. - Hospitalizations: : No recent hospitalization is reported. Screenin:00 Abuse screen: Denies threats or abuse. Denies injuries from another. Nutritional jl7 screening: No deficits noted. Tuberculosis screening: No symptoms or risk factors identified. Fall Risk IV access (20 points). Total Barbosa Fall Scale indicates No Risk (0-24 pts). Assessment: 12:15 General: Appears in no apparent distress. uncomfortable, Behavior is calm, cooperative, jl7 appropriate for age. Pain: Complains of pain in left flank Pain radiates to left lower quadrant Pain currently is 8 out of 10 on a pain scale. Quality of pain is described as sharp. Neuro: Level of Consciousness is awake, alert, obeys commands, Oriented to person, place, time, situation. Cardiovascular: Patient's skin is warm and dry. Respiratory: Airway is patent Respiratory effort is even, unlabored, Respiratory pattern is regular, symmetrical. GI: Abdomen is non-distended, Reports nausea. : Reports pain in left flank(s). Derm: Skin is pink, warm \T\ dry. 12:54 Reassessment: Pt to CT now VIA wheelchair. 13:15 Reassessment: Patient appears in no apparent distress at this time. No changes from jl7 previously documented assessment. Patient and/or family updated on plan of care and expected duration. Pain level reassessed. Patient is alert, oriented x 3, equal unlabored respirations, skin warm/dry/pink. 14:45 Reassessment: Pt will be discharged after fluids are done infusing. jl7 15:00 Reassessment: Patient appears in no apparent distress at this time. Patient and/or jl7 family updated on plan of care and expected duration. Pain level reassessed. Patient is alert, oriented x 3, equal unlabored respirations, skin warm/dry/pink. Patient states feeling better. Patient states symptoms have improved. Vital Signs: 11:56 BP 160 / 84; Pulse 56; Resp 20; Temp 98.2; Pulse Ox 97% ; Pain 7/10; ll1 14:00 BP 126 / 62; Pulse 51; Resp 17; Pulse Ox 98% ; jl7 15:00 BP 127 / 66; Pulse 52; Resp 15; Pulse Ox 100% ; Pain 5/10; jl7 ED Course: 11:53 Patient arrived in ED. mr 11:58 Triage completed. ll1 11:59 Arm band placed on Patient placed in an exam room, on a stretcher. ll1 12:07 Tio Conde, TIP is Primary Nurse. jl7 12:08 Jacek Herndon MD is Attending Physician. rn 12:30 Patient has correct armband on for positive identification. Placed in gown. Bed in low jl7 position. Call light in reach. Side rails up X 1. Pulse ox on. NIBP on. 12:30 Initial lab(s) drawn, by me, Urine collected: clean catch specimen, clear. Inserted jl7 saline lock: 20 gauge in right antecubital area, using aseptic technique. Blood collected. 13:07 CT Abd/Pelvis - IV Contrast Only In Process Unspecified. EDMS 15:15 No provider procedures requiring assistance completed. IV discontinued, intact, jl7 bleeding controlled, No redness/swelling at site. Pressure dressing applied. Administered Medications: 12:52 Drug: Zofran (Ondansetron) 4 mg Route: IVP; Site: right antecubital; ss 13:15 Follow up: Response: No adverse reaction; Nausea is decreased jl7 12:54 Drug: NS 0.9% 1000 ml Route: IV; Rate: 1000 ml; Site: right antecubital; ss 15:20 Follow up: Response: No adverse reaction; IV Status: Completed infusion jl7 12:54 Drug: Demerol 25 mg Route: IVP; Site: right antecubital; ss 13:20 Follow up: Response: No adverse reaction; Pain is decreased jl7 13:50 Drug: Magnesium Sulfate 1 grams Route: IVPB; Infused Over: 1 hrs; Site: right jl7 antecubital; 14:50 Follow up: Response: No adverse reaction; IV Status: Completed infusion jl7 13:52 Drug: TORadol - Ketorolac 15 mg Route: IVP; Site: right antecubital; jl7 14:20 Follow up: Response: No adverse reaction; Pain is decreased jl7 13:55 Drug: Flomax 0.4 mg Route: PO; jl7 14:20 Follow up: Response: No adverse reaction jl7 Outcome: 14:22 Discharge ordered by . rn 15:15 Discharged to home ambulatory. jl7 15:15 Condition: stable 15:15 Discharge instructions given to patient, Instructed on discharge instructions, follow up and referral plans. medication usage, Demonstrated understanding of instructions, follow-up care, medications, Prescriptions given X 3. 15:19 Patient left the ED. jl7 Signatures: Dispatcher [employer] EDAZ Kristyn Lizama Roman, MD MD rn Smirch, Shelby, RN RN ss Leal, Jahala, RN RN jl7 Sarah Mckeon RN RN ll1
--- NOTE | 2019-10-26 14:23 | EDPHYS ---
Physician Documentation [facility] Name: Shahnaz River Age: 39 yrs Sex: Female : 1980 Arrival Date: 10/26/2019 Time: 11:53 Bed 13 Private MD: ED Physician Jacek Herndon HPI: 10/25 12:27 This 39 yrs old Female presents to ER via Ambulatory with complaints of rn Abdominal Pain, Back Pain. 12:27 The patient presents with abdominal pain. rn 12:28 Onset: The symptoms/episode began/occurred 2 day(s) ago. The symptoms do not radiate. rn Associated signs and symptoms: Pertinent positives: nausea and vomiting, diarrhea, Pertinent negatives: blood in stools, fever. Modifying factors: The symptoms are alleviated by nothing, the symptoms are aggravated by nothing. Severity of pain: At its worst the pain was moderate in the emergency department the pain has improved. The patient has not experienced similar symptoms in the past. Reports LLQ abd pain, nausea/vomiting/diarrhea, + abd cramping, no blood in stool, no fever. Reports had COVID last month, cleared to stop quarantine 10/10/19.. Historical: - Allergies: 11:58 No Known Allergies; ll1 - PMHx: 11:58 Hypertension; Migraines; PCOS; Sleep Apnea; ll1 - PSHx: 11:58 Appendectomy; ll1 - Immunization history:: Flu vaccine is up to date. - Social history:: Smoking status: Patient denies any tobacco usage or history of. - Family history:: not pertinent. - Hospitalizations: : No recent hospitalization is reported. ROS: 12:28 Constitutional: Negative for fever, chills, and weight loss, Eyes: Negative for injury, rn pain, redness, and discharge, Cardiovascular: Negative for chest pain, palpitations, and edema, Respiratory: Negative for shortness of breath, cough, wheezing, and pleuritic chest pain, Abdomen/GI: Negative for constipation MS/Extremity: Negative for injury and deformity, Skin: Negative for injury, rash, and discoloration, Neuro: Negative for headache, weakness, numbness, tingling, and seizure. Exam: 12:28 Constitutional: This is a well developed, well nourished patient who is awake, alert, rn and in no acute distress. Head/Face: Normocephalic, atraumatic. Cardiovascular: Regular rate and rhythm. No pulse deficits. Respiratory: No increased work of breathing, no retractions or nasal flaring. Abdomen/GI: soft, + mild LLQ tenderness, no masses, no rebound Skin: Warm, dry MS/ Extremity: Pulses equal, no cyanosis. Neurovascular intact. Full, normal range of motion. Equal circumference. Neuro: Awake and alert, GCS 15 Vital Signs: 11:56 BP 160 / 84; Pulse 56; Resp 20; Temp 98.2; Pulse Ox 97% ; Pain 7/10; ll1 14:00 BP 126 / 62; Pulse 51; Resp 17; Pulse Ox 98% ; jl7 15:00 BP 127 / 66; Pulse 52; Resp 15; Pulse Ox 100% ; Pain 5/10; jl7 MDM: 12:08 Patient medically screened. rn 14:20 Differential diagnosis: non-specific abd pain, Ureterolithiasis, urinary tract rn infection. Data reviewed: vital signs, nurses notes, lab test result(s), radiologic studies, CT scan, and as a result, I will discharge patient. Counseling: I had a detailed discussion with the patient and/or guardian regarding: the historical points, exam findings, and any diagnostic results supporting the discharge/admit diagnosis, lab results, radiology results, the need for outpatient follow up, to return to the emergency department if symptoms worsen or persist or if there are any questions or concerns that arise at home. Response to treatment: the patient's symptoms have markedly improved after treatment, and as a result, I will discharge patient. Special discussion: I discussed with the patient/guardian in detail that at this point there is no indication for admission to the hospital. It is understood, however, that if the symptoms persist or worsen the patient needs to return immediately for re-evaluation. 10/25 12:19 Order name: Basic Metabolic Panel; Complete Time: 13:12 rn 10/25 12:19 Order name: CBC with Diff; Complete Time: 13:12 rn 10/25 12:19 Order name: Hepatic Function; Complete Time: 13:12 rn 10/25 12:19 Order name: Lipase; Complete Time: 13:12 rn 10/25 12:19 Order name: Urine Microscopic Only; Complete Time: 13:12 rn 10/25 12:43 Order name: Urine Dipstick--Ancillary (enter results); Complete Time: 13:12 bd 10/25 12:19 Order name: CT Abd/Pelvis - IV Contrast Only; Complete Time: 13:39 rn 10/25 12:43 Order name: Urine --Ancillary (enter results); Complete Time: 13:12 bd 10/25 12:19 Order name: IV Saline Lock; Complete Time: 12:55 rn 10/25 12:19 Order name: Labs collected and sent; Complete Time: 12:55 rn 10/25 12:19 Order name: Urine Test (obtain specimen); Complete Time: 12:54 rn 10/25 12:19 Order name: Urine Dipstick-Ancillary (obtain specimen); Complete Time: 12:54 rn Administered Medications: 12:52 Drug: Zofran (Ondansetron) 4 mg Route: IVP; Site: right antecubital; ss 13:15 Follow up: Response: No adverse reaction; Nausea is decreased jl7 12:54 Drug: NS 0.9% 1000 ml Route: IV; Rate: 1000 ml; Site: right antecubital; ss 15:20 Follow up: Response: No adverse reaction; IV Status: Completed infusion jl7 12:54 Drug: Demerol 25 mg Route: IVP; Site: right antecubital; ss 13:20 Follow up: Response: No adverse reaction; Pain is decreased jl7 13:50 Drug: Magnesium Sulfate 1 grams Route: IVPB; Infused Over: 1 hrs; Site: right jl7 antecubital; 14:50 Follow up: Response: No adverse reaction; IV Status: Completed infusion jl7 13:52 Drug: TORadol - Ketorolac 15 mg Route: IVP; Site: right antecubital; jl7 14:20 Follow up: Response: No adverse reaction; Pain is decreased jl7 13:55 Drug: Flomax 0.4 mg Route: PO; jl7 14:20 Follow up: Response: No adverse reaction jl7 Disposition: 10/26/19 14:22 Discharged to Home. Impression: Calculus of ureter. - Condition is Stable. - Discharge Instructions: Kidney Stones. - Prescriptions for Zofran ODT 4 mg Oral tablet,disintegrating - place 1 tablet by TRANSLINGUAL route every 8 hours As needed; 15 tablet. Tylenol- Codeine #3 300-30 mg Oral Tablet - take 1 tablet by ORAL route every 6 hours As needed; 15 tablet. Flomax 0.4 mg Oral Capsule, Sust. Release 24 hr - take 1 capsule by ORAL route once daily Stop taking once you feel you have passed the kidney stone, can cause low blood pressure and dizziness.; 5 capsule. - Medication Reconciliation Form, Thank You Letter, Antibiotic Education, Prescription Opioid Use, Work release form form. - Follow up: Private Physician; When: As needed; Reason: Recheck today's complaints, Re-evaluation by your physician. - Problem is new. - Symptoms have improved. Signatures: Dispatcher [employer] EDMS Jacek Herndon MD MD rn Smirch, Shelby RN RN ss Tio Conde RN RN jl7 Sarah Mckeon RN RN ll1 Corrections: (The following items were deleted from the chart) 15:19 14:22 10/26/2019 14:22 Discharged to Home. Impression: Calculus of ureter. Condition is jl7 Stable. Forms are Medication Reconciliation Form, Thank You Letter, Antibiotic Education, Prescription Opioid Use. Follow up: Private Physician; When: As needed; Reason: Recheck today's complaints, Re-evaluation by your physician. Problem is new. Symptoms have improved. rn
[2019-10-26 15:23] VITALS: BP 160/84; TEMP 98.2; O2SAT 97
== END 2019-10-26 15:19 | disposition home or self-care (01) ==
LOC: ER 11:49
DX: N20.1 Calculus of ureter (principal); I10 Essential (primary) hypertension
CPT/HCPCS: 36415; 74177; 80048; 80076; 81003; 81015; 81025; 82565; 83690; 85025; 96361; 96365; 96375; 99284; J2175; J2405; J3475; J7030; Q9967

== ENCOUNTER 2019-11-23 15:27 | Emergency (ER) | payer OTHER, SELFPAY ==
--- OUTSIDE RECORDS SUMMARY | 2019-11-23 15:39 | XMS REPORT | Clinical Summary ---
:1980 Author Organization [facility] Address [address] [place] [address] Care Team Providers Name Role Phone Seth [...] Not on file Last Filed Vital Signs Not on file Plan of Treatment Not on file Results Not on fileafter 11/22/2018 Advance Directives For more information, please contact: [phone] Code Status Date Activated Date Inactivated Comments Full Code 05/09/2017 12:55 PM 05/11/2017 2:10 PM This code status was determined by: Patient
--- OUTSIDE RECORDS SUMMARY | 2019-11-23 15:40 | XMS REPORT | Continuity of Care Document ---
:1980 Author Organization [facility] t Address [address] [place] [address] Care Team Providers Name Role Phone Sharpless Primary Care Physician EDMOND Attending Clinician Unavailable EDMOND Admitting Clinician Unavailable Payers Payer Name Policy Type Policy Number Effective Date Expiration Date S ource Problems Condition Condition Condition Status Onset Resolution Last Treating Co mments Source Name Details Category Date Date Treatment Clinician Date Amaurosis Amaurosis Disease Active [facility] 00 [place] Essential Essential Disease Active [facility] hypertensi hypertensi 05-09 Evelin kes - on on 00:00: Medical 00 [place] Morbid Morbid Disease Active [facility] obesity obesity 05-09 [facility] TIA TIA Disease Active [facility] (transient (transient 05-09 Evelin kes - ischemic ischemic 00:00: Medica l attack) attack) 00 Center Allergies, Adverse Reactions, Alerts Allergy Allergy Status Severity Reaction(s) Onset Inactive Treating Comm ents Source Name Type Date Date Clinician No Known DA Active U 2018-0 [facility] Allergie 9-12 Clear s 00:00: Khan [facility] No Known DA Active U 2007-0 [facility] Contrast 4-20 Clear Allergie 00:00: Khan s [facility] No Known DA Active U 2007-0 [facility] Drug 4-20 Clear Allergie 00:00: Khan s [facility] No Known DA Active U 2007-0 [facility] Food 4-20 Clear Allergie 00:00: Khan s [facility] No Known DA Active U 2007-0 [facility] Other 4-20 Clear Allergie 00:00: [facility] Social History Social Habit Start Date Stop Date Quantity Comments Source Sex Assigned At [facility] Tobacco use and 2017-05-09 2017-05-[address] [facility] exposure 00:00:00 00:00:00 [facility] Smoking Status Start Date Stop Date Source Never smoker [facility] Medications Ordered Filled Start Stop Current Ordering Indication Dosage Frequency Signature Comments Components Source Medication Medication Date Date Medication? Clinician (SIG) Name Name lisinopril- Yes 1{tbl} QD Take [address] hydroCHLORO 4-02 tablet by Rip es - thiazide 12:10: mouth Medical (PRINZIDE,Z 29 daily. Center ESTORETIC) 10-12.5 mg per tablet [...] single dose Afluria single dose 2019-01-12 Completed [facility] Outpatient [facility] Procedures This patient has no known procedures. Encounters Start End Encounter Admission Attending Care Care Encounter Source Date/Time Date/Time Type Type Clinicians Facility Department ID 2019-11-22 2019-11-22 Outpatient [facility] [id number] [facility] 2019-11-02 2019-11-02 Outpatient [facility] [id number] [facility] 2019-10-24 2019-10-24 [facility] [id number] [facility] 09:53:00 09:53:00 [place] [facility] l Medicine Outpati ent Clinics 2019-10-11 2019-10-11 [facility] [id number] [address] 09:31:00 09:31:00 [place] Drive [facility] Medicine Outpati ent Clinics 2019-10-04 2019-10-04 [facility] [id number] [address] 16:35:00 16:35:00 t [employer] s - Pusher [facility] Medicine Outpati ent Clinics 2019-09-29 2019-09-29 [facility] [id number] 10:30:00 10:30:00 t [place] - Drive [facility] Medicine Outpati ent Clinics 2019-09-28 2019-09-28 [facility] [id number] [address] 14:18:00 14:18:00 t [place] - Drive [facility] Medicine Outpati ent Clinics 2019-09-16 2019-09-16 [facility] [id number] 08:30:00 08:30:00 t [place] - Drive [facility] Medicine Outpati ent Clinics 2019-08-30 2019-08-30 [facility] [id number] 14:31:00 14:31:00 t [facility] Invisible s - SMRxT [facility] Medicine Outpati ent Clinics 2019-08-04 2019-08-04 [facility] [id number] 08:40:00 08:40:00 t [employer] - P[place] [facility] Medicine Outpati ent Clinics 2019-07-26 2019-07-26 [facility] [id number] 09:30:00 09:30:[address] [place] [address] - Drive [facility] Medicine l Medicine Outpati ent Clinics 2019-06-01 2019-06-01 [facility] [id number] [address] 13:45:00 13:45:[address] Luke s - Drive [facility] Medicine l Medicine Outpati ent Clinics 2019-02-11 2019-02-11 [facility] [id number] 08:00:00 08:00:00 [place] Luke s - Drive [facility] Medicine l Medicine Outpati ent Clinics 2019-01-20 2019-01-20 [facility] [id number] [address] 14:30:00 14:30:00 [place] LuXanEdu s - Drive [facility] l Medicine Outpati ent Clinics 2019-01-13 2019-01-13 [facility] [id number] 10:07:00 10:07:00 [place] [employer]XanEdu s - Drive [facility] Medicine l Medicine Outpati ent Clinics 2019-01-12 2019-01-12 [facility] [id number] 11:15:00 11:15:00 [place] [employer]anEdu s - Drive [facility] Medicine l Medicine Outpati ent Clinics 2018-12-21 2018-12-21 [facility] [id number] 14:15:00 14:15:00 [place] LuXanEdu s - Drive [facility] l Medicine Outpati ent Clinics 2018-12-15 2018-12-15 [facility] [id number] 16:59:00 16:59:00 [place] Luke s - Drive [facility] Medicine l Medicine Outpati ent Clinics 2018-09-29 2018-09-29 [facility] [id number] [address] 15:00:00 15:00:00 [place] LuXanEdu s - Drive [facility] Medicine l Medicine Outpati ent Clinics 2018-09-24 2018-09-24 [facility] [id number] [address] 15:24:00 15:24:00 [place] LuXanEdu s - Drive [facility] Medicine l Medicine Outpati ent Clinics 2018-09-23 2018-09-23 [facility] [id number] 15:16:00 15:16:[address] Luke s - Drive [facility] Medicine l Medicine Outpati ent Clinics 2018-08-05 2018-08-05 [facility] [id number] 10:15:00 10:15:[address] Luke s - Drive [facility] Medicine l Medicine Outpati ent Clinics 2018-06-09 2018-06-09 [facility] [id number] 14:30:00 14:30:[address] Luke s - Drive [facility] l Medicine Outpati ent Clinics 2018-05-04 2018-05-04 [facility] [id number] 16:30:00 16:30:[address] Luke s - Drive [facility] Medicine l Medicine Outpati ent Clinics 2018-02-15 2018-02-15 [facility] [id number] 15:00:00 15:00:[address] Luke s - Drive [facility] Medicine l Medicine Outpati ent Clinics 2017-09-22 2017-09-22 [facility] [id number] 14:45:00 14:45:[address] Luke s - Drive [facility] Medicine l Medicine Outpati ent Clinics 2017-09-10 2017-09-10 [facility] [id number] 09:21:00 09:21:[address] Luke s - Drive [facility] Medicine l Medicine Outpati ent Clinics 2017-08-27 2017-08-27 [facility] [id number] [address] 11:52:00 11:52:[address] [place] [facility] - Drive [facility] Medicine l Medicine Outpati ent Clinics 2017-08-05 2017-08-05 [facility] [id number] 14:45:00 14:45:[address] Luke [facility] - Drive [facility] Medicine l Medicine Outpati ent Clinics 2017-06-17 2017-06-17 [facility] [id number] 14:45:00 14:45:00 [facility] Outpati ent Clinics 2017-05-26 2017-05-26 [facility] [id number] 08:15:00 08:15:[address] Luke [facility] - Drive [facility] Outpati ent Clinics 2017-05-22 2017-05-22 [facility] [id number] 14:04:00 14:04:[address] Luke [facility] - Drive [facility] Outpati ent Clinics 2017-05-14 2017-05-14 [facility] [id number] 10:17:00 10:17:[address] Luke [address] - Drive [facility] Outpati ent Clinics 2017-05-13 2017-05-13 [facility] [id number] 10:45:00 10:45:[address] Luke [address] - Drive [facility] Outpati ent Clinics 2017-04-30 2017-04-30 [facility] [id number] 10:30:00 10:30:[address] Luke [address] - Drive [facility] Results Test Description Test Time Test Comments Results Result Comments Source SURGICAL SPECIMENS 2017-10-24 10:53:00 RUN DATE: 10/24/17 [facility] *LIVE* PAGE 1 RUN TIME: 1053 Specimen Inquiry RUN USER: INTERFACE PATIENT: YARITZA BAILEY LOC: [facility]ATI U #: [id number] AGE/SX: 37/F ROOM: RE10/22/17REG DR: Tracey Shetty : 84 BED: DIS: [place] [facility] [place]: SPEC #: [id number] RECD: 10/22/17 STATUS: SOUGrady REQ #: [id number] DOMINGO: 10/22/[address]: Tracey Shetty MD ENTERED: 10/24/17 SP TYPE: SURG SPEC OTHR DR: Undefined Provider ORDERED: GM LEVEL 4 CODES: [id number] - STOMACH, NOS [id number] - SMALL INTESTINE [id number] - COLON, NOS COPIES TO: Tracey Shetty MD [address] [place] [address] [id number] [place], [place] [id number] Undefined Provider PROCEDURES: GM LEVEL 4 (Incomplete) [...] CONTINUED ON NEXT PAGE RUN DATE: 10/24/17 [facility] *LIVE* PAGE 2 RUN TIME: 1053 Specimen Inquiry RUN USER: INTERFACE SPEC #: [id number] PATIENT: YARITZA BAILEY #[id number] (Continued)--------- --- GROSS AND MICROSCOPIC (Continued) MICROSCOPIC [...] Value Reference Range Interpretation Comme nts CULTURE ([facility]) (test code = 1095) >100,000 col/mL skin tona MR, MRA, BRAIN, WITHOUT [id number] 15:22:00Reason for exam:->Ischemic Stroke EvaluationFINAL REPORT MRI brain with and without contrast Comparison: No priors Reason for exam: StrokeIschemic Stroke Evaluation Discussion: Multiplanar MR imaging of the brain was provided [id number] IV gadolinium administration using T1, T2, FLAIR, [...] None available. TECHNIQUE: 2 D and 3-D [id number] MRA images of the intra- and extracranial carotid and vertebralarterial circulations were obtained, from which maximal intensity projection 3-D reconstructions were created. FINDINGS: MRA neck: There is no MR angiographic evidence for vessel occlusion or NASCET quantifiable stenosis in the extracranial carotid arteries. No hemodynamically significant stenosis identified in the vertebral artery, flow is antegrade in both vertebral arteries. MRA [place]: There is no MR angiographic evidence for vessel occlusion, flow-limiting stenosis, or aneurysm inthe intracranial carotid or vertebrobasilar arterial circulations. IMPRESSION: 1. No MR angiographic evidence for vascular compromise. Signed: Adele Holden Verified Date/Time: 05/10/2017 15:22:22 Reading Location: [address] Neuro Reading Room MR, MRA, NECK, WITHOUT IV [id number] 15:22:00Reason for exam:->Ischemic Stroke EvaluationFINAL REPORT MRI brain with and without contrast Comparison: No priors Reason for exam: StrokeIschemic Stroke Evaluation Discussion: Multiplanar MR imaging of the brain was provided [id number] IV gadolinium administration using T1, T2, FLAIR, [...] None available. TECHNIQUE: 2 D and 3-D [id number] MRA images of the intra- and extracranial carotid and vertebral arterial circulations were obtained, from which maximal intensity projection 3-D reconstructions were created. FINDINGS: MRA neck: There is no MR angiographic evidence for vessel occlusion or NASCET quantifiable stenosis in the extracranial carotid arteries. No hemodynamically significant stenosis iden tified in the vertebral artery, flow is antegrade in both vertebral arteries. MRA [place]: There is no MR angiographic evidence for vessel occlusion, flow-limiting stenosis, or aneurysm inthe intracranial carotid or vertebrobasilar arterial circulations. IMPRESSION: 1. No MR angiographic evidence for vascular compromise. Signed: Adele Holdeneport Verified Date/Time: 05/10/2017 15:22:22 Reading Location: [facility] Neuro Reading Room MR, BRAIN, [id number] 15:22:00FINAL REPORT MRI brain with and without contrast Comparison: No priors Reason for exam: StrokeIschemic Stroke Evaluation Discussion: Multiplanar MR imaging of the brain was provided [id number] IV gadolinium administration using T1, T2, FLAIR, [...] None available. TECHNIQUE: 2 D and 3-D [id number] MRA images of the intra- and extracranial carotid and vertebralarterial circulations were obtained, from which maximal intensity projection 3-D reconstructions were created. FINDINGS: MRA neck: There is no MR angiographic evidence for vessel occlusion or NASCET quantifiable stenosis in the extracranial carotid arteries. No hemodynamically significant stenosis identified in the vertebral artery, flow is antegrade in both vertebral arteries. MRA [place]: There is no MR angiographic evidence for vessel occlusion, flow-limiting stenosis, or aneurysm inthe intracranial carotid or vertebrobasilar arterial circulations. IMPRESSION: 1. No MR angiographic evidence for vascular compromise. Signed: Adele Holden MDReport Verified Date/Time: 05/10/2017 15:22:22 Reading Location: [address] Neuro Reading Room HEMOGLOBIN [id number] 11:17:00 Test Item Value Reference Range Interpretation Comments HEMOGLOBIN A1C (BEAKER) (test code = 5.9 % 4.3-6.1 368) [id number] 07:58:00 Test Item Value Reference Range Interpretation Comments MAGNESIUM (BEAKER) (test code = 2.2 mg/dL 1.6-2.6 627) BASIC METABOLIC [id number] 07:58:00 Test Item Value Reference Range Interpretation [...] NOT APPLICABLE FOR DIALYSIS PATIEN TS. LIPID [id number] 07:58:00 Test Item Value Reference Range Interpretation Comments TRIGLYCERIDES (BEAKER) (test code = 163 mg/dL 540) CHOLESTEROL (BEAKER) (test code = 149 mg/dL 631) HDL CHOLESTEROL (BEAKER) (test code 30 mg/dL = 976) LDL CHOLESTEROL CALCULATED ([employer]) 86 mg/dL (test code = 633) Triglyceride Reference Range: Low Risk <150 Borderline 150-199 High Risk 200-499 Very High Risk >=500Cholesterol Reference Range: Low Risk <200 Borderline 200-239 High Risk >240HDL Cholesterol Reference Range: Low Risk >=60 High Risk <40LDL Cholesterol Reference Range: Optimal <100 Near Optimal 100-129 Borderline 130-159 High 160-189 Very High >=190TROPONIN [id number] 07:56:00 Test Item Value Reference Range Interpretation Comments TROPONIN I ([employer]) (test code = 0.01 ng/mL 0.00-0.03 397) [...]
--- OUTSIDE RECORDS SUMMARY | 2019-11-23 15:41 | XMS REPORT ---
[...] Dosage System Date Date MetFORMIN HCl ER [facility] [id number] 500 MG Orally Activ e 1 tablet Once a day with evening meal Escitalopram [facility] 66881901403 20 MG Orally Active 1 tablet Oxalate Once a day BusPIRone HCl [facility] 70719868824 15 MG Orally Active 1 tablet Twice a day Propranolol HCl [facility] 71676737713 160 MG Orally Active 1 capsule ER Once a day BusPIRone HCl [facility] 74037565948 15 MG Active TAKE O NE (1) TABLET(S) BY MOUTH TWICE A DAY. Results No Known Results Summary Purpose eClinicalWorks Submission
--- OUTSIDE RECORDS SUMMARY | 2019-11-23 15:41 | XMS REPORT ---
[...] End Status Dosage System Date Date Escitalopram [facility] [id number] 20 MG Orally Active 1 tablet Oxalate Once a day BusPIRone HCl ND 24080345049 15 MG Orally Active 1 tablet Twice a day MetFORMIN HCl ER ND 66938984084 500 MG Orally Activ e 1 tablet Once a day with evening meal BusPIRone HCl ND 41106516179 15 MG Active TAKE O NE (1) TABLET(S) BY MOUTH TWICE A DAY. Propranolol HCl ND 19304679875 160 MG Orally Active 1 capsule ER Once a day Results No Known Results Summary Purpose eClinicalWorks Submission
--- OUTSIDE RECORDS SUMMARY | 2019-11-23 15:41 | XMS REPORT ---
:1980 Author Organization [facility] Address [address] [place], [place]. [address] [place] [address] Care Team Providers Name Role Phone Crespo Unavailable [phone] PROBLEMS Type Condition ICD9-CM ARC96-HC Onset Condition SNOMED Code Notes Code Code Dates Status Problem Encounter for Z01.419 Active 812113279 gynecological examination without abnormal finding Problem Secondary I15.9 Active 83960835 hypertension Problem Amenorrhea N91.2 Active 27926700 Problem Morbid (severe) E66.01 Active 35361303805138 obesity due to excess calories Problem HTN I10 Active 52212302 (hypertension), benign Problem Seasonal allergic J30.2 Active 565043133 rhinitis, unspecified trigger Problem Depression with F41.8 Active 627800895 anxiety Problem Adult BMI Z68.43 Active 777698002 50.0-59.9 kg/sq m Problem PCOS (polycystic E28.2 Active 40788247 ovarian syndrome) Problem Hypersomnia G47.10 Active 54544583 Problem Migraine with aura G43.109 Active 8551107 and without status migrainosus, not intractable Problem Allergic rhinitis, J30.9 Active 56874463 unspecified seasonality, unspecified trigger Problem NATA (obstructive G47.33 Active 70206347 sleep apnea) Problem Body mass index Z68.43 Active 579370291 (BMI) of 50-59.9 in adult Problem Left N20.0 Active 29829356 nephrolithiasis Problem Prediabetes R73.03 Active 565722252 Problem Infertility, N97.0 Active 857431004 anovulation Problem Menorrhagia with N92.1 Active 742060389 irregular cycle Problem Generalized F41.1 Active 93844110 anxiety disorder Problem Current moderate F32.1 Active 90498005 episode of major depressive disorder without prior episode Problem Neutrophilic D72.9 Active 317872594 leukocytosis ALLERGIES No Known Allergies ENCOUNTERS from 1982 to 2019-11-03 Encounter Location Date Provider Diagnosis [facility] [address] [place] Oct, [facility] Zak [facility] [address], [address] ; [place] [address] flank pain R10 .9 ; Generalized anx iety disorder F41.1 ; Current moderat e episode of vivek r depressive diso rder without prior e pisode F32.1 ; Prediab etes R73.03 ; HTN (hypertension), benign I10 ; OS A (obstructive sl eep apnea) G47.33 ; PCOS (polycystic ova cassidy syndrome) E28.2 ; Migraine with a ura and without sta tus migrainosus, no t intractable G43 .109 ; Allergic rhinit is, unspecified seasonality, unspecified tri gger J30.9 ; Neutrop hilic leukocytosis D7 2.9 and Adult BMI 50.0-59.9 kg/sq m Z68.43 IMMUNIZATIONS Vaccine Route Administration Date Status Afluria single dose IM Intramuscular Jan 12, 2019 Administere d Toradol (Ketorolac) IM Intramuscular Nov 02, 2019 Administere d Kenalog (Triamcinolone) IM Intramuscular Dec 21, 2018 Adminis tered Kenalog (Triamcinolone) IM Intramuscular May 26, 2017 Adminis tered SOCIAL HISTORY Tobacco Use: Social History Observation Description Date Details (start date - stop date) Never Smoker Sex Assigned At : Social History Observation Description Sex Assigned At Unknown PHQ9 Question Answer Notes Little interest or pleasure in doing things More than half t he days Feeling down, depressed, or hopeless More than half the days Trouble falling or staying asleep or sleeping too much More than half the days Feeling tired or having little energy More than half the day s Poor appetite or overeating Several days Feeling bad about yourself, or that you are a failure, More than half the days or have let yourself or your family down Trouble concentrating on things, such as reading the Several days newspaper or watching television Moving or speaking so slowly that other people could Not at all have noticed; or the opposite, being so fidgety or restless that you have been moving around a lot more than usual Total Score 12 Interpretation Moderate Depression Thoughts that you would be better off or of Not at all hurting yourself in some way Depression Screening Question Answer Notes Over the past two weeks, has the PT felt down, depressed, or hopeless? No Over the past two weeks, has the PT felt little interest or pleasure in No doing things? Alcohol Screen Question Answer Notes Did you have a drink containing alcohol in the past Yes year? Points 1 Interpretation Negative How many drinks did you have on a typical day when 1 or 2 (0 points) you were drinking in the past year? How often did you have a drink containing alcohol in Monthly or less (1 point) the past year? Tobacco Use/Smoking Question Answer Notes Are you a never smoker Sexual History Question Answer Notes Had sex in the past 12 months (vaginal, oral, or anal)? Yes Last menstrual period 12/2015 Have you ever had a Sexually transmitted disease? No with Men only Use protection? No REASON FOR REFERRAL No Information VITAL SIGNS Height 67 in Oct, Weight 365.3 lbs Oct, Temperature 97.2 degrees Fahrenheit Oct, BMI 57.21 kg/m2 Oct, Oximetry 96 % Oct, Respiratory Rate 19 /min Oct, Blood pressure systolic 135 mm Hg Oct, Blood pressure diastolic 74 mm Hg Oct, MEDICATIONS Medication SIG (Take, Route, Start Date End Date Status Frequency, Duration) Propranolol HCl ER 160 MG 1 capsule Orally Once Active a day for 30 day(s) BusPIRone HCl 15 MG 1 tablet Orally Twice Active a day for 30 days MetFORMIN HCl ER 500 MG 1 tablet with evening Active meal Orally Once a day for 30 day(s) Tamsulosin HCl 0.4 MG 1 capsule Orally Once Oct,Nov, Active a day for 30 day(s) BusPIRone HCl 15 MG TAKE ONE (1) TABLET(S) Not-Taking BY MOUTH TWICE A DAY. Spironolactone 100 MG 1 tablet Orally Once a Active day Escitalopram Oxalate 20 MG 1 tablet Orally Once a Active day for 30 day(s) PROCEDURES No Information RESULTS No Results REASON FOR VISIT [facility] f/u, nephrolithiasis LOBBY -INSIDE MEDICAL (GENERAL) HISTORY Type Description Date Medical History Morbid (severe) obesity due to excess ca lories Medical History Adult BMI 50.0-59.9 kg/sq m Medical History HTN (hypertension), benign Medical History Depression with anxiety Medical History Infertility, anovulation Medical History Seasonal allergic rhinitis, unspecified trigger Medical History Amenorrhea Medical History Prediabetes Medical History Migraine with aura and without status mi grainosus, not intractable Medical History NATA (obstructive sleep apnea) Medical History PCOS (polycystic ovarian syndrome) Surgical History appendectomy 01/2016 Surgical History Oral 2008 Surgical History Appendectomy 2015 Goals Section No Information Health Concerns No Information MEDICAL EQUIPMENT No Information MENTAL STATUS No Information FUNCTIONAL STATUS No Information ASSESSMENTS Encounter Date Diagnosis Notes Oct, Current moderate episode of major depres sive disorder without prior episode (ICD-10 - F32.1) Oct, Generalized anxiety disorder (ICD-10 - F 41.1) Oct, HTN (hypertension), benign (ICD-10 - I10 ) Oct, Prediabetes (ICD-10 - R73.03) Oct, Neutrophilic leukocytosis (ICD-10 - D72. 9) Oct, Allergic rhinitis, unspecified seasonali ty, unspecified trigger (ICD-10 - J30.9) Oct, Acute left flank pain (ICD-10 - R10.9) Oct, Calculus of ureter (ICD-10 - N20.1) Oct, Adult BMI 50.0-59.9 kg/sq m (ICD-10 - Z6 8.43) Oct, PCOS (polycystic ovarian syndrome) (ICD- 10 - E28.2) Oct, NATA (obstructive sleep apnea) (ICD-10 - G47.33) Oct, Migraine with aura and without status mi grainosus, not intractable (ICD-10 - G43.109) PLAN OF TREATMENT Medication Medication Name Sig Start Date Stop Date Tamsulosin HCl 0.4 MG 1 capsule Orally Once a day for Oct,Nov, 30 day(s) Propranolol HCl ER 160 MG 1 capsule Orally Once a day for 30 day(s) BusPIRone HCl 15 MG 1 tablet Orally Twice a day for 30 days MetFORMIN HCl ER 500 MG 1 tablet with evening meal Orally Once a day for 30 day(s) Escitalopram Oxalate 20 MG 1 tablet Orally Once a day for 30 day(s) Treatment Notes Assessment Notes Clinical Notes Calculus of ureter ED course reviewed extensively with patient. Answered all questions to my knowledge. Encouraged on being compliant. Maintain adequate hydration. Refill Flomax. Side effect panel discussed. Toradol 15 mg IM given in office for therapeutic reasons. Side effect panel discussed. Discussed supportive measures for symptomatic relief. If unchanged or worsen will refer to urology for further evaluation and management. Patient vocalized understanding. Acute left flank pain . Discussed differential diagnosis with patient. Education given. Discussed supportive measures. Generalized anxiety disorder INCREASED BUSPAR. Side effect discussed. , -- Anxiety Education: Anxiety is a feeling of anxiousness or nervousness. Being extremely anxious or worried on most days for 6 months or longer is not normal. This is a type of anxiety disorder. This disorder can make it hard to do everyday tasks. Other types of anxiety include: post traumatic stress disorder, panic disorder, and phobias. Symptoms of anxiety may include: feeling worried or on the edge, trouble sleeping, or forgetting things. Feelings of stomach aches or chest tightness is another common symptom. Medicine, exercise, and other treatments like counseling, talk therapy, yoga, and massages maybe necessary to treat this disorder. Current moderate episode of major Acitvely listened. Refill given for depressive disorder without prior Lexapro. Side effect panel episode discussed. Education and instructiosn given. DECLIND THERAPY> , -- Depression Education: Depression is a brain disease that makes you sad, but it is different than normal sadness. Depressed people feel down most of the time for at least 2 weeks. They also have at least one of these 2 symptoms: 1. They no longer enjoy or care about doing the things they used to like to do. 2. They feel sad, down, hopeless, or cranky most of the day, almost every day. It can also make you: lose or gain weight; sleep too much or too little; fell tired or like you have no energy; feel guilty or like you are worth nothing; forget things or feel confused; and think about or suicide. Medication and/or seeing a counselor (such as a psychiatrist, psychologist, nurse or social services director) may be necessary to treat depression. Both treatments take time to work. If you ever feel like you might hurt yourself or some else, then call your doctor or call 911 or go to the ER. Prediabetes Diet-Controlled. Discussed extensively. Continue Metformin ER once daily. Side effect discussed. HTN (hypertension), benign INCREASED PROPANOLOL to 160 mg E R. Instructed to monitor and bring log. , HTN Education This is a condition that puts at risk for heart attack, stroke, and kidney disease. Lifestyle modification, low fat/low salt diet, exercise, low alcohol intake and medication is utilized to help control your BP. Untreated HTN increases the strain on the heart and arteries, eventually causing organ damage.Normal BP is less than 140/90. High BP is greater than 140/90. If your BP is not controlled, call your doctor. Medication may need to be adjusted and/or added. Compliance with medication is vital. If you have chest pain, shortness of breath, severe nausea/vomiting, fatigue, and other symptoms, you will need to contact your doctor or go to the ER immediately to address. NATA (obstructive sleep apnea) Last Sleep Study: 08/02/16. Compliant with CPAP. PCOS (polycystic ovarian syndrome) Managed by RD SCIENTIST /Braxton wagoner. Started menses recently. Migraine with aura and without Noticed a difference with status migrainosus, not intractable Propanalol. Side effect panel discussed. Education given. Monitor signs/symptoms. REFERRAL to Neurology for further evaluation for treatment and management: No return call. Education given regarding avoiding of triggers, adequate hydration and sleep, stress management, dietary changes. Allergic rhinitis, unspecified . Discussed differential seasonality, unspecified trigger diagnosis. Minimal relief with [id number] medication. Education given. Discussed allergy testing process. Patient agreeable. We will start process Adult BMI 50.0-59.9 kg/sq m Discussed surgical and non-surgi ingris options. Will decide. Making dietary and lifestyle modifications.Joined a gym. Neutrophilic leukocytosis Discussed differential diagnosis. Will repeat. Does report of chronic drainage nasal and mild congestion. Denies any fever chills. No recent antibiotics or steroids. Will repeat with path. Next Appt Details 6 weeks + Labs 1 week before Reason: Provider Name:Poncho Crespo, 2019-12-07 0 9:30:00 AM, [address], [place], [address], Provider Name:Poncho Crespo, 2019-12-14 0 9:30:00 AM, [address], [address], [place], [address], Insurance Providers Payer Name Payer Payer Insured Patient Coverage Coverage End Address Phone Name Relationship to Start Date Madan e Insured Ambetter from [phone] [place] self 2019 [place] [id number] [place] [phone]
--- OUTSIDE RECORDS SUMMARY | 2019-11-23 15:41 | XMS REPORT ---
[...] Start Date End Date Status Dosage Zithromax [facility] [id number] 500 MG Orally Oct 02, Oct 07, Active 1 ta blet Once a day 2019 2019 Results No Known Results Summary Purpose eClinicalWorks Submission
--- OUTSIDE RECORDS SUMMARY | 2019-11-23 15:41 | XMS REPORT ---
:1980 Author Organization [facility] Address [address] [place], [place]. [address] [place] [address] Care Team Providers Name Role Phone Crespo Unavailable [phone] PROBLEMS Type Condition ICD9-CM BCN83-AL Onset Condition SNOMED Code Notes Code Code Dates Status Problem Encounter for Z01.419 Active 330375403 gynecological examination without abnormal finding Problem Secondary I15.9 Active 43215505 hypertension Problem Amenorrhea N91.2 Active 63283369 Problem Morbid (severe) E66.01 Active 55724138087438 obesity due to excess calories Problem HTN I10 Active 73062646 (hypertension), benign Problem Seasonal allergic J30.2 Active 278096962 rhinitis, unspecified trigger Problem Depression with F41.8 Active 127684642 anxiety Problem Adult BMI Z68.43 Active 127104339 50.0-59.9 kg/sq m Problem PCOS (polycystic E28.2 Active 19987551 ovarian syndrome) Problem Hypersomnia G47.10 Active 79291414 Problem Migraine with aura G43.109 Active 4392707 and without status migrainosus, not intractable Problem Allergic rhinitis, J30.9 Active 47655947 unspecified seasonality, unspecified trigger Problem NATA (obstructive G47.33 Active 31570734 sleep apnea) Problem Body mass index Z68.43 Active 936753926 (BMI) of 50-59.9 in adult Problem Left N20.0 Active 40868520 nephrolithiasis Problem Prediabetes R73.03 Active 731777768 Problem Infertility, N97.0 Active 623950882 anovulation Problem Menorrhagia with N92.1 Active 257182343 irregular cycle Problem Generalized F41.1 Active 68116186 anxiety disorder Problem Current moderate F32.1 Active 73194076 episode of major depressive disorder without prior episode Problem Neutrophilic D72.9 Active 170645684 leukocytosis ALLERGIES No Known Allergies ENCOUNTERS from 1982 to 2019-11-23 Encounter Location Date Provider Diagnosis [facility] [address] [place] Nov, [facility] er respiratory Family Medicine [address], [place] [address] unspecified ty pe J06.9 ; Sore th roat J02.9 and Cough R05 IMMUNIZATIONS Vaccine Route Administration Date Status Afluria [...] No Information VITAL SIGNS Height 67 in Nov, Weight 365 lbs Nov, BMI 57.16 kg/m2 Nov, MEDICATIONS Medication SIG (Take, Route, Start Date End Date Status Frequency, Duration) Escitalopram Oxalate 20 MG 1 tablet Orally Once a Active day for 30 day(s) Spironolactone 100 MG 1 tablet Orally Once a Active day Propranolol HCl ER 160 MG 1 capsule Orally Once Active a day for 30 day(s) BusPIRone HCl 15 MG TAKE ONE (1) TABLET(S) Not-Taking BY MOUTH TWICE A DAY. MetFORMIN HCl ER 500 MG 1 tablet with evening Active meal Orally Once a day for 30 day(s) Medrol 4 MG as directed Orally use Nov, Nov, Activ e as directed for 6 days BusPIRone HCl 15 MG 1 tablet Orally Twice Active a day for 30 days Tamsulosin HCl 0.4 MG 1 capsule Orally Once Oct,Nov, 20 Active a day for 30 day(s) PROCEDURES No Information RESULTS No Results REASON FOR VISIT Vomiting mucas(COVID + in September) MEDICAL (GENERAL) HISTORY Type Description Date Medical [...] Surgical History Oral 2008 Surgical History Appendectomy 2016 Goals Section No Information Health Concerns No Information MEDICAL EQUIPMENT No Information MENTAL STATUS No Information FUNCTIONAL STATUS No Information ASSESSMENTS Encounter Date Diagnosis Notes Nov, Cough (ICD-10 - R05) Nov, Sore throat (ICD-10 - J02.9) Nov, Upper respiratory tract infection, unspe cified type (ICD-10 - J06.9) PLAN OF TREATMENT Medication Medication Name Sig Start Date Stop Date Medrol 4 MG as directed Orally use as directed for 6 Nov, Nov, days Treatment Notes Assessment Notes Clinical Notes Upper respiratory tract infection, With the duration and sev erity of unspecified type symptoms/PE, will treat with Medrol Dosepak. No indication for antibiotics at this time. Side effect discussed with patient. In addition, discussed supportive measures and home remedies for symptomatic relief. Increase hydration. Advised on signs/symptoms to monitor. If able to take, OK to use OTC Tylenol and/or NSAIDs for pain and fever, temporarily. It is important to rest and take your medication as recommended by the doctor. You should clean your hands frequently. You should remain indoors and cover your mouth when coughing. If necessary you may have to wear a mask to keep from infecting others. You should also change your toothbrush within 24-48 hours of starting any antibiotics. Salt water gargles three times a day is recommended for pharyngeal irritation and congestion. Nasal saline sprays three times a day to the nostrils may help with the nasal congestion. You may also take Mucinex OTC for chest congestion. If the symptoms persists or worsen after 24-48 hours especially if taking medication, then you are to call back for reevaluation or go to the ER. Next Appt Details prn Reason: Provider Name:Poncho Zak 2019-12-07 0 9:30:00 AM, [address], [address], [place], [address], Provider Name:Poncho Crespo 2019-12-14 0 9:30:00 AM, [address], [address], [place], [address], Insurance Providers Payer Name Payer Payer Insured Patient Coverage Coverage End Address Phone Name Relationship to Start Date Madan e Insured Ambetter from [phone] [place] self 2019 [place] [id number] [facility] [address]
[2019-11-23 16:32] LABS: Absolute Lymphocytes (CBC) 1.4 K/uL (0.7-4.9); Basophils % 0.6 % (0-1.3); Hematocrit 38.9 % (36.0-45.0); RBC Red Blood Cell Count 4.94 M/uL (3.86-4.86)
[2019-11-23 16:35] LABS: Protime INR 0.97
[2019-11-23 16:49] LABS: ALT/SGPT 25 U/L (12-78); AST/SGOT 9 U/L (15-37); Albumin 3.6 g/dL (3.4-5.0); Alkaline Phosphatase 87 U/L (45-117); BUN Blood Urea Nitrogen 12 mg/dL (7-18); Bicarbonate 26 mmol/L (21-32); Bilirubin Direct < 0.1 mg/dL (0-0.2); Bilirubin Total 0.1 mg/dL (0.2-1.0); Glucose Level 143 mg/dL (74-106); Magnesium 2.1 mg/dL (1.8-2.4); NT PRO-BNP 66 pg/mL (<125); Potassium 4.2 mmol/L (3.5-5.1); Protein, Total 7.8 g/dL (6.4-8.2); Sodium Level 140 mmol/L (136-145); Troponin (Emerg Dept Use Only) < 0.02 ng/mL (0.0-0.045)
[2019-11-23] MEDS ORDERED: ONDANSETRON 4 MG/2 ML VIAL ONE ×2 (17:04→19:32)
[2019-11-23] MEDS ORDERED: KETOROLAC 30 MG/ML INJ ONE (17:45)
--- NOTE | 2019-11-23 18:19 | RAD REPORT ---
EXAM DESCRIPTION: Paige Pandya (2 Views)11/23/2019 5:41 pm CLINICAL HISTORY: Cough COMPARISON: 2018 FINDINGS: The lungs appear clear of acute infiltrate. The heart is normal size IMPRESSION: No acute abnormalities displayed
[2019-11-23 18:22] LABS: Blood Morphology Comment NOT SEEN (NOT SEEN); Platelet Estimate ADEQ; White Blood Cell Scan OK (OK)
--- NOTE | 2019-11-23 18:28 | RAD REPORT ---
EXAM DESCRIPTION: CT - Stone Protocol - 11/23/2019 6:12 pm CLINICAL HISTORY: Abdominal pain. COMPARISON: October 2019 TECHNIQUE: Computed axial tomography of the abdomen pelvis was obtained without oral or IV contrast. Lack of IV and oral contrast limits evaluation of solid organs, bowel, and vessels. Coronal reformat chris images were obtained and reviewed. All CT scans are performed using dose optimization technique as appropriate and may include automated exposure control or mA/KV adjustment according to patient size. FINDINGS: A renal calculus is not seen. Minimal left hydronephrosis. 4 millimeter calculus within th e mid to distal left ureter. The liver, spleen, pancreas and adrenals appear grossly normal There is no evidence of diverticulitis. Tiny umbilical hernia IMPRESSION: 4 millimeter calculus has migrated distally within the left ureter. It lies within the m id to distal left ureter. Minimal left hydronephrosis
--- NOTE | 2019-11-23 18:52 | ER ---
Nurse's Notes [facility] Name: Shahnaz River Age: 39 yrs Sex: Female : 1980 Arrival Date: 11/23/2019 Time: 15:33 Bed 13 Private MD: Diagnosis: Acute bronchitis;Streptococcal pharyngitis;Calculus of ureter-left Presentation: 11/22 15:37 Chief complaint: Patient states: Productive cough and congestion x 5 days with nausea. ca1 Midsternal chest pain, back pain and SOB since last night. Denies fever. Positive for Covid-19 in September. "And I also have a kidney stone that I have not passed yet". Coronavirus screen: Client denies travel out of the [place] in the last 14 days. congestion, cough unrelated to allergies, nausea, runny nose, Client presents with at least one sign or symptom that may indicate coronavirus-19. Standard/surgical mask placed on the client. Provider contacted for isolation considerations. Client reports previous positive COVID test result. Date of collection: September 2019. Ebola Screen: Patient negative for fever greater than or equal to 101.5 degrees Fahrenheit, and additional compatible Ebola Virus Disease symptoms Patient denies exposure to infectious person. Patient denies travel to an Ebola-affected area in the 21 days before illness onset. No symptoms or risks identified at this time. Initial Sepsis Screen: Does the patient meet any 2 criteria? No. Patient's initial sepsis screen is negative. Does the patient have a suspected source of infection? No. Patient's initial sepsis screen is negative. Risk Assessment: Do you want to hurt yourself or someone else? Patient reports no desire to harm self or others. Onset of symptoms was November 23, 2019. 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 - Social history:: Smoking status: Patient/guardian denies using tobacco, the patient reports quitting approximately 8 years ago. Screenin:09 Abuse screen: Denies threats or abuse. Denies injuries from another. Nutritional ss screening: No deficits noted. Tuberculosis screening: Never had TB. Fall Risk None identified. Assessment: 16:09 General: Appears in no apparent distress. comfortable, Behavior is calm, cooperative, ss Denies fever, chills. General: Appears obese. Pain: Complains of pain in chest and upper back Pain does not radiate. Pain currently is 4 out of 10 on a pain scale. Quality of pain is described as pressure in chest and upper back when deep breathing Pain began this morning. Neuro: Level of Consciousness is awake, alert, obeys commands, Oriented to person, place, time, situation. Cardiovascular: Capillary refill < 3 seconds is brisk in bilateral fingers. Respiratory: Reports dry cough that began back in September when diagnosed with COVID-19. Respiratory: Breath sounds are clear bilaterally. GI: Patient currently denies diarrhea, nausea, vomiting. : No signs and/or symptoms were reported regarding the genitourinary system. EENT: Nares are clear Oral mucosa is moist. Derm: Skin is intact, is healthy with good turgor, Skin is dry, Skin is pink, warm \\T\\ dry. normal. 17:30 Reassessment: Pt complains of L lower quadrant pain flare up that she states is her ss "kidney stone pain" that has been intermittent x 3 weeks. Pt reports she has followed up with her pcp regarding this issue. NOEL Noel notified. 17:47 Reassessment: PT in XRAY at this time. ss 18:15 Reassessment: Patient appears in no apparent distress at this time. Patient and/or ss family updated on plan of care and expected duration. Pain level reassessed. Patient is alert, oriented x 3, equal unlabored respirations, skin warm/dry/pink. 19:15 Reassessment: Patient appears in no apparent distress at this time. Patient and/or jb4 family updated on plan of care and expected duration. Pain level reassessed. Patient is alert, oriented x 3, equal unlabored respirations, skin warm/dry/pink. Vital Signs: 15:37 BP 132 / 63; Pulse 67; Resp 19 S; Temp 98.9(TE); Pulse Ox 98% on R/A; Weight 165.56 kg ca1 (R); Height 5 ft. 7 in. (170.18 cm) (R); Pain 4/10; 19:15 BP 118 / 91; Pulse 72; Resp 16; Pulse Ox 97% on R/A; jb4 15:37 Body Mass Index 57.17 (165.56 kg, 170.18 cm) ca1 ED Course: 15:33 Patient arrived in ED. mr 15:37 Finn Spence PA is PHCP. cp 15:37 Lincoln Jones MD is Attending Physician. cp 15:48 Triage completed. ca1 15:50 Arm band placed on right wrist. ca1 15:55 Alexandra Roy, RN is Primary Nurse. ss 16:09 Patient has correct armband on for positive identification. Bed in low position. Call ss light in reach. 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 Pulse ox on. NIBP on. 16:09 Inserted saline lock: 20 gauge in right antecubital area, using aseptic technique. ss Blood collected. Patient maintains SpO2 saturation greater than 95% on room air. 16:47 Urine collected: clean catch specimen, clear. ss 17:40 XRAY Chest Pa And Lat (2 Views) In Process Unspecified. EDMS 18:13 CT Stone Protocol: history of left ureter stone In Process Unspecified. EDMS 18:51 Yoshi Kevin MD is Referral Physician. cp 19:07 Primary Nurse role handed off by Alexandra Roy, TIP jb4 19:07 Catarino Bobby, RN is Primary Nurse. jb4 19:40 No provider procedures requiring assistance completed. IV discontinued, intact, jb4 bleeding controlled, No redness/swelling at site. Pressure dressing applied. Administered Medications: 17:33 Drug: TORadol 30 mg Route: IVP; Site: right antecubital; ca1 18:59 Follow up: Response: No adverse reaction; Pain is decreased ss 19:10 Drug: Rocephin 1 grams Route: IV; Rate: calculated rate; Site: right antecubital; jb4 19:13 Follow up: IV Status: Completed infusion jb4 19:24 Drug: Phenergan 12.5 mg Route: IVP; Site: right antecubital; jb4 19:27 Drug: fentaNYL (PF) 25 mcg {Note: Rass score 0.} Route: IVP; Site: right antecubital; jb4 Outcome: 18:52 Discharge ordered by . cp 19:40 Discharged to home ambulatory. jb4 19:40 Condition: stable 19:40 Discharge instructions given to patient, Instructed on discharge instructions, follow up and referral plans. medication usage, Demonstrated understanding of instructions, follow-up care, medications, Prescriptions given X 6 19:46 Patient left the ED. jb4 Signatures: Dispatcher [employer] EDMS Dl Kristyn mr Alexandra Roy, RN RN Finn Spence PA PA cp Bryson, James, RN RN jb4 Krista Alston RN RN ca1 Corrections: (The following items were deleted from the chart) 15:50 15:37 Chief complaint: Patient states: Productive cough and congestion x 5 days with ca1 nausea. Midsternal chest pain, back pain and SOB since last night. Denies fever. Positive for Covid-19 in September ca1
--- NOTE | 2019-11-23 18:52 | EDPHYS ---
Physician Documentation [facility] Name: Shahnaz River Age: 39 yrs Sex: Female : 1980 Arrival Date: 11/23/2019 Time: 15:33 Bed 13 Private MD: ED Physician Lincoln Jones HPI: 11/22 16:00 This 39 yrs old Female presents to ER via Ambulatory with complaints of Chest cp Pain, Breathing Difficulty. 16:00 The patient or guardian reports cough, that is intermittent, with productive sputum. cp 16:00 Onset: The symptoms/episode began/occurred 5 day(s) ago. Associated signs and symptoms: cp Pertinent positives: chest pain, with cough, with breathing, nausea, Pertinent negatives: fever. Severity of symptoms: in the emergency department the symptoms are unchanged despite home interventions. Patient reports continued flank pain since being diagnosed with ureter stone last month. Patient does not believe she has passed stone, Admits to no urology follow-up. 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 - Social history:: Smoking status: Patient/guardian denies using tobacco, the patient reports quitting approximately 8 years ago. ROS: 16:05 Eyes: Negative for injury, pain, redness, and discharge. cp 16:05 Constitutional: Negative for body aches, chills, fever, poor PO intake. 16:05 ENT: Positive for sore throat, Negative for drainage from ear(s), ear pain, difficulty swallowing, difficulty handling secretions. 16:05 Cardiovascular: Positive for chest pain, with cough, Negative for edema, palpitations. 16:05 Respiratory: Positive for cough, shortness of breath, on exertion. 16:05 Abdomen/GI: Negative for vomiting, diarrhea, constipation. 16:05 Neck: Negative for pain with movement, pain at rest, stiffness. cp 16:05 : Positive for flank pain. 16:05 Neuro: Negative for altered mental status, dizziness, headache, syncope, weakness. 16:05 All other systems are negative. Exam: 16:10 Constitutional: The patient appears in no acute distress, alert, awake, cp non-diaphoretic, non-toxic, well developed, well nourished, obese. 16:10 Head/Face: Normocephalic, atraumatic. cp 16:10 Eyes: Periorbital structures: appear normal, Conjunctiva: normal, no exudate, no injection, Sclera: no appreciated abnormality, Lids and lashes: appear normal, bilaterally. 16:10 ENT: External ear(s): are unremarkable, Ear canal(s): are normal, clear, TM's: dullness, bilaterally, Nose: is normal, Mouth: Lips: moist, Oral mucosa: moist, Posterior pharynx: Airway: no evidence of obstruction, patent, Tonsils: no enlargement, no exudate, erythema, that is mild, exudate, is not appreciated. 16:10 Neck: ROM/movement: Meningeal signs: are not present. 16:10 Chest/axilla: Inspection: normal, Palpation: is normal, no crepitus, no tenderness. 16:10 Cardiovascular: Rate: normal, Rhythm: regular, Edema: is not appreciated, JVD: is not appreciated. 16:10 Respiratory: the patient does not display signs of respiratory distress, Respirations: labored breathing, is not present, accessory muscle usage, is absent, intercostal retractions, are absent, Breath sounds: bronchial sounds, that are mild, are heard diffusely, decreased breath sounds, are not appreciated, stridor, is not appreciated, + upper airway congestion. wheezing: is not appreciated. 16:10 Abdomen/GI: Inspection: obese Palpation: abdomen is soft and non-tender, in all quadrants. 16:10 Back: CVA tenderness, is absent. 16:10 Skin: no rash present. 16:10 Neuro: Orientation: to person, place \T\ time. Mentation: is normal, Motor: moves all fours, strength is normal. 16:13 ECG was reviewed by the Attending Physician. Vital Signs: 15:37 BP 132 / 63; Pulse 67; Resp 19 S; Temp 98.9(TE); Pulse Ox 98% on R/A; Weight 165.56 kg ca1 (R); Height 5 ft. 7 in. (170.18 cm) (R); Pain 4/10; 19:15 BP 118 / 91; Pulse 72; Resp 16; Pulse Ox 97% on R/A; jb4 15:37 Body Mass Index 57.17 (165.56 kg, 170.18 cm) ca1 MDM: 15:41 Patient medically screened. cp 18:50 Data reviewed: vital signs, nurses notes, lab test result(s), EKG, radiologic studies, cp CT scan, plain films. 18:50 Counseling: I had a detailed discussion with the patient and/or guardian regarding: the cp historical points, exam findings, and any diagnostic results supporting the discharge/admit diagnosis, lab results, radiology results, the need for outpatient follow up, a urologist, to return to the emergency department if symptoms worsen or persist or if there are any questions or concerns that arise at home. 11/22 15:50 Order name: Basic Metabolic Panel cp 11/22 15:50 Order name: CBC with Diff cp 11/22 15:50 Order name: LFT's; Complete Time: 17:16 cp 11/22 17:38 Interpretation: Normal except: AST 9; BILIT 0.1; GLOB 4.2; A/G 0.9. cp 11/22 15:50 Order name: Magnesium; Complete Time: 17:16 cp 11/22 15:50 Order name: NT PRO-BNP; Complete Time: 17:16 cp 11/22 15:50 Order name: PT-INR; Complete Time: 17:16 cp 11/22 15:50 Order name: Troponin (emerg Dept Use Only); Complete Time: 17:16 cp 11/22 15:50 Order name: D-Dimer; Complete Time: 17:16 cp 11/22 15:50 Order name: Influenza Screen (a \T\ B); Complete Time: 17:31 cp 11/22 15:51 Order name: Basic Metabolic Panel; Complete Time: 17:16 EDMS 11/22 17:38 Interpretation: Normal except: CL 108; GLUC 143; GFR 61. cp 11/22 15:51 Order name: CBC with Automated Diff; Complete Time: 18:27 EDMS 11/22 17:38 Interpretation: Normal except: WBC 15.1; RBC 4.94; MCV 78.8; MCH 25.6; RDW 17.1; MIESHA% cp 86.5; LYM% 9.0; MN% 3.2; NEUT A 13.1. 11/22 15:51 Order name: Strep; Complete Time: 17:31 cp 11/22 17:31 Interpretation: Abnormal: GP A STREP SC \T\nbsp; GROUP A STREP SCREEN-- \T\nbsp; \T\nbsp; cp POSITIVE. 11/22 16:48 Order name: Urine Dipstick--Ancillary (enter results) 11/22 16:48 Order name: Urine --Ancillary (enter results) 11/22 15:50 Order name: EKG; Complete Time: 15:51 cp 11/22 15:50 Order name: EKG - Nurse/Tech; Complete Time: 15:51 cp 11/22 15:50 Order name: Urine Dipstick-Ancillary (obtain specimen); Complete Time: 16:47 cp 11/22 15:50 Order name: Urine Test (obtain specimen); Complete Time: 16:09 cp 11/22 15:50 Order name: Cardiac monitoring; Complete Time: 16:09 cp 11/22 15:50 Order name: IV Saline Lock; Complete Time: 16:09 cp 11/22 15:50 Order name: Labs collected and sent; Complete Time: 16:09 cp 11/22 15:50 Order name: O2 Per Protocol; Complete Time: 16:09 cp 11/22 17:17 Order name: XRAY Chest Pa And Lat (2 Views); Complete Time: 18:27 cp 11/22 18:27 Interpretation: Report reviewed. cp 11/22 17:45 Order name: CT Stone Protocol: history of left ureter stone; Complete Time: 18:41 cp 11/22 18:23 Order name: CBC Smear Scan; Complete Time: 18:27 EDMS 11/22 15:50 Order name: O2 Sat Monitoring; Complete Time: 16:09 cp 11/22 18:44 Order name: PO challenge; Complete Time: 18:59 cp EC:13 Rate is 58 beats/min. Rhythm is regular. RI interval is normal. QRS interval is normal. cp QT interval is normal. T waves are Flattened in lead aVL. Interpreted by me. Reviewed by me. Administered Medications: 17:33 Drug: TORadol 30 mg Route: IVP; Site: right antecubital; ca1 18:59 Follow up: Response: No adverse reaction; Pain is decreased ss 19:10 Drug: Rocephin 1 grams Route: IV; Rate: calculated rate; Site: right antecubital; jb4 19:13 Follow up: IV Status: Completed infusion jb4 19:24 Drug: Phenergan 12.5 mg Route: IVP; Site: right antecubital; jb4 19:27 Drug: fentaNYL (PF) 25 mcg {Note: Rass score 0.} Route: IVP; Site: right antecubital; jb4 Disposition: 11/23 08:25 Co-signature as Attending Physician, Lincoln Jones MD I agree with the assessment and kdr plan of care. Disposition: 11/23/19 18:52 Discharged to Home. Impression: Acute bronchitis, Streptococcal pharyngitis, Calculus of ureter - left. - Condition is Stable. - Discharge Instructions: Acute Bronchitis, Adult, Kidney Stones, Strep Throat. - Prescriptions for Augmentin 875- 125 mg Oral Tablet - take 1 tablet by ORAL route every 12 hours for 10 days; 20 tablet. Zofran 4 mg Oral Tablet - take 1 tablet by ORAL route every 12 hours As needed; 20 tablet. Tessalon Perles 100 mg Oral Capsule - take 2 capsule by ORAL route every 8 hours As needed; 30 capsule. Flomax 0.4 mg Oral Capsule, Sust. Release 24 hr - take 1 capsule by ORAL route once daily As needed 1/2 hour following the same meal each day; 7 capsule. Tramadol 50 mg Oral Tablet - take 1 tablet by ORAL route every 8 hours as needed; 20 tablet. Albuterol Sulfate 90 mcg/actuation - inhale 1-2 puff by INHALATION route every 4-6 hours; 1 Inhaler. - Medication Reconciliation Form, Thank You Letter, Antibiotic Education, Prescription Opioid Use, Work release form form. - Follow up: Private Physician; When: 2 - 3 days; Reason: cough, congestion. Follow up: Yoshi Kevin MD; When: 1 - 2 days; Reason: left ureter stone. - Problem is new. - Symptoms have improved. Signatures: Dispatcher [employer] EDMS Lincoln Jones MD MD [facility] Finn Spence PA PA cp Catarino Bobby RN RN jb4 Krista Alston RN RN ca1 Alexandra Roy RN ss Corrections: (The following items were deleted from the chart) 11/22 19:46 18:52 11/23/2019 18:52 Discharged to Home. Impression: Acute bronchitis; Streptococcal jb4 pharyngitis; Calculus of ureter - left. Condition is Stable. Forms are Medication Reconciliation Form, Thank You Letter, Antibiotic Education, Prescription Opioid Use. Follow up: Private Physician; When: 2 - 3 days; Reason: cough, congestion. Follow up: Yoshi Kevin; When: 1 - 2 days; Reason: left ureter stone. Problem is new. Symptoms have improved. cp
[2019-11-23] MEDS ORDERED: CEFTRIAXONE/SWI 1gm 1 GM/10 ML SYR ONE (19:22)
[2019-11-23] MEDS ORDERED: FENTANYL CITR 100 MCG/2 ML ONE (19:32)
[2019-11-23] MEDS ORDERED: PROMETHAZINE INJ 25 MG/ML AMP ONE (19:35)
[2019-11-23 20:01] VITALS: BP 132/63; TEMP 98.9; O2SAT 98
[2019-11-23 20:13] LABS: Urine Blood TRACE (NEG); Urine Glucose NEGATIVE (NEG); Urine Protein NEGATIVE (NEG); Urine Specific Gravity 1.025 (1.005-1.030)
--- NOTE | 2019-11-24 07:05 | EKG ---
Test Date: 2019-11-23 Test Time: 15:54:41 Enrichment Assistant: KADIE MEASUREMENT RESULTS: Intervals: Rate: 58 FL: 140 QRSD: 90 QT: 412 QTc: 404 [place]: P: 47 FL: 140 QRS: 62 T: 57 INTERPRETIVE STATEMENTS: Sinus bradycardia Otherwise normal ECG Compared to ECG 08/26/2017 15:22:10 Sinus rhythm no longer present Sinus arrhythmia no longer present Electronically Signed On 11-24-19 07:03:52 CDT by Evan Lutz
== END 2019-11-23 19:46 | disposition home or self-care (01) ==
LOC: ER 15:27
DX: J20.9 Acute bronchitis, unspecified (principal); J02.0 Streptococcal pharyngitis; N20.1 Calculus of ureter; I10 Essential (primary) hypertension; F41.8 Other specified anxiety disorders; Z87.442 Personal history of urinary calculi
CPT/HCPCS: 93005; 85025; 80048; 36415; 83735; 81025; 85610; 85379; 80076; 87081; 81003; 84484; 83880; 87804 ×2; 76377; 74176; 71046; 96375; 96374; 99285; J2550; J3010; J0696; J2405

== ENCOUNTER 2019-11-30 12:00 | Emergency (ER) | payer OTHER ==
--- OUTSIDE RECORDS SUMMARY | 2019-11-30 12:08 | XMS REPORT | Clinical Summary ---
:1980 Author Organization [facility] Address [address] [place] [address] Care Team Providers Name Role Phone Seth [...] Not on file Results Not on fileafter 11/29/2018 Advance Directives For more information, please contact: [phone] Code Status Date Activated Date Inactivated Comments Full Code 05/09/2017 12:55 PM 05/11/2017 2:10 PM This code status was determined by: Patient
--- OUTSIDE RECORDS SUMMARY | 2019-11-30 12:09 | XMS REPORT ---
[...] Start Date End Date Status Dosage Zithromax [facility] 74291668439 500 MG Orally Oct 02, Oct 07, Active 1 ta blet Once a day 2019 2019 Results No Known Results Summary Purpose eClinicalWorks Submission
--- OUTSIDE RECORDS SUMMARY | 2019-11-30 12:09 | XMS REPORT ---
[...] Dosage System Date Date MetFORMIN HCl ER [facility] 60509339971 500 MG Orally Activ e 1 tablet Once a day with evening meal Escitalopram [facility] 97800047770 20 MG Orally Active 1 tablet Oxalate Once a day BusPIRone HCl [facility] 82870828755 15 MG Orally Active 1 tablet Twice a day Propranolol HCl [facility] 85109670303 160 MG Orally Active 1 capsule ER Once a day BusPIRone HCl [facility] 03552428201 15 MG Active TAKE O NE (1) TABLET(S) BY MOUTH TWICE A DAY. Results No Known Results Summary Purpose eClinicalWorks Submission
--- OUTSIDE RECORDS SUMMARY | 2019-11-30 12:09 | XMS REPORT | Continuity of Care Document ---
:[address] [facility] t Address [facility] [place] [address] Care Team Providers Name Role Phone Sharpless [...] fugax 3 [facility] Essential Essential Disease Active [facility] hypertensi hypertensi 3- Evelin kes - on on 00:00: Medical 00 Center Morbid Morbid Disease Active [facility] obesity obesity 3 [facility] TIA TIA Disease Active [facility] (transient (transient 3 Evelin kes - ischemic ischemic 00:00: Medica l attack) attack) 00 Center Allergies, Adverse Reactions, Alerts Allergy Allergy Status Severity Reaction(s) Onset Inactive Treating Comm ents Source Name Type Date Date Clinician No Known DA Active U [facility] Allergie 9-12 Clear s 00:00: Khan 00 [facility] No Known DA Active U [facility] Contrast 4-20 Clear Allergie 00:00: Khan s [facility] No Known DA Active U [facility] Drug 4-20 Clear Allergie 00:00: Khan s [facility] No Known DA Active U 2007- [facility] Food 4-20 Clear Allergie 00:00: Khan s [facility] No Known DA Active U [facility] Other 4-20 Clear Allergie 00:00: Khan s [facility] Social History Social Habit Start Date Stop Date Quantity Comments Source Sex Assigned At [facility] Tobacco use and 2017-05-09 2017-05-09 Never used [facility] - exposure 00:00:00 00:00:00 [facility] Center Smoking Status Start Date Stop Date Source Never smoker [facility] Medications Ordered Filled Start Stop Current Ordering Indication Dosage Frequency Signature Comments Components Source Medication Medication Date Date Medication? Clinician (SIG) Name Name lisinopril- Yes 1{tbl} QD Take [address] hydroCHLORO 4-02 tablet by Rip es - thiazide 12:10: mouth Medical (TOBY,Z 29 daily. Center ESTORETIC) 10-12.5 mg per tablet Escitalopra Escitalopra Yes [place] [address] [facility] m Oxalate m Oxalate [facility] BusPIRone BusPIRone Yes [place] TAKE ONE [facility] HCl HCl [facility]respo (1) [facility] - TABLET(S) Memoria BY MOUTH l TWICE A Outpati DAY. ent Clinics MetFORMIN MetFORMIN Yes [place] [address] [facility] HCl ER HCl ER Crespo with [facility] - evening [facility] meal [facility] Propranolol Propranolol Yes [place] [address] [facility] HCl ER HCl ER [facility]respo [facility] Immunizations Ordered Filled Immunization Date Status Comments Sour e Immunization Name Name Afluria single dose Afluria single dose 2019-01-12 [facility] Procedures This patient has no known procedures. Encounters Start End Encounter Admission Attending Care Care Encounter Source Date/Time Date/Time Type Type Clinicians Facility Department ID 2019-11-23 2019-11-23 Outpatient [facility] [id number] [facility] 2019-11-22 2019-11-22 Outpatient [facility] [id number] [facility] 2019-11-02 2019-11-02 Outpatient [facility] [id number] [facility] 2019-10-24 2019-10-24 [facility] [id number] [address] 09:53:00 09:53:00 t [place] [employer] [facility] Medicine l Medicine Outpati ent Clinics 2019-10-11 2019-10-11 [facility] [id number] 09:31:00 09:31:00 [place] - Drive [facility] Medicine l Medicine Outpati ent Clinics 2019-10-04 2019-10-04 [facility] [id number] 16:35:00 16:35:00 t [place] [employer] [facility] Medicine Medicine Outpati ent Clinics 2019-09-29 2019-09-29 [facility] [id number] 10:30:00 10:30:00 t [place] [employer] [facility] Medicine l Medicine Outpati ent Clinics 2019-09-28 2019-09-28 [facility] [id number] 14:18:00 14:18:00 t [place] [employer] [facility] Medicine l Medicine Outpati ent Clinics 2019-09-16 2019-09-16 [facility] [id number] 08:30:00 08:30:00 [place] - Drive [facility] Medicine l Medicine Outpati ent Clinics 2019-08-30 2019-08-30 [facility] [id number] 14:31:00 14:31:[address] [facility] [address] [employer] [facility] Medicine l Medicine Outpati ent Clinics 2019-08-04 2019-08-04 [facility] [id number] 08:40:00 08:40:00 [place] [employer] Luke s - Drive [facility] Family Medicine l Medicine Outpati ent Clinics 2019-07-26 2019-07-26 [facility] [id number] 09:30:00 09:30:00 [place] [employer] - Drive [facility] Medicine l Medicine Outpati ent Clinics 2019-06-01 2019-06-01 [facility] [id number] 13:45:00 13:45:00 [place] [employer] Luke s - Drive [facility] Medicine l Medicine Outpati ent Clinics 2019-02-11 2019-02-11 [facility] [id number] 08:00:00 08:00:00 [place] [employer] - Drive [facility] Medicine l Medicine Outpati ent Clinics 2019-01-20 2019-01-20 [facility] [id number] 14:30:00 14:30:00 [place] [employer] [place] - Drive [facility] Medicine l Medicine Outpati ent Clinics 2019-01-13 2019-01-13 [facility] [id number] 10:07:00 10:07:00 [place] [employer] - Drive [facility] Medicine l Medicine Outpati ent Clinics 2019-01-12 2019-01-12 [facility] [id number] 11:15:00 11:15:00 [place] [employer] - Drive [facility] Medicine l Medicine Outpati ent Clinics 2018-12-21 2018-12-21 [facility] [id number] 14:15:00 14:15:00 [place] [employer] - Drive [facility] Medicine l Medicine Outpati ent Clinics 2018-12-15 2018-12-15 [facility] [id number] 16:59:00 16:59:00 [place] [employer] - Drive [facility] Medicine l Medicine Outpati ent Clinics 2018-09-29 2018-09-29 [facility] [id number] 15:00:00 15:00:00 [place] [employer] - Drive [facility] Medicine l Medicine Outpati ent Clinics 2018-09-24 2018-09-24 [facility] [id number] 15:24:00 15:24:00 [place] [employer] [employer] - Drive [facility] Medicine Outpati ent Clinics 2018-09-23 2018-09-23 [facility] [id number] 15:16:00 15:16:00 t [place] [employer] s - Drive [facility] Medicine Outpati ent Clinics 2018-09-23 2018-09-23 Office ANASTASIA Roberto [id number] 08:30:24 09:27:13 Visit Dennis M. AMBULATOR [id number] 2018-08-05 2018-08-05 [facility] [id number] 10:15:00 10:15:00 t [place] [employer] [facility] Medicine Outpati ent Clinics 2018-06-09 2018-06-09 [facility] [id number] 14:30:00 14:30:00 t [place] [employer] [facility] Medicine Outpati ent Clinics 2018-05-04 2018-05-04 [facility] [id number] 16:30:00 16:30:00 t [place] [employer] s - Drive [facility] Medicine Outpati ent Clinics 2018-02-15 2018-02-15 [facility] [id number] 15:00:00 15:00:00 t [place] [employer] s - Drive [facility] Medicine Outpati ent Clinics 2017-09-22 2017-09-22 [facility] [id number] 14:45:00 14:45:00 t [place] [employer] s - Drive [facility] Medicine Outpati ent Clinics 2017-09-10 2017-09-10 [facility] [id number] 09:21:00 09:21:00 t [place] [employer] s - Drive [facility] Medicine Outpati ent Clinics 2017-08-27 2017-08-27 [facility] [id number] 11:52:00 11:52:[address] Luke [address] - Drive [facility] Family Medicine l Medicine Outpati ent Clinics 2017-08-05 2017-08-05 [facility] [id number] 14:45:00 14:45:[address] Luke s - Drive [facility] Medicine l Medicine Outpati ent Clinics 2017-06-17 2017-06-17 [facility] [id number] 14:45:00 14:45:00 t [facility] [place] [facility] l Outpati ent Clinics 2017-05-26 2017-05-26 [facility] [id number] 08:15:00 08:15:[address] [place] [address] - Drive [facility] Medicine l Medicine Outpati ent Clinics 2017-05-22 2017-05-22 [facility] [id number] 14:04:00 14:04:[address] Luke [address] - Drive [facility] Medicine l Medicine Outpati ent Clinics 2017-05-14 2017-05-14 [facility] [id number] 10:17:00 10:17:[address] Luke [address] - Drive [facility] Medicine l Medicine Outpati ent Clinics 2017-05-13 2017-05-13 [facility] [id number] 10:45:00 10:45:[address] Luke s - Drive [facility] Medicine Medicine Outpati ent Clinics 2017-04-30 2017-04-30 [facility] [id number] 10:30:00 10:30:[address] Luke [address] - Drive [facility] Medicine Medicine Outpati ent Clinics Results Test Description Test Time Test Comments Results Result Comments Source SURGICAL SPECIMENS 2017-10-24 10:53:00 RUN DATE: 10/24/17 [facility] *LIVE* PAGE 1 RUN TIME: 1053 Specimen Inquiry RUN USER: INTERFACE PATIENT: YARITZA BAILEY LOC: TATI U #: [id number] AGE/SX: 37/F ROOM: RE10/22/17REG DR: Tracey Shetty : 84 BED: DIS: STATUS[place] [facility] [place]: SPEC #: [id number] RECD: 10/22/17 STATUS: CARLEE VAZQUEZ #: [id number] DOMINGO: 10/22/[address] [facility] [address]: Tracey Shetty MD ENTERED: 10/24/17 SP TYPE: SURG SPEC OTHR DR: Undefined Provider ORDERED: GM LEVEL 4 CODES: [id number] - STOMACH, NOS [id number] - SMALL INTESTINE [id number] - COLON, NOS COPIES TO: Tracey Shetty MD [address] [place] [address] [id number] [place] [address] Undefined Provider PROCEDURES: GM LEVEL [...] CONTINUED ON NEXT PAGE RUN DATE: 10/24/17 [facility] *LIVE* PAGE 2 RUN TIME: 1053 Specimen Inquiry RUN USER: INTERFACE SPEC #: [id number] PATIENT: YARITZA BAILEY #[id number] (Continued)--------- --- GROSS AND MICROSCOPIC (Continued) MICROSCOPIC [...] Value Reference Range Interpretation Comme nts CULTURE (YOGESHAKER) (test code = 1095) >100,000 col/mL skin tona MR, MRA, BRAIN, WITHOUT [id number] 15:22:00Reason for exam:->Ischemic Stroke EvaluationFINAL REPORT MRI brain with and without contrast Comparison: No priors Reason for exam: StrokeIschemic Stroke Evaluation Discussion: Multiplanar MR imaging of the brain was provided zvh-zlw-ptze IV gadolinium administration using T1, T2, FLAIR, [...] None available. TECHNIQUE: 2 D and 3-D qcvv-yv-kubkuj MRA images of the intra- and extracranial carotid and vertebralarterial circulations were obtained, from which maximal intensity projection 3-D reconstructions were created. FINDINGS: MRA neck: There is no MR angiographic evidence for vessel occlusion or NASCET quantifiable stenosis in the extracranial carotid arteries. No hemodynamically significant stenosis identified in the vertebral artery, flow is antegrade in both vertebral arteries. MRA tanana of Sanchez: There is no MR angiographic evidence for vessel occlusion, flow-limiting stenosis, or aneurysm inthe intracranial carotid or vertebrobasilar arterial circulations. IMPRESSION: 1. No MR angiographic evidence for vascular compromise. Signed: Adele Holden Verified Date/Time: 05/10/2017 15:22:22 Reading Location: [address] Neuro Reading Room MR, MRA, NECK, WITHOUT IV [id number] 15:22:00Reason for exam:->Ischemic Stroke EvaluationFINAL REPORT MRI brain with and without contrast Comparison: No priors Reason for exam: StrokeIschemic Stroke Evaluation Discussion: Multiplanar MR imaging of the brain was provided jhq-bal-pkxg IV gadolinium administration using T1, T2, FLAIR, [...] None available. TECHNIQUE: 2 D and 3-D hodb-vu-jtrnoi MRA images of the intra- and extracranial carotid and vertebral arterial circulations were obtained, from which maximal intensity projection 3-D reconstructions were created. FINDINGS: MRA neck: There is no MR angiographic evidence for vessel occlusion or NASCET quantifiable stenosis in the extracranial carotid arteries. No hemodynamically significant stenosis iden tified in the vertebral artery, flow is antegrade in both vertebral arteries. MRA tan[place] of Sanchez: There is no MR angiographic evidence for vessel occlusion, flow-limiting stenosis, or aneurysm inthe intracranial carotid or vertebrobasilar arterial circulations. IMPRESSION: 1. No MR angiographic evidence for vascular compromise. Signed: Adele Holden Verified Date/Time: 05/10/2017 15:22:22 Reading Location: [address] Neuro Reading Room MR, BRAIN, [id number] 15:22:00FINAL REPORT MRI brain with and without contrast Comparison: No priors Reason for exam: StrokeIschemic Stroke Evaluation Discussion: Multiplanar MR imaging of the brain was provided wiw-kzl-udge IV gadolinium administration using T1, T2, FLAIR, [...] None available. TECHNIQUE: 2 D and 3-D ldhk-sa-rjzeih MRA images of the intra- and extracranial carotid and vertebralarterial circulations were obtained, from which maximal intensity projection 3-D reconstructions were created. FINDINGS: MRA neck: There is no MR angiographic evidence for vessel occlusion or NASCET quantifiable stenosis in the extracranial carotid arteries. No hemodynamically significant stenosis identified in the vertebral artery, flow is antegrade in both vertebral arteries. MRA tan[place] of [place]: There is no MR angiographic evidence for vessel occlusion, flow-limiting stenosis, or aneurysm inthe intracranial carotid or vertebrobasilar arterial circulations. IMPRESSION: 1. No MR angiographic evidence for vascular compromise. Signed: Adele Holden Verified Date/Time: 05/10/2017 15:22:22 Reading Location: [address] Neuro Reading Room HEMOGLOBIN [id number] 11:17:00 Test Item Value Reference Range Interpretation Comments HEMOGLOBIN A1C (BEAKER) (test code = 5.9 % 4.3-6.1 368) [id number] 07:58:00 Test Item Value Reference Range Interpretation Comments MAGNESIUM (BEAKER) (test code = 2.2 mg/dL 1.6-2.6 627) BASIC METABOLIC [id number] 07:58:00 Test Item Value Reference Range Interpretation [...] NOT APPLICABLE FOR DIALYSIS PATIEN TS. LIPID [id number] 07:58:00 Test Item Value Reference Range Interpretation [...] Borderline 130-159 High 160-189 Very High >=190TROPONIN [id number] 07:56:00 Test Item Value Reference Range Interpretation [...]
--- OUTSIDE RECORDS SUMMARY | 2019-11-30 12:10 | XMS REPORT ---
[...] End Status Dosage System Date Date Escitalopram [facility] 67361160833 20 MG Orally Active 1 tablet Oxalate Once a day BusPIRone HCl ND 14176172498 15 MG Orally Active 1 tablet Twice a day MetFORMIN HCl ER ND 95380300435 500 MG Orally Activ e 1 tablet Once a day with evening meal BusPIRone HCl ND 26348900111 15 MG Active TAKE O NE (1) TABLET(S) BY MOUTH TWICE A DAY. Propranolol HCl ND 11527448747 160 MG Orally Active 1 capsule ER Once a day Results No Known Results Summary Purpose eClinicalWorks Submission
--- OUTSIDE RECORDS SUMMARY | 2019-11-30 12:10 | XMS REPORT ---
:1980 Author Organization [facility] Address [address] [place], [place] [address] [place] [address] Care Team Providers Name Role Phone Crespo Unavailable [phone] PROBLEMS Type Condition ICD9-CM [id number] Onset Condition SNOMED Code Notes Code Code Dates Status Problem Encounter for Z01.419 Active 069506080 gynecological examination without abnormal finding Problem Secondary I15.9 Active 93327814 hypertension Problem Amenorrhea N91.2 Active 31677601 Problem Morbid (severe) E66.01 Active 32055632973532 obesity due to excess calories Problem HTN I10 Active 96707986 (hypertension), benign Problem Seasonal allergic J30.2 Active 343201737 rhinitis, unspecified trigger Problem Depression with F41.8 Active 917039193 anxiety Problem Adult BMI Z68.43 Active 524611751 50.0-59.9 kg/sq m Problem PCOS (polycystic E28.2 Active 79859841 ovarian syndrome) Problem Hypersomnia G47.10 Active 99671900 Problem Migraine with aura G43.109 Active 1512739 and without status migrainosus, not intractable Problem Allergic rhinitis, J30.9 Active 73100894 unspecified seasonality, unspecified trigger Problem NATA (obstructive G47.33 Active 23146410 sleep apnea) Problem Body mass index Z68.43 Active 396593425 (BMI) of 50-59.9 in adult Problem Left N20.0 Active 37862482 nephrolithiasis Problem Prediabetes R73.03 Active 458896557 Problem Infertility, N97.0 Active 870494761 anovulation Problem Menorrhagia with N92.1 Active 728594434 irregular cycle Problem Generalized F41.1 Active 76450279 anxiety disorder Problem Current moderate F32.1 Active 40596477 episode of major depressive disorder without prior episode Problem Neutrophilic D72.9 Active 562665858 leukocytosis ALLERGIES No Known Allergies ENCOUNTERS from 1980 to 2019-11-03 Encounter Location Date Provider Diagnosis [facility] [address] [place] Oct, [facility]ak [facility] Family Medicine [address], N20.1 ; [place] [address] flank pain R10 .9 ; Generalized anx [...] as a psychiatrist, psychologist, nurse or social economist) may be necessary to treat depression. Both [...] CPAP. PCOS (polycystic ovarian syndrome) Managed by [employer] /Braxton wagoner. Started menses recently. Migraine with [...] seasonality, unspecified trigger diagnosis. Minimal relief with iydg-wlx-ftfatgm medication. Education given. Discussed allergy testing process. [...] Name:Poncho Crespo, 2019-12-07 0 9:30:00 AM, [address], [address], [place], [address], Provider Name:Poncho Crespo, 2019-12-14 0 9:30:00 AM, [address], [address], [place], [address], Insurance Providers Payer Name Payer Payer Insured Patient Coverage Coverage End Address Phone Name Relationship to Start Date Madan e Insured Ambetter from [phone] [place] self [address] [place] [id number] [place] [phone]
--- OUTSIDE RECORDS SUMMARY | 2019-11-30 12:10 | XMS REPORT ---
:[address] [facility] Address [address] [place], [place] [place] [address] Care Team Providers Name Role Phone Crespo Unavailable [phone] PROBLEMS Type Condition ICD9-CM [id number] Onset Condition SNOMED Code Notes Code Code Dates Status Problem Encounter for Z01.419 Active 017557043 gynecological examination without abnormal finding Problem Secondary I15.9 Active 52000239 hypertension Problem Amenorrhea N91.2 Active 33409211 Problem Morbid (severe) E66.01 Active 59633564068301 obesity due to excess calories Problem HTN I10 Active 99443541 (hypertension), benign Problem Seasonal allergic J30.2 Active 540906788 rhinitis, unspecified trigger Problem Depression with F41.8 Active 103835959 anxiety Problem Adult BMI Z68.43 Active 279141532 50.0-59.9 kg/sq m Problem PCOS (polycystic E28.2 Active 07277008 ovarian syndrome) Problem Hypersomnia G47.10 Active 67047079 Problem Migraine with aura G43.109 Active 1889054 and without status migrainosus, not intractable Problem Allergic rhinitis, J30.9 Active 04762269 unspecified seasonality, unspecified trigger Problem NATA (obstructive G47.33 Active 31833716 sleep apnea) Problem Body mass index Z68.43 Active 713640094 (BMI) of 50-59.9 in adult Problem Left N20.0 Active 78159572 nephrolithiasis Problem Prediabetes R73.03 Active 471433107 Problem Infertility, N97.0 Active 483549285 anovulation Problem Menorrhagia with N92.1 Active 788704275 irregular cycle Problem Generalized F41.1 Active 20627896 anxiety disorder Problem Current moderate F32.1 Active 46362880 episode of major depressive disorder without prior episode Problem Neutrophilic D72.9 Active 908576735 leukocytosis ALLERGIES No Known Allergies ENCOUNTERS from 1980 to 2019-11-23 Encounter Location Date Provider Diagnosis [facility] [address] [facility] [address] Nov, 2019 [place] [address] IMMUNIZATIONS Vaccine Route Administration Date Status Afluria [...] REASON FOR REFERRAL No Information VITAL SIGNS No information MEDICATIONS Medication SIG (Take, Route, Start Date End Date Status Frequency, Duration) MetFORMIN HCl ER 500 MG 1 tablet with evening Active meal Orally Once a day for 30 day(s) Tamsulosin HCl 0.4 MG 1 capsule Orally Once Oct,Nov, 20 Active a day for 30 day(s) Medrol 4 MG as directed Orally use Nov, Nov, Activ e as directed for 6 days BusPIRone HCl 15 MG TAKE ONE (1) TABLET(S) Not-Taking BY MOUTH TWICE A DAY. BusPIRone HCl 15 MG 1 tablet Orally Twice Active a day for 30 days Escitalopram Oxalate 20 MG 1 tablet Orally Once a Active day for 30 day(s) Propranolol HCl ER 160 MG 1 capsule Orally Once Active a day for 30 day(s) Spironolactone 100 MG 1 tablet Orally Once a Active day PROCEDURES No Information RESULTS No Results REASON FOR VISIT to ED for cough, kidney stone MEDICAL (GENERAL) HISTORY Type Description Date Medical [...] No Information FUNCTIONAL STATUS No Information ASSESSMENTS No Information PLAN OF TREATMENT Medication Medication Name Sig Start Date Stop Date Medrol 4 MG as directed Orally use as directed for 6 Nov, Nov, days Next Appt Details Provider Name:Poncholurdes Crespo 2019-12-07 0 9:30:00 AM, [address], [address], [place], [address], Provider Name:Poncho Crespo, 2019-12-14 0 9:30:00 AM, [address], [address], [place], [address], Insurance Providers Payer Name Payer Payer Insured Patient Coverage Coverage End Address Phone Name Relationship to Start Date Madan e Insured Ambetter from [phone] [place] self 2019 [place] [id number] [place] [phone]
--- OUTSIDE RECORDS SUMMARY | 2019-11-30 12:10 | XMS REPORT ---
:1980 Author Organization [facility] Address [address] [place], [place] [address] [place] [address] Care Team Providers Name Role Phone Crespo Unavailable [phone] PROBLEMS Type Condition ICD9-CM BCO11-BT Onset Condition SNOMED Code Notes Code Code Dates Status Problem Encounter for Z01.419 Active 637419188 gynecological examination without abnormal finding Problem Secondary I15.9 Active 67133029 hypertension Problem Amenorrhea N91.2 Active 03600157 Problem Morbid (severe) E66.01 Active [id number] obesity due to excess calories Problem HTN I10 Active 46926847 (hypertension), benign Problem Seasonal allergic J30.2 Active 329598658 rhinitis, unspecified trigger Problem Depression with F41.8 Active 166968931 anxiety Problem Adult BMI Z68.43 Active 715445395 50.0-59.9 kg/sq m Problem PCOS (polycystic E28.2 Active 50652432 ovarian syndrome) Problem Hypersomnia G47.10 Active 13853016 Problem Migraine with aura G43.109 Active 4412372 and without status migrainosus, not intractable Problem Allergic rhinitis, J30.9 Active 45616185 unspecified seasonality, unspecified trigger Problem NATA (obstructive G47.33 Active 02159986 sleep apnea) Problem Body mass index Z68.43 Active 887652848 (BMI) of 50-59.9 in adult Problem Left N20.0 Active 30407337 nephrolithiasis Problem Prediabetes R73.03 Active 096819828 Problem Infertility, N97.0 Active 553937478 anovulation Problem Menorrhagia with N92.1 Active 938350772 irregular cycle Problem Generalized F41.1 Active 14350597 anxiety disorder Problem Current moderate F32.1 Active 98510696 episode of major depressive disorder without prior episode Problem Neutrophilic D72.9 Active 335724826 leukocytosis ALLERGIES No Known Allergies ENCOUNTERS from 1980 to 2019-11-23 Encounter Location Date Provider Diagnosis [facility] [address] [facility] [address] [place], [facility] er respiratory Family Medicine [address], [place] [address] unspecified ty pe J06.9 ; Sore th [...] AM, [address], [address], [place], [address], Provider Name:Poncho Crespo 2019-12-14 0 9:30:00 AM, [address], [address], [place], [address], Insurance Providers Payer Name Payer Payer Insured Patient Coverage Coverage End Address Phone Name Relationship to Start Date Madan e Insured Ambetter from [phone] Marissa River self [address] [place] [id number] [address] [facility] [address]
[2019-11-30] MEDS ORDERED: NA CHLORIDE 0.9% 250 ML ONE (14:02)
[2019-11-30] MEDS ORDERED: METOCLOPRAMIDE 10 MG/2mL INJ ONE (14:02)
[2019-11-30] MEDS ORDERED: DIPHENHYDRAMINE 50 MG/ML VIAL ONE (14:02)
[2019-11-30] MEDS ORDERED: KETOROLAC 30 MG/ML INJ ONE (14:02)
[2019-11-30] MEDS ORDERED: dexAMETHasone 4 MG/ML VIAL ONE (14:03)
--- NOTE | 2019-11-30 15:45 | ER ---
Nurse's Notes [facility] Name: Shahnaz River Age: 39 yrs Sex: Female : 1980 Arrival Date: 11/30/2019 Time: 12:01 Bed 4 Private MD: Poncho Crespo Diagnosis: Migraine Presentation: 11/29 12:42 Chief complaint: Patient states: Headache, loss vision on both eyes, N/V since ca1 yesterday morning. Worse today. Pain on the forehead, constant, worse with vomiting. Denies fever. Reports HX of migraine. Coronavirus screen: Client denies travel out of the [place] in the last 14 days. headache, nausea, Client presents with at least one sign or symptom that may indicate coronavirus-19. Standard/surgical mask placed on the client. Provider contacted for isolation considerations. Client reports previous positive COVID test result. Date of collection: September 2019. Ebola Screen: Patient negative for fever greater than or equal to 101.5 degrees Fahrenheit, and additional compatible Ebola Virus Disease symptoms Patient denies exposure to infectious person. Patient denies travel to an Ebola-affected area in the 21 days before illness onset. No symptoms or risks identified at this time. Initial Sepsis Screen: Does the patient meet any 2 criteria? No. Patient's initial sepsis screen is negative. Does the patient have a suspected source of infection? No. Patient's initial sepsis screen is negative. Risk Assessment: Do you want to hurt yourself or someone else? Patient reports no desire to harm self or others. Onset of symptoms was November 30, 2019. 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 - Social history:: Smoking status: Patient denies any tobacco usage or history of. Screenin:30 Abuse screen: Denies threats or abuse. Denies injuries from another. Nutritional jl7 screening: No deficits noted. Tuberculosis screening: No symptoms or risk factors identified. Fall Risk IV access (20 points). Total Barbosa Fall Scale indicates No Risk (0-24 pts). Assessment: 14:00 General: Appears in no apparent distress. uncomfortable, ill, Behavior is calm, jl7 cooperative, appropriate for age. Pain: Complains of pain in REYES Pain currently is 10 out of 10 on a pain scale. Neuro: Level of Consciousness is awake, alert, obeys commands, Oriented to person, place, time, situation. Cardiovascular: Patient's skin is warm and dry. Respiratory: Airway is patent Respiratory effort is even, unlabored, Respiratory pattern is regular, symmetrical. GI: Abdomen is non-distended. Derm: Skin is pink, warm \T\ dry. 15:03 Reassessment: Patient appears in no apparent distress at this time. Patient and/or jl7 family updated on plan of care and expected duration. Pain level reassessed. Patient is alert, oriented x 3, equal unlabored respirations, skin warm/dry/pink. Reports decreased pain, rated 5/10. Reports nausea is gone. Patient states feeling better. Patient states symptoms have improved. Vital Signs: 12:42 BP 147 / 75; Pulse 55; Resp 16 S; Temp 97.4(TE); Pulse Ox 99% on R/A; Weight 165.56 kg ca1 (R); Height 5 ft. 7 in. (170.18 cm) (R); Pain 9/10; 16:10 BP 128 / 70; Pulse 57; Resp 17; Pulse Ox 98% ; jl7 12:42 Body Mass Index 57.17 (165.56 kg, 170.18 cm) ca1 ED Course: 12:01 Patient arrived in ED. as 12:01 Poncho Crespo DO is Private Physician. as 12:44 Triage completed. ca1 12:45 Arm band placed on right wrist. ca1 13:32 Daquan Pena PA is PHCP. jmm 13:32 Finn Roth MD is Attending Physician. [facility] 13:36 Tio Conde, RN is Primary Nurse. jl7 14:23 Inserted saline lock: 20 gauge in left forearm, using aseptic technique. em1 14:30 Patient has correct armband on for positive identification. Bed in low position. Call jl7 light in reach. Side rails up X 1. Pulse ox on. NIBP on. Warm blanket given. 15:03 No provider procedures requiring assistance completed. jl7 15:44 Poncho Crespo DO is Referral Physician. jmm 16:10 IV discontinued, intact, bleeding controlled, No redness/swelling at site. Pressure jl7 dressing applied. Administered Medications: 14:23 Drug: NS 0.9% 250 ml Route: IV; Rate: bolus; Site: right forearm; jl7 15:04 Follow up: Response: No adverse reaction; IV Status: Completed infusion; IV Intake: jl7 250ml 14:23 Drug: Reglan 20 mg Route: IVP; Site: right forearm; jl7 15:04 Follow up: Response: No adverse reaction; Nausea is decreased jl7 14:25 Drug: Ketorolac 30 mg Route: IVP; Site: right forearm; jl7 15:04 Follow up: Response: No adverse reaction; Pain is decreased jl7 14:26 Drug: Decadron - Dexamethasone 10 mg Route: IVP; Site: right forearm; jl7 15:04 Follow up: Response: No adverse reaction jl7 14:28 Drug: diphenhydrAMINE 12.5 mg Route: IVP; Site: right forearm; jl7 15:05 Follow up: Response: No adverse reaction jl7 Intake: 15:04 IV: 250ml; Total: 250ml. jl7 Outcome: 15:44 Discharge ordered by . [facility] 16:10 Discharged to home ambulatory. jl7 16:10 Condition: stable 16:10 Discharge instructions given to patient, Instructed on discharge instructions, follow up and referral plans. Demonstrated understanding of instructions, follow-up care. 16:11 Patient left the ED. jl7 Signatures: Daquan Pena PA PA jmm Martinez, Amelia as Martinez, Eric em1 Tio Conde, TIP RN jl7 Krista Alston RN RN ca1 Corrections: (The following items were deleted from the chart) 13:02 12:42 BP 297 / 75; Pulse 55bpm; Resp 16bpm; Spontaneous; Pulse Ox 99% RA; Temp 97.4F ca1 Temporal; 165.56 kg Reported; Height 5 ft. 7 in. Reported; BMI: 57.1; Pain 9/10; ca1 14:31 14:23 Reglan 20 mg IVP in right antecubital jl7 jl7
--- NOTE | 2019-11-30 15:45 | EDPHYS ---
Physician Documentation [facility] Name: Shahnaz River Age: 39 yrs Sex: Female : 1980 Arrival Date: 11/30/2019 Time: 12:01 Bed 4 Private MD: Poncho Crespo ED Physician Finn Roth HPI: 11/29 13:48 This 39 yrs old Female presents to ER via Wheelchair with complaints of jmm Vomiting, Headache. 13:48 The patient complains of pain to the top of head, right eye, right confucianist, right jmm frontal area and right temporal area. The patient describes the headache as aching. Onset: The symptoms/episode began/occurred gradually, 1 day(s) ago. Associated signs and symptoms: Pertinent positives: Photophobia vomiting. This is a 39 year old female with a history of PCOS that presents to the ED with complaints of migraine beginning 1 day ago. Gradual onset. Similar to a previous migraine 1 year ago. Denies fever, neck stiffness. . 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 - Social history:: Smoking status: Patient denies any tobacco usage or history of. ROS: 13:48 Constitutional: Negative for fever, chills, and weight loss, Cardiovascular: Negative jmm for chest pain, palpitations, and edema, Respiratory: Negative for shortness of breath, cough, wheezing, and pleuritic chest pain. 13:48 Abdomen/GI: Positive for vomiting. 13:48 Neuro: Positive for headache. 13:48 All other systems are negative. Exam: 13:48 Constitutional: This is a well developed, well nourished patient who is awake, alert, jmm and in no acute distress. Head/Face: atraumatic. Eyes: EOMI, no conjunctival erythema appreciated ENT: Moist Mucus Membranes Neck: Trachea midline, Supple Chest/axilla: Normal chest wall appearance and motion. Cardiovascular: Regular rate and rhythm. No edema appreciated Respiratory: Normal respirations, no respiratory distress appreciated Abdomen/GI: Non distended, soft Back: Normal ROM Skin: General appearance color normal MS/ Extremity: Moves all extremities, no obvious deformities appreciated, no edema noted to the lower extremities Neuro: Awake and alert, normal gait Psych: Behavior is normal, Mood is normal, Patient is cooperative and pleasant Vital Signs: 12:42 BP 147 / 75; Pulse 55; Resp 16 S; Temp 97.4(TE); Pulse Ox 99% on R/A; Weight 165.56 kg ca1 (R); Height 5 ft. 7 in. (170.18 cm) (R); Pain 9/10; 16:10 BP 128 / 70; Pulse 57; Resp 17; Pulse Ox 98% ; jl7 12:42 Body Mass Index 57.17 (165.56 kg, 170.18 cm) ca1 MDM: 13:36 Patient medically screened. [facility] 15:43 Data reviewed: vital signs, nurses notes. Counseling: I had a detailed discussion with bryan the patient and/or guardian regarding: the historical points, exam findings, and any diagnostic results supporting the discharge/admit diagnosis, the need for outpatient follow up, to return to the emergency department if symptoms worsen or persist or if there are any questions or concerns that arise at home. ED course: REYES similar to previous. Patient is afebrile, non toxic in appearance. Pain relieved in the ED. I do not suspect SAH or meningitis. Patient advised to follow up with pcp and otherwise given strict return precautions. Patient understood and agrees with the plan of care. . 11/29 13:43 Order name: Saline Lock; Complete Time: 14:22 [facility] Administered Medications: 14:23 Drug: NS 0.9% 250 ml Route: IV; Rate: bolus; Site: right forearm; jl7 15:04 Follow up: Response: No adverse reaction; IV Status: Completed infusion; IV Intake: jl7 250ml 14:23 Drug: Reglan 20 mg Route: IVP; Site: right forearm; jl7 15:04 Follow up: Response: No adverse reaction; Nausea is decreased jl7 14:25 Drug: Ketorolac 30 mg Route: IVP; Site: right forearm; jl7 15:04 Follow up: Response: No adverse reaction; Pain is decreased jl7 14:26 Drug: Decadron - Dexamethasone 10 mg Route: IVP; Site: right forearm; jl7 15:04 Follow up: Response: No adverse reaction jl7 14:28 Drug: diphenhydrAMINE 12.5 mg Route: IVP; Site: right forearm; jl7 15:05 Follow up: Response: No adverse reaction jl7 Disposition: 18:19 Co-signature as Attending Physician, Finn Roth MD I agree with the assessment and varun plan of care. Disposition: 11/30/19 15:44 Discharged to Home. Impression: Migraine. - Condition is Stable. - Discharge Instructions: Migraine Headache. - Medication Reconciliation Form, Thank You Letter, Antibiotic Education, Prescription Opioid Use form. - Follow up: Poncho Crespo DO; When: 2 - 3 days; Reason: Recheck today's complaints, Continuance of care, Re-evaluation by your physician. Signatures: Finn Roth MD MD cha Mickail, Joel, PA PA jmm Leal, Jahala, RN RN jl7 Krista Alston RN RN ca1 Corrections: (The following items were deleted from the chart) 16:11 15:44 11/30/2019 15:44 Discharged to Home. Impression: Migraine. Condition is Stable. jl7 Forms are Medication Reconciliation Form, Thank You Letter, Antibiotic Education, Prescription Opioid Use. Follow up: Poncho Crespo; When: 2 - 3 days; Reason: Recheck today's complaints, Continuance of care, Re-evaluation by your physician. bryan
[2019-11-30 16:29] VITALS: TEMP 97.4
[2019-11-30 16:34] VITALS: BP 128/70; O2SAT 98
== END 2019-11-30 16:11 | disposition home or self-care (01) ==
LOC: ER 12:00
DX: G43.909 Migraine, unspecified, not intractable, without status migrainosus (principal); I10 Essential (primary) hypertension; F32.9 Major depressive disorder, single episode, unspecified; F41.9 Anxiety disorder, unspecified
CPT/HCPCS: 96365; 96375; 99283; J1100; J2765; J1200; J7050

== ENCOUNTER 2019-12-20 07:39 | Day surgery (SDC) | payer OTHER ==
[2019-12-16 13:34] LABS: Protime INR 1.06
[2019-12-16 13:38] LABS: Potassium 3.8 mmol/L (3.5-5.1)
[2019-12-16 13:40] LABS: Absolute Lymphocytes (CBC) 1.8 K/uL (0.7-4.9); Basophils % 0.8 % (0-1.3); Hematocrit 38.3 % (36.0-45.0); Lymphocytes % 18.1 % (15.3-44.8); MPV 8.9 fL (7.6-11.3); RBC Red Blood Cell Count 4.85 M/uL (3.86-4.86)
[~2019-12-20 07:39] MED LIST: AMPICILLIN SODIUM 2 GM in NA CHLORIDE 0.9% 100 ML IVPB SCH
--- OUTSIDE RECORDS SUMMARY | 2019-12-20 07:42 | XMS REPORT ---
[...] Start Date End Date Status Dosage Zithromax [facility] [id number] 500 MG Orally Oct 02, Oct 07, Active 1 ta blet Once a day 2019 2019 Results No Known Results Summary Purpose eClinicalWorks Submission
--- OUTSIDE RECORDS SUMMARY | 2019-12-20 07:42 | XMS REPORT | Continuity of Care Document ---
:1980 Author Organization [facility] t Address [address] [place] [address] Care Team Providers Name Role Phone Sharpless Primary Care Physician Phani Roberto MD. Attending Clinician EDMOND Attending Clinician Unavailable EDMOND Admitting Clinician Unavailable Payers Payer Name Policy Type Policy Number Effective Date Expiration Date S ource Problems Condition Condition Condition Status Onset Resolution Last Treating Co mments Source Name Details Category Date Date Treatment Clinician Date Amaurosis Amaurosis Disease Active [facility] Essential Essential Disease Active [facility] hypertensi hypertensi 3- Evelin kes - on on 00:00: Medical 00 [place] Morbid Morbid Disease Active [facility] obesity obesity 3- [facility] [place] TIA TIA Disease Active [facility] (transient (transient 3 Evelin kes - ischemic ischemic 00:00: Medica l attack) attack) 00 Center Allergies, Adverse Reactions, Alerts Allergy Allergy Status Severity Reaction(s) Onset Inactive Treating Comm ents Source Name Type Date Date Clinician No Known DA Active [facility] Allergie 9-12 Clear s 00:00: Khan 00 [facility] No Known DA Active [facility] Contrast 4-20 Clear Allergie 00:00: Khan s [facility] No Known DA Active U 2007- [facility] Drug 4-20 Clear Allergie 00:00: Khan s [facility] No Known DA Active U 2007- [facility] Food 4-20 Clear Allergie 00:00: Khan s [facility] No Known DA Active U [facility] Other 4-20 Clear Allergie 00:00: Khan s [facility] Social History Social Habit Start Date Stop Date Quantity Comments Source Sex Assigned At [facility] Tobacco use and 2017-05-09 2017-05-[address] [facility] - exposure 00:00:00 00:00:00 [facility] Smoking Status Start Date Stop Date Source Never smoker [facility] Medications Ordered Filled Start Stop Current [...] Oxalate [facility] BusPIRone BusPIRone Yes [place] TAKE ONE [facility] HCl HCl Crespo (1) [facility] - TABLET(S) Memoria BY MOUTH l TWICE A Outpati DAY. ent Clinics MetFORMIN MetFORMIN Yes [place] [address] [facility] HCl ER HCl ER Crespo with [facility] - evening [facility] meal [facility] Propranolol Propranolol Yes [place] [address] [facility] HCl ER HCl ER Rcespo [facility] Immunizations Ordered Filled Immunization Date Status Comments [facility] e Immunization Name Name Afluria single dose Afluria single dose 2019-01-12 Completed [facility] 00:[facility]00 [facility] Procedures This patient has no known procedures. Plan of Care Planned Activity Planned Date Details Comments Source Future Scheduled 2020-05-[address] [facility] - Test 00:00:00 (procedure) [code = Medical Center [id number]] Future Scheduled 2019-10-[address] [facility] Test 00:00:00 (#1) [code = Medical Center INFLUENZA VACCINE (#1)] Future Scheduled 2003-09-[address] [facility] - Test 00:00:00 malignant neoplasm Medical C enter of cervix (procedure) [code = [id number]] Encounters Start End Encounter Admission Attending Care Care Encounter Source Date/Time Date/Time Type Type Clinicians Facility Department ID 2019-12-19 2019-12-19 [id number] 2019-12-14 2019-12-14 [facility] [id number] [facility] 2019-12-14 2019-12-14 [facility] [id number] [facility] 2019-12-13 2019-12-13 [facility] [id number] [facility] 2019-12-07 2019-12-07 [facility] [id number] [facility] 2019-11-30 2019-11-30 [facility] [id number] [facility] 2019-11-23 2019-11-23 [facility] [id number] [facility] 2019-11-22 2019-11-22 [facility] [id number] [facility] 2019-11-02 2019-11-02 [facility] [id number] [facility] 2019-10-24 2019-10-24 [facility] [id number] [address] 09:53:00 09:53:00 t Cope [employer] - Matter and Form [facility] Medicine Outpati ent Clinics 2019-10-11 2019-10-11 [facility] [id number] 09:31:00 09:31:00 t Cope [employer] - Drive [facility] Outpat[facility] Clinics 2019-10-04 2019-10-04 [facility] [id number] [address] 16:35:00 16:35:00 t [place] - Matter and Form [facility] Medicine Outpati ent Clinics 2019-09-29 2019-09-29 [facility] [id number] 10:30:00 10:30:00 t [place] - Drive [facility] Medicine Outpati ent Clinics 2019-09-28 2019-09-28 [facility] [id number] 14:18:00 14:18:00 t [place] [employer] [facility] Medicine Outpat[facility] ent Clinics 2019-09-16 2019-09-16 [facility] [id number] 08:30:00 08:30:00 t [place] - Matter and Form [facility] Medicine Outpati ent Clinics 2019-08-30 2019-08-30 [facility] [id number] 14[facility]31:00 14:31:00 t [facility] [employer] [facility] Medicine Outpati ent Clinics 2019-08-04 2019-08-04 [facility] [id number] 08:40:00 08:40:00 t [place] [employer] [facility] Outpat[facility] ent Clinics 2019-07-26 2019-07-26 [facility] [id number] 09:30:00 09:30:00 t [place] [employer] Drive [facility] Medicine Outpati ent Clinics 2019-06-01 2019-06-01 [facility] [id number] 13:45:00 13:45:[address] [facility] s - Drive [facility] Medicine Medicine Outpati ent Clinics 2019-02-11 2019-02-11 [facility] [id number] 08:00:00 08:00:[address] [facility] s - Drive [facility] Medicine Outpati ent Clinics 2019-01-20 2019-01-20 [facility] [id number] 14:30:00 14:30:00 t Cope Cope [employer] Luke s - Drive [facility] Medicine Outpati ent Clinics 2019-01-13 2019-01-13 [facility] [id number] 10:07:00 10:07:00 t Cope Cope [employer] Luke s - Drive [facility] Medicine Outpati ent Clinics 2019-01-12 2019-01-12 [facility] [id number] 11:15:00 11:15:00 t Cope Cope [employer] Luke s - Drive [facility] Medicine Outpati ent Clinics 2018-12-21 2018-12-21 [facility] [id number] 14:15:00 14:15:00 t Cope Cope [employer] Luke s - Drive [facility] Medicine Outpati ent Clinics 2018-12-15 2018-12-15 [facility] [id number] 16:59:00 16:59:00 t Cope Cope Matter and [employer] s - Drive [facility] Medicine Outpati ent Clinics 2018-09-29 2018-09-29 [facility] [id number] 15:00:00 15:00:00 t Cope Cope Matter [employer] Form Luke s - Drive [facility] Medicine Outpati ent Clinics 2018-09-24 2018-09-24 [facility] [id number] 15:24:00 15:24:00 t Cope Cope [employer] s - Drive [facility] Medicine Outpati ent Clinics 2018-09-23 2018-09-23 [facility] [id number] 15:16:00 15:16:00 t Cope Cope Matter [employer] s - Drive [facility] Medicine Outpati ent Clinics 2018-09-23 2018-09-23 Office ANASTASIA Roberto [id number] 08:30:24 09:27:13 Visit Dennis PRECIADOATOR [id number] 2018-08-05 2018-08-05 [facility] [id number] 10:15:00 10:15:[address] Luke s - Drive [facility] Medicine Outpati ent Clinics 2018-06-09 2018-06-09 [facility] [id number] 14:30:00 14:30:[address] Luke s - Drive [facility] Medicine Medicine Outpati ent Clinics 2018-05-04 2018-05-04 [facility] [id number] 16:30:00 16:30:[address] Luke s - Drive [facility] Medicine Outpati ent Clinics 2018-02-15 2018-02-15 [facility] [id number] 15:00:00 15:00:[address] Luke s - Drive [facility] Medicine Outpati ent Clinics 2017-09-22 2017-09-22 [facility] [id number] 14:45:00 14:45:[address] Luke s - Drive [facility] Medicine Outpati ent Clinics 2017-09-10 2017-09-10 [facility] [id number] 09:21:00 09:21:[address] Luke s - Drive [facility] Medicine Outpati ent Clinics 2017-08-27 2017-08-27 [facility] [id number] 11:52:00 11:52:[address] Luke s - Drive [facility] Medicine Medicine Outpati ent Clinics 2017-08-05 2017-08-05 [facility] [id number] 14:45:00 14:45:[address] Luke s - Drive [facility] Medicine Outpati ent Clinics 2017-06-17 2017-06-17 [facility] [id number] 14:45:00 14:45:00 t [facility] Outpat[facility] ent Clinics 2017-05-26 2017-05-26 [facility] [id number] 08:15:00 08:15:[address] Luke s - Drive [facility] Outpati ent Clinics 2017-05-22 2017-05-22 [facility] [id number] 14:04:00 14:04:[address] Luke s - Drive [facility] Outpati ent Clinics 2017-05-14 2017-05-14 [facility] [id number] 10:17:00 10:17:[address] Luke s - Drive [facility] Outpati ent Clinics 2017-05-13 2017-05-13 [facility] [id number] 10:45:00 10:45:[address] Luke s - Drive [facility] Outpati ent Clinics 2017-04-30 2017-04-30 [facility] [id number] 10:30:00 10:30:[address] [facility] s - Drive [facility] Results Test Description Test Time Test Comments Results Result Comments Source SURGICAL SPECIMENS 2017-10-24 10:53:00 RUN DATE: 10/24/17 [employer] [facility] *LIVE* PAGE 1 RUN TIME: 1053 Specimen Inquiry RUN USER: INTERFACE PATIENT: SHAHNAZ RIVER LOC: TATI U #: [id number] AGE/SX: 37/F ROOM: RE10/22/17REG DR: Tracey Shetty : 84 BED: DIS: STATUS: DEP [facility] TLOC: SPEC #: [id number] RECD: 10/22/17 STATUS: [facility] RE #: [id number] DOMINGO: 10/22/[address]: Tracey Shetty MD ENTERED: 10/24/17 SP TYPE: SURG SPEC OTHR DR: Undefined Provider ORDERED: GM LEVEL 4 CODES: [id number] - STOMACH, NOS [id number] - SMALL INTESTINE [id number] - COLON, NOS COPIES TO: Tracey Shetty MD [address] [place] [address] [address] [place] [address] Undefined Provider PROCEDURES: GM LEVEL [...] CONTINUED ON NEXT PAGE RUN DATE: 10/24/17 [employer] [facility] *LIVE* PAGE 2 RUN TIME: 1053 Specimen Inquiry RUN USER: INTERFACE SPEC #: [id number] PATIENT: SHAHNAZ RIVER #[id number] (Continued)--------- --- GROSS AND MICROSCOPIC (Continued) MICROSCOPIC [...] Value Reference Range Interpretation Comme nts CULTURE ([facility]) (test code = 1095) >100,000 col/mL skin tona MR, MRA, BRAIN, WITHOUT [id number] 15:22:00Reason for exam:->Ischemic Stroke EvaluationFINAL REPORT MRI brain with and without contrast Comparison: No priors Reason for exam: StrokeIschemic Stroke Evaluation Discussion: Multiplanar MR imaging of the brain was provided pep-due-rtyi IV gadolinium administration using T1, T2, FLAIR, [...] None available. TECHNIQUE: 2 D and 3-D xgbe-ld-eyrklh MRA images of the intra- and extracranial carotid and vertebralarterial circulations were obtained, from which maximal intensity projection 3-D reconstructions were created. FINDINGS: MRA neck: There is no MR angiographic evidence for vessel occlusion or NASCET quantifiable stenosis in the extracranial carotid arteries. No hemodynamically significant stenosis identified in the vertebral artery, flow is antegrade in both vertebral arteries. MRA igiugig of Sanchez: There is no MR angiographic evidence for vessel occlusion, flow-limiting stenosis, or aneurysm inthe intracranial carotid or vertebrobasilar arterial circulations. IMPRESSION: 1. No MR angiographic evidence for vascular compromise. Signed: Adele Holdenort Verified Date/Time: 05/10/2017 15:22:22 Reading Location: [address] Neuro Reading Room MR, MRA, NECK, WITHOUT IV [id number] 15:22:00Reason for exam:->Ischemic Stroke EvaluationFINAL REPORT MRI brain with and without contrast Comparison: No priors Reason for exam: StrokeIschemic Stroke Evaluation Discussion: Multiplanar MR imaging of the brain was provided lsi-fin-eslw IV gadolinium administration using T1, T2, FLAIR, [...] None available. TECHNIQUE: 2 D and 3-D xmmk-xl-qpitjx MRA images of the intra- and extracranial carotid and vertebral arterial circulations were obtained, from which maximal intensity projection 3-D reconstructions were created. FINDINGS: MRA neck: There is no MR angiographic evidence for vessel occlusion or NASCET quantifiable stenosis in the extracranial carotid arteries. No hemodynamically significant stenosis iden tified in the vertebral artery, flow is antegrade in both vertebral arteries. MRA igiugig of [place]: There is no MR angiographic evidence for vessel occlusion, flow-limiting stenosis, or aneurysm inthe intracranial carotid or vertebrobasilar arterial circulations. IMPRESSION: 1. No MR angiographic evidence for vascular compromise. Signed: Adele Holden Verified Date/Time: 05/10/2017 15:22:22 Reading Location: [facility] C013 Neuro Reading Room MR, BRAIN, [id number] 15:22:00FINAL REPORT MRI brain with and without contrast Comparison: No priors Reason for exam: StrokeIschemic Stroke Evaluation Discussion: Multiplanar MR imaging of the brain was provided alz-jch-jevs IV gadolinium administration using T1, T2, FLAIR, [...] None available. TECHNIQUE: 2 D and 3-D ngkx-rh-yjhqgt MRA images of the intra- and extracranial carotid and vertebralarterial circulations were obtained, from which maximal intensity projection 3-D reconstructions were created. FINDINGS: MRA neck: There is no MR angiographic evidence for vessel occlusion or NASCET quantifiable stenosis in the extracranial carotid arteries. No hemodynamically significant stenosis identified in the vertebral artery, flow is antegrade in both vertebral arteries. MRA igiugig of Sanchez: There is no MR angiographic evidence for vessel occlusion, flow-limiting stenosis, or aneurysm inthe intracranial carotid or vertebrobasilar arterial circulations. IMPRESSION: 1. No MR angiographic evidence for vascular compromise. Signed: Adele Holden MDReport Verified Date/Time: 05/10/2017 15:22:22 Reading Location: [address] Neuro Reading Room HEMOGLOBIN [id number] 11:17:00 Test Item Value Reference Range Interpretation Comments HEMOGLOBIN A1C (BEAKER) (test code = 5.9 % 4.3-6.1 368) [id number] 07:58:00 Test Item Value Reference Range Interpretation Comments MAGNESIUM (BEAKER) (test code = 2.2 mg/dL 1.6-2.6 627) BASIC METABOLIC [id number] 07:58:00 Test Item Value Reference Range Interpretation [...] NOT APPLICABLE FOR DIALYSIS PATIEN TS. LIPID [id number] 07:58:00 Test Item Value Reference Range Interpretation Comments TRIGLYCERIDES (BEAKER) (test code = 163 mg/dL 540) CHOLESTEROL (BEAKER) (test code = 149 mg/dL 631) HDL CHOLESTEROL ([place]Ground) (test code 30 mg/dL = 976) LDL CHOLESTEROL CALCULATED ([employer]) 86 mg/dL (test code = 633) Triglyceride Reference Range: Low Risk <150 Borderline 150-199 High Risk 200-499 Very High Risk >=500Cholesterol Reference Range: Low Risk <200 Borderline 200-239 High Risk >240HDL Cholesterol Reference Range: Low Risk >=60 High Risk <40LDL Cholesterol Reference Range: Optimal <100 Near Optimal 100-129 Borderline 130-159 High 160-189 Very High >=190TROPONIN [id number] 07:56:00 Test Item Value Reference Range Interpretation Comments TROPONIN I (FLORES) (test code = 0.01 ng/mL 0.00-0.03 397) [...]
--- OUTSIDE RECORDS SUMMARY | 2019-12-20 07:42 | XMS REPORT | Clinical Summary ---
:1980 Author Organization [facility] Address [address] [place] [address] Care Team Providers Name Role Phone Seth [...] Signs Not on file Plan of Treatment Health Maintenance Due Date Last Done Comments CERVICAL CANCER SCREENING PAP ONLY (Age 21-65) 09/02/2003 INFLUENZA VACCINE (#1) 2019 LIPID PANEL 05/10/2020 05/10/2017 Results Not on fileafter 12/19/2018 Advance Directives For more information, please contact: [phone] Code Status Date Activated Date Inactivated Comments Full Code 05/09/2017 12:55 PM 05/11/2017 2:10 PM This code status was determined by: Patient
--- OUTSIDE RECORDS SUMMARY | 2019-12-20 07:43 | XMS REPORT ---
:1980 Author Organization [facility] Address [address], [address] [place] [address] Care Team Providers Name Role Phone Crespo Unavailable [phone] PROBLEMS Type Condition ICD9-CM [id number] Onset Condition SNOMED Code Notes Code Code Dates Status Problem Encounter for Z01.419 Active 005393294 gynecological examination without abnormal finding Problem Secondary I15.9 Active 76088065 hypertension Problem Amenorrhea N91.2 Active 71092827 Problem Morbid (severe) E66.01 Active 49368867760112 obesity due to excess calories Problem HTN I10 Active 75406231 (hypertension), benign Problem Seasonal allergic J30.2 Active 689557125 rhinitis, unspecified trigger Problem Depression with F41.8 Active 303537775 anxiety Problem Adult BMI Z68.43 Active 324806114 50.0-59.9 kg/sq m Problem PCOS (polycystic E28.2 Active 82811714 ovarian syndrome) Problem Hypersomnia G47.10 Active 28234630 Problem Migraine with aura G43.109 Active 6085899 and without status migrainosus, not intractable Problem Allergic rhinitis, J30.9 Active 50868930 unspecified seasonality, unspecified trigger Problem NATA (obstructive G47.33 Active 17547742 sleep apnea) Problem Body mass index Z68.43 Active 507926858 (BMI) of 50-59.9 in adult Problem Left N20.0 Active 20899463 nephrolithiasis Problem Prediabetes R73.03 Active 782456682 Problem Infertility, N97.0 Active 066684451 anovulation Problem Menorrhagia with N92.1 Active 727371961 irregular cycle Problem Generalized F41.1 Active 83995974 anxiety disorder Problem Current moderate F32.1 Active 56356956 episode of major depressive disorder without prior episode Problem Neutrophilic D72.9 Active 582672709 leukocytosis ALLERGIES No Known Allergies ENCOUNTERS from 1980 to 2019-12-02 Encounter Location Date Provider Diagnosis [facility] [address] [facility] [address], [place] [address] IMMUNIZATIONS Vaccine Route Administration Date Status Afluria [...] TABLET(S) Not-Taking BY MOUTH TWICE A DAY. Tamsulosin HCl 0.4 MG 1 capsule Orally [...] Information RESULTS No Results REASON FOR VISIT Migraine, vision. to ED MEDICAL (GENERAL) HISTORY Type Description Date Medical [...] Medication Name Sig Start Date Stop Date Spironolactone 100 MG 1 tablet Orally Once a day Next Appt Details Provider Name:Poncho Crespo 2019-12-07 0 9:30:00 AM, [address], [address], [place], [address], Provider Name:Ponhco Crespo 2019-12-14 0 9:30:00 AM, [address], [address], [place], [address], Insurance Providers Payer Name Payer Payer Insured Patient Coverage Coverage End Address Phone Name Relationship to Start Date Madan e Insured Ambetter from [phone] [place] self [address] [place] [phone] [facility] [phone]
--- OUTSIDE RECORDS SUMMARY | 2019-12-20 07:43 | XMS REPORT ---
[...] End Status Dosage System Date Date Escitalopram [facility] 92905503667 20 MG Orally Active 1 tablet Oxalate Once a day BusPIRone HCl ND 27827691169 15 MG Orally Active 1 tablet Twice a day MetFORMIN HCl ER ND 84891060915 500 MG Orally Activ e 1 tablet Once a day with evening meal BusPIRone HCl ND 13130064226 15 MG Active TAKE O NE (1) TABLET(S) BY MOUTH TWICE A DAY. Propranolol HCl ND 54854776057 160 MG Orally Active 1 capsule ER Once a day Results No Known Results Summary Purpose eClinicalWorks Submission
--- OUTSIDE RECORDS SUMMARY | 2019-12-20 07:43 | XMS REPORT ---
:1980 Author Organization [facility] Address [address] [place], [place] [place] [address] Care Team Providers Name Role Phone Crespo Unavailable [phone] PROBLEMS Type Condition ICD9-CM EBG89-ZS Onset Condition SNOMED Code Notes Code Code Dates Status Problem Encounter for Z01.419 Active 056332388 gynecological examination without abnormal finding Problem Secondary I15.9 Active 35764997 hypertension Problem Amenorrhea N91.2 Active 74776340 Problem Morbid (severe) E66.01 Active 02271703614151 obesity due to excess calories Problem HTN I10 Active 90584202 (hypertension), benign Problem Seasonal allergic J30.2 Active 070689403 rhinitis, unspecified trigger Problem Depression with F41.8 Active 036666252 anxiety Problem Adult BMI Z68.43 Active 907147258 50.0-59.9 kg/sq m Problem PCOS (polycystic E28.2 Active 63770627 ovarian syndrome) Problem Hypersomnia G47.10 Active 83252798 Problem Migraine with aura G43.109 Active 3187107 and without status migrainosus, not intractable Problem Allergic rhinitis, J30.9 Active 36557974 unspecified seasonality, unspecified trigger Problem NATA (obstructive G47.33 Active 85071288 sleep apnea) Problem Body mass index Z68.43 Active 301189192 (BMI) of 50-59.9 in adult Problem Left N20.0 Active 74576082 nephrolithiasis Problem Prediabetes R73.03 Active 379384877 Problem Infertility, N97.0 Active 078871538 anovulation Problem Menorrhagia with N92.1 Active 363778155 irregular cycle Problem Generalized F41.1 Active 92993497 anxiety disorder Problem Current moderate F32.1 Active 21407839 episode of major depressive disorder without prior episode Problem Neutrophilic D72.9 Active 653943472 leukocytosis ALLERGIES No Known Allergies ENCOUNTERS from 1980 to 2019-11-23 Encounter Location Date Provider Diagnosis [facility] [address] [facility] [address], 2019 [place] [address] IMMUNIZATIONS Vaccine Route Administration Date Status Afluria [...] AM, [address], [place], [address], Provider Name:Poncho Crespo, 2019-12-14 0 9:30:00 AM, [address], [place], [address], Insurance Providers Payer Name Payer Payer Insured Patient Coverage Coverage End Address Phone Name Relationship to Start Date Madan e Insured Ambetter from [phone] [place]issa [place] self [address] [place] [phone] [place] [phone]
--- OUTSIDE RECORDS SUMMARY | 2019-12-20 07:43 | XMS REPORT ---
:[address] [facility] Address [address] [place], [place]. [address] [place] [address] Care Team Providers Name Role Phone Crespo Unavailable [phone] PROBLEMS Type Condition ICD9-CM [id number] Onset Condition SNOMED Code Notes Code Code Dates Status Problem Encounter for Z01.419 Active 093342813 gynecological examination without abnormal finding Problem Secondary I15.9 Active 00575109 hypertension Problem Amenorrhea N91.2 Active 13543136 Problem Morbid (severe) E66.01 Active 40503282569645 obesity due to excess calories Problem HTN I10 Active 96348254 (hypertension), benign Problem Seasonal allergic J30.2 Active 608687067 rhinitis, unspecified trigger Problem Depression with F41.8 Active 326379575 anxiety Problem Adult BMI Z68.43 Active 374617269 50.0-59.9 kg/sq m Problem PCOS (polycystic E28.2 Active 49874858 ovarian syndrome) Problem Hypersomnia G47.10 Active 02245748 Problem Migraine with aura G43.109 Active 7477069 and without status migrainosus, not intractable Problem Allergic rhinitis, J30.9 Active 89933360 unspecified seasonality, unspecified trigger Problem NATA (obstructive G47.33 Active 90957468 sleep apnea) Problem Body mass index Z68.43 Active 876233970 (BMI) of 50-59.9 in adult Problem Left N20.0 Active 16100486 nephrolithiasis Problem Prediabetes R73.03 Active 866369222 Problem Infertility, N97.0 Active 689249561 anovulation Problem Menorrhagia with N92.1 Active 231282092 irregular cycle Problem Generalized F41.1 Active 30189449 anxiety disorder Problem Current moderate F32.1 Active 14113242 episode of major depressive disorder without prior episode Problem Neutrophilic D72.9 Active 455124246 leukocytosis ALLERGIES No Known Allergies ENCOUNTERS from 1980 to 2019-12-07 Encounter Location Date Provider Diagnosis [employer] [facility] [address] [place] Nov, [facility] [address], and [facility] [place] [address] migrainosus, n ot intractable G43 .109 and Visual disturbance H53 .9 IMMUNIZATIONS Vaccine Route Administration Date Status Afluria [...] 500 MG 1 tablet with evening meal Active Orally Once a day for 30 day(s) Spironolactone 100 MG 1 tablet Orally Once a day Active BusPIRone HCl 15 MG TAKE ONE (1) TABLET(S) BY Not-Taking MOUTH TWICE A DAY. BusPIRone HCl 15 MG 1 tablet Orally Twice a day Active for 30 days Escitalopram Oxalate 20 MG 1 tablet Orally Once a day Active for 30 day(s) Propranolol HCl ER 160 MG 1 capsule Orally Once a day Active for 30 day(s) Flomax 0.4 MG TAKE ONE (1) CAPSULE(S) BY Active MOUTH ONCE A DAY NEEDED 1/2 HOUR FOLLOWING SAME MEAL EACH DAY. PROCEDURES No Information RESULTS No Results REASON FOR VISIT Referral MEDICAL (GENERAL) HISTORY Type Description Date Medical [...] Information ASSESSMENTS Encounter Date Diagnosis Notes Nov, Visual disturbance (ICD-10 - H53.9) Nov, Migraine with aura and without status mi grainosus, not intractable (ICD-10 - G43.109) PLAN OF TREATMENT Medication Medication Name Sig Start Date Stop Date Flomax 0.4 MG TAKE ONE (1) CAPSULE(S) BY MOUTH ONCE A DAY NEEDED 1/2 HOUR FOLLOWING SAME MEAL EACH DAY. Spironolactone 100 MG 1 tablet Orally Once a day Next Appt Details Provider Name:Poncho Crespo, 2019-12-14 0 9:30:00 AM, [address], [place], [place], [address], Insurance Providers Payer Name Payer Payer Insured Patient Coverage Coverage End Address Phone Name Relationship to Start Date Madan e Insured Ambetter from [phone] [place] self [address] [place] [id number] [address] [facility] [address]
--- OUTSIDE RECORDS SUMMARY | 2019-12-20 07:43 | XMS REPORT ---
:1980 Author Organization [facility] Address [address] [place], [place]. [address] [place] [address] Care Team Providers Name Role Phone Crespo Unavailable [phone] PROBLEMS Type Condition ICD9-CM TBL92-[id number] Onset Condition SNOMED Code Notes Code Code Dates Status Problem Encounter for Z01.419 Active 108521469 gynecological examination without abnormal finding Problem Secondary I15.9 Active 56089603 hypertension Problem Amenorrhea N91.2 Active 01871687 Problem Morbid (severe) E66.01 Active 44600462020779 obesity due to excess calories Problem HTN I10 Active 03243780 (hypertension), benign Problem Seasonal allergic J30.2 Active 099721726 rhinitis, unspecified trigger Problem Depression with F41.8 Active 905799814 anxiety Problem Adult BMI Z68.43 Active 200183931 50.0-59.9 kg/sq m Problem PCOS (polycystic E28.2 Active 58950161 ovarian syndrome) Problem Hypersomnia G47.10 Active 20904249 Problem Migraine with aura G43.109 Active 5386952 and without status migrainosus, not intractable Problem Allergic rhinitis, J30.9 Active 47111052 unspecified seasonality, unspecified trigger Problem NATA (obstructive G47.33 Active 36416398 sleep apnea) Problem Body mass index Z68.43 Active 039968129 (BMI) of 50-59.9 in adult Problem Left N20.0 Active 86883182 nephrolithiasis Problem Prediabetes R73.03 Active 434460840 Problem Infertility, N97.0 Active 682934983 anovulation Problem Menorrhagia with N92.1 Active 744360611 irregular cycle Problem Generalized F41.1 Active 66849417 anxiety disorder Problem Current moderate F32.1 Active 03143774 episode of major depressive disorder without prior episode Problem Neutrophilic D72.9 Active 888630282 leukocytosis ALLERGIES No Known Allergies ENCOUNTERS from 1982 to 2019-11-03 Encounter Location Date Provider Diagnosis [facility] [address] [place] Oct, [facility] Zak marcos of [facility] Family Medicine [address], [address] ; [place] [address] flank pain R10 .9 ; Generalized anx [...] (such as a psychiatrist, psychologist, nurse or psychologist social) may be necessary to treat depression. Both [...] CPAP. PCOS (polycystic ovarian syndrome) Managed by [employer] /Braxton wagoner. Started menses recently. Migraine with [...] seasonality, unspecified trigger diagnosis. Minimal relief with tkow-sjq-pjdxfsk medication. Education given. Discussed allergy testing process. [...] Name:Poncho Crespo, 2019-12-07 0 9:30:00 AM, [address], [place], [place], [address], Provider Name:Poncho Crespo, 2019-12-14 0 9:30:00 AM, [address], [place], [place], [address], Insurance Providers Payer Name Payer Payer Insured Patient Coverage Coverage End Address Phone Name Relationship to Start Date Madan e Insured Ambetter from [phone] [place] self [address] [place] [id number] [place] [phone]
--- OUTSIDE RECORDS SUMMARY | 2019-12-20 07:43 | XMS REPORT ---
:1980 Author Organization [facility] Address [address] [place], [place]. [address] [place] [address] Care Team Providers Name Role Phone Crespo Unavailable [phone] PROBLEMS Type Condition ICD9-CM TBC02-[id number] Onset Condition SNOMED Code Notes Code Code Dates Status Problem Encounter for Z01.419 Active 532041423 gynecological examination without abnormal finding Problem Secondary I15.9 Active 45323257 hypertension Problem Amenorrhea N91.2 Active 66695418 Problem Morbid (severe) E66.01 Active 88718727229755 obesity due to excess calories Problem HTN I10 Active 55207122 (hypertension), benign Problem Seasonal allergic J30.2 Active 001792139 rhinitis, unspecified trigger Problem Depression with F41.8 Active 205992879 anxiety Problem Adult BMI Z68.43 Active 803427066 50.0-59.9 kg/sq m Problem PCOS (polycystic E28.2 Active 18367928 ovarian syndrome) Problem Hypersomnia G47.10 Active 11152426 Problem Migraine with aura G43.109 Active 4287496 and without status migrainosus, not intractable Problem Allergic rhinitis, J30.9 Active 66223874 unspecified seasonality, unspecified trigger Problem NATA (obstructive G47.33 Active 11058085 sleep apnea) Problem Body mass index Z68.43 Active 124996858 (BMI) of 50-59.9 in adult Problem Left N20.0 Active 27078086 nephrolithiasis Problem Prediabetes R73.03 Active 794622985 Problem Infertility, N97.0 Active 419862502 anovulation Problem Menorrhagia with N92.1 Active 060007172 irregular cycle Problem Generalized F41.1 Active 44170953 anxiety disorder Problem Current moderate F32.1 Active 02113293 episode of major depressive disorder without prior episode Problem Neutrophilic D72.9 Active 201322435 leukocytosis ALLERGIES No Known Allergies ENCOUNTERS from 1982 to 2019-11-23 Encounter Location Date Provider Diagnosis [facility] [address] [facility] [address] [place] Nov, [facility] er respiratory Family Medicine [address], [place] [address] unspecified ty pe J06.9 ; Sore th [...] AM, [address], [place] [place], [place], [address], Provider Name:Poncho Crespo 2019-12-14 0 9:30:00 AM, [address], [address], [place], [address], Insurance Providers Payer Name Payer Payer Insured Patient Coverage Coverage End Address Phone Name Relationship to Start Date Madan e Insured Ambetter from [phone] [place] self 2019 [place] [id number] [facility] [address]
--- OUTSIDE RECORDS SUMMARY | 2019-12-20 07:44 | XMS REPORT ---
:1980 Author Organization [facility] Address [address] [place], [place]. [address] [place] [address] Care Team Providers Name Role Phone Crespo Unavailable [phone] PROBLEMS Type Condition ICD9-CM WPN11-PE Onset Condition SNOMED Code Notes Code Code Dates Status Problem Encounter for Z01.419 Active 484813564 gynecological examination without abnormal finding Problem Secondary I15.9 Active 99736132 hypertension Problem Amenorrhea N91.2 Active 33928616 Problem Morbid (severe) E66.01 Active 11326426854823 obesity due to excess calories Problem HTN I10 Active 17607385 (hypertension), benign Problem Seasonal allergic J30.2 Active 866091293 rhinitis, unspecified trigger Problem Depression with F41.8 Active 348709939 anxiety Problem Adult BMI Z68.43 Active 924830509 50.0-59.9 kg/sq m Problem PCOS (polycystic E28.2 Active 15562179 ovarian syndrome) Problem Hypersomnia G47.10 Active 49257666 Problem Migraine with aura G43.109 Active 1557892 and without status migrainosus, not intractable Problem Allergic rhinitis, J30.9 Active 33154854 unspecified seasonality, unspecified trigger Problem NATA (obstructive G47.33 Active 68029878 sleep apnea) Problem Body mass index Z68.43 Active 656465297 (BMI) of 50-59.9 in adult Problem Left N20.0 Active 96132287 nephrolithiasis Problem Prediabetes R73.03 Active 396810503 Problem Infertility, N97.0 Active 246280357 anovulation Problem Menorrhagia with N92.1 Active 635571860 irregular cycle Problem Generalized F41.1 Active 62311784 anxiety disorder Problem Current moderate F32.1 Active 17695074 episode of major depressive disorder without prior episode Problem Neutrophilic D72.9 Active 486253687 leukocytosis ALLERGIES No Known Allergies ENCOUNTERS from 1980 to 2019-12-13 Encounter Location Date Provider Diagnosis [facility] [address] [place] Dec, [facility] Zak marcos of [facility] Family Medicine [address], [address] [place] [address] cystitis witho ut hematuria N30.0 0 IMMUNIZATIONS Vaccine Route Administration Date Status Afluria [...] TABLET(S) BY Not-Taking MOUTH TWICE A DAY. Flomax 0.4 MG TAKE ONE (1) CAPSULE(S) BY Active MOUTH ONCE A DAY NEEDED 1/2 HOUR FOLLOWING SAME MEAL EACH DAY. BusPIRone HCl 15 MG 1 tablet Orally Twice a day Active for 30 days Escitalopram Oxalate 20 MG 1 tablet Orally Once a day Active for 30 day(s) Propranolol HCl ER 160 MG 1 capsule Orally Once a day Active for 30 day(s) Spironolactone 100 MG 1 tablet Orally Once a day Active PROCEDURES No Information RESULTS No Results REASON FOR VISIT refer urology MEDICAL (GENERAL) HISTORY Type Description Date Medical [...] No Information ASSESSMENTS Encounter Date Diagnosis Notes Dec, Acute cystitis without hematuria (ICD-10 - N30.00) Dec, Calculus of ureter (ICD-10 - N20.1) PLAN OF TREATMENT Medication Medication Name Sig Start Date Stop Date Spironolactone 100 MG 1 tablet Orally Once a day Flomax 0.4 MG TAKE ONE (1) CAPSULE(S) BY MOUTH ONCE A DAY NEEDED 1/2 HOUR FOLLOWING SAME MEAL EACH DAY. Next Appt Details Provider Name:Poncho Alvarezel, 2019-12-14 0 9:30:00 AM, [address] [place] [address], [address], [address], Provider Name:Cristin Reyna, 11:00:00 AM, [address] [place] [address], [place] [address], [place], [address], Insurance Providers Payer Name Payer Payer Insured Patient Coverage Coverage End Address Phone Name Relationship to Start Date Madan e Insured Ambetter from [phone] [place] self 2019 [place] [id number] [place] [phone]
--- OUTSIDE RECORDS SUMMARY | 2019-12-20 07:44 | XMS REPORT ---
:1980 Author Organization [facility] Address [address] [facility] [place] [address] [place] [address] Care Team Providers Name Role Phone Maribell Unavailable [phone] PROBLEMS Type Condition ICD9-CM KMN92-XU Onset Condition SNOMED Code Notes Code Code Dates Status Problem Morbid (severe) E66.01 Active 19000665183912 obesity due to excess calories Problem Encounter for Z01.419 Active 042401407 gynecological examination without abnormal finding Problem Seasonal allergic J30.2 Active 731237433 rhinitis, unspecified trigger Problem Amenorrhea N91.2 Active 95087149 Problem Adult BMI Z68.43 Active 306206449 50.0-59.9 kg/sq m Problem HTN I10 Active 02968439 (hypertension), benign Problem Prediabetes R73.03 Active 478334519 Problem Depression with F41.8 Active 874035978 anxiety Problem Hypersomnia G47.10 Active 15008036 Problem Migraine with aura G43.109 Active 9819275 and without status migrainosus, not intractable Problem Menorrhagia with N92.1 Active 027033089 irregular cycle Problem Left N20.0 Active 63063464 nephrolithiasis Problem PCOS (polycystic E28.2 Active 82631591 ovarian syndrome) Problem Infertility, N97.0 Active 964545805 anovulation Problem Kidney stones N20.0 Active 43312964 Problem NATA (obstructive G47.33 Active 54013733 sleep apnea) Problem Body mass index Z68.43 Active 857575540 (BMI) of 50-59.9 in adult Problem Secondary I15.9 Active 29488938 hypertension Problem Generalized F41.1 Active 63354693 anxiety disorder Problem Current moderate F32.1 Active 62885398 episode of major depressive disorder without prior episode Problem Neutrophilic D72.9 Active 731563149 leukocytosis Problem Allergic rhinitis, J30.9 Active 34857383 unspecified seasonality, unspecified trigger ALLERGIES No Known Allergies ENCOUNTERS from 1982 to 2019-12-14 Encounter Location Date Provider Diagnosis [facility] Dec, Cristin Reyna Kidney s tones N20.0 Specialty/Urology 200 [facility] [address] IMMUNIZATIONS Vaccine Route Administration Date Status Afluria single dose IM Intramuscular Jan 12, 2019 Administere d Flucelvax - single dose syringe IM Intramuscular Dec 14, 2019 Administered Toradol (Ketorolac) IM Intramuscular Nov 02, 2019 [...] No Information VITAL SIGNS Height 67 in Dec, Weight 350.0 lbs Dec, Temperature 98.0 degrees Fahrenheit Dec, BMI 54.81 kg/m2 Dec, Oximetry 97 % Dec, Blood pressure systolic 147 mm Hg Dec, Blood pressure diastolic 68 mm Hg Dec, MEDICATIONS Medication SIG (Take, Route, Start Date End Date Status Frequency, Duration) MetFORMIN HCl ER 500 MG 1 tablet with evening Active meal Orally Once a day for 30 day(s) Tamsulosin HCl 0.4 MG 1 capsule Orally Once Active a day Tramadol HCl 50 MG 1 tablet as needed Dec, Dec, Act shai Orally Four times a day for 5 days Spironolactone 100 MG 1 tablet Orally Once a Active day Escitalopram Oxalate 20 MG 1 tablet Orally Once a Active day for 30 day(s) Propranolol HCl ER 160 MG 1 capsule Orally Once Not-Taking a day for 30 day(s) BusPIRone HCl 15 MG 1 tablet Orally Twice Active a day for 30 days Trokendi XR 25 MG 1 capsule Orally Once A ctive a day PROCEDURES No Information RESULTS No Results REASON FOR VISIT kidney stone MEDICAL (GENERAL) HISTORY Type Description [...] Information ASSESSMENTS Encounter Date Diagnosis Notes Dec, Kidney stones (ICD-10 - N20.0) PLAN OF TREATMENT Medication Medication Name Sig Start Date Stop Date Tramadol HCl 50 MG 1 tablet as needed Orally Four times a DecDec, day for 5 days Treatment Notes Assessment Notes Clinical Notes Kidney stones Met with Dr. Angela as well, schedule surgery, left ureteroscopy, laser lithotripsy, left ureteral stent placementHas had stone for severa l months, no passage, CT reveals 4 mm stone in left mid to dis fredo ureterRefilled Tramadol, has been on it before and prefers t his over Tylenol #3Surgery next week for URL, reviewed outpatient procedure, possible complications, post op recoveryF/u after UR L Treatment Notes Test Name Order Date URINALYSIS, COMPLETE W/REFLEX TO CULTURE 2019-12-14 URINALYSIS AUTO W/O SCOPE ([id number]) 2019-12-14 PVR 2019-12-14 Next Appt Details 1 Week Reason:Surgery Provider Name:Heber Angela, 2019-12-20 08:45:00 AM, [address] [facility] [address], [place], [address], Provider Name:Poncholurdes Crespo, 2020-03-15 0 9:40:00 AM, [address] [place] [address], [facility] [address], [place], [address], Follow Up:1 WeekSurgery Insurance Providers Payer Name Payer Payer Insured Patient Coverage Coverage End Address Phone Name Relationship to Start Date Madan e Insured Ambetter from [phone] [place] self [address] [place] [id number] [facility] [id number]
--- OUTSIDE RECORDS SUMMARY | 2019-12-20 07:44 | XMS REPORT ---
:1980 Author Organization [facility] Address [address] [place], [place]. [address] [place] [address] Care Team Providers Name Role Phone Crespo Unavailable [phone] PROBLEMS Type Condition ICD9-CM FDQ10-IK Onset Condition SNOMED Code Notes Code Code Dates Status Problem Morbid (severe) E66.01 Active 70053715420126 obesity due to excess calories Problem Encounter for Z01.419 Active 083846763 gynecological examination without abnormal finding Problem Seasonal allergic J30.2 Active 417166454 rhinitis, unspecified trigger Problem Amenorrhea N91.2 Active 22327314 Problem Adult BMI Z68.43 Active 536898939 50.0-59.9 kg/sq m Problem HTN I10 Active 35638695 (hypertension), benign Problem Prediabetes R73.03 Active 923893117 Problem Depression with F41.8 Active 870455508 anxiety Problem Hypersomnia G47.10 Active 24428374 Problem Migraine with aura G43.109 Active 2038934 and without status migrainosus, not intractable Problem Menorrhagia with N92.1 Active 534788925 irregular cycle Problem Left N20.0 Active 20261872 nephrolithiasis Problem PCOS (polycystic E28.2 Active 52738826 ovarian syndrome) Problem Infertility, N97.0 Active 441203199 anovulation Problem Kidney stones N20.0 Active 70644644 Problem NATA (obstructive G47.33 Active 70234770 sleep apnea) Problem Body mass index Z68.43 Active 061444150 (BMI) of 50-59.9 in adult Problem Secondary I15.9 Active 99055182 hypertension Problem Generalized F41.1 Active 41128820 anxiety disorder Problem Current moderate F32.1 Active 23052997 episode of major depressive disorder without prior episode Problem Neutrophilic D72.9 Active 001982973 leukocytosis Problem Allergic rhinitis, J30.9 Active 64187700 unspecified seasonality, unspecified trigger ALLERGIES No Known Allergies ENCOUNTERS from 1980 to 2019-12-14 Encounter Location Date Provider Diagnosis [facility] [address] [place] Dec, [facility] Zak marcos of [facility] Family Medicine [address], [address] ; [place] [address] flank pain R10 .9 ; Generalized anx [...] J30.9 ; Neutrop hilic leukocytosis D7 2.9 ; Adult BMI 50.0- 59.9 kg/sq m Z68.43 and Need for influe nza vaccination Z23 IMMUNIZATIONS Vaccine Route Administration Date Status Afluria [...] VITAL SIGNS Height 67 in Dec, Weight 349.1 lbs Dec, Temperature 96.8 degrees Fahrenheit Dec, BMI 54.67 kg/m2 Dec, Oximetry 97 % Dec, Respiratory Rate 19 /min Dec, Blood pressure systolic 138 mm Hg Dec, Blood pressure diastolic 65 mm Hg Dec, MEDICATIONS Medication SIG (Take, [...] Information RESULTS No Results REASON FOR VISIT 6 wk lab f/u. In office. MEDICAL (GENERAL) HISTORY Type Description Date Medical [...] Information ASSESSMENTS Encounter Date Diagnosis Notes Dec, Generalized anxiety disorder (ICD-10 - F 41.1) Dec, Acute left flank pain (ICD-10 - R10.9) Dec, Need for influenza vaccination (ICD-10 - Z23) Dec, Prediabetes (ICD-10 - R73.03) Dec, Current moderate episode of major depres sive disorder without prior episode (ICD-10 - F32.1) Dec, Allergic rhinitis, unspecified seasonali ty, unspecified trigger (ICD-10 - J30.9) Dec, Migraine with aura and without status mi grainosus, not intractable (ICD-10 - G43.109) Dec, Calculus of ureter (ICD-10 - N20.1) Dec, Adult BMI 50.0-59.9 kg/sq m (ICD-10 - Z6 8.43) Dec, Neutrophilic leukocytosis (ICD-10 - D72. 9) Dec, NATA (obstructive sleep apnea) (ICD-10 - G47.33) Dec, HTN (hypertension), benign (ICD-10 - I10 ) Dec, PCOS (polycystic ovarian syndrome) (ICD- 10 - E28.2) PLAN OF TREATMENT Medication Medication Name Sig Start Date Stop Date Tramadol HCl 50 MG 1 tablet as needed Orally Four times a DecDec, day for 5 days Treatment Notes Assessment Notes Clinical Notes Calculus of ureter ED course reviewed extensively with patient. Answered all questions to my knowledge. Encouraged on being compliant. Maintain adequate hydration. Refill Flomax. Side effect panel discussed. Toradol 15 mg IM given in office for therapeutic reasons. Side effect panel discussed. Discussed supportive measures for symptomatic relief. APPT WITH UROLOGY TODAY. Patient vocalized understanding. Acute left flank pain . Discussed differential diagnosis with patient. Education given. Discussed supportive measures. APPT WITH UROLOGY TODAY Generalized anxiety disorder INCREASED BUSPAR. Side effect [...] a psychiatrist, psychologist, nurse or social services coordinator) may be necessary to treat depression. Both [...] CPAP. PCOS (polycystic ovarian syndrome) Managed by [employer]ER /Braxton wagoner. Started menses recently. Migraine with [...] seasonality, unspecified trigger diagnosis. Minimal relief with [id number]-uedrvgv medication. Education given. Discussed allergy testing process. [...] Will repeat with path. Next Appt Details 3 Months WELLNESS + LABS Reason: Provider Name:Heber Angela, 2019-12-20 08:45:00 AM, [address] [facility], [place] [address], [place], [address], Provider Name:Poncho Crespo, 2020-03-15 0 9:40:00 AM, [address] [place] [address] [address], [address], [place], [address], Insurance Providers Payer Name Payer Payer Insured Patient Coverage Coverage End Address Phone Name Relationship to Start Date Madan e Insured Ambetter from [phone] [place] self [address] [place] [id number] [phone] [facility] [address]
--- OUTSIDE RECORDS SUMMARY | 2019-12-20 07:44 | XMS REPORT ---
:1980 Author Organization [facility] Address [address] [place], [place] [address]. [address] [place] [address] Care Team Providers Name Role Phone Crespo Unavailable [phone] PROBLEMS Type Condition ICD9-CM [id number] Onset Condition SNOMED Code Notes Code Code Dates Status Problem Morbid (severe) E66.01 Active 71828985460031 obesity due to excess calories Problem Encounter for Z01.419 Active 460182620 gynecological examination without abnormal finding Problem Seasonal allergic J30.2 Active 879666492 rhinitis, unspecified trigger Problem Amenorrhea N91.2 Active 00426516 Problem Adult BMI Z68.43 Active 512299351 50.0-59.9 kg/sq m Problem HTN I10 Active 63044001 (hypertension), benign Problem Prediabetes R73.03 Active 623484550 Problem Depression with F41.8 Active 828511833 anxiety Problem Hypersomnia G47.10 Active 00407116 Problem Migraine with aura G43.109 Active 1610241 and without status migrainosus, not intractable Problem Menorrhagia with N92.1 Active 382876577 irregular cycle Problem Left N20.0 Active 12972688 nephrolithiasis Problem PCOS (polycystic E28.2 Active 92702300 ovarian syndrome) Problem Infertility, N97.0 Active 372608154 anovulation Problem Kidney stones N20.0 Active 99741312 Problem NATA (obstructive G47.33 Active 37296793 sleep apnea) Problem Body mass index Z68.43 Active 300004063 (BMI) of 50-59.9 in adult Problem Secondary I15.9 Active 25000481 hypertension Problem Generalized F41.1 Active 96163160 anxiety disorder Problem Current moderate F32.1 Active 34946585 episode of major depressive disorder without prior episode Problem Neutrophilic D72.9 Active 521249031 leukocytosis Problem Allergic rhinitis, J30.9 Active 88387285 unspecified seasonality, unspecified trigger ALLERGIES No Known Allergies ENCOUNTERS from 1980 to 2019-12-19 Encounter Location Date Provider Diagnosis [place] [address] [facility] [address], [facility] [address] IMMUNIZATIONS Vaccine Route Administration Date Status Afluria [...] Information RESULTS No Results REASON FOR VISIT No Information MEDICAL (GENERAL) HISTORY Type Description Date Medical [...] times a DecDec, day for 5 days Next Appt Details Provider Name:Heber Angela 2019-12-20 08:45:00 AM, [address] [place] [address], [place], [address], Provider Name:Poncho Crespo, 2020-03-15 0 9:40:00 AM, [address] [place], [facility] [address], [place], [address], Insurance Providers Payer Name Payer Payer Insured Patient Coverage Coverage End Address Phone Name Relationship to Start Date Madan e Insured Ambetter from [phone] Marissa River self [address] [place] [id number] [facility] [address]
[2019-12-20 08:05] LABS: Specific Gravity 1.015 (1.005-1.030)
[2019-12-20] MEDS ORDERED: NA CHLORIDE 0.9% 1,000 ML ONE (08:24)
[2019-12-20] MEDS: ONDANSETRON 4 MG/2 ML VIAL IV ONE ×2 (09:05→10:48)
[2019-12-20] MEDS ORDERED: ONDANSETRON 4 MG/2 ML VIAL ONE ×3 (09:14→11:01)
[2019-12-20] MEDS ORDERED: FENTANYL CITR 100 MCG/2 ML ONE (09:14)
[2019-12-20] MEDS ORDERED: propofoL 200 MG/20 ML VIAL IV ONE (09:14)
[2019-12-20] MEDS ORDERED: MIDAZOLAM HCL 2 MG/2 ML INJ ONE (09:14)
[2019-12-20] MEDS ORDERED: ROCURONIUM 50 MG/5 ML VIAL IV ONE (09:14)
[2019-12-20] MEDS ORDERED: LIDOCAINE 1% MPF 5 ML VIAL ONE (09:14)
[2019-12-20] MEDS ORDERED: SUCCINYLCHOLINE 20 MG/ML (10 ML) IV ONE (09:17)
[2019-12-20] MEDS: Gentamicin Inj 320 MG in NA CHLORIDE 0.9% 100 ML IV SCH ×2 (10:03→10:10)
[2019-12-20] MEDS ORDERED: dexAMETHasone 10 MG/ML VIAL ONE (10:16)
[2019-12-20] MEDS ORDERED: GLYCOPYRROLATE 0.2 MG/ML SYR ONE ×2 (10:16)
[2019-12-20] MEDS ORDERED: KETOROLAC 30 MG/ML INJ ONE (10:16)
[2019-12-20] MEDS ORDERED: Mastisol Adhesive Liq ONE (10:20)
--- NOTE | 2019-12-20 10:32 | RAD REPORT ---
EXAM DESCRIPTION: RAD - Urography Retrograde - 12/20/2019 10:24 am CLINICAL HISTORY: cysto COMPARISON: No comparisons FINDINGS: Fluoroscopy time 0.14 minutes.
[2019-12-20] MEDS ORDERED: HYDROCODONE/APAP 5/325 MG TAB PO PRN (10:40)
[2019-12-20] MEDS ORDERED: PHENAZOPYRIDINE 100MG TAB PO ONE ×2 (10:40→13:53)
--- NOTE | 2019-12-20 10:46 | P.BOP ---
Preoperative diagnosis: Left ureterolithiasis 5mm Postoperative diagnosis: same Primary procedure: cystoscopy, left ureteroscopy and laser lithotripsy Secondary procedure: left ureteral stent lesson instructor: NONE,NONE Estimated blood loss: negligible Findings: 5mm ureteral stone Anesthesia: General Complications: None Drain(s): Other (left 6Fr x 24cm JJ ureteral stent) Transferred to: Recovery Room Condition: Good
[2019-12-20] MEDS: MORPHINE 4 MG/ML SYR ONE ×2 (10:48→10:52)
[2019-12-20] MEDS: MEPERIDINE HCL 50 MG/ML ONE ×2 (11:03→11:08)
[2019-12-20] MEDS ORDERED: HYDROMORPHONE HCL 1 MG/ML INJ ONE (11:13)
[2019-12-20] MEDS ORDERED: HYDROCODONE/APAP 10/325 TAB ONE (11:53)
[2019-12-20] MEDS ORDERED: ACETAMINOPHEN 325 MG TABLET ONE (13:01)
[2019-12-20 13:10] VITALS: TEMP 98
[2019-12-20 13:12] VITALS: O2SAT 94
[2019-12-20 14:58] VITALS: BP 130/69
--- NOTE | 2019-12-20 20:04 | OP ---
Surgeon: NAVEEN HERZOG Preoperative Diagnosis: Left ureterolithiasis. Postoperative Diagnosis: Left ureterolithiasis. Procedure: Cystoscopy, left ureteroscopy, laser lithotripsy, left ureteral stent placement. Indication For Procedure: Ms. River presented to the Urology Clinic with recurrent left lower quadr ant like pain associated with a longstanding 5 mm ureteral calculus. Because she had the stone in pl yakelin for several months at this point, surgical intervention was warranted. Procedure Note: The patient was consented in the preoperative holding area before being transferred to the operative suite where general anesthesia was induced. She was given preoperative antimicrobia l therapy given a positive urine culture found yesterday. She took a dose this morning in addition t o her dosage yesterday. She was also given ampicillin 2 g and gentamicin IV antimicrobial prophylaxi s. Her genitalia were prepped using Betadine after she was placed in the lithotomy position, padded and secured to the table appropriately. Pneumoboots was provided for DVT prophylaxis. The case was begun using a 22-Bolivian rigid cystoscope to traverse the urethra and into the bladder with ease. The bladder was briefly surveyed, and the left ureteral orifice was orthotopic in location. It was then cannulated with a tip of a 5-Bolivian ureteral access catheter and a retrograde pyelogram was performe d. Left retrograde pyelography: Using a mixture of 70 of Omnipaque and 30 of saline, contrast was injec chris via the distal ureter and did propagate with ease into a relatively nondilated collecting system before entering the renal pelvis. There was resistance to passage of the 5-Bolivian ureteral access ca theter in the distal portion of the ureter consistent with likely stone related obstruction there. I then passed a Sensor wire via the 5-Bolivian ureteral access catheter and it did propagate with ease i nto the upper pole of the kidney where it did coil fluoroscopically. Then next to the indwelling saf ety wire, I removed the cystoscope and passed a semi-rigid ureteroscope under direct vision via the u rethra and into the ureteral orifice. Approximately 2-3 cm into the orifice and the distal ureter, t he irregular 5 mm calculus was noted. Then using a 275 nm laser fiber and holmium laser settings of 0.8 J and 8 Hz, I quickly fragmented the calculus in 2 fragments, less than 1 mm in diameter. I then surveyed beyond the fragments into the mid proximal ureter, confirmed fluoroscopically and no additi onal fragments were noted. I also reviewed the CT scan obtained preoperatively on November 27, which showed no additional renal calculi. As a result, I surveyed the ureter on the way out for any signs of additional calculi or injury, and when none were noted, the ureteroscope was removed. I then back -loaded the cystoscope over the indwelling safety wire and placed a 6-Bolivian x 24 cm double-J left ur eteral stent with ease. A coil was noted within the renal pelvis and an additional coil within the b ladder with the tethered strings still attached. Her bladder was then decompressed of urine and flui d, and the string was secured to her introitus using Mastisol and Steri-Strips. The patient was then taken out of the lithotomy position, awakened from general anesthesia, then transferred to the [facility] and into the recovery room in good condition. Complications: There were no complications. Disposition: She will follow up in the Urology Clinic within the next 3 days for tethered stent extr action. She will continue her antimicrobial therapy as ordered preoperatively. NISREEN/JUAN RAMON Voice ID: [id number] Report ID: [id number]
== END 2019-12-20 15:04 | disposition home or self-care (01) ==
LOC: OR 07:39
PROVIDERS: ATTEND Urology
PROC: 0T778DZ Dilation of Left Ureter with Intraluminal Device, Via Natural or Artificial Opening Endoscopic (ICD-10-PCS; 2019-12-20)
PROC: 0TF78ZZ Fragmentation in Left Ureter, Via Natural or Artificial Opening Endoscopic (ICD-10-PCS; principal; 2019-12-20 08:45)
DX: N20.1 Calculus of ureter (principal); E66.01 Morbid (severe) obesity due to excess calories; Z68.43 Body mass index [BMI] 50.0-59.9, adult; I10 Essential (primary) hypertension; F41.8 Other specified anxiety disorders; G47.33 Obstructive sleep apnea (adult) (pediatric); E28.2 Polycystic ovarian syndrome; R73.03 Prediabetes; Z20.828 Contact with and (suspected) exposure to other viral communicable diseases; Z79.84 Long term (current) use of oral hypoglycemic drugs
CPT/HCPCS: 87088; 85025; 87086; 80048; 36415; 81025; 85610; 82947 ×2; 85730; 87077; 87186; 74420; 52356; U0002; J2704; J0330; J1580; J2250; J3010; J1100; J2175; J1170; J7030; J2405 ×4; J0290

== ENCOUNTER 2020-10-27 23:26 | Emergency (ER) | payer OTHER ==
[2020-10-28 00:30] LABS: Urine Blood Negative (Negative); Urine Glucose Negative (Negative); Urine Protein Negative (Negative); Urine Specific Gravity >=1.030 (1.005-1.030)
[2020-10-28 00:49] LABS: Absolute Lymphocytes (CBC) 3.5 K/uL (0.7-4.9); Basophils % 1.4 % (0-1.3); Hematocrit 39.4 % (36.0-45.0); Lymphocytes % 26.7 % (15.3-44.8); MPV 8.3 fL (7.6-11.3); RBC Red Blood Cell Count 4.89 M/uL (3.86-4.86)
[2020-10-28] MEDS ORDERED: MORPHINE 4 MG/ML SYR ONE (00:56)
[2020-10-28] MEDS ORDERED: NA CHLORIDE 0.9% 1,000 ML ONE (00:56)
[2020-10-28] MEDS ORDERED: ONDANSETRON 4 MG/2 ML VIAL ONE (00:56)
[2020-10-28 01:02] LABS: ALT/SGPT 26 U/L (12-78); AST/SGOT 13 U/L (15-37); Albumin 3.9 g/dL (3.4-5.0); Alkaline Phosphatase 89 U/L (45-117); BUN Blood Urea Nitrogen 16 mg/dL (7-18); Bicarbonate 26 mmol/L (21-32); Bilirubin Direct < 0.1 mg/dL (0-0.2); Bilirubin Total 0.3 mg/dL (0.2-1.0); Glucose Level 103 mg/dL (74-106); Lipase 62 U/L (73-393); Potassium 3.8 mmol/L (3.5-5.1); Protein, Total 7.8 g/dL (6.4-8.2); Sodium Level 139 mmol/L (136-145)
[2020-10-28 01:20] LABS: Urine Specific Gravity/Preg >1.030 (1.005-1.030)
[2020-10-28 01:39] LABS: Urine Bacteria >50 /HPF (<20); Urine Mucus 2+ /HPF (NONE SEEN); Urine RBC <5 /HPF (NONE SEEN)
[2020-10-28] MEDS ORDERED: CEFTRIAXONE/SWI 1gm 1 GM/10 ML SYR ONE (01:53)
[2020-10-28] MEDS ORDERED: HYDROMORPHONE HCL 2 MG/ML inj ONE (02:33)
--- NOTE | 2020-10-28 02:33 | ER ---
Nurse's Notes [facility] Name: Shahnaz Nicole Age: 40 yrs Sex: Female : 1980 Arrival Date: 10/27/2020 Time: 23:32 Bed 13 Private MD: Diagnosis: Lower abdominal pain, unspecified;Hemorrhoids;UTI/ Urinary tract infection, site not specified Presentation: 10/27 23:46 Chief complaint: Patient states: abdominal pain with blood clots in stool. Coronavirus 4 screen: Vaccine status: Patient reports being unvaccinated. Client denies travel out of the [place] in the last 14 days. At this time, the client does not indicate any symptoms associated with coronavirus-19. Ebola Screen: Patient negative for fever greater than or equal to 101.5 degrees Fahrenheit, and additional compatible Ebola Virus Disease symptoms Patient denies exposure to infectious person. Patient denies travel to an Ebola-affected area in the 21 days before illness onset. No symptoms or risks identified at this time. Initial Sepsis Screen: Does the patient meet any 2 criteria? No. Patient's initial sepsis screen is negative. Does the patient have a suspected source of infection? No. Patient's initial sepsis screen is negative. Risk Assessment: Do you want to hurt yourself or someone else? Patient reports no desire to harm self or others. Onset of symptoms was October 22, 2020. 23:46 Method Of Arrival: Ambulatory [facility] 23:46 Acuity: TARIQ 3 kc4 Triage Assessment: 23:51 General: Appears in no apparent distress. comfortable, obese, Behavior is calm, kc4 cooperative, appropriate for age. Pain: Denies pain. EENT: No deficits noted. No signs and/or symptoms were reported regarding the EENT system. Neuro: No deficits noted. Cardiovascular: No deficits noted. Reports. Cardiovascular:. Respiratory: No deficits noted. GI: Abdomen is Rectal exam: Bleeding noted. : No deficits noted. Derm: No deficits noted. Musculoskeletal: No deficits noted. 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 - Social history:: Smoking status: Patient denies any tobacco usage or history of. Patient/guardian denies using alcohol, street drugs, IV drugs, over the counter diet medications, tobacco products. Screenin/19 01:03 Abuse screen: Denies threats or abuse. Denies injuries from another. Nutritional bs2 screening: No deficits noted. Tuberculosis screening: No symptoms or risk factors identified. Fall Risk None identified. Assessment: 01:03 General: Appears in no apparent distress. distressed, comfortable, obese, well groomed, bs2 well developed, well nourished, Behavior is calm, cooperative, appropriate for age. Pain: Complains of pain in left lower quadrant Pain currently is 7 out of 10 on a pain scale. GI: Bowel sounds present X 4 quads. Abd is soft and non tender in right upper quadrant, left upper quadrant and right lower quadrant Abdomen is tender to palpation in left lower quadrant. Vital Signs: 10/27 23:49 BP 149 / 87 LA Sitting (auto/reg); Pulse 64; Resp 20; Temp 98.7(O); Pulse Ox 98% on tt3 R/A; Weight 153.31 kg (R); Height 5 ft. 7 in. (170.18 cm) (R); Pain 5/10; 10/28 01:34 BP 125 / 53; Pulse 66; Resp 18; Temp 98.7; Pulse Ox 97% on R/A; Pain 0/10; kc4 02:46 BP 127 / 76; Pulse 60; Resp 16; Temp 98.6; Pulse Ox 100% ; Pain 2/10; bs2 10/27 23:49 Body Mass Index 52.94 (153.31 kg, 170.18 cm) tt3 ED Course: 10/27 23:32 Patient arrived in ED. ja2 23:43 Rich Morris MD is Attending Physician. mh7 23:51 Triage completed. kc4 23:51 Arm band placed on right wrist. kc4 23:53 Tosin Denise, TIP is Primary Nurse. bs2 09/19 00:38 Urine --Ancillary (enter results) Sent. bs2 00:38 Urine --Ancillary Sent. bs2 00:38 Type And Screen Sent. bs2 00:38 Basic Metabolic Panel Sent. bs2 00:38 CBC with Diff Sent. bs2 00:38 Hepatic Function Sent. bs2 00:38 Lipase Sent. bs2 01:03 Patient has correct armband on for positive identification. Placed in gown. Bed in low bs2 position. Call light in reach. Side rails up X 1. Pulse ox on. NIBP on. 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 Inserted saline lock: 20 gauge in right bs2 antecubital area, using aseptic technique. 01:42 CT Abd/Pelvis - IV Contrast Only In Process Unspecified. EDMS 02:44 IV discontinued, intact, bleeding controlled, No redness/swelling at site. Pressure bs2 dressing applied. Administered Medications: 00:37 Drug: morphine 4 mg Route: IVP; Site: right antecubital; bs2 02:43 Follow up: Response: No adverse reaction bs2 00:37 Drug: Zofran (Ondansetron) 4 mg Route: IVP; Site: right antecubital; bs2 02:43 Follow up: Response: No adverse reaction bs2 00:38 Drug: NS 0.9% 1000 ml Route: IV; Rate: 1000 ml; Site: right antecubital; bs2 02:42 Follow up: IV Status: Completed infusion bs2 01:29 Drug: Rocephin (cefTRIAXone) 1 grams Route: IV; Rate: per protocol; Site: right kc4 antecubital; 02:46 Follow up: IV Status: Completed infusion; IV Intake: 10ml bs2 02:12 Drug: Dilaudid (HYDROmorphone) 0.5 mg Route: IVP; Site: right antecubital; bs2 02:44 Follow up: Response: No adverse reaction bs2 Intake: 02:46 IV: 10ml; Total: 10ml. bs2 Outcome: 02:32 Discharge ordered by MD. bryant 02:44 Discharged to home ambulatory, with family. bs2 02:44 Condition: improved 02:44 Discharge instructions given to patient, Instructed on discharge instructions, follow up and referral plans. medication usage, Demonstrated understanding of instructions, follow-up care, medications, Prescriptions given X 3. 02:47 Patient left the ED. bs2 Signatures: Dispatcher Rich Pepe MD MD mh7 Sravan Crowe tt3 Tosin Denise RN RN bs2 Joann Aldana 4 Osiris Elizondo2
--- NOTE | 2020-10-28 02:33 | EDPHYS ---
Physician Documentation [facility] Name: Shahnaz Nicole Age: 40 yrs Sex: Female : 1980 Arrival Date: 10/27/2020 Time: 23:32 Bed 13 Private MD: ED Physician Rich Morris HPI: 10/28 00:02 This 40 yrs old Female presents to ER via Ambulatory with complaints of mh7 Abdominal Pain, Bloody Stools. 00:02 The patient presents with abdominal pain in the left lower quadrant. Onset: The mh7 symptoms/episode began/occurred 2 week(s) ago. The symptoms do not radiate. Associated signs and symptoms: Pertinent positives: blood in stools, 2 times in the past 5 days, Pertinent negatives: nausea and vomiting, anorexia, chest pain, constipation, dysuria, fever, headache, hematuria, nausea, palpitations, shortness of breath, vaginal discharge, vomiting, vomiting blood. The symptoms are described as intermittent, vague, waxing/waning. Modifying factors: The symptoms are alleviated by nothing, the symptoms are aggravated by nothing. Severity of pain: At its worst the pain was moderate 5 day(s) ago, in the emergency department the pain has improved moderately. 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 - Social history:: Smoking status: Patient denies any tobacco usage or history of. Patient/guardian denies using alcohol, street drugs, IV drugs, over the counter diet medications, tobacco products. ROS: 10/28 00:02 Constitutional: Negative for fever, chills, and weight loss, Eyes: Negative for injury, mh7 pain, redness, and discharge, ENT: Negative for injury, pain, and discharge, Neck: Negative for injury, pain, and swelling, Cardiovascular: Negative for chest pain, palpitations, and edema, Respiratory: Negative for shortness of breath, cough, wheezing, and pleuritic chest pain, Back: Negative for injury and pain, : Negative for injury, bleeding, discharge, and swelling, MS/Extremity: Negative for injury and deformity, Skin: Negative for injury, rash, and discoloration, Neuro: Negative for headache, weakness, numbness, tingling, and seizure, Psych: Negative for depression, anxiety, suicide ideation, homicidal ideation, and hallucinations, Allergy/Immunology: Negative for hives, rash, and allergies, Endocrine: Negative for neck swelling, polydipsia, polyuria, polyphagia, and marked weight changes, Hematologic/Lymphatic: Negative for swollen nodes, abnormal bleeding, and unusual bruising. Exam: 00:02 Constitutional: This is a well developed, well nourished patient who is awake, alert, mh7 and in no acute distress. Head/Face: Normocephalic, atraumatic. Eyes: Pupils equal round and reactive to light, extra-ocular motions intact. Lids and lashes normal. Conjunctiva and sclera are non-icteric and not injected. Cornea within normal limits. Periorbital areas with no swelling, redness, or edema. Neck: Trachea midline, no thyromegaly or masses palpated, and no cervical lymphadenopathy. Supple, full range of motion without nuchal rigidity, or vertebral point tenderness. No Meningismus. Chest/axilla: Normal chest wall appearance and motion. Nontender with no deformity. No lesions are appreciated. Cardiovascular: Regular rate and rhythm with a normal S1 and S2. No gallops, murmurs, or rubs. Normal PMI, no JVD. No pulse deficits. Respiratory: Lungs have equal breath sounds bilaterally, clear to auscultation and percussion. No rales, rhonchi or wheezes noted. No increased work of breathing, no retractions or nasal flaring. Back: No spinal tenderness. No costovertebral tenderness. Full range of motion. Skin: Warm, dry with normal turgor. Normal color with no rashes, no lesions, and no evidence of cellulitis. MS/ Extremity: Pulses equal, no cyanosis. Neurovascular intact. Full, normal range of motion. Neuro: Awake and alert, GCS 15, oriented to person, place, time, and situation. Cranial nerves II-XII grossly intact. Motor strength 5/5 in all extremities. Sensory grossly intact. Cerebellar exam normal. Normal gait. Psych: Awake, alert, with orientation to person, place and time. Behavior, mood, and affect are within normal limits. 00:02 Abdomen/GI: Inspection: obese Bowel sounds: normal, in all quadrants, Palpation: mh7 moderate abdominal tenderness, in the left lower quadrant, mass, is not appreciated, rebound tenderness, is not appreciated, voluntary guarding, is not appreciated, involuntary guarding, is not appreciated, no appreciated organomegaly, Rectal exam: rectal tone normal, Stool: brown, guaiac negative, hemorrhoid(s), external, with pain, without bleeding, without inflammation, without thrombosis, At 9 o'clock position, mass, is not appreciated, swelling, is not appreciated, tenderness, that is mild, fecal impaction, is not appreciated, the exam is chaperoned by the nurse, Indicators: McBurney's point is not tender, Paredes's sign is negative, Rovsing's sign is negative, Obturator sign is negative, Psoas sign is negative, Liver: no appreciated palpable abnormalities, Hernia: not appreciated. Vital Signs: 10/27 23:49 BP 149 / 87 LA Sitting (auto/reg); Pulse 64; Resp 20; Temp 98.7(O); Pulse Ox 98% on tt3 R/A; Weight 153.31 kg (R); Height 5 ft. 7 in. (170.18 cm) (R); Pain 5/10; 10/28 01:34 BP 125 / 53; Pulse 66; Resp 18; Temp 98.7; Pulse Ox 97% on R/A; Pain 0/10; kc4 02:46 BP 127 / 76; Pulse 60; Resp 16; Temp 98.6; Pulse Ox 100% ; Pain 2/10; bs2 10/27 23:49 Body Mass Index 52.94 (153.31 kg, 170.18 cm) tt3 MDM: 00:02 Data reviewed: vital signs, nurses notes, old medical records, lab test result(s), CBC, mh7 electrolytes, urinalysis, UPT: negative radiologic studies, CT scan. Data interpreted: Pulse oximetry: on room air is 97 %. Interpretation: normal. Counseling: I had a detailed discussion with the patient and/or guardian regarding: the historical points, exam findings, and any diagnostic results supporting the discharge/admit diagnosis, lab results, radiology results, the need for outpatient follow up, to return to the emergency department if symptoms worsen or persist or if there are any questions or concerns that arise at home. Response to treatment: the patient's symptoms have resolved after treatment, the patient's blood pressure is in an acceptable range, mental status has returned to baseline, the patient no longer shows bradycardia, the patient is not short of breath, the patient is not tachycardic, the patient's pain is gone, the patient's temperature has normalized. 02:25 Differential diagnosis: bowel obstruction, diverticulitis, Ectopic , [facility] non-specific abd pain, Ureterolithiasis, urinary tract infection, Hemorrhoids, Colitis. 02:32 Patient medically screened. [facility] 10/28 00:00 Order name: Basic Metabolic Panel; Complete Time: 01:17 [facility] 10/28 00:00 Order name: CBC with Diff; Complete Time: : [facility] 10/28 00:00 Order name: Hepatic Function; Complete Time: : [facility] 10/28 00:00 Order name: Lipase; Complete Time: :17 [facility] 10/28 00:00 Order name: Type And Screen [facility] 10/28 00:30 Order name: Urine Dipstick-Ancillary; Complete Time: 00:43 [facility] 10/28 00:00 Order name: CT Abd/Pelvis - IV Contrast Only [facility] 10/28 00:32 Order name: Urine --Ancillary (enter results) 10/28 00:32 Order name: Urine --Ancillary; Complete Time: 01:52 [facility] 10/28 01:18 Order name: UA MICROSCOPIC; Complete Time: 01:52 [facility] 10/28 01:40 Order name: Urine Culture [facility] 10/28 00:00 Order name: IV Saline Lock; Complete Time: 00:38 [facility] 10/28 00:00 Order name: Labs collected and sent; Complete Time: 00:38 [facility] 10/28 00:00 Order name: Urine Dipstick-Ancillary (obtain specimen); Complete Time: 00:32 [facility] 10/28 00:00 Order name: Urine Test (obtain specimen); Complete Time: 00:32 [facility] Administered Medications: 00:37 Drug: morphine 4 mg Route: IVP; Site: right antecubital; bs2 02:43 Follow up: Response: No adverse reaction bs2 00:37 Drug: Zofran (Ondansetron) 4 mg Route: IVP; Site: right antecubital; bs2 02:43 Follow up: Response: No adverse reaction bs2 00:38 Drug: NS 0.9% 1000 ml Route: IV; Rate: 1000 ml; Site: right antecubital; bs2 02:42 Follow up: IV Status: Completed infusion bs2 01:29 Drug: Rocephin (cefTRIAXone) 1 grams Route: IV; Rate: per protocol; Site: right kc4 antecubital; 02:46 Follow up: IV Status: Completed infusion; IV Intake: 10ml bs2 02:12 Drug: Dilaudid (HYDROmorphone) 0.5 mg Route: IVP; Site: right antecubital; bs2 02:44 Follow up: Response: No adverse reaction bs2 Disposition Summary: 10/28/20 02:32 Discharge Ordered Location: Home [facility] Problem: an acute exacerbation [facility] Symptoms: have improved [facility] Condition: Stable [facility] Diagnosis - Lower abdominal pain, unspecified 7 - Hemorrhoids 7 - UTI/ Urinary tract infection, site not specified [facility] Followup: [facility] - With: Private Physician - When: 1 - 2 days - Reason: Worsening of condition, Recheck today's complaints, Continuance of care, Re-evaluation by your physician Discharge Instructions: - Discharge Summary Sheet 7 - Urinary Tract Infection, Adult, [id number] 7 - Abdominal Pain, Adult, [id number]-[id number] 7 - Hemorrhoids, [id number] [facility] Forms: - Medication Reconciliation Form [facility] - Thank You Letter [facility] - Antibiotic Education [facility] - Prescription Opioid Use [facility] Prescriptions: - Cipro 500 mg Oral Tablet - take 1 tablet by ORAL route every 12 hours for 7 days; 14 tablet; Refills: 0, [facility] Product Selection Permitted - Anusol-HC 25 mg Rectal Suppository - insert 1 suppository by RECTAL route every 12 hours As needed; 20 suppository; [facility] Refills: 0, Product Selection Permitted - dicyclomine 20 mg Oral Tablet - take 1 tablet by ORAL route 4 times per day As needed; 20 tablet; Refills: 0, [facility] Product Selection Permitted Signatures: Dispatcher [employer] Rich Christiansen MD MD mh7 Tosin Denise RN RN bs2 Joann Aldana 4
[2020-10-28 02:56] VITALS: BP 127/76; TEMP 98.6; O2SAT 100
--- NOTE | 2020-10-29 10:45 | RAD REPORT ---
EXAM DESCRIPTION: CT - Abdomen Pelvis W Contrast - 10/28/2020 7:18 am COMPARISON: CT renal stone November 23, 2019 CLINICAL HISTORY: [facility] MAIN ABD PAIN TECHNIQUE: CT of the abdomen and pelvis was acquired with IV contrast material. Coronal and sagitt al reconstructions were obtained. Automated exposure control was utilized on this examination as a dose lowering technique. FINDINGS: Lung bases: Clear. Liver: Enlarged liver measuring 19.3 cm midclavicular line. Gallbladder and biliary: Decompressed gallbladder. Unremarkable biliary tree. Pancreas: Normal. Spleen: Normal. Adrenal glands: Normal adrenal glands. Kidneys: Normal kidneys Stomach and Small Bowel: The stomach and small bowel are normal. Urinary bladder: Normal. Uterus and Adnexa: Normal. Colon and Appendix: The colon is unremarkable. No evidence of appendicitis. Retroperitoneum and lymph nodes: Normal. Vascular: Unremarkable. Peritoneal cavity: No ascites or free air. Musculoskeletal and soft tissues: Soft tissues are unremarkable. Lumbar spondylosis is present. No ag gressive bone lesions. No compression fracture. IMPRESSION 1. No acute intra-abdominal findings. 2. Hepatomegaly. Electronically signed by: Dayday Mcmillan MD 10/28/2020 1:51 AM CDT Due to temporary technical issues with the PACS/Fluency reporting system, reports are being signed by the in house radiologists without review as a courtesy to insure prompt reporting. The interpreting radiologist is fully responsible for the content of the report.
== END 2020-10-28 02:47 | disposition home or self-care (01) ==
LOC: ER 23:26
DX: K64.9 Unspecified hemorrhoids (principal); N39.0 Urinary tract infection, site not specified; I10 Essential (primary) hypertension; F41.8 Other specified anxiety disorders
CPT/HCPCS: 96365; 96361; 87088; 85025; 87086; 80048; 36415; 86900; 86850; 81025; 86901; 80076; 83690; 74177; 96375; 99284; Q9967; J1170; J0696; J7030; J2405; 81003; 81015

== ENCOUNTER 2020-12-16 13:55 | Emergency (ER) | payer OTHER, SELFPAY ==
[2020-12-16] MEDS ORDERED: ONDANSETRON 4 MG/2 ML VIAL ONE (15:24)
[2020-12-16] MEDS ORDERED: KETOROLAC 30 MG/ML INJ ONE (15:24)
[2020-12-16 15:37] LABS: Absolute Lymphocytes (CBC) 1.8 K/uL (0.7-4.9); Basophils % 0.6 % (0-1.3); Hematocrit 39.1 % (36.0-45.0); Lymphocytes % 19.1 % (15.3-44.8); MPV 7.7 fL (7.6-11.3); RBC Red Blood Cell Count 4.93 M/uL (3.86-4.86)
[2020-12-16 15:43] LABS: Potassium 3.9 mmol/L (3.5-5.1)
[2020-12-16 15:51] LABS: Albumin 3.7 g/dL (3.4-5.0); Bilirubin Direct 0.1 mg/dL (0-0.2); Bilirubin Total 0.5 mg/dL (0.2-1.0); Protein, Total 7.5 g/dL (6.4-8.2)
[2020-12-16] MEDS ORDERED: MECLIZINE HCL 12.5 MG TAB ONE (16:42)
--- NOTE | 2020-12-16 16:45 | ER ---
Nurse's Notes [facility] Name: Shahnaz Nicole Age: 40 yrs Sex: Female : 1980 Arrival Date: 12/16/2020 Time: 13:59 Bed 7 Private MD: Poncho Crespo Diagnosis: Other peripheral vertigo Presentation: 12/16 14:49 Chief complaint: Patient states: Pt has been on menstrual cycle for about three weeks. vg1 States feeling dizzy and lighthead for about a week. NV intermittent for a year. Fell today onto Left arm. Coronavirus screen: Vaccine status: Patient reports being unvaccinated. Client denies travel out of the [place] in the last 14 days. Ebola Screen: Patient negative for fever greater than or equal to 101.5 degrees Fahrenheit, and additional compatible Ebola Virus Disease symptoms. Initial Sepsis Screen: Does the patient meet any 2 criteria? No. Patient's initial sepsis screen is negative. Does the patient have a suspected source of infection? No. Patient's initial sepsis screen is negative. Risk Assessment: Do you want to hurt yourself or someone else? Patient reports no desire to harm self or others. Onset of symptoms was December 09, 2020. 14:49 Method Of Arrival: Ambulatory vg1 14:49 Acuity: TARIQ 3 vg1 Triage Assessment: 14:52 General: Appears in no apparent distress. uncomfortable, Behavior is calm, cooperative. vg1 Pain: Complains of pain in left lower quadrant and left arm Pain currently is 7 out of 10 on a pain scale. Pain began x 1 week Also complains of nausea. EENT: No signs and/or symptoms were reported regarding the EENT system. Neuro: Level of Consciousness is awake, alert, obeys commands, Oriented to person, place, time, situation. Cardiovascular: Patient's skin is warm and dry. Respiratory: Airway is patent Respiratory effort is even, unlabored, Respiratory pattern is tachypnea. GI: Abdomen is obese, Reports nausea, vomiting. : Reports vaginal bleeding that is with clots, x 3 weeks. Derm: Skin is intact, is healthy with good turgor. Musculoskeletal: Circulation, motion, and sensation intact. 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 - Social history:: Smoking status: Patient denies any tobacco usage or history of. Screenin:57 Abuse screen: Denies threats or abuse. Nutritional screening: Has had N/V for 3 or more vg1 days. Tuberculosis screening: No symptoms or risk factors identified. Fall Risk Fall in past 12 months (25 points). No secondary diagnosis (0 pts). IV access (20 points). Ambulatory Aid- None/Bed Rest/Nurse Assist (0 pts). Gait- Normal/Bed Rest/Wheelchair (0 pts) Mental Status- Oriented to own ability (0 pts). Total Barbosa Fall Scale indicates High Risk Score (45 or more points). Fall prevention measures have been instituted. Side Rails Up X 2 Placed Close to Nursing Station Family Present and informed to notify staff if the need to leave the bedside. Assessment: 15:16 General: Appears in no apparent distress. uncomfortable, Behavior is calm, cooperative. jd3 Pain: Complains of pain in low back area. Neuro: Level of Consciousness is awake, alert, obeys commands, Oriented to person, place, time, situation. Cardiovascular: Capillary refill < 3 seconds Patient's skin is warm and dry. Respiratory: Airway is patent Respiratory effort is even, unlabored, Respiratory pattern is regular, symmetrical. GI: Abdomen is obese, Reports lower abdominal pain, cramping, diarrhea, nausea, vomiting. : Reports vaginal bleeding that is bright red, with clots, heavy flow. 15:40 Reassessment: Patient appears in no apparent distress at this time. No changes from vg1 previously documented assessment. Patient and/or family updated on plan of care and expected duration. Pain level reassessed. Patient is alert, oriented x 3, equal unlabored respirations, skin warm/dry/pink. 16:48 Reassessment: Patient appears in no apparent distress at this time. Patient and/or vg1 family updated on plan of care and expected duration. Pain level reassessed. Patient is alert, oriented x 3, equal unlabored respirations, skin warm/dry/pink. Vital Signs: 14:49 BP 146 / 74; Pulse 60; Resp 22; Temp 99.0(O); Pulse Ox 100% ; Weight 154.22 kg; Height vg1 5 ft. 7 in. (170.18 cm); Pain 7/10; 15:30 BP 133 / 66 Supine; Pulse 53; vg1 15:32 BP 138 / 79 Sitting; Pulse 55; vg1 15:34 BP 153 / 91 Standing; Pulse 60; Resp 20; Pulse Ox 100% ; vg1 16:47 BP 155 / 86; Pulse 60; Resp 16; Pulse Ox 100% ; vg1 14:49 Body Mass Index 53.25 (154.22 kg, 170.18 cm) vg1 ED Course: 13:59 Patient arrived in ED. mr 13:59 Poncho Crespo DO is Private Physician. mr 14:40 Celia Ledbetter, RN is Primary Nurse. vg1 14:42 Ashley Crespo MD is Attending Physician. sp3 14:52 Triage completed. vg1 14:52 Arm band placed on. vg1 14:57 Placed in gown. Bed in low position. Call light in reach. Side rails up X2. Adult w/ vg1 patient. 15:26 Initial lab(s) drawn, by me, sent to lab. Inserted saline lock: 20 gauge in right dh3 antecubital area, using aseptic technique. Blood collected. 16:48 No provider procedures requiring assistance completed. IV discontinued, intact, vg1 bleeding controlled, No redness/swelling at site. Pressure dressing applied. Administered Medications: 15:34 Drug: Zofran (Ondansetron) 4 mg Route: IVP; Site: right antecubital; vg1 16:46 Follow up: Response: No adverse reaction; Marked relief of symptoms vg1 15:36 Drug: Ketorolac 30 mg Route: IVP; Site: right antecubital; vg1 16:46 Follow up: Response: No adverse reaction; Marked relief of symptoms vg1 16:46 Drug: Meclizine 25 mg Route: PO; vg1 16:46 Follow up: Response: Medication administered at discharge. vg1 Outcome: 16:45 Discharge ordered by . sp3 16:48 Discharged to home ambulatory, with family. vg1 16:48 Condition: stable 16:48 Discharge instructions given to patient, Instructed on discharge instructions, follow up and referral plans. medication usage, Demonstrated understanding of instructions, follow-up care, medications, Prescriptions given X 1. 16:49 Patient left the ED. vg1 Signatures: Kristyn Lizama mr Medrano, Xuan 3 Micky Wan RN RN jCelia Moulton RN RN vg1 Ashley Crespo MD MD sp3 Corrections: (The following items were deleted from the chart) 15:40 14:52 : No signs and/or symptoms were reported regarding the genitourinary system. [id number]
--- NOTE | 2020-12-16 16:45 | EDPHYS ---
Physician Documentation [facility] Name: Shahnaz Nicole Age: 40 yrs Sex: Female : 1980 Arrival Date: 12/16/2020 Time: 13:59 Bed 7 Private MD: Zak [facility] ED Physician Ashley Crespo HPI: 12/16 15:30 This 40 yrs old Female presents to ER via Ambulatory with complaints of sp3 Dizziness, Nausea/Vomiting, Fall Injury, Arm Injury. 15:30 40-year-old female with a history of anxiety, hypertension, polycystic ovarian sp3 syndrome, and other PMH and history now presents with vertigo/near syncope. Patient states that she is currently on her menstrual cycle and it is always "heavy". She sees a mechanical applications engineer and is on Metformin, spironolactone, and a few other medications. She is not on control secondary to trying to conceive. She has been anemic in the past and is concerned that she may be anemic now. She is also had vertigo in the past was treated with an unknown medication. Patient denies any headache, trauma, neck pain, chest pain, shortness of breath, cough, URI symptoms, no COVID-19 contacts, fever, abdominal pain, nausea, vomiting, diarrhea, neuro symptoms other than the near-syncope, she denies full syncope, no any other symptoms. Remainder of ROS negative.. 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 - Social history:: Smoking status: Patient denies any tobacco usage or history of. ROS: 15:33 Constitutional: Negative for fever, chills, and weight loss, Eyes: Negative for injury, sp3 pain, redness, and discharge, ENT: Negative for injury, pain, and discharge, Neck: Negative for injury, pain, and swelling, Cardiovascular: Negative for chest pain, palpitations, and edema, Respiratory: Negative for shortness of breath, cough, wheezing, and pleuritic chest pain, Abdomen/GI: Negative for abdominal pain, nausea, vomiting, diarrhea, and constipation, Back: Negative for injury and pain, MS/Extremity: Negative for injury and deformity, Skin: Negative for injury, rash, and discoloration, Psych: Negative for depression, anxiety, suicide ideation, homicidal ideation, and hallucinations, Allergy/Immunology: Negative for hives, rash, and allergies, Endocrine: Negative for neck swelling, polydipsia, polyuria, polyphagia, and marked weight changes, Hematologic/Lymphatic: Negative for swollen nodes, abnormal bleeding, and unusual bruising. 15:33 Neuro: Positive for Patient has mild near syncope on standing up or head movement.. Exam: 15:36 Constitutional: This is a well developed, well nourished patient who is awake, alert, sp3 and in no acute distress. Head/Face: Normocephalic, atraumatic. Eyes: Pupils equal round and reactive to light, extra-ocular motions intact. Lids and lashes normal. Conjunctiva and sclera are non-icteric and not injected. Cornea within normal limits. Periorbital areas with no swelling, redness, or edema. ENT: Nares patent. No nasal discharge, no septal abnormalities noted. External auditory canals are clear. Oropharynx with no redness, swelling, or masses, exudates, or evidence of obstruction, uvula midline. Mucous membranes moist. Neck: Trachea midline, no thyromegaly or masses palpated, and no cervical lymphadenopathy. Supple, full range of motion without nuchal rigidity, or vertebral point tenderness. No Meningismus. Chest/axilla: Normal chest wall appearance and motion. Nontender with no deformity. No lesions are appreciated. Cardiovascular: Regular rate and rhythm with a normal S1 and S2. No gallops, murmurs, or rubs. Normal PMI, no JVD. No pulse deficits. Respiratory: Lungs have equal breath sounds bilaterally, clear to auscultation and percussion. No rales, rhonchi or wheezes noted. No increased work of breathing, no retractions or nasal flaring. Abdomen/GI: Soft, non-tender, with normal bowel sounds. No distension or tympany. No guarding or rebound. No evidence of tenderness throughout. Back: No spinal tenderness. No costovertebral tenderness. Full range of motion. MS/ Extremity: Pulses equal, no cyanosis. Neurovascular intact. Full, normal range of motion. Neuro: Awake and alert, GCS 15, oriented to person, place, time, and situation. Cranial nerves II-XII grossly intact. Motor strength 5/5 in all extremities. Sensory grossly intact. Cerebellar exam normal. Normal gait. Psych: Awake, alert, with orientation to person, place and time. Behavior, mood, and affect are within normal limits. 15:36 Eyes: Patient has no nystagmus.. 15:36 Musculoskeletal/extremity: Patient claims that she had a mild injury to her left elbow but "does not think it is broken". On exam she has full range of motion, normal neurological and vascular exam on entire left upper extremity. Clinically does not broken.. 15:36 Neuro: Exam negative for Patient has normal neurological exam with no deficits. Orthostatic vital signs are pending.. Vital Signs: 14:49 BP 146 / 74; Pulse 60; Resp 22; Temp 99.0(O); Pulse Ox 100% ; Weight 154.22 kg; Height vg1 5 ft. 7 in. (170.18 cm); Pain 7/10; 15:30 BP 133 / 66 Supine; Pulse 53; vg1 15:32 BP 138 / 79 Sitting; Pulse 55; vg1 15:34 BP 153 / 91 Standing; Pulse 60; Resp 20; Pulse Ox 100% ; vg1 16:47 BP 155 / 86; Pulse 60; Resp 16; Pulse Ox 100% ; vg1 14:49 Body Mass Index 53.25 (154.22 kg, 170.18 cm) vg1 MDM: 14:42 Patient medically screened. sp3 15:37 Data reviewed: vital signs, nurses notes. ED course: 32-year-old female with vertigo sp3 versus near syncope secondary to possible anemia. Will assess with laboratory values, orthostatic vital signs and treat with meclizine if she is not anemic. I have told patient she needs to follow-up with gynecology to assess her bleeding and possibly start her on hormonal treatment.. 16:44 ED course: Patient feels better with the meclizine. Will discharge home at this time sp3 with clear instructions to follow-up with her mechanical applications engineer.. 12/16 15:15 Order name: Basic Metabolic Panel sp3 12/16 15:15 Order name: CBC with Diff; Complete Time: 16:21 sp3 12/16 15:15 Order name: Hepatic Function; Complete Time: 16:21 sp3 12/16 15:15 Order name: Lipase; Complete Time: 16:21 sp3 12/16 15:16 Order name: Basic Metabolic Panel; Complete Time: 16:21 EDMS 12/16 15:15 Order name: IV Saline Lock; Complete Time: 15:27 sp3 12/16 15:15 Order name: Labs collected and sent; Complete Time: 15:27 sp3 12/16 15:15 Order name: Orthostatics; Complete Time: 15:37 sp3 Administered Medications: 15:34 Drug: Zofran (Ondansetron) 4 mg Route: IVP; Site: right antecubital; vg1 16:46 Follow up: Response: No adverse reaction; Marked relief of symptoms vg1 15:36 Drug: Ketorolac 30 mg Route: IVP; Site: right antecubital; vg1 16:46 Follow up: Response: No adverse reaction; Marked relief of symptoms vg1 16:46 Drug: Meclizine 25 mg Route: PO; vg1 16:46 Follow up: Response: Medication administered at discharge. vg1 Disposition Summary: 12/16/20 16:45 Discharge Ordered Location: Home sp3 Condition: Stable sp3 Diagnosis - Other peripheral vertigo sp3 Followup: sp3 - With: Private Physician - When: Upon discharge from the Emergency Department - Reason: Recheck today's complaints Discharge Instructions: - Discharge Summary Sheet sp3 - Vertigo sp3 Forms: - Medication Reconciliation Form sp3 - Thank You Letter sp3 - Work release form vg1 - Antibiotic Education sp3 - Prescription Opioid Use sp3 Prescriptions: - Meclizine 25 mg Oral Tablet - take 1 tablet by ORAL route every 8 hours As needed; 30 tablet; Refills: 0, sp3 Product Selection Permitted Signatures: Dispatcher [employer] Celia Castellanos RN RN vg1 Crespo, Setul, MD MD sp3
[2020-12-16 17:17] VITALS: TEMP 99; O2SAT 100
[2020-12-16 17:22] VITALS: BP 155/86
--- OUTSIDE RECORDS SUMMARY | 2020-12-22 15:37 | XMS REPORT | Continuity of Care Document ---
:1980 Author Organization [facility] t Address [address] [place] [place] [address] Care Team Providers Name Role Phone Maria Luisa Odell Attending Clinician Unavailable Felisa MCCABE MMehran Attending Clinician EDMOND Attending Clinician Unavailable EDMOND Admitting Clinician Unavailable Payers Payer Name Policy Type Policy Number Effective Date Expiration Date S ource Problems Condition Condition Condition Status Onset Resolution Last Treating Co mments Source Name Details Category Date Date Treatment Clinician Date No known No known Disease [facility] problems problems of Medicin e Allergies, Adverse Reactions, Alerts Allergy Allergy Status Severity Reaction(s) Onset Inactive Treating Comm ents Source Name Type Date Date Clinician No Known DA Active U [facility] Allergie 10-21 Clear s 00:00: Khan [facility] No Known DA Active U [facility] Allergie 10-21 Clear s 00:00: Khan [facility] No Known DA Active U [facility] Contrast -20 Clear Allergie 00:00: Khan s [facility] No Known DA Active U 2007- [facility] Drug -20 Clear Allergie 00:00: Khan s [facility] No Known DA Active U 2007- [facility] Food 4-20 Clear Allergie 00:00: Khan s [facility] No Known DA Active U 2007- [facility] Other 4-20 Clear Allergie 00:00: [facility] NO KNOWN Allergy Active [facility] Social History Social Habit Start Date Stop Date Quantity Comments Source Alcohol intake [facility] Sex Assigned At [facility] Cigarettes smoked 2018-10-09 2018-10-09 [facility] current (pack per 00:00:00 00:00:00 of Medi ) - Reported Cigarette 2018-10-09 2018-10-09 [facility] pack-years 00:00:00 00:00:00 of Medicine History of tobacco 2011-09-24 Current smoker [facility] use 00:00:00 of Medicine Smoking Status Start Date Stop Date Source Former smoker 2018-10-09 00:00:00 2018-10-09 00:00:00 [facility] Medications Ordered Filled Start Stop Current Ordering Indication Dosage Frequency Signature Comments Components Source Medication Medication Date Date Medication? Clinician (SIG) Name Name escitalopra Yes 20mg Take 20 mg [facility] m (LEXAPRO) 8-15 by mouth Domingo ege 20 MG 13:44: daily. of tablet 55 Medicin e propranolol Yes Take by Billy geronimo 160 MG CP24 8-15 mouth. Colleg e 13:44: of 55 Medicin e busPIRone Yes 15mg Take 15 mg ylor (BUSPAR) 15 8-15 by mouth 3 Co [facility] MG tablet 13:44: times of 55 daily. Medicin e spironolact Yes 100mg Take 100 B aylor one 8-15 mg by [place] (ALDACTONE) 13:44: mouth of 100 MG 54 daily. Medicin tablet e metformin Yes TAKE 1 [facility] (GLUCOPHAGE 6-27 TABLET BY [facility] leg -XR) 500 MG 00:00: MOUTH ONCE of XR tablet 00 DAILY WITH Medi negrita EVENING e MEAL Escitalopra Escitalopra Yes [place] [address] [facility] m Oxalate m Oxalate [facility] BusPIRone BusPIRone Yes [place] TAKE ONE [facility] HCl HCl [place] (1) [facility] BY [facility]OUTH l TWICE A Outpati DAY. ent Clinics MetFORMIN MetFORMIN Yes [place] [address] [facility] HCl ER HCl ER [place] with [facility] Propranolol Propranolol Yes [place] [address] [facility] HCl ER HCl ER [facility] Immunizations Ordered Filled Immunization Date Status Comments Sourc e Immunization Name Name Genet single dose Afluria single dose 2019-01-[address] [facility] Vital Signs Vital Name Observation Time Observation Value Comments Source Systolic blood 2018-09-23 13:39:00 142 mm[Hg] [facility] Diastolic blood 2018-09-23 13:39:00 78 mm[Hg] [facility] Heart rate 2018-09-23 13:39:00 70 /min [facility] Body temperature 2018-09-23 13:39:00 37 [facility] Body height 2018-09-23 13:39:00 170.2 cm [facility] Body weight 2018-09-23 13:39:00 168.829 kg [facility] BMI 2018-09-23 13:39:00 58.29 kg/m2 [facility] Systolic blood 2018-09-23 13:39:00 142 mm[Hg] [facility] Diastolic blood 2018-09-23 13:39:00 78 mm[Hg] [facility] Heart rate 2018-09-23 13:39:00 70 /min [facility] Body temperature 2018-09-23 13:39:00 37 [facility] Body height 2018-09-23 13:39:00 170.2 cm [facility] Body weight 2018-09-23 13:39:00 168.829 kg [facility] BMI 2018-09-23 13:39:00 58.29 kg/m2 [facility] Procedures This patient has no known procedures. Plan of Care Planned Activity Planned Date Details Comments Source Future Scheduled Test TETANUS SHOT (ADULT) [employer] [code = TETANUS SHOT Medicin e (ADULT)] Future Scheduled Test BMI FOLLOW UP PLAN [facility] [code = BMI FOLLOW UP Medici ne PLAN] Future Scheduled Test HIV SCREENING [code = [facility] HIV SCREENING] Medicine Future Scheduled Test CERVICAL CANCER [facility] 3 YEAR Medicine FOLLOW UP [code = CERVICAL CANCER SCREENING 3 YEAR FOLLOW UP] Future Scheduled Test FLU VACCINE > 6 [facility] [code = FLU Medicine VACCINE > 6 MONTHS] Encounters Start End Encounter Admission Attending Care Care Encounter Source Date/Time Date/Time Type Type Clinicians Facility Department ID 2019-05-13 Inpatient [facility], [facility] DAYS [id number] [facility] 10:00:00 [facility] 2019-05-10 Inpatient Millet, [facility] DAYS [id number] [facility] 15[facility]00:00 Sara [id number] [facility] 2020-10-31 2020-10-31 [id number] 2020-08-09 2020-08-09 [facility] [id number] [facility] 2020-08-09 2020-08-09 [facility] [id number] [facility] 2020-07-30 2020-07-30 [facility] [id number] [facility] 2020-07-27 2020-07-27 [facility] [id number] [facility] 2020-06-12 2020-06-12 [facility] [id number] [facility] 2020-05-23 2020-05-23 [facility] [id number] [facility] 2020-03-08 2020-03-08 [facility] [id number] [facility] 2020-02-21 2020-02-21 [facility] [id number] [facility] 2020-02-21 2020-02-21 [facility] [id number] [facility] 2019-12-23 2019-12-23 [facility] [id number] [facility] 2019-12-21 2019-12-21 [facility] [id number] [facility] 2019-12-21 2019-12-21 [facility] [id number] [facility] 2019-12-20 2019-12-20 Out[facility] [id number] [facility] 2019-12-20 2019-12-20 [facility] [id number] [facility] 2019-12-19 2019-12-19 Out[facility] [id number] [facility] 2019-12-14 2019-12-14 [facility] [id number] [facility] 2019-12-14 2019-12-14 [facility] [id number] [facility] 2019-12-13 2019-12-13 Out[facility] [id number] [facility] 2019-12-07 2019-12-07 [facility] [id number] [facility] 2019-11-30 2019-11-30 [facility] [id number] [facility] 2019-11-23 2019-11-23 [facility] [id number] [facility] 2019-11-22 2019-11-22 [facility] [id number] [facility] 2019-11-02 2019-11-02 [facility] [id number] [facility] 2019-10-24 2019-10-24 [facility] [id number] [facility] 09:53:00 09:53:00 t [employer] s - [employer] [facility] Medicine l Medicine Outpati ent Clinics 2019-10-11 2019-10-11 [facility] [id number] 09:31:00 09:31:00 t [employer] s - Drive [facility] Medicine l Medicine Outpati ent Clinics 2019-10-04 2019-10-04 [facility] [id number] [facility] 16:35:00 16:35:00 t [employer] s - Drive [facility] Medicine l Medicine Outpati ent Clinics 2019-09-29 2019-09-29 [facility] [id number] 10:30:00 10:30:00 t [employer] s - Drive [facility] Medicine l Medicine Outpati ent Clinics 2019-09-28 2019-09-28 [facility] [id number] [facility] 14:18:00 14:18:00 t Web[employer] s - Drive [facility] l Medicine Outpati ent Clinics 2019-09-16 2019-09-16 [facility] [id number] 08:30:00 08:30:00 t [place]PACE [place] s - Drive [facility] Medicine l Medicine Outpati ent Clinics 2019-08-30 2019-08-30 [facility] [id number] 14:31:00 14:31:00 t [facility] Luke s - Road [facility] l Medicine Outpati ent Clinics 2019-08-04 2019-08-04 [facility] [id number] 08:40:00 08:40:00 [place] [employer] [place] s - Drive [facility] Medicine l Medicine Outpati ent Clinics 2019-07-26 2019-07-26 [facility] [id number] 09:30:00 09:30:00 [place] [employer] s - Drive [facility] l Medicine Outpati ent Clinics 2019-06-01 2019-06-01 [facility] [id number] [facility] 13:45:00 13:45:00 [place] [employer] s - Drive [facility] Medicine Medicine Outpati ent Clinics 2019-02-11 2019-02-11 [facility] [id number] 08:00:00 08:00:00 [place] [employer] Lu[employer] s - Drive [facility] Medicine l Medicine Outpati ent Clinics 2019-01-20 2019-01-20 [facility] [id number] [facility] 14:30:00 14:30:00 [place] PHYSICIANS IMMEDIATE CARE LuWhiteyboard s - Drive [facility] Medicine l Medicine Outpati ent Clinics 2019-01-13 2019-01-13 [facility] [id number] 10:07:00 10:07:00 [place] PHYSICIANS IMMEDIATE CARE LuWhiteyboard s - Drive [facility] Medicine l Medicine Outpati ent Clinics 2019-01-12 2019-01-12 [facility] [id number] 11:15:00 11:15:00 [place] [employer] Lu[place]y[employer] s - Drive [facility] l Medicine Outpati ent Clinics 2018-12-21 2018-12-21 [facility] [id number] [facility] 14:15:00 14:15:00 [place] [employer] s - Drive [facility] Medicine l Medicine Outpati ent Clinics 2018-12-15 2018-12-15 [facility] [id number] [facility] 16:59:00 16:59:00 [place] [address] [place] s - Drive [facility] Medicine Outpati ent Clinics 2018-09-29 2018-09-29 [facility] [id number] 15:00:00 15:00:00 [place] [address] Luke s - Drive [facility] Medicine Outpati ent Clinics 2018-09-24 2018-09-24 [facility] [id number] [facility] 15:24:00 15:24:00 [place] [address] Luke s - Drive [facility] Medicine Outpati ent Clinics 2018-09-23 2018-09-23 [facility] [id number] 15:16:00 15:16:00 [place] [address] [place] - Drive [facility] Medicine Outpati ent Clinics 2018-09-23 2018-09-23 Office Felisa, BCM [id number] [place] [address] 08:30:24 09:27:13 Visit Dennis M. AMBULATOR [id number] [place] Y [id number] of [id number] [facility] 325 e 2018-09-23 2018-09-23 Office Felisa, BC [id number] 08:30:24 09:27:13 Visit Dennis M. AMBULATOR [id number] Y [id number] 2018-08-05 2018-08-05 [facility] [id number] 10:15:00 10:15:00 [place] [address] [place] s - Drive [facility] Medicine Outpati ent Clinics 2018-06-09 2018-06-09 [facility] [id number] [facility] 14:30:00 14:30:00 [place] [address] Luke s - Drive [facility] Medicine Outpati ent Clinics 2018-05-04 2018-05-04 [facility] [id number] 16:30:00 16:30:00 [place] [address] Luke s - Drive [facility] Medicine Outpati ent Clinics 2018-02-15 2018-02-15 [facility] [id number] [facility] 15:00:00 15:00:00 [place] [address] Luke s - Drive [facility] Medicine l Medicine Outpati ent Clinics 2017-09-22 2017-09-22 [facility] [id number] 14:45:00 14:45:00 [place] [address] Luke s - Drive [facility] Medicine l Medicine Outpati ent Clinics 2017-09-10 2017-09-10 [facility] [id number] 09:21:00 09:21:00 [place] [address] Luke s - Drive [facility] Medicine l Medicine Outpati ent Clinics 2017-08-27 2017-08-27 [facility] [id number] 11:52:00 11:52:00 [place] [employer] Luke s - Drive [facility] Medicine l Medicine Outpati ent Clinics 2017-08-05 2017-08-05 [facility] [id number] 14:45:00 14:45:00 [place] [address] Luke s - Drive [facility] Medicine l Medicine Outpati ent Clinics 2017-06-17 2017-06-17 [facility] [id number] 14:45:00 14:45:00 [facility] l Outpati ent Clinics 2017-05-26 2017-05-26 [facility] [id number] 08:15:00 08:15:00 [place] [employer] Luke s - Drive [facility] Medicine l Medicine Outpati ent Clinics 2017-05-22 2017-05-22 [facility] [id number] 14:04:00 14:04:00 [place] [address] Luke s - Drive [facility] Medicine l Medicine Outpati ent Clinics 2017-05-14 2017-05-14 [facility] [id number] 10:17:00 10:17:00 [place] [address] Luke s - Drive [facility] Medicine l Medicine Outpati ent Clinics 2017-05-13 2017-05-13 [facility] [id number] 10:45:00 10:45:00 [place] [address] Luke s - Drive [facility] Medicine l Medicine Outpati ent Clinics 2017-04-30 2017-04-30 Outpatient Bj Whalen [id number] [facility] 10:30:[facility] 10:30:00 [place] [employer] [facility] ent [facility] Results Test Description Test Time Test Comments Results Result Comments Source SURGICAL SPECIMENS 2017-10-24 10:53:00 RUN DATE: 10/24/17 [facility] *LIVE* PAGE 1 RUN TIME: 1053 Specimen Inquiry RUN USER: INTERFACE PATIENT: YARITZA BAILEY LOC: NaheedMehranDESTINY #: [id number] AGE/SX: 37/F ROOM: RE10/22/17ALISHA DR: Tracey Shetty : 84 BED: DIS: STATUS: ESA CATALAN TLOC: SPEC #: [id number] RECD: 10/22/17 STATUS: CARLEE VAZQUEZ #: [id number] DOMINGO: 10/22/[address]: Tracey Shetty MD ENTERED: 10/24/17 SP TYPE: SURG SPEC OTHR DR: Undefined Provider ORDERED: GM LEVEL 4 CODES: [id number] - STOMACH, NOS [id number] - SMALL INTESTINE [id number] - COLON, NOS COPIES TO: Tracey Shetty MD [address] [place] [address] [id number] [place], [place] [id number] Undefined Provider PROCEDURES: GM LEVEL 4 (Incomplete) [...] CONTINUED ON NEXT PAGE RUN DATE: 10/24/17 [facility] *LIVE* PAGE 2 RUN TIME: 1053 Specimen Inquiry RUN USER: INTERFACE SPEC #: [id number] PATIENT: YARITZA BAILEY #[id number] (Continued)--------- --- GROSS AND MICROSCOPIC (Continued) MICROSCOPIC [...] Value Reference Range Interpretation Comme nts CULTURE (DeviceFidelityAKER) (test code = 1095) >100,000 col/mL skin tona MR, MRA, BRAIN, WITHOUT [id number] 15:22:00Reason for exam:->Ischemic Stroke EvaluationFINAL REPORT MRI brain with and without contrast Comparison: No priors Reason for exam: StrokeIschemic Stroke Evaluation Discussion: Multiplanar MR imaging of the brain was provided ebz-gen-sosc IV gadolinium administration using T1, T2, FLAIR, [...] None available. TECHNIQUE: 2 D and 3-D srxr-uv-wkhjus MRA images of the intra- and extracranial carotid and vertebralarterial circulations were obtained, from which maximal intensity projection 3-D reconstructions were created. FINDINGS: MRA neck: There is no MR angiographic evidence for vessel occlusion or NASCET quantifiable stenosis in the extracranial carotid arteries. No hemodynamically significant stenosis identified in the vertebral artery, flow is antegrade in both vertebral arteries. MRA [place]: There is no MR angiographic evidence for vessel occlusion, flow-limiting stenosis, or aneurysm inthe intracranial carotid or vertebrobasilar arterial circulations. IMPRESSION: 1. No MR angiographic evidence for vascular compromise. Signed: Adele Holden Verified Date/Time: 05/10/2017 15:22:22 Reading Location: [address] Neuro Reading Room MR, MRA, NECK, WITHOUT IV [id number] 15:22:00Reason for exam:->Ischemic Stroke EvaluationFINAL REPORT MRI brain with and without contrast Comparison: No priors Reason for exam: StrokeIschemic Stroke Evaluation Discussion: Multiplanar MR imaging of the brain was provided axt-hby-tmpa IV gadolinium administration using T1, T2, FLAIR, [...] None available. TECHNIQUE: 2 D and 3-D ymgr-mp-supiqc MRA images of the intra- and extracranial carotid and vertebral arterial circulations were obtained, from which maximal intensity projection 3-D reconstructions were created. FINDINGS: MRA neck: There is no MR angiographic evidence for vessel occlusion or NASCET quantifiable stenosis in the extracranial carotid arteries. No hemodynamically significant stenosis iden tified in the vertebral artery, flow is antegrade in both vertebral arteries. MRA [place]: There is no MR angiographic evidence for vessel occlusion, flow-limiting stenosis, or aneurysm inthe intracranial carotid or vertebrobasilar arterial circulations. IMPRESSION: 1. No MR angiographic evidence for vascular compromise. Signed: Adele Holden Verified Date/Time: 05/10/2017 15:22:22 Reading Location: [address] Neuro Reading Room MR, BRAIN, [id number] 15:22:00FINAL REPORT MRI brain with and without contrast Comparison: No priors Reason for exam: StrokeIschemic Stroke Evaluation Discussion: Multiplanar MR imaging of the brain was provided rte-lhf-epmp IV gadolinium administration using T1, T2, FLAIR, [...] None available. TECHNIQUE: 2 D and 3-D ionc-nj-gvyeuv MRA images of the intra- and extracranial carotid and vertebralarterial circulations were obtained, from which maximal intensity projection 3-D reconstructions were created. FINDINGS: MRA neck: There is no MR angiographic evidence for vessel occlusion or NASCET quantifiable stenosis in the extracranial carotid arteries. No hemodynamically significant stenosis identified in the vertebral artery, flow is antegrade in both vertebral arteries. MRA [place]: There is no MR angiographic evidence for vessel occlusion, flow-limiting stenosis, or aneurysm inthe intracranial carotid or vertebrobasilar arterial circulations. IMPRESSION: 1. No MR angiographic evidence for vascular compromise. Signed: Adele Holden Verified Date/Time: 05/10/2017 15:22:22 Reading Location: [facility] C013V Neuro Reading Room HEMOGLOBIN [id number] 11:17:00 Test Item Value Reference Range Interpretation Comments HEMOGLOBIN A1C (BEAKER) (test code = 5.9 % 4.3-6.1 368) [id number] 07:58:00 Test Item Value Reference Range Interpretation Comments MAGNESIUM (BEAKER) (test code = 2.2 mg/dL 1.6-2.6 627) BASIC METABOLIC [id number] 07:58:00 Test Item Value Reference Range Interpretation [...] NOT APPLICABLE FOR DIALYSIS PATIEN TS. LIPID [id number] 07:58:00 Test Item Value Reference Range Interpretation [...] Borderline 130-159 High 160-189 Very High >=190TROPONIN [id number] 07:56:00 Test Item Value Reference Range Interpretation [...]
== END 2020-12-16 16:49 | disposition home or self-care (01) ==
LOC: ER 13:55
DX: H81.399 Other peripheral vertigo, unspecified ear (principal); I10 Essential (primary) hypertension; E28.2 Polycystic ovarian syndrome
CPT/HCPCS: 36415; 80048; 80076; 83690; 85025; 96374; 96375; 99284; J2405

== ENCOUNTER 2020-12-25 16:40 | Emergency (ER) | payer SELFPAY ==
--- OUTSIDE RECORDS SUMMARY | 2020-12-25 16:43 | XMS REPORT | Continuity of Care Document ---
:1980 Author Organization [facility] t Address [address] [place] [place] [address] Care Team Providers Name Role Phone Maria Luisa Odell Attending Clinician Unavailable Felisa MCCABE MMehran Attending Clinician EDMOND Attending Clinician Unavailable EDMOND Admitting Clinician Unavailable Payers Payer Name Policy Type Policy Number Effective Date Expiration Date S ource Problems Condition Condition Condition Status Onset Resolution Last Treating Co mments Source Name Details Category Date Date Treatment Clinician Date No known No known Disease [facility] problems problems of Medicin e Allergies, Adverse Reactions, Alerts Allergy Allergy Status Severity Reaction(s) Onset Inactive Treating Comm ents Source Name Type Date Date Clinician No Known DA Active U [facility] Allergie 10-21 Clear s 00:00: Khan [facility] No Known DA Active U [facility] Allergie 10-21 Clear s 00:00: Khan [facility] No Known DA Active U [facility] Contrast -20 Clear Allergie 00:00: Khan s [facility] No Known DA Active U 2007- [facility] Drug -20 Clear Allergie 00:00: Khan s [facility] No Known DA Active U 2007- [facility] Food 4-20 Clear Allergie 00:00: [facility] No Known DA Active U 2007- [facility] Other 4-20 Clear Allergie 00:00: [facility] NO KNOWN Allergy Active [facility] Social History Social Habit Start Date Stop Date Quantity Comments Source Alcohol intake [facility] Sex Assigned At [facility] Co courtneye of Medicine Cigarettes smoked 2018-10-09 2018-10-09 [facility] current (pack per 00:00:00 00:00:00 of Medi ) - Reported Cigarette 2018-10-09 2018-10-09 [facility] pack-years 00:00:00 00:00:00 of Medicine History of tobacco 2011-09-24 Current smoker [facility] use 00:00:00 of Medicine Smoking Status Start Date Stop Date Source Former smoker 2018-10-09 00:00:00 2018-10-09 00:00:00 [facility] Medications Ordered Filled Start Stop Current Ordering Indication Dosage Frequency Signature Comments Components Source Medication Medication Date Date Medication? Clinician (SIG) Name Name propranolol Yes Take by ylor 160 MG CP24 8-15 mouth. Colleg e 13:44: of 55 Medicin e busPIRone Yes 15mg Take 15 mg [facility] (BUSPAR) 15 8-15 by mouth 3 Co llege MG tablet 13:44: times of 55 daily. Medicin e escitalopra Yes 20mg Take [address] [facility] m (LEXAPRO) 8-15 by mouth Domingo ege 20 MG 13:44: daily. of tablet 55 Medicin e spironolact Yes 100mg Take 100 B aylor one 8-15 mg by Mikes (ALDACTONE) 13:44: mouth of 100 MG 54 daily. Medicin tablet e metformin Yes TAKE [address] [facility] (GLUCOPHAGE 6-27 TABLET BY [facility] leg -XR) 500 MG 00:00: MOUTH ONCE of XR tablet 00 DAILY WITH Medi negrita EVENING e MEAL Escitalopra Escitalopra Yes [place] [address] [facility] [facility] Oxalate m Oxalate [facility] BusPIRone [...] 2019-01-[address] [facility] 00:[facility]00 [facility] Vital Signs Vital Name Observation Time Observation Value Comments Source Systolic blood 2018-09-23 13:39:00 142 mm[Hg] [facility] Medicine Diastolic blood 2018-09-23 13:39:00 78 mm[Hg] [facility] Heart rate 2018-09-23 13:39:00 70 /min [facility] Body temperature 2018-09-23 13:39:00 37 M[facility]enna [facility] Body height 2018-09-23 13:39:00 170.2 cm [facility] Body weight 2018-09-23 13:39:00 168.829 kg [facility] BMI 2018-09-23 13:39:00 58.29 kg/m2 [facility] Systolic blood 2018-09-23 13:39:00 142 mm[Hg] [facility] Diastolic blood 2018-09-23 13:39:00 78 mm[Hg] [facility] Heart rate 2018-09-23 13:39:00 70 /min [facility] Body temperature 2018-09-23 13:39:00 37 Mckenna [facility] Body height 2018-09-23 13:39:00 170.2 cm [facility] Body weight 2018-09-23 13:39:00 168.829 kg [facility] BMI 2018-09-23 13:39:00 58.29 kg/m2 [facility] Procedures This patient has no known procedures. Plan of Care Planned Activity Planned Date Details Comments Source Future Scheduled Test TETANUS SHOT (ADULT) [employer] [code = TETANUS SHOT Medicin e (ADULT)] Future Scheduled Test BMI FOLLOW UP PLAN [facility] [code = BMI FOLLOW UP Medici ne PLAN] Future Scheduled Test HIV SCREENING [code = [facility] HIV SCREENING] Medicine Future Scheduled Test CERVICAL CANCER [facility] 3 YEAR Medicine FOLLOW UP [code = CERVICAL CANCER SCREENING 3 YEAR FOLLOW UP] Future Scheduled Test FLU VACCINE > 6 [facility] [code = FLU Medicine VACCINE > 6 MONTHS] Encounters Start End Encounter Admission Attending Care Care Encounter Source Date/Time Date/Time Type Type Clinicians Facility Department ID 2019-05-13 Inpatient Millet, [facility]ACL DAYS [id number] [facility] 10:00:00 [facility] 2019-05-10 Inpatient Millet, [facility]ACL DAYS [id number] [facility] 15:00:00 Sara [id number] [facility] 2020-10-31 2020-10-31 [id number] 2020-08-09 2020[facility]08-09 [facility] [id number] [facility] 2020-08-09 2020[facility]08-09 [facility] [id number] [facility] 2020-07-30 2020-07-30 [facility] [id number] [facility] 2020-07-27 2020-07-27 [facility] [id number] [facility] 2020-06-12 2020-06-12 [facility] [id number] [facility] 2020-05-23 2020-05-23 [facility] [id number] [facility] 2020-03-08 2020-03-08 [facility] [id number] [facility] 2020-02-21 2020-02-21 [facility] [id number] [facility] 2020-02-21 2020-02-21 Out[facility] [id number] [facility] 2019-12-23 2019-12-23 [facility] [id number] [facility] 2019-12-21 2019-12-21 Out[facility] [id number] [facility] 2019-12-21 2019-12-21 Out[facility] [id number] [facility] 2019-12-20 2019-12-20 Out[facility] [id number] [facility] 2019-12-20 2019-12-20 Out[facility] [id number] [facility] 2019-12-19 2019-12-19 Out[facility] [id number] [facility] 2019-12-14 2019-12-14 Out[facility] [id number] [facility] 2019-12-14 2019-12-14 Out[facility] [id number] [facility] 2019-12-13 2019-12-13 Out[facility] [id number] [facility] 2019-12-07 2019-12-07 [facility] [id number] [facility] 2019-11-30 2019-11-30 [facility] [id number] [facility] 2019-11-23 2019-11-23 [facility] [id number] [facility] 2019-11-22 2019-11-22 [facility] [id number] [facility] 2019-11-02 2019-11-02 [facility] [id number] [facility] 2019-10-24 2019-10-24 [facility] [id number] [facility] 09:53:00 09:53:00 t [employer]ks[employer] s - [employer] [facility] Medicine l Medicine Outpati ent Clinics 2019-10-11 2019-10-11 [facility] [id number] 09:31:00 09:31:00 t In[place]res s - Drive [facility] Medicine l Medicine Outpati ent Clinics 2019-10-04 2019-10-04 [facility] [id number] 16[facility]35:00 16:35:00 t [employer] s - Drive [facility] Medicine l Medicine Outpati ent Clinics 2019-09-29 2019-09-29 [facility] [id number] 10:30:00 10:30:00 t [employer] s - Drive [facility] Medicine l Medicine Outpati ent Clinics 2019-09-28 2019-09-28 [facility] [id number] 14:18:00 14:18:00 t Inkshares s - Drive [facility] l Medicine Outpati ent Clinics 2019-09-16 2019-09-16 [facility] [id number] 08:30:00 08:30:00 t [employer] Luke s - Drive [facility] Medicine l Medicine Outpati ent Clinics 2019-08-30 2019-08-30 [facility] [id number] 14:31:00 14:31:00 t [facility] Luke s - Road [facility] l Medicine Outpati ent Clinics 2019-08-04 2019-08-04 [facility] [id number] 08:40:00 08:40:00 t Ramona Ramona [employer] Luke s - Drive [facility] Medicine l Medicine Outpati ent Clinics 2019-07-26 2019-07-26 [facility] [id number] 09:30:00 09:30:00 t Ramona Ramona [employer] [employer] - Drive [facility] l Medicine Outpati ent Clinics 2019-06-01 2019-06-01 [facility] [id number] 13:45:00 13:45:00 t Ramona [employer] s - Drive [facility] Medicine Medicine Outpati ent Clinics 2019-02-11 2019-02-11 [facility] [id number] 08:00:00 08:00:00 t Ramona Ramona [employer] - Drive [facility] Medicine l Medicine Outpati ent Clinics 2019-01-20 2019-01-20 [facility] [id number] [facility] 14:30:00 14:30:00 t Ramona Mago[employer] - Drive [facility] Medicine l Medicine Outpati ent Clinics 2019-01-13 2019-01-13 [facility] [id number] 10:07:00 10:07:00 t Ramona Magoosh [employer] - Drive [facility] Medicine l Medicine Outpati ent Clinics 2019-01-12 2019-01-12 [facility] [id number] 11:15:00 11:15:00 t Ramona Ramona [employer] [place] - Drive [facility] l Medicine Outpati ent Clinics 2018-12-21 2018-12-21 [facility] [id number] [facility] 14:15:00 14:15:00 t Ramona Ramona [employer] s - Drive [facility] Medicine l Medicine Outpati ent Clinics 2018-12-15 2018-12-15 [facility] [id number] 16:59:00 16:59:[address] Luke s - Drive [facility] Medicine Outpati ent Clinics 2018-09-29 2018-09-29 [facility] [id number] [facility] 15:00:00 15:00:[address] Luke s - Drive [facility] Medicine Outpati ent Clinics 2018-09-24 2018-09-24 [facility] [id number] 15:24:00 15:24:[address] Luke s - Drive [facility] Medicine Outpati ent Clinics 2018-09-23 2018-09-23 [facility] [id number] 15:16:00 15:16:[address] Luke s - Drive [facility] Medicine Outpati ent Clinics 2018-09-23 2018-09-23 Office Felisa, BCM [id number] [place] [address] 08:30:24 09:27:13 Visit Dennis M. AMBULATOR [id number] Mikes Y [id number] of [id number] [facility] 325 e 2018-09-23 2018-09-23 Office Felisa, BC [id number] 08:30:24 09:27:13 Visit Dennis M. AMBULATOR [id number] Y [id number] 2018-08-05 2018-08-05 [facility] [id number] 10:15:00 10:15:[address] Luke s - Drive [facility] Medicine Outpati ent Clinics 2018-06-09 2018-06-09 [facility] [id number] [facility] 14:30:00 14:30:[address] Luke s - Drive [facility] Medicine Outpati ent Clinics 2018-05-04 2018-05-04 [facility] [id number] [facility] 16:30:00 16:30:[address] Luke s - Drive [facility] Medicine Outpati ent Clinics 2018-02-15 2018-02-15 [facility] [id number] [facility] 15:00:00 15:00:[address] Luke s - Drive [facility] Medicine l Medicine Outpati ent Clinics 2017-09-22 2017-09-22 [facility] [id number] 14:45:00 14:45:[address] Luke s - Drive [facility] Medicine l Medicine Outpati ent Clinics 2017-09-10 2017-09-10 [facility] [id number] 09:21:00 09:21:[address] Luke s - Drive [facility] Medicine l Medicine Outpati ent Clinics 2017-08-27 2017-08-27 [facility] [id number] [facility] 11:52:00 11:52:00 t Ramona Ramona [employer] Luke s - Drive [facility] Medicine l Medicine Outpati ent Clinics 2017-08-05 2017-08-05 [facility] [id number] 14:45:00 14:45:[address] Luke s - Drive [facility] Medicine l Medicine Outpati ent Clinics 2017-06-17 2017-06-17 [facility] [id number] 14:45:00 14:45:00 [facility] l Outpati ent Clinics 2017-05-26 2017-05-26 [facility] [id number] 08:15:00 08:15:00 t Ramona Ramona [employer] Luke s - Drive [facility] Medicine l Medicine Outpati ent Clinics 2017-05-22 2017-05-22 [facility] [id number] 14:04:00 14:04:[address] Luke s - Drive [facility] Medicine l Medicine Outpati ent Clinics 2017-05-14 2017-05-14 [facility] [id number] 10:17:00 10:17:[address] Luke s - Drive [facility] Medicine l Medicine Outpati ent Clinics 2017-05-13 2017-05-13 [facility] [id number] 10:45:00 10:45:[address] Luke s - Drive [facility] Medicine l Medicine Outpati ent Clinics 2017-04-30 2017-04-30 Outpatient Bj Whalen [id number] [facility] 10:30:00 10:30:00 [employer] [place] [employer] [facility] ent [facility] Results Test Description Test Time Test Comments Results Result Comments Source SURGICAL SPECIMENS 2017-10-24 10:53:00 RUN DATE: 10/24/17 [facility] *LIVE* PAGE 1 RUN TIME: 1053 Specimen Inquiry RUN USER: INTERFACE PATIENT: YARITZA BAILEY LOC: NaheedMehranDESTINY #: [id number] AGE/SX: 37/F ROOM: RE10/22/17ALISHA DR: Tracey Shetty : 84 BED: DIS: STATUS: ESA CATALAN TLOC: SPEC #: [id number] RECD: 10/22/17 STATUS: CARLEE VAZQUEZ #: [id number] DOMINGO: 10/22/[address]: Tracey Shetty MD ENTERED: 10/24/17 SP TYPE: SURG SPEC OTHR DR: Undefined Provider ORDERED: GM LEVEL 4 CODES: [id number] - STOMACH, NOS [id number] - SMALL INTESTINE [id number] - COLON, NOS COPIES TO: Tracey Shetty MD [address] [place] [address] [id number] [place], [place] [id number] Undefined Provider PROCEDURES: GM LEVEL 4 (Incomplete) [...] ON NEXT PAGE RUN DATE: 10/24/17 [facility] *LIVE* PAGE 2 RUN TIME: 1053 Specimen Inquiry RUN USER: INTERFACE SPEC #: [id number] PATIENT: YARITZA BAILEY #[id number] (Continued)--------- --- GROSS AND MICROSCOPIC (Continued) MICROSCOPIC [...] Value Reference Range Interpretation Comme nts CULTURE ([place] Legend SiliconAKER) (test code = 1095) >100,000 col/mL skin tona MR, MRA, BRAIN, WITHOUT [id number] 15:22:00Reason for exam:->Ischemic Stroke EvaluationFINAL REPORT MRI brain with and without contrast Comparison: No priors Reason for exam: StrokeIschemic Stroke Evaluation Discussion: Multiplanar MR imaging of the brain was provided [id number] IV gadolinium administration using T1, T2, FLAIR, [...] None available. TECHNIQUE: 2 D and 3-D [id number]-wr-fjmnqy MRA images of the intra- and extracranial carotid and vertebralarterial circulations were obtained, from which maximal intensity projection 3-D reconstructions were created. FINDINGS: MRA neck: There is no MR angiographic evidence for vessel occlusion or NASCET quantifiable stenosis in the extracranial carotid arteries. No hemodynamically significant stenosis identified in the vertebral artery, flow is antegrade in both vertebral arteries. MRA sleetmute of Sanchez: There is no MR angiographic evidence for vessel occlusion, flow-limiting stenosis, or aneurysm inthe intracranial carotid or vertebrobasilar arterial circulations. IMPRESSION: 1. No MR angiographic evidence for vascular compromise. Signed: Adele Holden Verified Date/Time: 05/10/2017 15:22:22 Reading Location: [address] Neuro Reading Room MR, MRA, NECK, WITHOUT IV [id number] 15:22:00Reason for exam:->Ischemic Stroke EvaluationFINAL REPORT MRI brain with and without contrast Comparison: No priors Reason for exam: StrokeIschemic Stroke Evaluation Discussion: Multiplanar MR imaging of the brain was provided [id number] IV gadolinium administration using T1, T2, FLAIR, [...] None available. TECHNIQUE: 2 D and 3-D hvei-of-hyxnti MRA images of the intra- and extracranial carotid and vertebral arterial circulations were obtained, from which maximal intensity projection 3-D reconstructions were created. FINDINGS: MRA neck: There is no MR angiographic evidence for vessel occlusion or NASCET quantifiable stenosis in the extracranial carotid arteries. No hemodynamically significant stenosis iden tified in the vertebral artery, flow is antegrade in both vertebral arteries. MRA sleetmute of Sanchez: There is no MR angiographic evidence for vessel occlusion, flow-limiting stenosis, or aneurysm inthe intracranial carotid or vertebrobasilar arterial circulations. IMPRESSION: 1. No MR angiographic evidence for vascular compromise. Signed: Adele Holden Verified Date/Time: 05/10/2017 15:22:22 Reading Location: [address] Neuro Reading Room MR, BRAIN, [id number] 15:22:00FINAL REPORT MRI brain with and without contrast Comparison: No priors Reason for exam: StrokeIschemic Stroke Evaluation Discussion: Multiplanar MR imaging of the brain was provided iqp-[id number]-igvj IV gadolinium administration using T1, T2, FLAIR, [...] None available. TECHNIQUE: 2 D and 3-D [id number]-xi-mvrgzy MRA images of the intra- and extracranial carotid and vertebralarterial circulations were obtained, from which maximal intensity projection 3-D reconstructions were created. FINDINGS: MRA neck: There is no MR angiographic evidence for vessel occlusion or NASCET quantifiable stenosis in the extracranial carotid arteries. No hemodynamically significant stenosis identified in the vertebral artery, flow is antegrade in both vertebral arteries. MRA sleetmute of [place]: There is no MR angiographic evidence for vessel occlusion, flow-limiting stenosis, or aneurysm inthe intracranial carotid or vertebrobasilar arterial circulations. IMPRESSION: 1. No MR angiographic evidence for vascular compromise. Signed: Adele Holden Verified Date/Time: 05/10/2017 15:22:22 Reading Location: [facility] C013V Neuro Reading Room HEMOGLOBIN [id number] 11:17:00 Test Item Value Reference Range Interpretation Comments HEMOGLOBIN A1C (BEAKER) (test code = 5.9 % 4.3-6.1 368) [id number] 07:58:00 Test Item Value Reference Range Interpretation Comments MAGNESIUM (BEAKER) (test code = 2.2 mg/dL 1.6-2.6 627) BASIC METABOLIC [id number] 07:58:00 Test Item Value Reference Range Interpretation [...] NOT APPLICABLE FOR DIALYSIS PATIEN TS. LIPID [id number] 07:58:00 Test Item Value Reference Range Interpretation [...] Borderline 130-159 High 160-189 Very High >=190TROPONIN [id number] 07:56:00 Test Item Value Reference Range Interpretation [...]
[2020-12-25 18:40] LABS: Absolute Lymphocytes (CBC) 2.8 K/uL (0.7-4.9); Basophils % 1.1 % (0-1.3); Hematocrit 38.6 % (36.0-45.0); Lymphocytes % 24.7 % (15.3-44.8); MPV 8.2 fL (7.6-11.3); RBC Red Blood Cell Count 4.85 M/uL (3.86-4.86)
[2020-12-25] MEDS ORDERED: NA CHLORIDE 0.9% 1,000 ML ONE (19:11)
[2020-12-25 19:14] LABS: ALT/SGPT 27 U/L (12-78); AST/SGOT 14 U/L (15-37); Albumin 3.6 g/dL (3.4-5.0); Alkaline Phosphatase 80 U/L (45-117); BUN Blood Urea Nitrogen 14 mg/dL (7-18); Bicarbonate 26 mmol/L (21-32); Bilirubin Direct < 0.1 mg/dL (0-0.2); Bilirubin Total 0.2 mg/dL (0.2-1.0); Glucose Level 83 mg/dL (74-106); Lipase 94 U/L (73-393); Potassium 4.2 mmol/L (3.5-5.1); Protein, Total 7.6 g/dL (6.4-8.2); Sodium Level 140 mmol/L (136-145)
[2020-12-25 19:16] LABS: Urine Appearance TURBID (Clear); Urine Bilirubin NEGATIVE (Negative); Urine Blood 3+ (Negative); Urine Color RED (Yellow); Urine Glucose NEGATIVE (Negative); Urine Specific Gravity 1.025 (1.005-1.030)
[2020-12-25 19:17] LABS: Urine Bacteria <20 /HPF (<20); Urine Microscopic Reflex ORDER UMIC; Urine Protein 1+ (Negative); Urine RBC TNTC /HPF (NONE SEEN); Urine Urobilinogen 0.2 mg/dL (0.2-1.0)
[2020-12-25] MEDS ORDERED: MORPHINE 4 MG/ML SYR ONE (20:08)
[2020-12-25] MEDS ORDERED: ONDANSETRON 4 MG/2 ML VIAL ONE (20:08)
--- NOTE | 2020-12-25 21:53 | ER ---
Nurse's Notes [facility] Name: Shahnaz Nicole Age: 40 yrs Sex: Female : 1980 Arrival Date: 12/25/2020 Time: 16:45 Bed 13 Private MD: Diagnosis: dysfunctional uterine bleeding Presentation: 12/25 16:50 Chief complaint: Patient states: Vaginal bleeding for 38 days. Large clots the entire ll1 time, but flow is not super heavy. L sided pelvic pain and fatigue. Has PCOS. Coronavirus screen: Vaccine status: Patient reports being unvaccinated. Client denies travel out of the [place] in the last 14 days. At this time, the client does not indicate any symptoms associated with coronavirus-19. Ebola Screen: Patient denies travel to an Ebola-affected area in the 21 days before illness onset. Initial Sepsis Screen: Does the patient meet any 2 criteria? No. Patient's initial sepsis screen is negative. Does the patient have a suspected source of infection? No. Patient's initial sepsis screen is negative. Risk Assessment: Do you want to hurt yourself or someone else? Patient reports no desire to harm self or others. Onset of symptoms was November 16, 2020. 16:50 Method Of Arrival: Ambulatory ll1 16:50 Acuity: TARIQ 3 ll1 Historical: - Allergies: 16:45 almond; ll1 16:45 lettuce; ll1 - Home Meds: 19:16 Buspirone Oral [Active]; escitalopram oxalate Oral [Active]; Lexapro Oral [Active]; kc4 Medroxyprogesterone Acetate Oral [Active]; Metformin Oral [Active]; Propranolol Oral [Active]; Spironolactone Oral [Active]; - PMHx: 16:45 angina pectoris; PCOS; Migraines; Hypertension; Depression; Anxiety; Kidney stones; ll1 Sleep Apnea; - PSHx: 16:45 Appendectomy; kidney stone removal; ll1 - Immunization history:: Adult Immunizations up to date, Client reports having NOT received the Covid vaccine. Flu vaccine is up to date. - Social history:: Smoking status: Patient denies any tobacco usage or history of. Screenin:53 Abuse screen: Denies threats or abuse. Denies injuries from another. Nutritional jt3 screening: No deficits noted. Tuberculosis screening: No symptoms or risk factors identified. Fall Risk None identified. Assessment: 17:52 General: Appears in no apparent distress. Behavior is calm, cooperative. Pain: jt3 Complains of pain in pelvis Pain does not radiate. Pain currently is 8 out of 10 on a pain scale. Quality of pain is described as throbbing. Neuro: No deficits noted. Cardiovascular: No deficits noted. Respiratory: No deficits noted. 17:53 Neuro: Reports dizziness, since For the last few days. GI: No deficits noted. : jt3 bloody, Reports vaginal bleeding that is bright red, with clots, heavy flow. Vital Signs: 16:50 BP 134 / 72; Pulse 53; Resp 18; Temp 97.7; Pulse Ox 98% ; Weight 156.94 kg; Height 5 ll1 ft. 7 in. (170.18 cm); Pain 7/10; 18:58 BP 124 / 63; Pulse 49; Resp 18; Pulse Ox 100% on R/A; mh5 19:15 BP 114 / 55; Pulse 50; Resp 18; Temp 98.0(O); Pulse Ox 100% on R/A; Pain 4/10; kc4 22:04 BP 112 / 60; Pulse 54; Resp 18; Temp 98.1(O); Pulse Ox 100% on R/A; Pain 2/10; kc4 16:50 Body Mass Index 54.19 (156.94 kg, 170.18 cm) ll1 ED Course: 16:45 Patient arrived in ED. as 16:46 Arm band placed on. ll1 16:52 Triage completed. 1 17:42 Daquan Pena PA is PHCP. [facility] 17:42 Jacek Herndon MD is Attending Physician. [facility] 17:43 Giovanni Larios, TIP is Primary Nurse. jt3 17:53 Patient has correct armband on for positive identification. Bed in low position. Call jt3 light in reach. Side rails up X2. 17:53 No provider procedures requiring assistance completed. jt3 18:35 Missed attempt(s): 20 gauge in right antecubital area. Inserted saline lock: 18 gauge dh4 in left antecubital area, using aseptic technique. Blood collected. 19:01 Urine Culture Sent. jt3 19:01 Urinalysis Sent. jt3 19:08 Urine Culture Sent. kc4 19:09 Urinalysis Sent. kc4 19:09 Type And Screen Sent. kc4 19:09 Basic Metabolic Panel Sent. kc4 19:09 Hepatic Function Sent. kc4 19:09 Lipase Sent. kc4 19:44 Urine Microscopic Only Sent. kc4 22:05 IV discontinued, intact, bleeding controlled, No redness/swelling at site. Pressure kc4 dressing applied. Administered Medications: 19:17 Drug: NS 0.9% 1000 ml Route: IV; Rate: 1 bolus; Site: left antecubital; kc4 22:04 Follow up: Response: No adverse reaction; IV Status: Completed infusion kc4 20:38 Drug: morphine 4 mg Route: IVP; Site: left antecubital; kc4 22:03 Follow up: Response: No adverse reaction; Pain is decreased kc4 20:38 Drug: Zofran (Ondansetron) 4 mg Route: IVP; Site: left antecubital; kc4 22:03 Follow up: Response: No adverse reaction kc4 Outcome: 21:52 Discharge ordered by . bryan 22:04 Discharged to home ambulatory, with significant other. kc4 22:04 Condition: stable 22:04 Discharge instructions given to patient, significant other, Instructed on discharge instructions, follow up and referral plans. Demonstrated understanding of instructions, follow-up care, medications, Prescriptions given X 2. 22:05 Patient left the ED. kc4 Signatures: Daquan Pena PA PA jmm Martinez, Amelia as Martinez, Maria 5 Santino Torre 4 Sarah Mckeon RN RN veto1 Joann Aldana kc4 Giovanni Larios RN RN jt3 Corrections: (The following items were deleted from the chart) 16:52 16:50 Chief complaint: Patient states: Vaginal bleeding for 38 days. L sided pelvic ll1 pain and fatigue. Has PCOS. ll1 19:17 19:16 PMHx: angina pectoris; kc4 kc4
--- NOTE | 2020-12-25 21:53 | EDPHYS ---
Physician Documentation [facility] Name: Shahnaz Nicole Age: 40 yrs Sex: Female : 1980 Arrival Date: 12/25/2020 Time: 16:45 Bed 13 Private MD: ED Physician Jacek Herndon HPI: 12/25 17:43 This 40 yrs old Female presents to ER via Ambulatory with complaints of jmm Vaginal Bleeding, Pelvic Pain, fatigue. 17:43 The patient presents with vaginal bleeding that is. Onset: The symptoms/episode jmm began/occurred gradually, 38 day(s) ago. Modifying factors: The symptoms are alleviated by nothing, the symptoms are aggravated by nothing. Associated signs and symptoms: Pertinent positives: weakness. This is a 40 year old female, pcos, migraines, htn, depression that presents to the ED with complaints of ongoing vaginal bleeding with clotting. Patient prescribed BC but has not begun taking it. Currently on metformin and spironlactone. . Historical: - Allergies: 16:45 almond; ll1 16:45 lettuce; ll1 - Home Meds: 19:16 Buspirone Oral [Active]; escitalopram oxalate Oral [Active]; Lexapro Oral [Active]; kc4 Medroxyprogesterone Acetate Oral [Active]; Metformin Oral [Active]; Propranolol Oral [Active]; Spironolactone Oral [Active]; - PMHx: 16:45 angina pectoris; PCOS; Migraines; Hypertension; Depression; Anxiety; Kidney stones; ll1 Sleep Apnea; - PSHx: 16:45 Appendectomy; kidney stone removal; ll1 - Immunization history:: Adult Immunizations up to date, Client reports having NOT received the Covid vaccine. Flu vaccine is up to date. - Social history:: Smoking status: Patient denies any tobacco usage or history of. ROS: 17:43 Constitutional: Negative for fever, chills, and weight loss, Cardiovascular: Negative jmm for chest pain, palpitations, and edema, Respiratory: Negative for shortness of breath, cough, wheezing, and pleuritic chest pain. 17:43 : Positive for vaginal bleeding. 17:43 Neuro: Positive for near syncope. 17:43 All other systems are negative. Exam: 17:43 Constitutional: This is a well developed, well nourished patient who is awake, alert, jmm and in no acute distress. Head/Face: atraumatic. Eyes: EOMI, no conjunctival erythema appreciated ENT: Moist Mucus Membranes Neck: Trachea midline, Supple Chest/axilla: Normal chest wall appearance and motion. Cardiovascular: Regular rate and rhythm. No edema appreciated Respiratory: Normal respirations, no respiratory distress appreciated Abdomen/GI: Non distended, soft Back: Normal ROM Skin: General appearance color normal 17:43 Musculoskeletal/extremity: ROM: intact in all extremities. 17:43 Skin: Appearance: Color: normal in color. 17:43 Neuro: Orientation: is normal, Mentation: is normal, Memory: is normal. 17:43 Psych: Behavior/mood is pleasant, cooperative. Vital Signs: 16:50 BP 134 / 72; Pulse 53; Resp 18; Temp 97.7; Pulse Ox 98% ; Weight 156.94 kg; Height 5 ll1 ft. 7 in. (170.18 cm); Pain 7/10; 18:58 BP 124 / 63; Pulse 49; Resp 18; Pulse Ox 100% on R/A; mh5 19:15 BP 114 / 55; Pulse 50; Resp 18; Temp 98.0(O); Pulse Ox 100% on R/A; Pain 4/10; kc4 22:04 BP 112 / 60; Pulse 54; Resp 18; Temp 98.1(O); Pulse Ox 100% on R/A; Pain 2/10; kc4 16:50 Body Mass Index 54.19 (156.94 kg, 170.18 cm) ll1 MDM: 18:06 Patient medically screened. [facility] 21:49 Data reviewed: vital signs, nurses notes. Counseling: I had a detailed discussion with mayur the patient and/or guardian regarding: the historical points, exam findings, and any diagnostic results supporting the discharge/admit diagnosis, lab results, the need for outpatient follow up, to return to the emergency department if symptoms worsen or persist or if there are any questions or concerns that arise at home. ED course: Patient is alert and nontoxic in appearance in the ED. H\T\H is within normal limits. Patient has been normotensive. Patient advised to begin her control and follow closely up with her [employer] THERAPIST for further evaluation. Patient is otherwise given strict return precautions. Patient understood and agrees plan of care.. 12/25 17:43 Order name: Basic Metabolic Panel; Complete Time: 19:58 [facility] 12/25 17:43 Order name: CBC with Diff; Complete Time: 18:53 [facility] 12/25 17:43 Order name: Hepatic Function; Complete Time: 19:58 [facility] 12/25 17:43 Order name: Lipase; Complete Time: 19:58 [facility] 12/25 17:44 Order name: Type And Screen; Complete Time: 20:11 [facility] 12/25 18:44 Order name: Urinalysis 12/25 17:43 Order name: IV Saline Lock; Complete Time: 18:36 [facility] 12/25 18:44 Order name: Urine Culture 12/25 18:44 Order name: Urinalysis; Complete Time: 19:58 [facility] 12/25 18:44 Order name: Urine Culture [facility] 12/25 19:18 Order name: Urine Microscopic Only [facility] 12/25 17:43 Order name: Labs collected and sent; Complete Time: 18:36 [facility] 12/25 17:43 Order name: Urine Dipstick-Ancillary (obtain specimen); Complete Time: 19:01 [facility] 12/25 17:43 Order name: Urine Test (obtain specimen); Complete Time: 19:01 [facility] Administered Medications: 19:17 Drug: NS 0.9% 1000 ml Route: IV; Rate: 1 bolus; Site: left antecubital; kc4 22:04 Follow up: Response: No adverse reaction; IV Status: Completed infusion kc4 20:38 Drug: morphine 4 mg Route: IVP; Site: left antecubital; kc4 22:03 Follow up: Response: No adverse reaction; Pain is decreased kc4 20:38 Drug: Zofran (Ondansetron) 4 mg Route: IVP; Site: left antecubital; kc4 22:03 Follow up: Response: No adverse reaction kc4 Disposition: 12/26 07:06 Co-signature as Attending Physician, Jacek Herndon MD I agree with the assessment and rn plan of care. Attestation: The patient's history, exam findings, diagnostics, and a summary of any interventions or procedures was reviewed in detail with Daquan COHEN. Disposition Summary: 12/25/20 21:52 Discharge Ordered [facility]: Home [facility] Condition: Stable [facility] Diagnosis - dysfunctional uterine bleeding [facility] Followup: [facility] - With: Private Physician - When: 2 - 3 days - Reason: Recheck today's complaints, Continuance of care, Re-evaluation by your physician Discharge Instructions: - Discharge Summary Sheet [facility] - Dysfunctional Uterine Bleeding [facility] - Form - Return To Work kc Forms: - Medication Reconciliation Form [facility] - Thank You Letter [facility] - Antibiotic Education [facility] - Prescription Opioid Use [facility] Prescriptions: - Cephalexin 500 mg Oral Capsule - take 1 capsule by ORAL route every 8 hours for 10 days; 30 capsule; Refills: 0, [facility] Product Selection Permitted - orphenadrine citrate 100 mg Oral Tablet Sustained Release - take 1 tablet by ORAL route 2 times per day As needed; 20 tablet; Refills: 0, [facility] Product Selection Permitted Signatures: Dispatcher [employer] EDDaquan Cox PA PA jmm Nieto, Roman, MD MD rn Lewis, Lynsay, RN RN ll1 Joann Aldana kc4 Corrections: (The following items were deleted from the chart) 12/25 19:17 19:16 PMHx: angina pectoris; kc4 kc4
[2020-12-26 01:30] VITALS: O2SAT 100
[2020-12-26 01:36] VITALS: BP 112/60; TEMP 98.1
== END 2020-12-25 22:05 | disposition home or self-care (01) ==
LOC: ER 16:40
DX: N93.8 Other specified abnormal uterine and vaginal bleeding (principal); I10 Essential (primary) hypertension; F41.8 Other specified anxiety disorders; Z91.018 Allergy to other foods
CPT/HCPCS: 36415; 80048; 80076; 81003; 81015; 83690; 85025; 86850; 86900; 86901; 87086; 87088; 96361; 96374; 96375; 99284; J2405; J7030

== ENCOUNTER 2021-05-23 21:25 | Emergency (ER) | payer SELFPAY ==
--- OUTSIDE RECORDS SUMMARY | 2021-05-23 21:29 | XMS REPORT | Continuity of Care Document ---
:1980 Author Organization [facility] t Address [address] [place] [address] Care Team Providers Name Role Phone Phani Crespo Attending Clinician Unavailable Jose R Attending Clinician Unavailable Delia Jean Attending Clinician Unavailable Curt Hoyt Attending Clinician Unavailable Estefany Man Attending Clinician Unavailable Felisa MCCABE, M. Attending Clinician EDMOND Attending Clinician Unavailable Physician, Primary or Family Admitting Clinician Unavailchante Crespo V Admitting Clinician Unavailable EDMOND Admitting Clinician Unavailable Payers Payer Name Policy Type Policy Number Effective Date Expiration Date S ource Problems Condition Condition Condition Status Onset Resolution Last Treating Co mments Source Name Details Category Date Date Treatment Clinician Date No known No known Disease [facility] problems problems of Medicin e Allergies, Adverse Reactions, Alerts Allergy Allergy Status Severity Reaction(s) Onset Inactive Treating Comm ents Source Name Type Date Date Clinician lettuce DA Active U DOESNT [facility] PROCESS IT 03-06 Clear 00:00: Khan [facility] lettuce DA Active U UNKNOWN 2020-02 [facility] 04-08 Clear 00:00: [facility] ALMONDS DA Active U UNKNOWN 2020-02 [facility] 04-08 Clear 00:00: [facility] No Known DA Active U 2020-02 [facility] Allergie 2-05 Clear s 00:00: [facility] No Known DA Active U [facility] Allergie 10-21 Clear s 00:00: [facility] No Known DA Active U [facility] Allergie 10-21 Clear s 00:00: [facility] No Known DA Active U [facility] Contrast 4-20 Clear Allergie 00:00: Khan s [facility] No Known DA Active U [facility] Drug 4-20 Clear Allergie 00:00: Khan s [facility] No Known DA Active U 2007-0 [facility] Food 4-20 Clear Allergie 00:00: Khan s [facility] No Known DA Active U 2007-0 [facility] Other 4-20 Clear Allergie 00:00: Khan s [facility] NO KNOWN Allergy Active [facility] Social History Social Habit Start Date Stop Date Quantity Comments Source Alcohol intake [facility] lege of Medicine Sex Assigned At [facility] l[facility] of Medicine Cigarettes smoked 2018-10-09 2018-10-09 [facility] current (pack per 00:00:00 00:00:00 of Medi day) - Reported Cigarette 2018-10-09 2018-10-09 [facility] pack-years 00:00:00 00:00:00 of Medicine History of tobacco 2011-09-24 Current smoker [facility] use 00:00:00 of Medicine Smoking Status Start Date Stop Date Source Former smoker 2018-10-09 00:00:00 2018-10-09 00:00:00 [facility] olle of Medicine Medications Ordered Filled Start Stop Current Ordering Indication Dosage Frequency Signature Comments Components Source Medication Medication Date Date Medication? Clinician (SIG) Name Name propranolol Yes Take by [facility] 160 MG CP24 8-15 mouth. Colleg e 13:44: of 55 Medicin e busPIRone Yes 15mg Take 15 mg [facility] (BUSPAR) 15 8-15 by mouth 3 Co llege MG tablet 13:44: times of 55 daily. Medicin e escitalopra Yes 20mg Take 20 mg Griffin m (LEXAPRO) 8-15 by mouth Derrell ege 20 MG 13:44: daily. of tablet 55 Medicin e spironolact Yes 100mg Take 100 B aylor one 8-15 mg by [place] (ALDACTONE) 13:44: mouth of 100 MG 54 daily. Medicin tablet e metformin Yes TAKE 1 Griffin (GLUCOPHAGE 6-27 TABLET BY Col lege -XR) 500 MG 00:00: MOUTH ONCE of XR tablet 00 DAILY WITH Medi negrita EVENING e MEAL Escitalopra Escitalopra Yes [place] [address] [facility] Oxalate m Oxalate [facility] BusPIRone BusPIRone Yes [place] [...] HCl ER [facility] Immunizations Ordered Filled Immunization Date Status Comments [facility] e Immunization Name Name Afluria single dose Afluria single dose 2019-01-[address] [facility] 00:[facility] Vital Signs Vital Name Observation Time Observation Value Comments Source Systolic blood 2018-09-23 13:39:00 142 mm[Hg] [facility] pressure Medicine Diastolic blood 2018-09-23 13:39:00 78 mm[Hg] [facility] pressure Medicine Heart rate 2018-09-23 13:39:00 70 /min [facility] Body temperature 2018-09-23 13:39:00 37 [facility] Body height 2018-09-23 13:39:00 170.2 cm [facility] Body weight 2018-09-23 13:39:00 168.829 kg [facility] BMI 2018-09-23 13:39:00 58.29 kg/m2 [facility] Systolic blood 2018-09-23 13:39:00 142 mm[Hg] [facility] pressure Medicine Diastolic blood 2018-09-23 13:39:00 78 mm[Hg] [facility] Medicine Heart rate 2018-09-23 13:39:00 70 /min [facility] Body temperature 2018-09-23 13:39:00 37 [facility] Body height 2018-09-23 13:39:00 170.2 cm [facility] Body weight 2018-09-23 13:39:00 168.829 kg [facility] BMI 2018-09-23 13:39:00 58.29 kg/m2 [facility] Procedures This patient has no known procedures. Plan of Care Planned Activity Planned Date Details Comments Source Future Scheduled Test TETANUS SHOT (ADULT) [facility] [code = TETANUS SHOT Medicin e (ADULT)] Future Scheduled Test BMI FOLLOW UP PLAN [facility] [code = BMI FOLLOW UP Medici ne PLAN] Future Scheduled Test HIV SCREENING [code = [facility] HIV SCREENING] Medicine Future Scheduled Test CERVICAL CANCER [facility] SCREENING 3 YEAR Medicine FOLLOW UP [code = CERVICAL CANCER SCREENING 3 YEAR FOLLOW UP] Future Scheduled Test FLU VACCINE > 6 [facility] MONTHS [code = FLU Medicine VACCINE > 6 MONTHS] Encounters Start End Encounter Admission Attending Care Care Encounter Source Date/Time Date/Time Type Type Clinicians Facility Department ID 2021-03-06 [facility] [id number] [facility] [address] 14:19:04 [place] [address] [facility] 2021-03-06 [facility] [id number] 13:51:32 [place] [address] [facility] 2021-03-06 Out[facility] Crespo, [facility] [id number] 12:58:54 [place] [address] [facility] 2021-03-06 Outpatient Crespo, [facility] [id number] 12:51:50 [place] [address] [facility] 2021-03-06 Outpatient Crespo, [facility] [id number] 12:43:07 [place] [address] [facility] 2021-03-06 Outpatient Crespo, [facility] [id number] 12:26:05 [place] [address]10[address] [facility] 2021-03-06 [facility] [id number] 12:20:20 [place] 40121 [facility] 2021-03-06 Outpatient Crespo, [facility] [id number] 12:04:19 [place] 234[address] [facility] 2021-03-06 Outpatient Crespo, [facility] [id number] 12:02:03 [place] 89345 [facility] 2021-03-06 Outpatient Crespo, [facility] [id number] 11:59:55 [place] 18748 [facility] 2021-03-06 Outpatient Crespo, [facility] [id number] 11:53:05 [place] 12917 [facility] 2021-03-06 Outpatient Crespo, [facility] [id number] 11:39:35 [place] 24436 [facility] 2021-03-06 Outpatient Crespo, [facility] [id number] 11:28:12 [place] 32361 [facility] 2021-03-06 Outpatient Crespo, [facility] [id number] 11:18:53 [place] 50774 [facility] 2021-03-06 Outpatient Crespo, [facility] [id number] 11:10:16 [place] 29782 [facility] 2021-03-06 Outpatient Crespo, STLMLC [facility] 10:58:45 [place] [facility] 2021-03-06 Outpatient Crespo, STLMLC [facility] 10:57[facility]44 [place] [facility] 2021-03-06 Outpatient Crespo, STLMLC STLC [facility] 10:57:26 [place] 17599 [facility] 2021-02-05 Inpatient EL Millet, HCACL DAYS [id number] [facility] 09:00:00 Sara [id number] [facility] 2019-05-13 Inpatient Millet, HCAC[facility] DAYS [id number] [facility] 10:00:00 Sara [facility] 2019-05-10 Inpatient Millet, [facility] DAYS [id number] [facility] 15:00:00 Sara [id number] [facility] 2021-03-06 2021-03-07 Emergency EM Nwoye, HCACL JUSTINO [id number] [facility] 19:06:00 01:10:00 Christopher [id number] Cl ear [facility] 2021-03-06 2021-03-07 Emergency EM Nwoye, HCACL HCACL [id number] [facility] 19:06:00 01:10:00 Christopher 83 Cl [facility] 2021-02-19 2021-02-19 ambulatory [facility] [id number] [facility] 2021-02-07 2021-02-07 Outpatient EL Millet, HCACL DAYS [id number] [facility] 04:53:00 04:53:00 Sara [id number] [facility] 2021-02-07 2021-02-07 Outpatient EL Millet, HCACL HCACL [id number] [facility] 04:53:00 04:53:00 Sara 86 [facility] 2021-01-13 2021-01-13 Emergency EM Evelina, HCAWH JUSTINO [id number] [facility] 16:06:00 19:55:00 Sugey [id number] [facility] 2021-01-13 2021-01-13 Emergency EM Evelina, HCAWH [facility] [id number] [facility] 16:06:00 19:55:00 Sugey 12 [facility] 2021-01-13 2021-01-13 Emergency EM Man, HCAPM JUSTINO [id number] [facility] 11:54:00 15:16:00 Seng [facility] 2021-01-13 2021-01-13 Emergency EM Man, HCAPM HCAPM [id number] [facility] 11:54:00 15:16:00 Seng [facility] 2021-01-10 2021-01-10 ambulatory [facility]LMLC [facility] [id number] [facility] 2021-01-09 2021-01-09 ambulatory STLMLC [facility] [id number] [facility] 2021-01-09 2021-01-09 ambulatory STLMLC [facility] [id number] [facility] 2020-10-31 2020-10-31 Outpatient STLMLC [facility] [id number] [facility] 2020-08-09 2020-08-09 Outpatient [facility]LMLC [facility] [id number] [facility] 2020-08-09 2020-08-09 Outpatient STLMLC [facility] [id number] [facility] 2020-07-30 2020-07-30 Outpatient [facility]LMLC [facility] [id number] [facility] 2020-07-27 2020-07-27 Outpatient STLMLC [facility] [id number] [facility] 2020-06-12 2020-06-12 Outpatient STLMLC [facility] [id number] [facility] 2020-05-23 2020-05-23 Outpatient STLMLC [facility] [id number] [facility] 2020-03-08 2020-03-08 Outpatient STLMLC [facility] [id number] [facility] 2020-02-21 2020-02-21 Outpatient [facility]LMLC [facility] [id number] [facility] 2020-02-21 2020-02-21 Outpatient STLMLC [facility] [id number] [facility] 2019-12-23 2019-12-23 Outpatient STLMLC [facility] [id number] [facility] 2019-12-21 2019-12-21 Outpatient STLMLC [facility] [id number] [facility] 2019-12-21 2019-12-21 Outpatient [facility]LMLC [facility] [id number] [facility] 2019-12-20 2019-12-20 Outpatient STLMLC [facility] [id number] [facility] 2019-12-20 2019-12-20 Outpatient STLMLC [facility] [id number] [facility] 2019-12-19 2019-12-19 Outpatient [facility]LMLC [facility] [id number] [facility] 2019-12-14 2019-12-14 Outpatient STLMLC [facility] [id number] [facility] 2019-12-14 2019-12-14 Outpatient [facility] [id number] [facility] 2019-12-13 2019-12-13 Outpatient STLMLC STLC [id number] [facility] 2019-12-07 2019-12-07 Outpatient [facility]MLC [facility] [id number] [facility] 2019-11-30 2019-11-30 Outpatient STLM [facility] [id number] [facility] 2019-11-23 2019-11-23 Outpatient STLMLC STLC [id number] [facility] 2019-11-22 2019-11-22 Outpatient [facility] [id number] [facility] 2019-11-02 2019-11-02 Outpatient [facility]MLC [facility] [id number] [facility] 2019-10-24 2019-10-24 [facility] [id number] [facility] 09:53:00 09:53:00 t [employer] s - Drive [facility] l Medicine Outpati ent Clinics 2019-10-11 2019-10-11 [facility] [id number] 09:31:00 09:31:00 t [employer] s - Drive [facility] l Medicine Outpati ent Clinics 2019-10-04 2019-10-04 [facility] [id number] [facility] 16:35:00 16:35:00 t [employer] s - Drive [facility] Medicine l Medicine Outpati ent Clinics 2019-09-29 2019-09-29 [facility] [id number] 10:30:00 10:30:00 t [employer] s - Drive [facility] Medicine l Medicine Outpati ent Clinics 2019-09-28 2019-09-28 [facility] [id number] [facility] 14:18:00 14:18:00 t [place] [employer] s - Drive [facility] l Medicine Outpati ent Clinics 2019-09-16 2019-09-16 [facility] [id number] 08:30:00 08:30:00 t [employer] s - Drive [facility] Medicine l Medicine Outpati ent Clinics 2019-08-30 2019-08-30 [facility] [id number] 14:31:00 14:31:00 t [facility] [address] [employer] [facility] l Medicine Outpati ent Clinics 2019-08-04 2019-08-04 [facility] [id number] [facility] 08:40:00 08:40:00 t [employer] s - AMT [facility] Medicine Outpati ent Clinics 2019-07-26 2019-07-26 [facility] [id number] 09:30:00 09:30:00 t [employer] s - AMT [facility] Medicine Outpat[facility] ent Clinics 2019-06-01 2019-06-01 [facility] [id number] [facility] 13:45:00 13:45:00 t [employer] s - AMT [facility] Medicine Outpati ent Clinics 2019-02-11 2019-02-11 [facility] [id number] [facility] 08:00:00 08:00:00 t [employer] s - Drive [facility] Medicine l Medicine Outpati ent Clinics 2019-01-20 2019-01-20 [facility] [id number] 14:30:00 14:30:00 t [employer] s - Drive [facility] Medicine Outpati ent Clinics 2019-01-13 2019-01-13 [facility] [id number] [facility] 10:07:00 10:07:00 t [employer] s - Drive [facility] Medicine Outpati ent Clinics 2019-01-12 2019-01-12 [facility] [id number] 11:15:00 11:15:[address] Luke s - Drive [facility] Medicine Outpati ent Clinics 2018-12-21 2018-12-21 [facility] [id number] [facility] 14:15:00 14:15:[address] Luke s - Drive [facility] Medicine Outpati ent Clinics 2018-12-15 2018-12-15 [facility] [id number] [facility] 16:59:00 16:59:[address] Luke s - Drive [facility] Medicine Outpati ent Clinics 2018-09-29 2018-09-29 [facility] [id number] 15:00:00 15:00:[address] Luke s - Drive [facility] Medicine Outpati ent Clinics 2018-09-24 2018-09-24 [facility] [id number] [facility] 15:24:00 15:24:[address] [employer] s - Drive [facility] Outpati ent Clinics 2018-09-23 2018-09-23 [facility] [id number] 15:16:00 15:16:00 t [place] [employer] - Drive [facility] Outpati ent Clinics 2018-09-23 2018-09-23 Office Felisa, [place] [id number] 08:30:24 09:27:13 Visit Dennis M. AMBULATOR [id number] Y [id number] [facility] 2018-09-23 2018-09-23 Office Felisa, BC [id number] 14 [facility] 08:30:24 09:27:13 Visit Dennis M. AMBULATOR [id number] College Y [id number] of [id number] [place] [address] e 2018-08-05 2018-08-05 [facility] [id number] 10:15:00 10:15:[address] Luke s - Drive [facility] Medicine Outpati ent Clinics 2018-06-09 2018-06-09 [facility] [id number] [facility] 14:30:00 14:30:[address] Luke s - Drive [facility] l Medicine Outpati ent Clinics 2018-05-04 2018-05-04 [facility] [id number] 16:30:00 16:30:[address] Luke s - Drive [facility] Medicine l Medicine Outpati ent Clinics 2018-02-15 2018-02-15 [facility] [id number] 15:00:00 15:00:[address] Luke s - Drive [facility] Family Medicine l Medicine Outpati ent Clinics 2017-09-22 2017-09-22 [facility] [id number] 14:45:00 14:45:[address] Luke s - Drive [facility] Medicine l Medicine Outpati ent Clinics 2017-09-10 2017-09-10 [facility] [id number] [facility] 09:21:00 09:21:[address] Luke s - Drive [facility] Medicine l Medicine Outpati ent Clinics 2017-08-27 2017-08-27 [facility] [id number] 11:52:00 11:52:[address] Luke s - Drive [facility] Medicine l Medicine Outpati ent Clinics 2017-08-05 2017-08-05 [facility] [id number] [facility] 14:45:00 14:45:[address] Luke s - Drive [facility] Medicine l Medicine Outpati ent Clinics 2017-06-17 2017-06-17 [facility] [id number] 14:45:00 14:45:00 t [facility] [place] [facility] Clinic l Outpati ent Clinics 2017-05-26 2017-05-26 [facility] [id number] 08:15:00 08:15:[address] Luke s - Drive [facility] Medicine l Medicine Outpati ent Clinics 2017-05-22 2017-05-22 [facility] [id number] 14:04:00 14:04:[address] Luke s [facility] ent [facility] 2017-05-14 2017-05-14 Outpatient Bj [facility]zot [id number] 10:17:00 10:17:00 [facility] 2017-05-13 2017-05-13 Outpatient Bj Lorenzot [id number] [facility] 10:45:00 10:45:00 [facility] 2017-04-30 2017-04-30 [facility] [id number] [facility] 10:30:00 10:30:00 [facility] Results Test Description Test Time Test Comments Results Result Comments Source BASIC METABOLIC PANEL 2021-03-06 22:51:00 Test Item Value Reference Range Interpretation Comme nts SODIUM (test code = NA) 140 mEq/L 134-147 N POTASSIUM (test code = K) 3.8 mEq/L 3.4-5.0 N CHLORIDE (test code = CL) 106 mEq/L 100-108 N CARBON DIOXIDE (test code = CO2) 24 mEq/l 21-33 N ANION GAP (test code = GAP) 14 0-20 N GLUCOSE (test code = GLU) 87 mg/dL 70-110 N BLOOD UREA NITROGEN (test code = 10 mg/dL 7-18 N BUN) GLOMERULAR FILTRATION RATE (test 70.1 105-110 L Units of measure = ml/min/1.73 code = GFR) m2 CREATININE (test code = CREAT) 0.9 mg/dL 0.6-1.3 N CALCIUM (test code = CA) 9.3 mg/dL 8.0-10.5 N HEPATIC FUNCTION [id number] 22:51:00 Test Item Value Reference Range Interpretation Comments TOTAL PROTEIN (test code = PROT) 7.9 g/dL 6.4-8.2 N ALBUMIN (test code = ALB) 4.40 g/dL 3.4-5.0 N BILIRUBIN TOTAL (test code = BILT) 0.60 mg/dL 0.0-1.0 N BILIRUBIN DIRECT (test code = 0.20 MG/DL 0.0-0.30 N BILD) BILIRUBIN INDIRECT (test code = 0.40 MG/DL BILIND) SGOT/AST (test code = AST) 16 IUnit/L 15-37 N SGPT/ALT (test code = ALT) 14 IUnit/L 30-65 L ALKALINE PHOSPHATASE TOTAL (test 88 IUnit/L 20-125 N code = ALKP) [id number] 22:51:00 Test Item Value Reference Range Interpretation Comments LIPASE (test code = LIP) 24 U/L 13-57 N TROP-I HIGH [id number] 22:51:00 Test Item Value Reference Range Interpretation Comments TROP-I HIGH 6 ng/L 0-34 N CAUTION: Units of the SENSITIVITY (test current te st methodology code = TROPIHS) (ng/L) diffe rfrom the prior test methodolog y (ng/mL) by a factor of 1000. 99th Percentile Upper Reference Limit (URL): Females: 34 ng/LMales: 54 ng/L In order to distin guish acute elevations of h igh sensitivitytrop onin from other clinical conditions, the FourthUnive rsal Definition of M yocardial Infarction stre ssesclinical assessment and the demonstration o f a rise and/orfall in s erial troponin result s above the URL. These resu lts were obtained using Siemens Atellica IM TnI Hreagent. Results from di fferent methodologies s hould not becompared to o ne another as quantitative results and URLs mayvary by method. HCG SERUM [id number] 22:39:00 Test Item Value Reference Range Interpretation Comments HCG SERUM QUAL (test code = SERUM NEGATIVE NEGATIVE HCGQL) CBC W/AUTO [id number] 22:33:00 Test Item Value Reference Range Interpretation Comments WHITE BLOOD CELL (test code = 13.8 x10 3/uL 4.5-11.0 H WBC) RED BLOOD CELL (test code = 5.35 x10 6/uL 3.54-5.02 H RBC) HEMOGLOBIN (test code = HGB) 13.5 g/dL 11.0-15.0 N HEMATOCRIT (test code = HCT) 43.1 % 33.0-45.0 N MEAN CELL VOLUME (test code = 80.6 fL 81.0-99.0 L MCV) MEAN CELL HGB (test code = MCH) 25.2 pg 27.0-33.0 L MEAN CELL HGB CONCETRATION 31.3 g/dL 33.0-37.0 L (test code = MCHC) RED CELL DISTRIBUTION WIDTH CV 14.5 % 11.5-14.5 N (test code = RDW) RED CELL DISTRIBUTION WIDTH SD 42.4 fL 37.0-54.0 N (test code = RDW-SD) PLATELET COUNT (test code = 402 x10 3/uL 150-400 H PLT) MEAN PLATELET VOLUME (test code 10.0 fL 7.0-9.0 H = MPV) NEUTROPHIL % (test code = NT%) 69.0 % 56.0-77.0 N IMMATURE GRANULOCYTE % (test 0.2 % 0.0-2.0 N code = IG%) LYMPHOCYTE % (test code = LY%) 23.2 % 14.0-32.0 N MONOCYTE % (test code = MO%) 5.7 % 4.8-9.0 N EOSINOPHIL % (test code = EO%) 1.4 % 0.3-3.7 N BASOPHIL % (test code = BA%) 0.5 % 0.0-2.0 N NUCLEATED RBC % (test code = 0.0 % 0-0 N NRBC%) NEUTROPHIL # (test code = NT#) 9.52 x10 3/uL 2.0-7.6 H IMMATURE GRANULOCYTE # (test 0.03 x10 3/uL 0.00-0.03 N code = IG#) LYMPHOCYTE # (test code = LY#) 3.20 x10 3/uL 1.0-3.8 N MONOCYTE # (test code = MO#) 0.79 x10 3/uL 0.1-0.8 N EOSINOPHIL # (test code = EO#) 0.19 x10 3/uL 0.0-0.2 N BASOPHIL # (test code = BA#) 0.07 x10 3/uL 0.0-0.2 N NUCLEATED RBC # (test code = 0.00 x10 3/uL 0.0-0.1 N NRBC#) MANUAL DIFF REQUIRED (test code NO = MDIFF) UA RFLX MICR CULT IF [id number] 21:48:00 Test Item Value Reference Range Interpretation Comments UA COLOR (test code = COLU) YELLOW YEL/STRAW UA APPEARANCE (test code = APPU) SL CLOUDY CLEAR UA GLUCOSE DIPSTICK (test code = NEGATIVE NEGATIVE DGLUU) UA BILIRUBIN DIPSTICK (test code NEGATIVE NEGATIVE = BILU) UA KETONE DIPSTICK (test code = 1+ NEGATIVE A KETU) UA SPECIFIC GRAVITY (test code = 1.019 1.005-1.030 N SGU) UA BLOOD DIPSTICK (test code = NEGATIVE NEGATIVE RUDY) UA PH DIPSTICK (test code = ELENA) 5.0 5.0-7.0 N UA PROTEIN DIPSTICK (test code = NEGATIVE NEGATIVE PROU) UA UROBILINIOGEN DIPSTICK (test 0.2 mg/dL 0.2-1.0 code = URO) UA NITRITE DIPSTICK (test code = NEGATIVE NEGATIVE ROSENDO) UA LEUKOCYTE ESTERASE DIPSTICK NEGATIVE NEGATIVE (test code = LEUU) UA WBC (test code = WBCU) 0-3 WBC/HPF 0-3 UA RBC (test code = RBCU) 0-3 RBC/HPF 0-3 UA WBC NO REFLEX (test code = 0-3 WBC/HPF 0-3 WBCUCL) UA BACTERIA (test code = BACU) TRACE /HPF NONE SEEN UA SQUAMOUS CELLS (test code = 0-5 /HPF NONE SEEN SQU) UA MUCUS (test code = MUCU) 2+ /LPF NONE SEEN A Indication for culture: RiskForSepsis-no oth srcSpecimen Description: CLEAN CATCH- XR CHEST 1 [id number] 00:00:00 [facility] : 1980 Sex: F FAX: Margie Philippe APR [phone] [place]: St: REG Name: YARITZA ELDER [facility] : 1980 Age/S: 40/F [address] [place] [address] Unit #: [id number] Loc: [place] [address] Phys: DenaeMargieher Mirna TOMAS Acct: [id number] Dis Date: Status: REG ER PHONE #: [phone] Exam Date: 03/06/20211925 FAX #: [phone] Reason: Abdominal Pain EXAMS: CPT CODE: [id number] XR CHEST 1 V 80661 PROCEDURE INFORMATION: Exam: XR Chest Exam date and time: 03/06/2021 7:17 PM Age: 40 years old Clinical indication: Other: Abdominal pain TECHNIQUE: Imaging protocol: XR of the chest. Views: 1 view. COMPARISON: CT ABD PELVIS W/CONT 01/13/2021 1:58 PM FINDINGS: Lungs: The lungs areclear. Pleural spaces: Unremarkable. No pleural effusion. No pneumothorax. Heart/Mediastinum: Heart size is within normal limits. Vasculature is unremarkable. Bones/joints: Unremarkable. IMPRESSION: No acute cardiopulmonary findings. at 1928 Reported and signed by: Nicola Lawrence M.D. CC: Margie Philippe Technologist: RT Jessika(Estefany) Trnscrd Date/Time/By: 03/06/2021 (1927) : By: [email or web address] Orig Print D/T: S: 03/06/2021 (1928) PAGE 1 Signed Report - CT ABD PELVIS [id number] 00:00:00 [facility] [place]: YARITZA ELDER : 1980 Sex: F Name: YARITZA ELDER [facility] [place] : 1980 Age/S: 40 / F [address] [place] [address] Unit #: [id number] Loc: [place] [address] Phys: DenaeMargie Mirna SAVAGENN Acct: [id number] Dis Date: Status: REG ER PHONE #: [phone] Exam Date: 03/06/20212311 FAX #: [phone] Reason: ABD PAIN, N/V/D EXAMS: CPT CODE: [id number] CT ABD PELVIS W/CONT 04311 PROCEDURE INFORMATION: Exam: CT Abdomen And Pelvis With Contrast Exam date and time: 03/06/2021 11:07 PM Age: 40 years old Clinical indication: Nausea and vomiting and other: Diarrhea; Abdominal pain; Generalized; Additional info: Abd pain, n/v/d TECHNIQUE:Imaging protocol: Computed tomography of the abdomen and pelvis with contrast. Radiation optimization: All CT scans at this facility use at least one of these dose optimization techniques: automated exposure control; mA and/or kV adjustment per patient size (includestargeted exams where dose is matched to clinical indication); or iterative reconstruction. Contrast material: ISO 300; Contrast volume: 100 ml; Contrast route: INTRAVENOUS (IV); COMPARISON: CT ABD PELVIS W/CONT 01/13/2021 1:58 PM FINDINGS: Liver: Hepatic steatosis and hepatomegaly with the liver measuring 24 cm craniocaudally. Gallbladderand bile ducts: Normal. No calcified stones. No ductal dilation. Pancreas: Normal. No ductal dilation. Spleen: Normal. No splenomegaly. Adrenal glands: Normal. No mass. Kidneys and ureters: Normal. No hydronephrosis. Stomach and bowel: Unremarkable. No obstruction. No mucosal thickening. Appendix: Appendectomy. Intraperitoneal space: Unremarkable. No free air. No significant fluid collection. Vasculature: Unremarkable. No ab dominal aortic aneurysm. Lymph nodes: Unremarkable. No enlarged lymph nodes. Urinary bladder: No wall thickening. Reproductive: Unremarkable as visualized. Bones/joints: Lower lumbar facet arthropathy. 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 No acute fracture. Soft tissues: No acute findings. IMPRESSION: 1. Hepatic steatosis and hepatomegaly. 2. Appendectomy. PAGE 1 Signed Report (CONTINUED) Name: YARITZA ELDER [facility] : 1980 Age/S: 40 / F [address] [place] [address] Unit #: [id number] Loc: [place] [address] Phys: Margie Philippe Acct: [id number] Dis Date: Status: REG ER PHONE #: [phone] Exam Date: 03/06/20212311 FAX #: [phone] Reason: ABD PAIN, N/V/D EXAMS: CPT CODE: [id number] CT ABD PELVIS W/CONT 28799 <Continued> at 2325 Reported and signed by: Yeison Tijerina M.D. CC: Margie Philippe Technologist:RT Alek(R)(CT) CTDI: DLP: Trnscb Date/Time: 03/06/2021 (2325) [email or web address] Orig Print D/T: S: 03/06/2021 (4096) PAGE 2 Signed ReportSURGICAL PATH [id number] 15:01:00 Test Item Value Reference Range Interpretation Comments SURGICAL PATH SPECIMENS (test code = S) RUN DATE: 02/12/21 [facility] - LAB PAGE 1 RUN TIME: 1502 Specimen Inquiry RUN USER: INTERFACE WILLIAM ENT: YARITZA ELDER LOC: RANJIT U #: [id number] AGE/SX: 40/F ROOM: RE02/07/21REG DR: Sara Odell MD : [birth year] BED: DIS: [place]US[place] [facility] [place]: SPEC #: [id number] RECD: 02/11/21 STATUS: CARLEE VAZQUEZ #: [id number] DERRELL: 02/07/21- SUBM DR: Sara Odell MD ENTERED: 02/11/21 SP TYPE: SURG SPEC OTHR DR: No Primary or Family PhysicianORDERED: L4 19132 CODES: [id number] - UTERUS, NOS COPIES TO: No Primary or Family Physician Sara Odell MD #[address] [place] [address] PROCEDURES: L4 64468 (02/11/21) TISSUES: UTERUS, NOS - ENDOMETRIAL CURETTINGS FINAL DIAGNOSIS Endometrium, curettings: Scant fragments of inactive endometrium. GROSS AND MICROSCOPIC GROSS EXAMINATION: received in formalin labeled "endometrial curettings" are multiple fragments of irregular shaped husain to dark brown soft tissue, aggregating to 2.5 x 1.5 x 0.5 cm, entirely submitted. MICROSCOPIC EXAMINATION: A microscopic examination was performed to arrive at the diagnostic conclusion reported. REVIEWED BY: GUS Signed Armin Lackey 02/12/21 1501 END OF REPORT BASIC METABOLIC [id number] 11:59:00 Test Item Value Reference Range Interpretation Comments SODIUM (test code = NA) 140 mEq/L 134-147 N POTASSIUM (test code = 4.0 mEq/L 3.4-5.0 N K) CHLORIDE (test code = 109 mEq/L 100-108 H CL) CARBON DIOXIDE (test 23 mEq/l 21-33 N code = CO2) ANION GAP (test code = 12 0-20 N GAP) GLUCOSE (test code = 96 mg/dL 70-110 N GLU) BLOOD UREA NITROGEN 13 mg/dL 7-18 N (test code = BUN) GLOMERULAR FILTRATION 80.3 105-110 L Units of measure = RATE (test code = GFR) ml/mi n/1.73 m2 CREATININE (test code = 0.8 mg/dL 0.6-1.3 N CREAT) CALCIUM (test code = 8.9 mg/dL 8.0-10.5 N CA) HCG SERUM [id number] 11:42:00 Test Item Value Reference Range Interpretation Comments HCG SERUM QUAL (test code = SERUM NEGATIVE NEGATIVE HCGQL) CBC W/AUTO [id number] 11:35:00 Test Item Value Reference Range Interpretation Comments WHITE BLOOD CELL (test code = 9.3 x10 3/uL 4.5-11.0 N WBC) RED BLOOD CELL (test code = 4.94 x10 6/uL 3.54-5.02 N RBC) HEMOGLOBIN (test code = HGB) 12.7 g/dL 11.0-15.0 N HEMATOCRIT (test code = HCT) 41.0 % 33.0-45.0 N MEAN CELL VOLUME (test code = 83.0 fL 81.0-99.0 N MCV) MEAN CELL HGB (test code = MCH) 25.7 pg 27.0-33.0 L MEAN CELL HGB CONCETRATION 31.0 g/dL 33.0-37.0 L (test code = MCHC) RED CELL DISTRIBUTION WIDTH CV 14.7 % 11.5-14.5 H (test code = RDW) RED CELL DISTRIBUTION WIDTH SD 44.7 fL 37.0-54.0 N (test code = RDW-SD) PLATELET COUNT (test code = 356 x10 3/uL 150-400 N PLT) MEAN PLATELET VOLUME (test code 10.4 fL 7.0-9.0 H = MPV) NEUTROPHIL % (test code = NT%) 62.9 % 56.0-77.0 N IMMATURE GRANULOCYTE % (test 0.4 % 0.0-2.0 N code = IG%) LYMPHOCYTE % (test code = LY%) 26.9 % 14.0-32.0 N MONOCYTE % (test code = MO%) 6.2 % 4.8-9.0 N EOSINOPHIL % (test code = EO%) 3.1 % 0.3-3.7 N BASOPHIL % (test code = BA%) 0.5 % 0.0-2.0 N NUCLEATED RBC % (test code = 0.0 % 0-0 N NRBC%) NEUTROPHIL # (test code = NT#) 5.84 x10 3/uL 2.0-7.6 N IMMATURE GRANULOCYTE # (test 0.04 x10 3/uL 0.00-0.03 H code = IG#) LYMPHOCYTE # (test code = LY#) 2.50 x10 3/uL 1.0-3.8 N MONOCYTE # (test code = MO#) 0.58 x10 3/uL 0.1-0.8 N EOSINOPHIL # (test code = EO#) 0.29 x10 3/uL 0.0-0.2 H BASOPHIL # (test code = BA#) 0.05 x10 3/uL 0.0-0.2 N NUCLEATED RBC # (test code = 0.00 x10 3/uL 0.0-0.1 N NRBC#) MANUAL DIFF REQUIRED (test code NO = MDIFF) COVID 19 Asymptomatic IH [id number] 09:46:00 Test Item Value Reference Range Interpretation Comments COVID 19 Asymptomatic Negative Negative A nega tive result is IH AG (test code = presumpti ve and should COVNONPUIAG) be confirmedwit h an FDA authorized mole cular assay, if neces liliane forpatient maddison gement.A positive result does not rule out co-inf ections withother patho gens.This test detects jennifer th viable (live) and non-viable,SARS -CoV, and SARS-CoV-2. Humble t performance dep ends on theamount of vi reji (antigen) in th e sample.This humble t has not been FDA cleare d or approved; the t est hasbeen authori zed by FDA under an Em ergency Use Authorizati on(EUA) for use by labo ratories certified under the CLIA thatmeet the requirements to perform moderate, high or waivedcomplexit y tests. UA RFLX MICR CULT IF [id number] 15:23:00 Test Item Value Reference Range Interpretation Comments UA COLOR (test code = PEACH discript YEL/STRAW A COLU) UA APPEARANCE (test code HAZY discript CLEAR A = APPU) UA GLUCOSE DIPSTICK (test NEGATIVE mg/dL NEG code = DGLUU) UA BILIRUBIN DIPSTICK NEGATIVE mg/dL NEG (test code = BILU) UA KETONE DIPSTICK (test NEGATIVE mg/dL NEG code = KETU) UA SPECIFIC GRAVITY (test 1.015 SG 1.005-1.030 code = SGU) UA BLOOD DIPSTICK (test 3+ mg/DL NEG A code = RUDY) UA PH DIPSTICK (test code 6.5 pH UNITS 5.0-7.0 = ELENA) UA PROTEIN DIPSTICK (test NEGATIVE mg/dL NEG code = PROU) UA UROBILINIOGEN DIPSTICK 0.2 mg/dL <2.0 (test code = URO) UA NITRITE DIPSTICK (test NEGATIVE SCREEN NEG code = ROSENDO) UA LEUKOCYTE ESTERASE NEGATIVE Leuk/mcL NEGATIVE DIPSTICK (test code = LEUU) UA CULTURE NEEDED? (test NO, WBC<10 Criteria Culture CHK code = UACULT) UA WBC (test code = WBCU) 0-1 #WBC/HPF 0-3 UA RBC (test code = RBCU) >100 #RBC/HPF 0-3 A UA SQUAMOUS CELLS (test TRACE /HPF NONE code = SQU) Indication for culture: Suprapubic Pain- CT ABD PELVIS [id number] [facility]:26[facility] 1980 Sex: F Name: YARITZA ELDER [facility] : 1980 Age/S: 40 / F [address] [facility] [place] Unit #: [id number] Loc: [place] [address] Phys: Seng Man MD Acct: [id number] Dis Date: Status: REG ER PHONE #: [phone] Exam Date: 01/13/2021 1404 FAX #: Reason: lower abdominal pain x 60 days, vaginal bleedin EXAMS: CPT: [id number] CT ABD PELVIS W/CONT 28515 EXAMINATION: - CT ABD PELVIS W/CONT. LOCATION: H39. HISTORY: lower abdominal pain x 60 days, vaginal bleeding, PCOS. COMPARISON: None. TECHNIQUE: CT abdomen and pelvis was performed with the use of IV contrast (100 mL Isovue 300). Sagittal and coronal reconstructed images were available for review. This exam was performed according to our departmental dose-optimization program, which includes automated exposure control, adjustment of the mA and/or kV according to patient size, and/or use of iterative reconstruction technique. FINDINGS: Lower chest: No acute pulmonary infiltrates are identified. 5 mm right major fissural lymph node is noted. Heart size is normal. Abdomen: The liver, gallbladder, pancreas, spleen, bilateral kidneys and bilateral adrenal glands appear within normal limits. There is no evidence of bowel obstruction. There has been prior appendectomy. No pneumoperitoneum or ascites is identified. There is no mesenteric or retroperitoneal adenopathy. Pelvis: The urinary bladder appears normal. No inguinal adenopathy is identified. Bones/soft tissues: No acute osseous abnormality is identified. No aggressive lytic or blastic lesions are seen. IMPRESSION: No acute abdominopelvic abnormality is identified. at 1423 Reported and signed by: Elvin Nunez M.D. PAGE 1 Signed Report (CONTINUED) Name: YARITZA ELDER [facility] [place] : 1980 Age/S: 40 / F [address] [place] Unit #: [id number] Loc: [place] [address] Phys: Seng Man MD Acct: [id number] Dis Date: Status: REG ER PHONE #: [phone] Exam Date: 01/13/2021 1401 FAX #: Reason: lower abdominal pain x 60 days, vaginal bleedin EXAMS: CPT: [id number] CT ABD PELVIS W/CONT 49517 <Continued> CC: Seng Man MD Technologist:RT Nikole (R)(CT) CTDI: DLP: Trnscb Date/Time: 01/13/2021 (1426) [email or web address] Orig Print D/T: S: 01/13/2021 (3370) PAGE 2 Signed ReportCOMPREHENSIVE METABOLIC [id number] 13:18:00 Test Item Value Reference Range Interpretation Comments SODIUM (test code = NA) 139 mmol/L 134-147 N POTASSIUM (test code = 4.2 mmol/L 3.4-5.0 N K) CHLORIDE (test code = 108 mmol/L 100-108 N CL) CARBON DIOXIDE (test 25 mmol/L 21-32 N code = CO2) ANION GAP (test code = 6.0 GAP calc 4.0-15.0 N GAP) GLUCOSE (test code = 84 MG/DL 70-110 N GLU) BLOOD UREA NITROGEN 12 MG/DL 7-18 N (test code = BUN) GLOMERULAR FILTRATION >=60 max estimate >60 RATE (test code = GFR) estGFR CREATININE (test code = 0.7 MG/DL 0.6-1.0 N CREAT) TOTAL PROTEIN (test code 7.3 G/DL 6.4-8.2 N = PROT) ALBUMIN (test code = 3.7 G/DL 3.4-5.0 N ALB) GLOBULIN (test code = 3.6 GM/dL GLOB) ALBUMIN/GLOBULIN RATIO 1.0 RATIO 1.2-2.2 L (test code = A/G) CALCIUM (test code = CA) 9.3 MG/DL 8.5-10.1 N BILIRUBIN TOTAL (test 0.20 MG/DL 0.2-1.2 N code = BILT) SGOT/AST (test code = 12 Unit/L 15-37 L AST) SGPT/ALT (test code = 34 Unit/L 12-78 N ALT) ALKALINE PHOSPHATASE 69 Unit/L 45-117 N TOTAL (test code = ALKP) [id number] 13:18:00 Test Item Value Reference Range Interpretation Comments LIPASE (test code = LIP) 52 Unit/L 114-286 L HCG SERUM [id number] 13:18:00 Test Item Value Reference Range Interpretation Comments HCG SERUM QUAL (test SERUM NEGATIVE SCREEN NEGATIVE code = HCGQL) CBC W/AUTO [id number] 13:01:00 Test Item Value Reference Range Interpretation Comments WHITE BLOOD CELL (test code = 10.9 K/mm3 3.5-11.0 N WBC) RED BLOOD CELL (test code = 4.78 M/mm3 4.70-6.10 N RBC) HEMOGLOBIN (test code = HGB) 12.5 G/DL 10.4-14.9 N HEMATOCRIT (test code = HCT) 38.8 % 31.5-44.1 N MEAN CELL VOLUME (test code = 81.2 Fl 84.5-98.6 L MCV) MEAN CELL HGB (test code = MCH) 26.2 pg 27.0-34.2 L MEAN CELL HGB CONCETRATION 32.2 G/DL 31.5-34.0 N (test code = MCHC) RED CELL DISTRIBUTION WIDTH 14.8 SD 11.5-14.5 H (test code = RDW) PLATELET COUNT (test code = 339 K/mm3 150-450 N PLT) MEAN PLATELET VOLUME (test code 10.00 fL 7.0-10.5 N = MPV) NEUTROPHIL % (test code = NT%) 64.2 % 40-76 N IMMATURE GRANULOCYTE % (test 0.4 % 0.0-5.0 N code = IG%) LYMPHOCYTE % (test code = LY%) 27.5 % 20.5-51.1 N MONOCYTE % (test code = MO%) 5.1 % 1.7-9.3 N EOSINOPHIL % (test code = EO%) 2.4 % 0.0-6.0 N BASOPHIL % (test code = BA%) 0.4 % 0.0-2.0 N NUCLEATED RBC % (test code = 0.0 /100WBC% 0.0-1.0 N NRBC%) NEUTROPHIL # (test code = NT#) 7.0 K/mm3 1.8-7.6 N IMMATURE GRANULOCYTE # (test 0.04 x10 3/uL 0.00-0.03 H code = IG#) LYMPHOCYTE # (test code = LY#) 3.0 K/mm3 0.6-3.2 N MONOCYTE # (test code = MO#) 0.6 K/mm3 0.3-1.1 N EOSINOPHIL # (test code = EO#) 0.3 K/mm3 0.0-0.4 N BASOPHIL # (test code = BA#) 0.0 K/mm3 0.0-0.1 N NUCLEATED RBC # (test code = 0.0 K/mm3 0.0-0.1 N NRBC#) MANUAL DIFF REQUIRED (test code NO DIFF/SCN CRITERIA = MDIFF) - US TRANSVAGINAL [id number] 00:00:00 [facility] : 1980 Sex: F Patient Name: YARITZA ELDER Unit No: [id number] EXAMS: CPT CODE: [id number] US TRANSVAGINAL W/PELVIS 51639 PROCEDURE INFORMATION: Exam: US Pelvis Complete (Transabdominal), Pelvis (Transvaginal), and US Duplex Artery or Vein (Ovaries) Limited Exam date and time: 01/13/2021 5:57 PM Age: 40 years old Clinical indication: Abdominal or pelvic symptoms: Bleeding; Menstruation abnormalities; Excessive menstruation; Additional info: Vb x 60 days TECHNIQUE: Imaging protocol: Real-time transabdominal and transvaginal pelvic ultrasound (complete) with image documentation. Transvaginal imaging was used for better evaluation of the endometrium, adnexa, and/or cervix. Real-time duplex ultrasound scan of the arterial or venous flow of the ovaries with B-mode, color Doppler flow and spectral waveform analysis. Complete Pelvis, Limited Duplex. COMPARISON: No relevant prior studies available. The uterus measures approximately 8.7 x 4.6 x 4.5 cmand demonstrates diffuse myometrial heterogeneity with a 1.3 x 0.9 x 1.1 cm subserosal fibroid tumor to the left of midline in the posterior uterine body. The endometrium is within normal limits with an AP thickness of 4 mm. No abnormal endometrial vascularity is noted on color ultrasound. A small volume of fluid is noted in the lower uterine segment and in the endocervical canal. Theright ovary measures 3.6 x 2.1 x 2.2 cm and the left ovary measures 3.2 x 2.0 x 1.8 cm. The ovaries maintain normal echotexture. Ovarian blood flow is documented bilaterally using color Doppler ultrasound. Trace free intraperitoneal fluid is identified in the pelvic cul-de-sac. IMPRESSION: 1. No acute sonographic abnormalities of the pelvis are detected. 2. 1.3 cm jimenez bserosal fibroid tumor in the left posterior uterine body. SL: 131 at 1920 Reported and signed by: Reuben Washburn MD CC: Sugey Hoyt MD Technologist: Debora Cabrera RDMS Probe: [id number] Trnscrbd D/ (1919) GCD.CPS Orig Print D/T: S: 01/13/2021 (1919) [facility] NAME: CENTRALCATYARITZA Radiology Department PHYS: PETCA. - Sugey Hoyt [address] : 1980 AGE: 40 SEX: F [place] [address] LOC: FeliERS PHONE #: [phone] EXAM DATE: 01/13/2021 STATUS: REG ER FAX #: [phone] RAD NO: Page 1 Signed Report [facility]: [id number] EXAMS: CPT CODE: [id number] US TRANSVAGINAL W/PELVIS 12756 <Continued> [facility] NAME: CENTRALCOLINYARITZA Radiology Department PHYS: PETCA. - Sugey Hoyt [address] : 1980 AGE: 40 SEX: F [place] [address] LOC: Leif.ERS PHONE #: [phone] EXAM DATE: 01/13/2021 STATUS: REG ER FAX #: [phone] RAD NO: Page 2 Signed Report- DUP AB/PEL/SC/[id number] 00:00:00[facility] : 1980 Sex: F Patient Name: YARITZA ELDER Unit No: [id number] EXAMS: CPT CODE: [id number] DUP AB/PEL/SC/LTD 52789 PROCEDURE INFORMATION: Exam: US Pelvis Complete (Transabdominal), Pelvis (Transvaginal), and US Duplex Artery or Vein (Ovaries) Limited Exam date and time: 01/13/2021 5:57 PM Age: 40 years old Clinical indication: Abdominal or pelvic symptoms: Bleeding; Menstruation abnormalities; Excessive menstruation; Additional info: Vb x 60 days TECHNIQUE: Imaging protocol: Real-time transabdominal and transvaginal pelvic ultrasound (complete) with image documentation. Transvaginal imaging was used for better evaluation of the endometrium, adnexa, and/or cervix. Real-time duplex ultrasound scan of the arterial or venous flow of the ovaries with B-mode, color Doppler flow and spectral waveform analysis. Complete Pelvis, Limited Duplex. COMPARISON: No relevant prior studies available. The uterus measures approximately 8.7 x 4.6 x 4.5 cmand demonstrates diffuse myometrial heterogeneity with a 1.3 x 0.9 x 1.1 cm subserosal fibroid tumor to the left of midline in the posterior uterine body. The endometrium is within normal limits with an AP thickness of 4 mm. No abnormal endometrial vascularity is noted on color ultrasound. A small volume of fluid is noted in the lower uterine segment and in the endocervical canal. Theright ovary measures 3.6 x 2.1 x 2.2 cm and the left ovary measures 3.2 x 2.0 x 1.8 cm. The ovaries maintain normal echotexture. Ovarian blood flow is documented bilaterally using color Doppler ultrasound. Trace free intraperitoneal fluid is identified in the pelvic cul-de-sac. IMPRESSION: 1. No acute sonographic abnormalities of the pelvis are detected. 2. 1.3 cm subserosal fibroid tumor in the left posterior uterine body. SL: 131 at 1920 Reported and signed by: Reuben Washburn MD CC: Sugey Hoyt MD Technologist: Debora Cabrera RDMS Probe: Trnscrbd D/ (1919) GCD.CPS Orig Print D/T: S: 01/13/2021 (1919) [facility] NAME: YARITZA JARAMILLO Radiology Department PHYS: PETCA. - Sugey Hoyt [address] : 1980 AGE: 40 SEX: F [place] [address] LOC: Leif.ERS PHONE #: [phone] EXAM DATE: 01/13/2021 STATUS: REG ER FAX #: [phone] RAD NO: Page 1 Signed Report Patient Name: aRmez ELDER No: [id number] EXAMS: CPT CODE: [id number] DUP AB/PEL/SC/LTD 74289 <Continued> [facility] NAME: YARITZA ELDER Radiology Department PHYS: PETCA. - Sugey Hoyt [address] : 1980 AGE: 40 SEX: F [place] [address] LOC: FeliERS PHONE #: [phone] EXAM DATE: 01/13/2021 STATUS: REG ER FAX #: [phone] RAD NO: Page 2 Signed Report- US PELVIS [id number] 00:00:00[facility] : 1980 Sex: F Patient Name: YARITZA ELDER Unit No: [id number] EXAMS: CPT CODE: [id number] US PELVIS COMPLETE 78580 PROCEDURE INFORMATION: Exam: US Pelvis Complete (Transabdominal), Pelvis (Transvaginal), and US Duplex Artery or Vein (Ovaries) Limited Exam date and time: 01/13/2021 5:57 PM Age: 40 years old Clinical indication: Abdominal or pelvic symptoms: Bleeding; Menstruation abnormalities; Excessive menstruation; Additional info: Vb x 60 days TECHNIQUE: Imaging protocol: Real-time transabdominal and transvaginal pelvic ultrasound (complete) with image documentation. Transvaginal imaging was used for better evaluation of the endometrium, adnexa, and/or cervix. Real-time duplex ultrasound scan of the arterial or venous flow of the ovaries with B-mode, color Doppler flow and spectral waveform analysis. Complete Pelvis, Limited Duplex. COMPARISON: No relevant prior studies available. The uterus measures approximately 8.7 x 4.6 x 4.5 cmand demonstrates diffuse myometrial heterogeneity with a 1.3 x 0.9 x 1.1 cm subserosal fibroid tumor to the left of midline in the posterior uterine body. The endometrium is within normal limits with an AP thickness of 4 mm. No abnormal endometrial vascularity is noted on color ultrasound. A small volume of fluid is noted in the lower uterine segment and in the endocervical canal. Theright ovary measures 3.6 x 2.1 x 2.2 cm and the left ovary measures 3.2 x 2.0 x 1.8 cm. The ovaries maintain normal echotexture. Ovarian blood flow is documented bilaterally using color Doppler ultrasound. Trace free intraperitoneal fluid is identified in the pelvic cul-de-sac. IMPRESSION: 1. No acute sonographic abnormalities of the pelvis are detected. 2. 1.3 cm subserosal fibroid tumor in the left posterior uterine body. SL: 131 at 1920 Reported and signed by: Reuben Washburn MD CC: Sugey Hoyt MD Technologist: Debora Cabrera RDMS Probe: Trnscrbd D/ (1919) GCD.CPS Orig Print D/T: S: 01/13/2021 (1919) [facility] NAME: YARITZA JARAMILLO Radiology Department PHYS: PETCA. EvelinaSugey D [address] : 1980 AGE: 40 SEX: Leif [place] [id number] LOC: RUDY PHONE #: [phone] EXAM DATE: 01/13/2021 STATUS: REG ER FAX #: [phone] RAD NO: Page 1 Signed Report Patient Name: Ramez ELDER No: [id number] EXAMS: CPT CODE: [id number] US PELVIS COMPLETE 85250 <Continued> [facility] NAME: YARITZA ELDER Radiology Department PHYS: PETCA. Sugey Hoyt Curt [address] : 1980 AGE: 40 SEX: Leif [place], [place] [address] LOC: RUDY PHONE #: [phone] EXAM DATE: 01/13/2021 STATUS: REG ER FAX #: [phone] RAD NO: Page 2 Signed ReportSURGICAL [id number] 10:53:00 RUN DATE: 10/24/17 [facility] *LIVE* PAGE 1 RUN TIME: 1053 Specimen Inquiry RUN USER: INTERFACE PATIENT: YARITZA BAILEY LOC: [facility] U #: [id number] AGE/SX: 37/F ROOM: RE10/22/17REG DR: Tracey Shetty : 84 BED: DIS: STATUS: [place] [facility] [place]: SPEC #: [id number] RECD: 10/22/17 STATUS: MATIASGrady RE #: [id number] DERRELL: 10/22/[address]: Tracey Shetty MD ENTERED: 10/24/17 SP TYPE: SURG SPEC OTHR DR: Undefined Provider ORDERED: GM LEVEL 4 CODES: [id number] - STOMACH, NOS [id number] - SMALL INTESTINE [id number] - C OLON, NOS COPIES TO: Tracey Shetty MD [address] [place] [address] [address] [place], [place] [id number] Undefined Provider PROCEDURES: GM LEVEL 4 (Incomplete) TISSUES: 1. SMALLINTESTINE, NOS - Small intestine, duodenum, bx. 2. [...] CONTINUED ON NEXT PAGE RUN DATE: 10/24/17 [facility] *LIVE* PAGE 2 RUN TIME: 1053 Specimen Inquiry RUN USER: INTERFACE SPEC #: [id number] PATIENT: YARITZA BAILEY #[id number] (Continued) GROSS AND MICROSCOPIC (Continued) MICROSCOPIC EXAMINATION: Sections of the "Small intestine, duodenum, bx." reveal changes of chronic inflammation. The small intestine contains villous processes of normal length and diameter. A mild inflammatory infiltrate is present in the underlying stroma. The epithelium contains a normal complement oflymphoid cells. No definite evidence of celiac sprue [...] MD 10/24/17 1053 END OF REPORT URINE [id number] 10:36:00 Test Item Value Reference Range Interpretation Comments CULTURE (BEAKER) (test >100,000 col/mL skin code = 1095) tona MR, MRA, BRAIN, WITHOUT [id number] 15:22:00Reason for exam:->Ischemic Stroke EvaluationFINAL REPORT MRI brain with and without contrast Comparison: No priors Reason for exam: StrokeIschemic Stroke Evaluation Discussion: Multiplanar MR imaging of the brain was provided [id number] IV gadolinium administration using T1, T2, FLAIR, [...] None available. TECHNIQUE: 2 D and 3-D [id number] MRA images of the intra- and extracranial carotid and vertebralarterial circulations were obtained, from which maximal intensity projection 3-D reconstructions were created. FINDINGS: MRA neck: There is no MR angiographic evidence for vessel occlusion or NASCET quantifiable stenosis in the extracranial carotid arteries. No hemodynamically significant stenosis identified in the vertebral artery, flow is antegrade in both vertebral arteries. MRA [place]: There is no MR angiographic evidence for vessel occlusion, flow-limiting stenosis, or aneurysm inthe intracranial carotid or vertebrobasilar arterial circulations. IMPRESSION: 1. No MR angiographic evidence for vascular compromise. Signed: Adele Holden Verified Date/Time: 05/10/2017 15:22:22 Reading Location: [address] Neuro Reading Room MR, MRA, NECK, WITHOUT IV [id number] 15:22:00Reason for exam:->Ischemic Stroke EvaluationFINAL REPORT MRI brain with and without contrast Comparison: No priors Reason for exam: StrokeIschemic Stroke Evaluation Discussion: Multiplanar MR imaging of the brain was provided [id number] IV gadolinium administration using T1, T2, FLAIR, [...] None available. TECHNIQUE: 2 D and 3-D [id number] MRA images of the intra- and extracranial carotid and vertebral arterial circulations were obtained, from which maximal intensity projection 3-D reconstructions were created. FINDINGS: MRA neck: There is no MR angiographic evidence for vessel occlusion or NASCET quantifiable stenosis in the extracranial carotid arteries. No hemodynamically significant stenosis iden tified in the vertebral artery, flow is antegrade in both vertebral arteries. MRA [place]: There is no MR angiographic evidence for vessel occlusion, flow-limiting stenosis, or aneurysm inthe intracranial carotid or vertebrobasilar arterial circulations. IMPRESSION: 1. No MR angiographic evidence for vascular compromise. Signed: Adele Holden Verified Date/Time: 05/10/2017 15:22:22 Reading Location: [facility] Neuro Reading Room MR, BRAIN, [id number] 15:22:00FINAL REPORT MRI brain with and without contrast Comparison: No priors Reason for exam: StrokeIschemic Stroke Evaluation Discussion: Multiplanar MR imaging of the brain was provided [id number]-[id number] IV gadolinium administration using T1, T2, FLAIR, [...] None available. TECHNIQUE: 2 D and 3-D [id number] MRA images of the intra- and extracranial carotid and vertebralarterial circulations were obtained, from which maximal intensity projection 3-D reconstructions were created. FINDINGS: MRA neck: There is no MR angiographic evidence for vessel occlusion or NASCET quantifiable stenosis in the extracranial carotid arteries. No hemodynamically significant stenosis identified in the vertebral artery, flow is antegrade in both vertebral arteries. MRA [place]: There is no MR angiographic evidence for vessel occlusion, flow-limiting stenosis, or aneurysm inthe intracranial carotid or vertebrobasilar arterial circulations. IMPRESSION: 1. No MR angiographic evidence for vascular compromise. Signed: Adele Holden MDReport Verified Date/Time: 05/10/2017 15:22:22 Reading Location: [address] Neuro Reading Room HEMOGLOBIN [id number] 11:17:00 Test Item Value Reference Range Interpretation Comments HEMOGLOBIN A1C (BEAKER) (test code = 5.9 % 4.3-6.1 368) [id number] 07:58:00 Test Item Value Reference Range Interpretation Comments MAGNESIUM (BEAKER) (test code = 2.2 mg/dL 1.6-2.6 627) BASIC METABOLIC [id number] 07:58:00 Test Item Value Reference Range Interpretation [...] NOT APPLICABLE FOR DIALYSIS PATIEN TS. LIPID [id number] 07:58:00 Test Item Value Reference Range Interpretation Comments TRIGLYCERIDES (BEAKER) (test code = 163 mg/dL 540) CHOLESTEROL (BEAKER) (test code = 149 mg/dL 631) HDL CHOLESTEROL ([place]) (test code 30 mg/dL = 976) LDL CHOLESTEROL CALCULATED ([place]) 86 mg/dL (test code = 633) Triglyceride Reference Range: Low Risk <150 Borderline 150-199 High Risk 200-499 Very High Risk >=500Cholesterol Reference Range: Low Risk <200 Borderline 200-239 High Risk >240HDL Cholesterol Reference Range: Low Risk >=60 High Risk <40LDL Cholesterol Reference Range: Optimal <100 Near Optimal 100-129 Borderline 130-159 High 160-189 Very High >=190TROPONIN [id number] 07:56:00 Test Item Value Reference Range Interpretation Comments TROPONIN I (YOGESHMyLikes) (test code = 0.01 ng/mL 0.00-0.03 397) [...]
[2021-05-23 22:36] LABS: Hematocrit 38.4 % (36.0-45.0); Lymphocytes % 20.3 % (15.3-44.8); MPV 8.3 fL (7.6-11.3); RBC Red Blood Cell Count 4.88 M/uL (3.86-4.86)
[2021-05-23] MEDS ORDERED: MORPHINE 4 MG/ML SYR ONE (22:37)
[2021-05-23] MEDS ORDERED: NA CHLORIDE 0.9% 1,000 ML ONE (22:37)
[2021-05-23] MEDS ORDERED: ONDANSETRON 4 MG/2 ML VIAL ONE (22:37)
[2021-05-23 22:45] LABS: Protime INR 0.98
[2021-05-23 23:02] LABS: ALT/SGPT 21 U/L (12-78); Albumin 3.6 g/dL (3.4-5.0); Alkaline Phosphatase 80 U/L (45-117); BUN Blood Urea Nitrogen 11 mg/dL (7-18); Bicarbonate 27 mmol/L (21-32); Bilirubin Total 0.3 mg/dL (0.2-1.0); Glucose Level 91 mg/dL (74-106); Protein, Total 7.2 g/dL (6.4-8.2); Sodium Level 139 mmol/L (136-145)
[2021-05-23 23:03] LABS: AST/SGOT 17 U/L (15-37); Bilirubin Direct < 0.1 mg/dL (0-0.2); Potassium 4.4 mmol/L (3.5-5.1)
[2021-05-23 23:59] LABS: Urine Blood 3+ (Negative); Urine Glucose Negative (Negative); Urine Protein 2+ (Negative); Urine pH 5.5 (5.0-7.0)
--- NOTE | 2021-05-24 00:46 | ER ---
Nurse's Notes [facility] Name: Shahnaz Nicole Age: 40 yrs Sex: Female : 1980 Arrival Date: 05/23/2021 Time: 21:29 Bed 27 Private MD: Poncho Crespo Diagnosis: Abnormal uterine and vaginal bleeding, unspecified;Bradycardia, unspecified Presentation: 05/23 21:40 Chief complaint: Patient states: I have polycystic ovarian syndrome and right now I am jb4 having a bad cycle. I am having heavy vaginal bleeding, nausea, and diarrhea. I got dizzy earlier and fell out of my bed and hurt my back. Coronavirus screen: Vaccine status: Patient reports being unvaccinated. At this time, the client does not indicate any symptoms associated with coronavirus-19. Ebola Screen: No symptoms or risks identified at this time. Initial Sepsis Screen: Does the patient meet any 2 criteria? No. Patient's initial sepsis screen is negative. Does the patient have a suspected source of infection? No. Patient's initial sepsis screen is negative. Risk Assessment: Do you want to hurt yourself or someone else? Patient reports no desire to harm self or others. Onset of symptoms was May 23, 2021. Transition of care: patient was not received from another setting of care. 21:40 Method Of Arrival: Amb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 - Social history:: Smoking status: Patient denies any tobacco usage or history of. Patient uses alcohol, occasionally. Patient/guardian denies using street drugs. Screenin:00 Abuse screen: Denies threats or abuse. Denies injuries from another. Nutritional wh screening: No deficits noted. Tuberculosis screening: No symptoms or risk factors identified. Fall Risk None identified. Assessment: 21:45 General: Appears in no apparent distress. uncomfortable, Behavior is calm, cooperative, wh appropriate for age. Pain: Complains of pain in abdomen Pain radiates to pelvis Quality of pain is described as crampy. Neuro: Level of Consciousness is awake, alert, obeys commands, Oriented to person, place, time, situation, Appropriate for age. Cardiovascular: Capillary refill < 3 seconds. Respiratory: Airway is patent Respiratory effort is even, unlabored, Respiratory pattern is regular, symmetrical. GI: Bowel sounds present X 4 quads. Abd is soft and non tender X 4 quads. Reports lower abdominal pain, cramping. : Reports cramping. EENT: No signs and/or symptoms were reported regarding the EENT system. Derm: Skin is intact, is healthy with good turgor, Skin is pink, warm \T\ dry. normal. Musculoskeletal: Circulation, motion, and sensation intact. 23:00 Reassessment: Patient appears in no apparent distress at this time. Patient and/or wh family updated on plan of care and expected duration. Pain level reassessed. Patient is alert, oriented x 3, equal unlabored respirations, skin warm/dry/pink. 05/24 00:30 Reassessment: Patient appears in no apparent distress at this time. Patient and/or wh family updated on plan of care and expected duration. Pain level reassessed. Patient is alert, oriented x 3, equal unlabored respirations, skin warm/dry/pink. 01:15 Reassessment: Patient appears in no apparent distress at this time. Patient and/or wh family updated on plan of care and expected duration. Pain level reassessed. Patient is alert, oriented x 3, equal unlabored respirations, skin warm/dry/pink. Patient states feeling better. Patient states symptoms have improved. Vital Signs: 05/23 21:40 BP 156 / 90; Pulse 51; Resp 18; Pulse Ox 99% on R/A; Weight 163.29 kg (R); Height 5 ft. jb4 7 in. (170.18 cm) (R); Pain 10/10; 22:00 BP 133 / 75 Supine; Pulse 48; wh 22:04 BP 133 / 75 Sitting; Pulse 48; wh 22:04 BP 149 / 86 Standing; Pulse 43; 05/24 00:00 BP 146 / 94; Pulse 46; Resp 18; Pulse Ox 98% on R/A; 01:30 BP 124 / 77; Pulse 50; Resp 18; Pulse Ox 98% ; 05/23 21:40 Body Mass Index 56.38 (163.29 kg, 170.18 cm) jb4 ED Course: 05/23 21:29 Patient arrived in ED. mr 21:29 Poncho Crespo DO is Private Physician. mr 21:33 Finn Spence PA is PHCP. cp 21:33 Lincoln Jones MD is Attending Physician. cp 21:42 Triage completed. jb4 21:42 Arm band placed on right wrist. jb4 21:53 Chris Boudreaux, TIP is Primary Nurse. 22:00 Patient has correct armband on for positive identification. Bed in low position. Call light in reach. Side rails up X 1. electronic maintenance supervisor on. Pulse ox on. NIBP on. 22:15 No provider procedures requiring assistance completed. Inserted saline lock: 20 gauge in left antecubital area, using aseptic technique. Blood collected. 22:45 Inserted saline lock: 24 gauge in right wrist, using aseptic technique. By [facility] TECH. 05/24 00:11 US Transvaginal Study (Probe) In Process Unspecified. EDMS 00:44 Cathy Sales MD is Referral Physician. cp 01:38 IV discontinued, intact, bleeding controlled, No redness/swelling at site. Administered Medications: 05/23 22:38 Drug: morphine 4 mg {Note: RASS 0.} Route: IVP; Site: left antecubital; 23:11 Follow up: Response: No adverse reaction; Pain is decreased; RASS: Alert and Calm (0) 22:40 Drug: Zofran (Ondansetron) 4 mg Route: IVP; Site: left antecubital; 23:11 Follow up: Response: No adverse reaction 22:50 Drug: NS 0.9% 1000 ml Route: IV; Rate: 1 bolus; Site: right wrist; 05/24 01:38 Follow up: Response: No adverse reaction; IV Status: Completed infusion 01:06 Drug: Dilaudid (HYDROmorphone) 1 mg {Note: RASS 0.} Route: IVP; Site: right wrist; 01:38 Follow up: Response: No adverse reaction; Pain is decreased; RASS: Alert and Calm (0) Outcome: 00:45 Discharge ordered by . naomie 01:36 Discharged to home ambulatory, with family. 01:36 Condition: stable 01:36 Discharge instructions given to patient, family, Instructed on discharge instructions, follow up and referral plans. no drinking with medication, no driving heavy equipment, medication usage, POC Demonstrated understanding of instructions, follow-up care, medications, POC Prescriptions given X 3. 01:38 Patient left the ED. Signatures: Dispatcher [employer] EDCO Kristyn Lizama mr Finn Spence PA PA cp Bryson, James, TIP RN jbChris Bush RN RN Corrections: (The following items were deleted from the chart) 01:36 04/14 22:45 Inserted saline lock: 24 gauge in right wrist, using aseptic technique. [facility]
--- NOTE | 2021-05-24 00:47 | EDPHYS ---
Physician Documentation [facility] Name: Shahnaz Nicole Age: 40 yrs Sex: Female : 1980 Arrival Date: 05/23/2021 Time: 21:29 Bed 27 Private MD: Zak [facility] ED Physician Lincoln Jones HPI: 05/23 21:45 This 40 yrs old Female presents to ER via Ambulatory with complaints of Abdominal cp Cramping, Dizziness, Nausea, Back Pain. 21:45 The patient presents with vaginal bleeding that is heavy, with clots. cp 21:45 Onset: The symptoms/episode began/occurred this past weekend, became worse over the cp past 2 days with passage of large clots. Associated signs and symptoms: Pertinent positives: nausea, dizziness, syncope, lower abdomen cramping and lower back pain. Severity of symptoms: in the emergency department the symptoms are unchanged, despite home interventions. Patient reports history of polycystic ovarian disease and irregular menses. 21:45 The patient is sexually active, reportedly has a single partner. The patient's method cp of control includes nothing. 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 - Social history:: Smoking status: Patient denies any tobacco usage or history of. Patient uses alcohol, occasionally. Patient/guardian denies using street drugs. ROS: 21:50 Constitutional: Negative for body aches, chills, fever, poor PO intake. cp 21:50 Eyes: Negative for injury, pain, redness, and discharge. cp 21:50 ENT: Negative for drainage from ear(s), ear pain, sore throat, difficulty swallowing, difficulty handling secretions. 21:50 Cardiovascular: Negative for chest pain, edema, palpitations. 21:50 Respiratory: Negative for cough, shortness of breath, wheezing. 21:50 Abdomen/GI: Positive for abdominal pain, nausea, abdominal cramps, of the right lower quadrant and left lower quadrant, Negative for vomiting, diarrhea, constipation. 21:50 Back: Positive for radiated pain, of the low back area. 21:50 : Positive for vaginal bleeding, Negative for urinary symptoms. 21:50 Neuro: Positive for dizziness, syncope, Negative for altered mental status, headache. 21:50 All other systems are negative. Exam: 21:55 Constitutional: The patient appears in no acute distress, alert, awake, cp non-diaphoretic, non-toxic, well developed, well nourished, obese. 21:55 Head/Face: Normocephalic, atraumatic. cp 21:55 Eyes: Periorbital structures: appear normal, Conjunctiva: normal, no exudate, no injection, Sclera: no appreciated abnormality, Lids and lashes: appear normal, bilaterally. 21:55 ENT: External ear(s): are unremarkable, Nose: is normal, Mouth: Lips: moist, Oral mucosa: moist, Posterior pharynx: Airway: no evidence of obstruction, patent. 21:55 Chest/axilla: Inspection: normal. 21:55 Cardiovascular: Rate: bradycardic, Rhythm: regular, Edema: is not appreciated, JVD: is not appreciated. 21:55 Respiratory: the patient does not display signs of respiratory distress, Respirations: normal, no use of accessory muscles, no retractions, labored breathing, is not present, Breath sounds: are clear throughout, no decreased breath sounds, no stridor, no wheezing. 21:55 Abdomen/GI: Inspection: obese Bowel sounds: active, all quadrants, Palpation: soft, in all quadrants, moderate abdominal tenderness, in the right lower quadrant and left lower quadrant, rebound tenderness, is not appreciated, involuntary guarding, is not appreciated. 21:55 Back: pain, that is moderate, of the low back area, ROM is normal. 21:55 Neuro: Orientation: to person, place \T\ time. Mentation: is normal, Motor: moves all fours, strength is normal, Sensation: is normal. 22:08 ECG was reviewed by the Attending Physician. cp Vital Signs: 21:40 BP 156 / 90; Pulse 51; Resp 18; Pulse Ox 99% on R/A; Weight 163.29 kg (R); Height 5 ft. jb4 7 in. (170.18 cm) (R); Pain 10/10; 22:00 BP 133 / 75 Supine; Pulse 48; wh 22:04 BP 133 / 75 Sitting; Pulse 48; wh 22:04 BP 149 / 86 Standing; Pulse 43; wh 05/24 00:00 BP 146 / 94; Pulse 46; Resp 18; Pulse Ox 98% on R/A; wh 01:30 BP 124 / 77; Pulse 50; Resp 18; Pulse Ox 98% ; wh 05/23 21:40 Body Mass Index 56.38 (163.29 kg, 170.18 cm) jb4 MDM: 05/23 21:48 Patient medically screened. cp 22:00 Differential diagnosis: appendicitis, dysmenorrhea, ectopic , endometriosis, cp menometrorrhagia, molar preganancy, Neoplasm ovarian cyst, pelvic inflammatory disease, urinary tract infection, vaginosis, anemia, cardiac arrythmia. 05/24 00:45 Data reviewed: vital signs, nurses notes, lab test result(s), EKG, radiologic studies, cp ultrasound. Counseling: I had a detailed discussion with the patient and/or guardian regarding: the historical points, exam findings, and any diagnostic results supporting the discharge/admit diagnosis, lab results, radiology results, the need for outpatient follow up, for definitive care, a family practitioner, an OB/Gyne specialist, to return to the emergency department if symptoms worsen or persist or if there are any questions or concerns that arise at home, stop propanolol. Response to treatment: the patient's symptoms have markedly improved after treatment, Pain improved. H/H stable. US negative for emergent findings, and as a result, I will discharge patient. 05/23 21:51 Order name: Basic Metabolic Panel; Complete Time: 23:46 cp 05/23 23:46 Interpretation: Normal except: CL 108; GFR 77. cp 05/23 21:51 Order name: CBC with Diff; Complete Time: 22:47 cp 05/23 22:47 Interpretation: Normal except: RBC 4.88; MCV 78.8; MCH 25.7; RDW 16.1. cp 05/23 21:51 Order name: LFT's; Complete Time: 23:46 cp 05/23 21:51 Order name: PT-INR; Complete Time: 22:47 cp 05/23 21:51 Order name: Ptt, Activated; Complete Time: 22:47 cp 05/23 21:51 Order name: EKG; Complete Time: 21:52 cp 05/23 22:48 Order name: US Transvaginal Study (Probe) cp 05/24 00:00 Order name: Urine Dipstick-Ancillary; Complete Time: 00:19 EDMS 05/24 00:19 Interpretation: Normal except: UBLD 3+; UPROT 2+. cp 05/23 21:51 Order name: Orthostatics; Complete Time: 22:41 cp 05/23 21:51 Order name: Cardiac monitoring; Complete Time: 22:41 cp 05/23 21:51 Order name: EKG - Nurse/Tech; Complete Time: 22:41 cp 05/23 21:51 Order name: IV Saline Lock; Complete Time: 22:41 cp 05/23 21:51 Order name: Labs collected and sent; Complete Time: 22:41 cp 05/23 21:51 Order name: O2 Per Protocol; Complete Time: 22:41 cp 05/23 21:51 Order name: O2 Sat Monitoring; Complete Time: 22:41 cp 05/23 21:51 Order name: Urine Dipstick-Ancillary (obtain specimen); Complete Time: 23:52 cp 05/23 21:51 Order name: Urine Test (obtain specimen); Complete Time: 23:52 cp EC/14 22:08 Rate is 42 beats/min. Rhythm is regular. GA interval is normal. QRS interval is normal. cp QT interval is normal. T waves are Inverted in lead aVR. Interpreted by me. Reviewed by me. Administered Medications: 22:38 Drug: morphine 4 mg {Note: RASS 0.} Route: IVP; Site: left antecubital; 23:11 Follow up: Response: No adverse reaction; Pain is decreased; RASS: Alert and Calm (0) 22:40 Drug: Zofran (Ondansetron) 4 mg Route: IVP; Site: left antecubital; 23:11 Follow up: Response: No adverse reaction 22:50 Drug: NS 0.9% 1000 ml Route: IV; Rate: 1 bolus; Site: right wrist; 05/24 01:38 Follow up: Response: No adverse reaction; IV Status: Completed infusion 01:06 Drug: Dilaudid (HYDROmorphone) 1 mg {Note: RASS 0.} Route: IVP; Site: right wrist; 01:38 Follow up: Response: No adverse reaction; Pain is decreased; RASS: Alert and Calm (0) Disposition: 04:58 I agree with the assessment and plan of care. kdr Disposition Summary: 05/24/21 00:45 Discharge Ordered Location: Home cp Problem: an ongoing problem cp Symptoms: have improved cp Condition: Stable cp Diagnosis - Abnormal uterine and vaginal bleeding, unspecified cp - Bradycardia, unspecified cp Followup: cp - With: Cathy Sales MD - When: 1 week - Reason: Recheck today's complaints Discharge Instructions: - Discharge Summary Sheet cp - Bradycardia, Adult cp - Dysfunctional Uterine Bleeding cp Forms: - Medication Reconciliation Form cp - Thank You Letter cp - Antibiotic Education cp - Prescription Opioid Use cp - Work release form Prescriptions: - Ibuprofen 800 mg Oral Tablet - take 1 tablet by ORAL route every 8 hours As needed take with food; 30 tablet; cp Refills: 0, Product Selection Permitted - Tylenol-Codeine #3 300 mg-30 mg Oral - take 2 tablet by ORAL route every 8-10 hours; 15 tablet; Refills: 0, Product cp Selection Permitted - medroxyprogesterone 10 mg Oral tablet - take 1 tablet by ORAL route once daily for 7 days; 7 tablet; Refills: 0, cp Product Selection Permitted Signatures: Dispatcher [employer] EDMS Lincoln Jones MD MD kdr Page, Corey, PA PA cp Catarino Bobby RN RN jb4 Chris Boudreaux RN RN Corrections: (The following items were deleted from the chart) 22:14 22:12 Data reviewed: vital signs, nurses notes, lab test result(s), EKG, radiologic cp studies, ultrasound, cp 22:14 22:12 Counseling: I had a detailed discussion with the patient and/or guardian cp regarding: the historical points, exam findings, and any diagnostic results supporting the discharge/admit diagnosis, lab results, radiology results, the need for outpatient follow up, for definitive care, a family practitioner, an OB/Gyne specialist, to return to the emergency department if symptoms worsen or persist or if there are any questions or concerns that arise at home, stop propanolol, cp 22:14 22:12 Response to treatment: the patient's symptoms have markedly improved after cp treatment, Pain improved. H/H stable. US negative for emergent findings, and as a result, I will discharge patient, cp
[2021-05-24] MEDS ORDERED: HYDROMORPHONE HCL 1 MG/ML INJ ONE (01:05)
[2021-05-24 09:06] VITALS: O2SAT 98
[2021-05-24 09:07] VITALS: BP 124/77
--- NOTE | 2021-05-24 11:54 | RAD REPORT ---
EXAM DESCRIPTION: US - Transvaginal Study Probe - 05/24/2021 1:06 am ADDENDUM #1 Recently described lower uterine segment cyst-nabothian cyst measured 0.6 x 0.3 x 0.8 cm. Electronically signed by: Will Booker MD 05/24/2021 1:51 AM CDT End of Addendum EXAM DESCRIPTION: Transvaginal Study Probe 05/24/2021 12:38 AM CDT CLINICAL HISTORY: 40 years, Female, VAGINAL BLEEDING COMPARISON: None. TECHNIQUE: Utilizing a transvaginal array transducer, real-time ultrasound evaluation of the female pelvis was performed. Color Doppler imaging was used to assess vascular flow. FINDINGS: The uterus measures 8.2 x 4.8 x 5.3 cm. The endometrial stripe demonstrate to be normal and measure 5.1 mm, there is no evidence for gestational sac. Elongated cystic structure structure wi thin the lower uterine segment/cervix corresponding to a nabothian cyst. The right ovary measured 3.9 x 2.0 x 2.8 cm, the left ovary measures 3.9 x 1.5 x 1.8 cm. There is nor mal vascular flow and spectral waveforms with no evidence for torsion. No free fluid was identified in the posterior cul-de-sac, no adnexal masses seen. IMPRESSION: ELONGATED CYSTIC STRUCTURE LOWER UTERINE SEGMENT PERHAPS CORRESPONDING TO A NABOTHIAN CY ST. OTHERWISE UNREMARKABLE PELVIC ULTRASOUND. NO ADNEXAL MASSES IDENTIFIED. Electronically signed by: Will Booker MD 05/24/2021 12:58 AM CDT Due to temporary technical issues with the PACS/Fluency reporting system, reports are being signed by the in house radiologist without review as a courtesy to ensure prompt reporting. The interpreting r adiologist is fully responsible for the content of the report.
== END 2021-05-24 01:38 | disposition home or self-care (01) ==
LOC: ER 21:25
DX: N93.9 Abnormal uterine and vaginal bleeding, unspecified (principal); R00.1 Bradycardia, unspecified; I10 Essential (primary) hypertension; F32.A Depression, unspecified; F41.9 Anxiety disorder, unspecified; Z91.018 Allergy to other foods
CPT/HCPCS: 36415; 76830; 80048; 80076; 81003; 85025; 85610; 85730; 93005; 99284; J1170; J2405; J7030

== ENCOUNTER 2024-06-29 06:36 | Emergency (ER) | payer SELFPAY ==
[2024-06-29] MEDS ORDERED: NA CHLORIDE 0.9% 1,000 ML ONE (07:08)
[2024-06-29] MEDS ORDERED: ONDANSETRON 4 MG/2 ML VIAL ONE ×2 (07:08→08:06)
[2024-06-29 07:22] LABS: Specific Gravity 1.017 (1.005-1.030)
[2024-06-29 07:26] LABS: Specific Gravity 1.017 (1.005-1.030); Sqamous Epithelial <5 /HPF (None Seen); Urine Bacteria <20 /HPF (<20); Urine Bilirubin NEGATIVE (Negative); Urine Blood Negative (Negative); Urine Clarity Turbid (Clear); Urine Color Light-Yellow (Yellow); Urine Glucose NEGATIVE (Negative); Urine Ketones NEGATIVE (Negative); Urine Micro Reflex YN NO BILL MICROSCOPIC; Urine Mucus Slight /HPF (None Seen); Urine Nitrite NEGATIVE (Negative); Urine Protein NEGATIVE (Negative); Urine RBC <5 /HPF (None Seen); Urine Urobilinogen Normal (Normal); Urine WBC <5 /HPF (<5); Urine pH 6.5 (5.0-7.0)
[2024-06-29 07:29] LABS: Absolute Basophils 0.1 K/uL (0-0.5); Absolute Eosinophils 0.3 K/uL (0-0.5); Absolute Lymphocytes (CBC) 1.9 K/uL (0.7-4.9); Absolute Monocytes 0.6 K/uL (0.1-1.3); Absolute Neutrophil 6.7 K/uL (1.8-8.0); Hematocrit 40.3 % (36.0-45.0); Hemoglobin 13.5 g/dL (12.0-15.0); Lymphocytes % 20.3 % (15.3-44.8); MCH 25.8 pg (27.0-35.0); MCHC 33.4 g/dL (32.0-36.0); MCV 77.4 fL (80-100); MPV 7.9 fL (7.6-11.3); Monocytes % 6.2 % (3.3-12.3); Neutrophils % 69.5 % (41.7-73.7); Nucleated Red Blood Cells % 0.1 % (0-0); Platelets 334 thou/uL (152-406); RBC Red Blood Cell Count 5.21 M/uL (3.86-4.86); Red Cell Distribution Width 17.1 % (12.1-15.2)
[2024-06-29 07:46] LABS: Albumin 3.5 g/dL (3.4-5.0); Albumin/Globulin Ratio 0.9 (1.1-1.8); Anion Gap 7.5 mEq/L (5.0-15.0); Bilirubin Total 0.3 mg/dL (0.2-1.0); Globulin 3.8 g/dL (2.3-3.5); Potassium 3.5 mEq/L (3.5-5.1); Protein, Total 7.3 g/dL (6.4-8.2)
--- NOTE | 2024-06-29 08:07 | RAD REPORT ---
EXAMINATION: CT ABDOMEN AND PELVIS WITH CONTRAST CLINICAL INDICATION: Abdominal pain TECHNIQUE: CT abdomen and pelvis was performed, after the administration of 100 cc Isovue-300.. Sagit fredo and coronal reconstructions were obtained. One or more of the following dose reduction techniques were used: Automated exposure control, adjustment of the mA and kV according to patient si ze, and iterative reconstruction. Unless otherwise specified, incidental findings do not require dedicated imaging follow-up. [id number]. Oral contrast was not given which limits evaluation of bowel and appendix. COMPARISON: .2020 FINDINGS: The liver has a diminished attenuation consistent with fatty infiltration. Liver is enlarged. The Spleen, pancreas, adrenals and kidneys appear unremarkable No evidence of diverticulitis. Patient reports an appendectomy. Small umbilical hernia with mild stranding in the adjacent fat. No adnexal mass Borderline gallbladder distention : IMPRESSION: Mild hepatomegaly with fatty infiltration Borderline gallbladder distention. Small umbilical hernia. Mild stranding within the fat may indicate inflammation.
--- NOTE | 2024-06-29 08:34 | ER ---
Nurse's Notes [facility] Name: Shahnaz Nicole Age: 43 yrs Sex: Female : 1980 Arrival Date: 06/29/2024 Time: 06:36 Bed 6 Private MD: Diagnosis: Umbilical hernia, abdominal pain Presentation: 06/29 06:51 Chief complaint: Patient states: C/O AB PAIN TO UMBILICAL AREA, br2 NAUSEA/VOMITING/DIARRHEA, DENIES FEVER. Coronavirus screen: Client denies travel out of the [place] in the last 14 days. Ebola Screen: Patient denies exposure to infectious person. Initial Sepsis Screen: Does the patient meet any 2 criteria? No. Patient's initial sepsis screen is negative. Does the patient have a suspected source of infection? No. Patient's initial sepsis screen is negative. Risk Assessment: Do you want to hurt yourself or someone else? Patient reports no desire to harm self or others. Onset of symptoms was June 29, 2024 at 03:00. 06:51 Method Of Arrival: Ambulatory br2 06:51 Acuity: TARIQ 3 br2 Triage Assessment: 06:53 General: Appears in no apparent distress. comfortable, Behavior is calm, cooperative. br2 Pain: Complains of pain in umbilical area Pain currently is 7 out of 10 on a pain scale. GI: Reports lower abdominal pain, diarrhea, nausea, vomiting. Historical: - Allergies: 06:53 Abernathy; br2 06:53 lettuce; br2 - PMHx: 06:53 angina pectoris; Anxiety; Depression; Hypertension; Kidney stones; Migraines; PCOS; br2 Sleep Apnea; - PSHx: 06:53 Appendectomy; kidney stone removal; wisdom teeth removal; br2 - Immunization history:: Adult Immunizations not up to date. - Infectious Disease History:: Denies. - Social history:: Smoking status: Patient/guardian denies using tobacco, Patient uses alcohol, occasionally. Patient/guardian denies using street drugs. Screenin:19 [facility] ED Fall Risk Assessment (Adult) History of falling in the last 3 months, ld1 including since admission No falls in past 3 months (0 pts) Confusion or Disorientation No (0 pts) Intoxicated or Sedated No (0 pts) Impaired Gait No (0 pts) Mobility Assist Device Used No (0 pt) Altered Elimination No (0 pt) Score/Fall Risk Level 0 - 2 = Low Risk Oriented to surroundings, Hourly rounding (assess needs \T\ fall precautionary measures) done. Abuse screen: Denies threats or abuse. Denies injuries from another. Nutritional screening: No deficits noted. Tuberculosis screening: No symptoms or risk factors identified. Assessment: 07:19 General: Appears in no apparent distress. comfortable, Behavior is calm, cooperative, ld1 appropriate for age. Pain: Complains of pain in umbilical area Pain does not radiate. Pain currently is 8 out of 10 on a pain scale. Quality of pain is described as throbbing, Pain began suddenly, Is continuous. Neuro: Level of Consciousness is awake, alert, obeys commands, Oriented to person, place, time, situation. Cardiovascular: Capillary refill < 3 seconds Patient's skin is warm and dry. Respiratory: Airway is patent Respiratory effort is even, unlabored. GI: Abdomen is round obese, Bowel sounds present X 4 quads. Abd is soft Abdomen is tender to palpation in umbilical area Reports lower abdominal pain, upper abdominal pain, nausea. : No signs and/or symptoms were reported regarding the genitourinary system. EENT: No signs and/or symptoms were reported regarding the EENT system. Derm: No signs and/or symptoms reported regarding the dermatologic system. Musculoskeletal: No signs and/or symptoms reported regarding the musculoskeletal system. 08:39 Reassessment: Patient appears in no apparent distress at this time. No changes from ld1 previously documented assessment. Patient and/or family updated on plan of care and expected duration. Pain level reassessed. Vital Signs: 06:51 BP 189 / 105; Pulse 70; Resp 20; Temp 97.7; Weight 145.15 kg; Height 5 ft. 7 in. ; Pain br2 7/10; 07:19 BP 174 / 78; Pulse 57; Resp 18; Pulse Ox 96% on R/A; Pain 8/10; ld1 08:11 BP 166 / 97; Pulse 61; Resp 18; Pulse Ox 97% on R/A; ph 08:39 BP 163 / 79; Pulse 66; Resp 18; Pulse Ox 98% on R/A; Pain 7/10; ld1 06:51 Body Mass Index 50.12 (145.15 kg, 170.18 cm) br2 06:51 Pain Scale: Adult br2 07:19 Pain Scale: Adult ld1 08:39 Pain Scale: Adult ld1 ED Course: 06:37 Patient arrived in ED. [id number] 06:53 Triage completed. br2 06:53 Arm band placed on. br2 06:55 Tess Dominguez, RN is Primary Nurse. [email or web address] 07:10 Ashley Crespo MD is Attending Physician. sp3 07:19 Patient has correct armband on for positive identification. Placed in gown. Bed in low ld1 position. Call light in reach. Side rails up X2. Pulse ox on. NIBP on. Door closed. Noise minimized. Warm blanket given. 07:19 UA W/ Microscopic Sent. ld1 07:19 Test, Urine Sent. ld1 07:19 No provider procedures requiring assistance completed. Inserted saline lock: 22 gauge ld1 in left antecubital area, using aseptic technique. Blood collected. Flushed with 10 mL NS. 07:21 Primary Nurse role handed off by Tess Dominguez RN ld1 07:21 Sara Bill RN is Primary Nurse. ld1 07:21 UA W/ Microscopic Sent. ld1 07:52 CT Abd/Pelvis - IV Contrast Only In Process Unspecified. EDMS 08:34 Homer Solis MD is Referral Physician. sp3 08:39 IV discontinued, intact, bleeding controlled, No redness/swelling at site. ld1 Administered Medications: 07:18 Drug: Ondansetron IVP 8 mg IVP once; over 2 minutes Route: IVP; Site: left antecubital; ld1 08:41 Follow up: Response: No adverse reaction; Nausea is decreased ld1 07:18 Drug: NS 0.9% IV 1000 ml IV at 1 bolus Per protocol; to be given as a bolus over 60 ld1 minutes Route: IV; Rate: 1 bolus; Site: left antecubital; 08:40 Follow up: Response: No adverse reaction; IV Status: Completed infusion; IV Intake: ld1 1000ml 08:10 Drug: Ondansetron IVP 4 mg IVP once; over 2 minutes Route: IVP; Site: right antecubital;ph 08:41 Follow up: Response: No adverse reaction ld1 Medication: 07:19 VIS not applicable for this client. ld1 Intake: 08:40 IV: 1000ml; Total: 1000ml. ld1 Outcome: 08:34 Discharge ordered by . sp3 08:39 Discharged to home ambulatory, ld1 08:39 Condition: stable 08:39 Discharge instructions given to patient, Instructed on discharge instructions, follow up and referral plans. Demonstrated understanding of instructions, follow-up care, 08:41 Patient left the ED. ld1 Signatures: Dispatcher [employer] EDSofia Sanchez RN RN [facility] CenterSara moses RN RN ld1 Ashley Crespo MD MD sp3 [place] [email or web address] Ava Romero RN RN br2 Tess Dominguez RN RN [id number] Corrections: (The following items were deleted from the chart) 06:56 06:51 Temp 97.7F; 145.15 kg; Height 5 ft. 7 in.; BMI: 50.1; Pain 08/18, Adult; br2 br2
--- NOTE | 2024-06-29 08:34 | EDPHYS ---
Physician Documentation [facility] Name: Shahnaz Nicole Age: 43 yrs Sex: Female : 1980 Arrival Date: 06/29/2024 Time: 06:36 Bed 6 Private MD: ED Physician Ashley Crespo HPI: 06/29 07:54 This 43 yrs old Female presents to ER via Ambulatory with complaints of Abdominal Pain. sp3 07:54 43-year-old female with history of kidney stones, PCOS, migraines, hypertension, sp3 anxiety now presents to ED with chief complaint periumbilical abdominal pain that started at 3 AM which woke her up from her sleep. She also endorses nausea and emesis x 1 without blood or mucus. She denies headache, fever, neck pain, chest pain, shortness of breath, diarrhea, back pain, dysuria, gross visualized hematuria, PAVING RAMMER symptoms, fever, trauma, or any other signs or symptoms on ROS at this time.. Historical: - Allergies: 06:53 Aurelia; br2 06:53 lettuce; br2 - PMHx: 06:53 angina pectoris; Anxiety; Depression; Hypertension; Kidney stones; Migraines; PCOS; br2 Sleep Apnea; - PSHx: 06:53 Appendectomy; kidney stone removal; wisdom teeth removal; br2 - Immunization history:: Adult Immunizations not up to date. - Infectious Disease History:: Denies. - Social history:: Smoking status: Patient/guardian denies using tobacco, Patient uses alcohol, occasionally. Patient/guardian denies using street drugs. ROS: 07:55 Constitutional: Negative for fever, chills, and weight loss, Eyes: Negative for injury, sp3 pain, redness, and discharge, ENT: Negative for injury, pain, and discharge, Neck: Negative for injury, pain, and swelling, Cardiovascular: Negative for chest pain, palpitations, and edema, Respiratory: Negative for shortness of breath, cough, wheezing, and pleuritic chest pain, Back: Negative for injury and pain, : Negative for injury, bleeding, discharge, and swelling, MS/Extremity: Negative for injury and deformity, Skin: Negative for injury, rash, and discoloration, Neuro: Negative for headache, weakness, numbness, tingling, and seizure, Psych: Negative for depression, anxiety, suicide ideation, homicidal ideation, and hallucinations, Allergy/Immunology: Negative for hives, rash, and allergies, Endocrine: Negative for neck swelling, polydipsia, polyuria, polyphagia, and marked weight changes, Hematologic/Lymphatic: Negative for swollen nodes, abnormal bleeding, and unusual bruising, 07:55 All other systems are negative, Exam: 07:55 Constitutional: This is a well developed, well nourished patient who is awake, alert, sp3 and in no acute distress. Head/Face: Normocephalic, atraumatic. Eyes: Pupils equal round and reactive to light, extra-ocular motions intact. Lids and lashes normal. Conjunctiva and sclera are non-icteric and not injected. Cornea within normal limits. Periorbital areas with no swelling, redness, or edema. ENT: Nares patent. No nasal discharge, no septal abnormalities noted. External auditory canals are clear. Oropharynx with no redness, swelling, or masses, exudates, or evidence of obstruction, uvula midline. Mucous membranes moist. Neck: Trachea midline, no thyromegaly or masses palpated, and no cervical lymphadenopathy. Supple, full range of motion without nuchal rigidity, or vertebral point tenderness. No Meningismus. Chest/axilla: Normal chest wall appearance and motion. Nontender with no deformity. No lesions are appreciated. Cardiovascular: Regular rate and rhythm with a normal S1 and S2. No gallops, murmurs, or rubs. Normal PMI, no JVD. No pulse deficits. Respiratory: Lungs have equal breath sounds bilaterally, clear to auscultation and percussion. No rales, rhonchi or wheezes noted. No increased work of breathing, no retractions or nasal flaring. Back: No spinal tenderness. No costovertebral tenderness. Full range of motion. Skin: Warm, dry with normal turgor. Normal color with no rashes, no lesions, and no evidence of cellulitis. MS/ Extremity: Pulses equal, no cyanosis. Neurovascular intact. Full, normal range of motion. Neuro: Awake and alert, GCS 15, oriented to person, place, time, and situation. Cranial nerves II-XII grossly intact. Motor strength 5/5 in all extremities. Sensory grossly intact. Cerebellar exam normal. Normal gait. Psych: Awake, alert, with orientation to person, place and time. Behavior, mood, and affect are within normal limits. 07:55 Abdomen/GI: Diffuse mild pain to palpation in the abdomen without peritoneal signs, rebound or guarding. Exam is limited by body habitus/obesity., Vital Signs: 06:51 BP 189 / 105; Pulse 70; Resp 20; Temp 97.7; Weight 145.15 kg; Height 5 ft. 7 in. ; Pain br2 7/10; 07:19 BP 174 / 78; Pulse 57; Resp 18; Pulse Ox 96% on R/A; Pain 8/10; ld1 08:11 BP 166 / 97; Pulse 61; Resp 18; Pulse Ox 97% on R/A; ph 08:39 BP 163 / 79; Pulse 66; Resp 18; Pulse Ox 98% on R/A; Pain 7/10; ld1 06:51 Body Mass Index 50.12 (145.15 kg, 170.18 cm) br2 06:51 Pain Scale: Adult br2 07:19 Pain Scale: Adult ld1 08:39 Pain Scale: Adult ld1 MDM: 07:11 Medical Screening Exam initiated sp3 07:55 Data reviewed: vital signs, nurses notes, old medical records, lab test result(s), sp3 radiologic studies. ED course: 43-year-old female with abdominal pain. Differential diagnosis includes idiopathic abdominal pain, functional abdominal pain, biliary pathology including cholecystitis, biliary colic, pancreatitis, gastritis, colitis, pathology including UTI/pyelonephritis spectrum, ureterolithiasis/kidney stone spectrum, PAVING RAMMER pathology and musculoskeletal pain. Workup will include CT scan of the abdomen pelvis, UA, general labs and supportive care as needed.. 08:33 ED course: Umbilical hernia noted with small amount of fat inflammation. All labs sp3 normal. Will 60 show patient home to general surgery follow-up as needed.. 06/29 06:46 Order name: CBC with Diff; Complete Time: 07:57 sp4 06/29 06:46 Order name: CMP; Complete Time: 07:57 sp4 06/29 06:46 Order name: Lipase; Complete Time: 07:57 sp4 06/29 06:46 Order name: Test, Urine; Complete Time: 07:57 sp4 06/29 06:47 Order name: UA W/ Microscopic; Complete Time: 07:57 sp4 06/29 07:12 Order name: CT Abd/Pelvis - IV Contrast Only; Complete Time: 08:30 sp3 06/29 06:46 Order name: IV Saline Lock; Complete Time: : sp4 06/29 06:46 Order name: Labs collected and sent; Complete Time: : sp4 Administered Medications: 07:18 Drug: Ondansetron IVP 8 mg IVP once; over 2 minutes Route: IVP; Site: left antecubital; ld1 08:41 Follow up: Response: No adverse reaction; Nausea is decreased ld1 07:18 Drug: NS 0.9% IV 1000 ml IV at 1 bolus Per protocol; to be given as a bolus over 60 ld1 minutes Route: IV; Rate: 1 bolus; Site: left antecubital; 08:40 Follow up: Response: No adverse reaction; IV Status: Completed infusion; IV Intake: ld1 1000ml 08:10 Drug: Ondansetron IVP 4 mg IVP once; over 2 minutes Route: IVP; Site: right antecubital;ph 08:41 Follow up: Response: No adverse reaction ld1 Disposition Summary: 06/29/24 08:34 Discharge Ordered Notes: Location: Home sp3 Condition: Stable sp3 Diagnosis - Umbilical hernia, abdominal pain sp3 Followup: sp3 - With: Homer Solis MD - When: Upon discharge from the Emergency Department - Reason: Continuance of care Discharge Instructions: - Discharge Summary Sheet sp3 - Umbilical Hernia, Adult sp3 Forms: - Medication Reconciliation Form sp3 - Antibiotic Education sp3 - Prescription Opioid Use sp3 - Patient Portal Instructions sp3 - Leadership Thank You Letter sp3 Signatures: Dispatcher [employer] Sofia Henry RN RN [facility] HospitalSara moses RN RN ld1 Ashley Crespo MD MD sp3 Inocente Kruse MD MD sp4 Ava Romero RN RN br2
[2024-06-29 08:48] VITALS: TEMP 97.7
[2024-06-29 08:52] VITALS: BP 163/79; O2SAT 98
== END 2024-06-29 08:41 | disposition home or self-care (01) ==
LOC: ER 06:36
DX: K42.9 Umbilical hernia without obstruction or gangrene (principal); Z87.442 Personal history of urinary calculi
CPT/HCPCS: 36415; 74177; 80053; 81001; 81025; 83690; 85025; J2405; J7030; Q9967